=== PATIENT | male | born 1970 | race Caucasian/White ===

== ENCOUNTER → 2018-04-15 07:18 | Outpatient (REF) | payer MEDICARE, MEDICAID, SELFPAY ==
[2018-04-15 08:14] LABS: Add Manual Diff / Slide Review NO; Basophils Percent Auto 0.3 % (0-2); Eosinophils Percent Auto 1.7 % (2-4); Hematocrit 45.4 % (41-53); Hemoglobin 15.8 g/dL (13.5-17.5); Lymphocytes Percent Auto 19.4 % (25-40); Mean Corpuscular HGB Conc 34.7 % (30-36); Mean Corpuscular Hemoglobin 29.5 PG (26-34); Mean Corpuscular Volume 84.9 fL (80-100); Monocytes Percent Auto 7.5 % (3-14); Neutrophils Absolute Auto 7200 /uL (3000-5900); Neutrophils Percent Auto 71.1 % (50-75); Platelet Count 226 X10^3/uL (150-400); Red Blood Cell Count 5.35 X10^6/uL (4.5-5.9); Red Cell Distribution Width 13.7 % (11.6-14.8); White Blood Cell Count 10.2 X10^3/uL (4.5-11.0)
[2018-04-15 08:36] LABS: BUN Creatinine Ratio 24.3 (6-22); Blood Urea Nitrogen 17 mg/dL (9-20); Calcium 8.9 mg/dL (8.4-10.2); Carbon Dioxide 28 mmol/L (22-32); Chloride 105 mmol/L (98-107); Estimated Glomerular Filt Rate > 60.0 mL/min (>60); Glucose 97 mg/dL (70-100); HEMOLYSIS < 15 (0-50); Potassium 4.1 mmol/L (3.4-5.1); Sodium 143 mmol/L (137-145)
[2018-04-15 09:00] LABS: Thyroid Stimulating Hormone 1.73 uIU/mL (0.47-4.68)
[2018-04-15 09:04] LABS: Vitamin D 25 Hydroxy (D3) 43.1 ng/mL (30.0-100.0)
[2018-04-15 09:18] LABS: Vitamin B12 447 pg/mL (239-931)
== END ==
LOC: LAB 07:18
PROVIDERS: Family Provider Internal Medicine; PCP Internal Medicine; Visit Provider Nurse Practitioner Family
DX: F32.9 Major depressive disorder, single episode, unspecified (principal)
CPT/HCPCS: 36415; 80048; 82306; 82607; 84443; 85025

== ENCOUNTER 2018-06-19 05:39 | Inpatient (IN) | payer MEDICARE, MEDICAID, SELFPAY ==
[2018-06-19] VITALS (10 sets, daily range): BP systolic 106–150; BP diastolic 51–91; PULSE 95–122; RESP 17–20; TEMP 36.2–37.9; O2SAT 93–97; BMI 41.5
--- NOTE | 2018-06-19 05:48 | ED.GENADULT ---
HPI - General Adult General Chief complaint: Fall Stated complaint: GLF, leg pain Time Seen by Provider: 06/19/18 05:48 Source: patient and EMS Mode of arrival: EMS Limitations: no limitations History of Present Illness HPI narrative: Patient is a 47-year-old male with a history of multiple sclerosis. At baseline he walks with a walker. EMS was called this morning because he states that he got out of bed and slumped to the ground. Was unable to get up. He states that for the past week or so he has notices lower extremities becoming more weak. He states that he has had this happen to him in the past. He states that it lasts for couple days and then improves. States it has been ?a while? since his last MRI. Does not know the name of his neurologist. Does not know the name of his primary care doctor. Related Data Allergies Allergy/AdvReac Type Severity Reaction Status Date / Time No Known Drug Allergies Allergy Verified 06/19/18 05:51 Review of Systems Constitutional Denies fever(s) and Denies headache(s) ENT Ears, Nose, Mouth, and Throat: Denies vertigo, Denies dizziness, Denies headache(s), Denies disequilibrium, Reports sinus pressure and Reports sore throat Cardiovascular Denies chest pain, Denies palpitations and Denies dyspnea Respiratory Denies dyspnea and Denies wheezing Gastrointestinal Gastrointestinal: Denies abdominal pain, Denies nausea and Denies vomiting Genitourinary Denies dysuria Musculoskeletal Denies myalgias, Denies arthralgias, Reports muscle weakness, Denies numbness and Reports stiffness Integumentary/Breasts Denies lesions and Denies rash Neurologic Denies vertigo, Denies dizziness, Denies headache(s), Reports lack of coordination, Denies numbness and Denies disequilibrium Endocrine Denies palpitations Hematologic/Lymphatic Comments: Not on anticoagulation Allergic/Immunologic Denies wheezing PFSH Medical History Multiple sclerosis (Acute) Surgical History No pertinent past surgical history (Acute) Social History lives independently: No Smoking Status: Never smoker Exam Initial Vital Signs Initial Vital Signs: Vital Signs Temperature 99.6 F 06/19/18 05:49 Pulse Rate 122 H 06/19/18 05:49 Respiratory Rate 18 06/19/18 05:49 Blood Pressure 143/91 H 06/19/18 05:49 Pulse Oximetry 97 06/19/18 05:49 Const General: cooperative, comfortable, well developed, well groomed and No acute distress Orientation: alert, awake and oriented x3 HENMT Head: normal to inspection and normocephalic Resp Effort & Inspection: normal respiratory effort Auscultation: clear to auscultation bilaterally Cardio Rate: tachycardic Rhythm: regular rhythm Pulses: radial pulses present GI Inspection: non-distended Palpation: soft and No tender Skin Rashes: no rashes Neuro General: alert, awake and oriented x3 Cranial Nerves: CN's II-XI intact bilaterally Cognition: normal cognition Sensory Exam: no sensory deficits noted Other: 1/5 strength bilateral lower extremities. Patient unable to lift both legs up off the bed. 5/5 strength bilateral upper extremity Extrem General: capillary refill normal Psych Appearance: grossly normal and well kempt Course Orders Ordered: ED Orders 06/19/18 05:54 EKG-12 Lead Stat 06/19/18 06:10 Procalcitonin Stat 06/19/18 06:28 Basic Metabolic Panel Stat Blood Culture Stat C-Reactive Protein Quant Stat Complete Blood Count AUTO DIFF Stat Erythrocyte Sedimentation Rate Stat Influenza A and B by PCR Rapid Stat Lactate (Lactic Acid) Stat 06/19/18 06:35 XR chest 1V Stat Sodium Chloride (Normal Saline 0.9%) 4,286.46 mls @ 1,428.82 mls/hr 30 ml/kg infuse over 3 hr (4286.46 ml) IV CONT ROBERTO Discontinued Medications Azithromycin (Zithromax) 500 mg PO NOW ONE Stop: 06/19/18 06:45 Last Admin: 06/19/18 06:57 Dose: 500 mg Methylprednisolone 1,000 mg/ (Sodium Chloride) 258 mls @ 258 mls/hr IV NOW ONE Stop: 06/19/18 05:57 Sodium Chloride (Normal Saline 0.9%) 1,000 mls @ 150 mls/hr IV CONT ROBERTO Last Admin: 06/19/18 06:42 Dose: 150 mls/hr Vital Signs - 8 hr 06/19/18 05:49 06/19/18 06:45 Temperature 99.6 F 100.3 F H Pulse Rate 122 H 118 H Respiratory Rate 18 17 Blood Pressure 143/91 H Blood Pressure [Right Arm] 132/86 Pulse Oximetry 97 94 Medical Decision Making Lab Data Lab results reviewed: Yes I reviewed the patient's lab results. Result diagrams: 06/19/18 06:28 06/19/18 06:28 Lab Results 06/19/18 06/19/18 06/19/18 Range/Units 06:10 06:28 06:28 WBC 19.9 H (4.5-11.0) X10^3/uL RBC 5.69 (4.5-5.9) X10^6/uL Hgb 16.5 (13.5-17.5) g/dL Hct 48.1 (41-53) % MCV 84.7 (80-100) fL MCH 29.1 (26-34) PG MCHC 34.3 (30-36) % RDW 13.6 (11.6-14.8) % Plt Count 226 (150-400) X10^3/uL Neut % (Auto) 87.6 H (50-75) % Lymph % (Auto) 6.9 L (25-40) % [place] % (Auto) 4.9 (3-14) % Eos % (Auto) 0.3 L (2-4) % Baso % (Auto) 0.3 (0-2) % Neut # (Auto) 38244 H (0695-6131) /uL ESR (0-15) MM/HR Sodium 141 (137-145) mmol/L Potassium 4.0 (3.4-5.1) mmol/L Chloride 102 (98-107) mmol/L Carbon Dioxide 24 (22-32) mmol/L BUN 19 (9-20) mg/dL Creatinine 0.80 (0.66-1.25) mg/dL Estimated GFR > 60.0 (>60) mL/min BUN/Creatinine Ratio 23.8 H (6-22) Glucose 151 H (70-100) mg/dL Lactate (0.7-2.1) mmol/L Calcium 9.1 (8.4-10.2) mg/dL C-Reactive Protein (<1.0) mg/dL Procalcitonin 0.07 (<0.5) ng/mL Influenza A & B (PCR) (Negative) 06/19/18 06/19/18 06/19/18 Range/Units 06:28 06:28 06:28 WBC (4.5-11.0) X10^3/uL RBC (4.5-5.9) X10^6/uL Hgb (13.5-17.5) g/dL Hct (41-53) % MCV (80-100) fL MCH (26-34) PG MCHC (30-36) % RDW (11.6-14.8) % Plt Count (150-400) X10^3/uL Neut % (Auto) (50-75) % Lymph % (Auto) (25-40) % [place] % (Auto) (3-14) % Eos % (Auto) (2-4) % Baso % (Auto) (0-2) % Neut # (Auto) (4345-5547) /uL ESR 1 (0-15) MM/HR Sodium (137-145) mmol/L Potassium (3.4-5.1) mmol/L Chloride (98-107) mmol/L Carbon Dioxide (22-32) mmol/L BUN (9-20) mg/dL Creatinine (0.66-1.25) mg/dL Estimated GFR (>60) mL/min BUN/Creatinine Ratio (6-22) Glucose (70-100) mg/dL Lactate 2.0 (0.7-2.1) mmol/L Calcium (8.4-10.2) mg/dL C-Reactive Protein 3.7 H (<1.0) mg/dL Procalcitonin (<0.5) ng/mL Influenza A & B (PCR) (Negative) 06/19/18 Range/Units 06:28 WBC (4.5-11.0) X10^3/uL RBC (4.5-5.9) X10^6/uL Hgb (13.5-17.5) g/dL Hct (41-53) % MCV (80-100) fL MCH (26-34) PG MCHC (30-36) % RDW (11.6-14.8) % Plt Count (150-400) X10^3/uL Neut % (Auto) (50-75) % Lymph % (Auto) (25-40) % [place] % (Auto) (3-14) % Eos % (Auto) (2-4) % Baso % (Auto) (0-2) % Neut # (Auto) (4721-1648) /uL ESR (0-15) MM/HR Sodium (137-145) mmol/L Potassium (3.4-5.1) mmol/L Chloride (98-107) mmol/L Carbon Dioxide (22-32) mmol/L BUN (9-20) mg/dL Creatinine (0.66-1.25) mg/dL Estimated GFR (>60) mL/min BUN/Creatinine Ratio (6-22) Glucose (70-100) mg/dL Lactate (0.7-2.1) mmol/L Calcium (8.4-10.2) mg/dL C-Reactive Protein (<1.0) mg/dL Procalcitonin (<0.5) ng/mL Influenza A & B (PCR) Negative (Negative) Imaging Data Chest x-ray: Attestation: I personally reviewed and interpreted this imaging study as follows: My impression: Bilateral patchy infiltrates. Potential right middle lobe pneumonia. ECG Data Attestation: I personally reviewed and interpreted this ECG as follows: Prior ECG tracings: not available for review Interpretation: Sinus tachycardia Ventricular rate of 123 Normal axis Normal QRS Normal QTC No ST T wave changes MDM Narrative Medical decision making narrative: Patient reports progressive worsening lower extremity weakness over the past couple days and to the point where he was unable to stand this morning. He states that he has had something like this in the past. He states that normally last couple days and then improves. He does not know when his last MRI was. He has does describe upper respiratory tract infection like symptoms. He was tachycardic but when asked he states that his heart rate is normally ?up there ?patient was given steroids here in the emergency department. Patient was never hypotensive. Does have a leukocytosis. Has bilateral patchy infiltrates on the chest x-ray. There is some concern for pneumonia. Discussed the case with night hospitalist. Will admit for further evaluation and treatment. Discussed admission with the patient. He expressed understanding and agreement. Discharge Plan Departure Patient Disposition: Admitted As Inpatient Clinical Impression: Multiple sclerosis, Tachycardia, Pneumonia
[2018-06-19 06:31] LABS: Add Manual Diff / Slide Review NO; Basophils Percent Auto 0.3 % (0-2); Eosinophils Percent Auto 0.3 % (2-4); Hematocrit 48.1 % (41-53); Hemoglobin 16.5 g/dL (13.5-17.5); Lymphocytes Percent Auto 6.9 % (25-40); Mean Corpuscular HGB Conc 34.3 % (30-36); Mean Corpuscular Hemoglobin 29.1 PG (26-34); Mean Corpuscular Volume 84.7 fL (80-100); Monocytes Percent Auto 4.9 % (3-14); Neutrophils Absolute Auto 17500 /uL (1500-7000); Neutrophils Percent Auto 87.6 % (50-75); Platelet Count 226 X10^3/uL (150-400); Red Blood Cell Count 5.69 X10^6/uL (4.5-5.9); Red Cell Distribution Width 13.6 % (11.6-14.8); White Blood Cell Count 19.9 X10^3/uL (4.5-11.0)
--- NOTE | 2018-06-19 06:35 | DI.RAD.S_ITS ---
PROCEDURE: XR CHEST 1V INDICATIONS: Cough TECHNIQUE: One view of the chest was acquired. COMPARISON: [facility], CR, XR CHEST 1VW (PORTABLE), 05/16/2016, 11:32. FINDINGS: Surgical changes and devices: None. Lungs and pleura: There is an overall appearance of patchy bilateral pulmonary opacities with increased vascularity. Mediastinum: Mediastinal contours appear normal. Heart size is normal. Bones and chest wall: No suspicious bony lesions. Overlying soft tissues appear unremarkable. IMPRESSION: Bilateral pulmonary opacities suggestive of pneumonia. Increased appearance of pulmonary vascularity is also present. Recommend interval followup to document resolution. Dictated by: Taisha Macedo M.D. on 06/19/2018 at 8:19 Approved by: Taisha Macedo M.D. on 06/19/2018 at 8:20
[2018-06-19] MEDS: SODIUM CHLORIDE 0.9% 1,000 ML 150 ML IV (06:42)
[2018-06-19 06:47] LABS: Influenza A and B by PCR Rapid Negative (Negative)
[2018-06-19 06:57] LABS: BUN Creatinine Ratio 23.8 (6-22); Blood Urea Nitrogen 19 mg/dL (9-20); Calcium 9.1 mg/dL (8.4-10.2); Carbon Dioxide 24 mmol/L (22-32); Chloride 102 mmol/L (98-107); Estimated Glomerular Filt Rate > 60.0 mL/min (>60); Glucose 151 mg/dL (70-100); HEMOLYSIS < 15 (0-50); Sodium 141 mmol/L (137-145)
[2018-06-19] MEDS: AZITHROMYCIN 250 MG TABLET 500 MG PO (06:57)
[2018-06-19 07:00] LABS: C-Reactive Protein Quant 3.7 mg/dL (<1.0)
[2018-06-19 07:18] LABS: Erythrocyte Sedimentation Rate 1 MM/HR (0-15)
[2018-06-19 07:20] LABS: Procalcitonin 0.07 ng/mL (<0.5)
[2018-06-19] MEDS: SODIUM CHLORIDE 0.9% 1428.82 ML IV (07:48)
[2018-06-19] MEDS: methylPREDNISolone 1,000 MG in SODIUM CHLORIDE 0.9% 250 ML 258 ML IV (08:00)
--- NOTE | 2018-06-19 08:22 | PC.NURSE ---
normal saline sepsis protocol iv fluids were continuing upon transfer to floor. there is no place on the flowsheet to pause. BRYSON Chan aware and will put in iv stop time when appopriate later today.
--- NOTE | 2018-06-19 08:50 | PM.HP.1 ---
History of Present Illness Date Patient Seen: 06/19/18 Time Patient Seen: 07:00 Chief complaint: GLF, leg pain Narrative: This is a 47 year old male with a history of multiple sclerosis who presents to the emergency department after developing progressive weakness in his lower extremities to the extent that he could not stand up today. The patient has had prior flares and describes this as a typical presentation. He reports no other prodromal symptoms. He has had no illness or stessors. He lives at the [facility] and typically ambulates with a walker but cannot lift his leg off the bed. He states he has no other complaints of upper extremity weakness or prathesias. He reports no issures with bowel or bladder control. He takes no routine medications. In the ED the patient received his first dose of methylprednisolone 1000 mg. Patient History Medical History Multiple sclerosis (Acute) Surgical History No pertinent past surgical history (Acute) Family & Social History Social History: lives independently No Tobacco & Substance use: Smoking Status Never smoker alcohol intake frequency 0-2 drinks per day Substance Use Type does not use Meds Allergies Allergy/AdvReac Type Severity Reaction Status Date / Time No Known Drug Allergies Allergy Verified 06/19/18 05:51 Review of Systems Constitutional Constitutional: Denies body ache(s), Denies chills, Denies fatigue, Denies fever(s), Denies headache(s) and Reports weakness Eyes Eyes: Denies change in vision and Denies double vision ENT Ears, Nose, Mouth, and Throat: No difficulty swallowing, No dizziness, No headache(s), No hearing loss, No nasal congestion, No neck pain and No poor balance (ambulates with a walker) Cardiovascular Cardiovascular: Denies chest pain, Denies fainting, Denies leg swelling, Denies rapid, pounding, or irregular heartbeat and Denies shortness of breath Respiratory Respiratory: Denies cough, Denies pain with cough, Denies dyspnea, Denies wheezing and Reports other Gastrointestinal Gastrointestinal: Denies abdominal pain, Denies bloating, Denies change in bowel habits, Denies change in stool character, Denies constipation, Denies cramping and Denies dysphagia Genitourinary Genitourinary: Reports difficulty urinating and Reports urinary frequency Musculoskeletal Musculoskeletal: Reports abnormal gait (bilateral leg weakness, L>R), Denies back pain, Denies myalgias, Denies arthralgias, Denies joint swelling, Denies neck pain, Denies numbness and Denies tingling Neurologic Neurologic: Reports abnormal gait (bilateral leg weakness, L>R), Denies confusion, Denies dizziness, Denies syncope, Denies headache(s), Denies numbness, Denies tingling, Denies disequilibrium (ambulates with a walker) and Reports weakness Psychiatric Psychiatric: Denies anxiety, Denies confusion, Denies depression, Denies difficulty concentrating and Denies panic attacks Endocrine Endocrine: Denies cold intolerance, Denies fatigue, Denies heat intolerance, Denies polyphagia, Denies polydipsia, Denies polyuria and Denies palpitations Hematologic/Lymphatic Hematologic/Lymphatic: Denies easy bleeding and Denies lymphadenopathy Allergic/Immunologic Allergic/Immunologic: Denies wheezing Exam Vital Signs (past 8 hours): - 06/19/18 05:49 06/19/18 06:45 06/19/18 08:07 Temperature 99.6 F 100.3 F H 99.4 F Pulse Rate 122 H 118 H 111 H Respiratory Rate 18 17 18 Blood Pressure 143/91 H Blood Pressure [Left Arm] 126/80 Blood Pressure [Right Arm] 132/86 Pulse Oximetry 97 94 95 Oxygen Delivery Method Room Air Const General: cooperative, comfortable and No acute distress Nutritional Appearance: obese (BMI 41.6) Orientation: alert, awake and oriented x3 Limitations: no behavioral limitations, physical limitations (in mobility, self care deficit) and no other limitations [facility] Head: normocephalic and atraumatic Ears: hearing grossly normal bilaterally Nose: external nose normal and No nasal discharge Face and sinus: normal facial exam and sinuses nontender Mouth: oral mucosae normal and tongue normal Throat: posterior oropharynx normal and uvula midline Eyes Conjunctivae: conjunctivae normal Pupils: PERRL EOM: EOM intact bilaterally and No nystagmus Neck Neck: full ROM, no meningeal signs, trachea midline and No tender Thyroid: thyroid normal Lymphatic: No lymphadenopathy Chest Chest: normal palpation of entire chest wall, No crepitus and No tenderness Resp Effort & Inspection: no cough and not labored Auscultation: clear to auscultation bilaterally, rhonchi (coarseness right middle lobe) and no wheezes Cardio Rate: regular rate Rhythm: regular rhythm Heart Sounds: S1 normal, S2 normal, no gallops, no murmurs and no rubs Bruits: no carotid bruits Pulses: normal peripheral pulses GI Inspection: other (Obese, round) Palpation: soft and No no hepatosplenomegaly (exam limited by body habitis) Percussion: dullness to percussion Auscultation: normal bowel sounds General: bladder normal to palpation and No CVA tenderness Back/Spine/Pelvis Back: No back tenderness Skin General: no rashes or lesions noted, No ecchymosis and No erythema Neuro Cranial Nerves: No nystagmus Speech: speech normal Motor: movement abnormality noted (strength right leg 3/5, on left 2/5) Sensory Exam: no sensory deficits noted DTR's: Rt Patellar: 0, Lt Patellar: 0, Rt Ankle: 0 and Lt Ankle: 0 Plantar Reflexes: Downgoing: bilateral Pupils: Normal pupillary reactivity/response: bilateral and Mid position: bilateral Extrem General: normal to inspection, capillary refill normal, no calf tenderness and No pedal edema Psych Mental Status: mental status grossly normal Attitude: cooperative Thought Process: other (linear) Thought Content: normal Objective Labs Result Diagrams: 06/19/18 06:28 06/19/18 06:28 Labs: Laboratory Results - last 24 hr 06/19/18 06/19/18 06/19/18 06:10 06:28 06:28 WBC 19.9 H RBC 5.69 Hgb 16.5 Hct 48.1 MCV 84.7 MCH 29.1 MCHC 34.3 RDW 13.6 Plt Count 226 Neut % (Auto) 87.6 H Lymph % (Auto) 6.9 L [place] % (Auto) 4.9 Eos % (Auto) 0.3 L Baso % (Auto) 0.3 Neut # (Auto) 44989 H ESR Sodium 141 Potassium 4.0 Chloride 102 Carbon Dioxide 24 BUN 19 Creatinine 0.80 Estimated GFR > 60.0 BUN/Creatinine Ratio 23.8 H Glucose 151 H Lactate Calcium 9.1 C-Reactive Protein Procalcitonin 0.07 Influenza A & B (PCR) 06/19/18 06/19/18 06/19/18 06:28 06:28 06:28 WBC RBC Hgb Hct MCV MCH MCHC RDW Plt Count Neut % (Auto) Lymph % (Auto) [place] % (Auto) Eos % (Auto) Baso % (Auto) Neut # (Auto) ESR 1 Sodium Potassium Chloride Carbon Dioxide BUN Creatinine Estimated GFR BUN/Creatinine Ratio Glucose Lactate 2.0 Calcium C-Reactive Protein 3.7 H Procalcitonin Influenza A & B (PCR) 06/19/18 06:28 WBC RBC Hgb Hct MCV MCH MCHC RDW Plt Count Neut % (Auto) Lymph % (Auto) [place] % (Auto) Eos % (Auto) Baso % (Auto) Neut # (Auto) ESR Sodium Potassium Chloride Carbon Dioxide BUN Creatinine Estimated GFR BUN/Creatinine Ratio Glucose Lactate Calcium C-Reactive Protein Procalcitonin Influenza A & B (PCR) Negative Assessment & Plan Plan: Assessment/Plan Narrative: 1. Multiple sclerosis The patient reports that this is a typical MS flare for him Will continue methylprednisolone 1000 mg daily for 5 days We will monitor blood sugars via daily labs 2. Community acquired pneumonia The patient has a low grade fever and leukocytosis but a negative procalcitionin Chest xray reveals pulmonary infiltrates in the right lung, with coarseness on auscultation The patient is started on azithromycin in the ER and will continue with 250 mg once daily The patients vitals are otherwise stable and does not appear to be septic, IV fluids are discontinued. 3. Urinary retention The patient is unable to void laying down, he states he has to stand to urinate but cannot due to leg weakness [place] catheter is ordered.
[2018-06-19] MEDS: DOCUSATE 100 MG CAPSULE PO (11:19)
[2018-06-19] MEDS: ENOXAPARIN 40 MG/0.4 ML SYRINGE SUBCUT (11:19)
[2018-06-19 11:28] LABS: Add Manual Diff / Slide Review NO; Basophils Percent Auto 0.1 % (0-2); Hematocrit 47.5 % (41-53); Lymphocytes Percent Auto 3.9 % (25-40); Mean Corpuscular HGB Conc 33.7 % (30-36); Monocytes Percent Auto 0.6 % (3-14); Neutrophils Absolute Auto 18800 /uL (1500-7000); Neutrophils Percent Auto 95.4 % (50-75); Platelet Count 218 X10^3/uL (150-400); Red Blood Cell Count 5.53 X10^6/uL (4.5-5.9); Red Cell Distribution Width 13.7 % (11.6-14.8); White Blood Cell Count 19.7 X10^3/uL (4.5-11.0)
[2018-06-19 11:38] LABS: BUN Creatinine Ratio 16.7 (6-22); Blood Urea Nitrogen 15 mg/dL (9-20); Calcium 8.9 mg/dL (8.4-10.2); Carbon Dioxide 25 mmol/L (22-32); Chloride 105 mmol/L (98-107); Estimated Glomerular Filt Rate > 60.0 mL/min (>60); Glucose 231 mg/dL (70-100); HEMOLYSIS < 15 (0-50); Potassium 4.1 mmol/L (3.4-5.1); Sodium 143 mmol/L (137-145)
--- NOTE | 2018-06-19 14:16 | PC.ADMIT ---
PATIENT ADMITTED TO 214 THIS AM. IVF BOLUS' PER ER ORDERS INFUSING, RESUMED IV PIGGYBACK SOLUMEDROL ORDERED AND STARTED IN ER. PATIENT UNCOMFORTABLE W/ URGE TO VOID. ONLY VOIDED 50CC'S. BLADDER SCANNED SHOWED 600CC'S. COUDE 14F WILDER PLACED W/ RETURN OF CLEAR LIGHT WILFREDO URINE 1400 CC'S. PER CIRCUIT RECORDER IVF STOPPED AFTER TOTAL OF 2000CC'S INFUSED PER ER BOLUS ORDERS. PATIENT NOW SL'D PER CIRCUIT RECORDER ORDER. PATIENT SLEEPING, NO S/SX'S OF DISTRESS AT THIS TIME. [id number] [facility] Admission Note: The patient,Ranjan Kemp,47 y/o, was given written information regarding hospital policies, unit procedures and contact persons. Patient's smoking status: Former smoker. Vital Signs - 8 hr 06/19/18 06:45 06/19/18 08:07 06/19/18 09:04 Temperature 100.3 F H 99.4 F 98.7 F Pulse Rate 118 H 111 H 104 H Respiratory Rate 17 18 18 Blood Pressure 106/51 L Blood Pressure [Left Arm] 126/80 Blood Pressure [Right Arm] 132/86 Pulse Oximetry 94 95 96
--- NOTE | 2018-06-19 14:45 | PT.IIE ---
Current Diagnoses Multiple sclerosis (06/19/18) Surgical History (Last Updated 06/19/18 @ 06:36 by Georgi Gupta DO) No pertinent past surgical history (Acute) Medical History (Last Updated 06/19/18 @ 10:47 by Tereza Corea RN) Bladder disorder, unspecified (Acute) Gastro-esophageal reflux disease without esophagitis (Acute) Major depressive disorder with single episode (Acute) Obesity (Acute) Retention of urine, unspecified (Acute) Syncope and collapse (Acute) Vitamin D deficiency, unspecified (Acute) Multiple sclerosis (Acute) Physical Therapy Inpatient Evaluation/Re-Eval M1 PT/OT-IP Prior Functional Status Start: 06/19/18 16:27 Freq: NEEDED Status: Active Protocol: Document 06/19/18 16:29 [facility] (Rec: 06/19/18 17:15 [facility] [id number]) Medical Review Prior Functional Status Medical History Reviewed Yes Communication Independent, staff at [facility] needs lots of cues and at time confused. Mobility and Gait Staff at [facility] pt will transfer with FWW to 50% of the time and with no device 50% of the time. Polly, staff at [facility] [place] pt was SBA and only needing cues for FWW safety one month ago, but has not seen or heard of him having any assist otherwise since then. Activities of Daily Living and IADL's Staff states pt just able to do UB dressing , but otherwise needing one person assist for all LB dressing , shower, and toileting needs. Prior Functional Level (Other details) Staff states pt mainly just sits up in his recliner for most of the day. Social History Living Arrangements Assisted Living Number of Floors (Floors) One Floor Home Equipment Front Wheel Walker Manual Wheelchair M1 PT/OT-IP Prior Functional Status Start: 06/19/18 17:01 Freq: NEEDED Status: Active Protocol: Document 06/19/18 14:45 AB (Rec: 06/19/18 17:24 AB [id number]) Medical Review Prior Functional Status Medical History Reviewed Yes Communication with confusion Mobility and Gait per [facility]: pt requires one person SBA with transfers and was only needing cues. stated that pt usually uses his recliner. for toileting: caregiver assists pt in using a FWW to ambulate to the toilet but at time transfers on to a w/c and transfers from the w/c to the toilet. per nurse at [facility]: pt' s toilet is ~ 10 ft away from the bed Social History Household Members caregiver Living Arrangements Assisted Living Number of Stairs To Enter/Railing? pt lives at [facility] Home Equipment Front Wheel Walker Manual Wheelchair Additional Social History Comment hospital bed without rails M2 PT-IP Current Condition Start: 06/19/18 17:01 Freq: NEEDED Status: Active Protocol: Document 06/19/18 14:45 AB (Rec: 06/19/18 17:24 AB [id number]) Physical Therapy Current Condition Current Condition Evaluation Date 06/19/18 Treatment Diagnosis MS; PNA; generalized weakness Onset Date 06/19/18 Precautions Other Precautions Falls M3 PT-IP Subjective Start: 06/19/18 17:01 Freq: NEEDED Status: Active Protocol: Document 06/19/18 14:45 AB (Rec: 06/19/18 17:24 AB [id number]) Subjective Physical Therapy Visit Type Type Initial Evaluation Visit Start Time 14:45 Visit Stop Time 15:20 Total Visit Minutes 35 Number of CHEMIST Visits 0 Physical Therapy Visit Comments Patient Comments pt agreeable to get up Therapy Pain Assessment Pain Present Pain Present Denied Pain M4 PT-IP Mobility and Gait Start: 06/19/18 17:01 Freq: NEEDED Status: Active Protocol: Document 06/19/18 14:45 AB (Rec: 06/19/18 17:24 AB [id number]) PT-Bed Mobility Assessment Supine to Sit Supine to Sit Minimal Assistance Head of Bed Elevated Bedrails Scooting Scooting to Edge of Bed Standby Assistance PT-Transfer Assessment Sit to and From Stand Sit to and from Stand Maximum Assistance Equipment Transfer Assistive Device Gait Belt Front Wheeled Walker Orthotic/Prosthetic Devices or Brace: No Transfers Transfer Destination Chair Transfer Technique Stand Step Pivot Transfer Ability Level of Assist Maximum Assistance 2 Person Assistance Use of Upper Extremities Comments Mobility Comments pt requires max cues for all tasks. pt required max A x 2 for sit to stand and presents with unsteadiness with standing with (+) UE shaking/tremors. able to stand pivot to the chair using FWW max A x 2 and max cues and presents with (+) R knee hyperextension. Gait Assessment Gait Gait Assistance Required: Maximum Assistance 2 Person Assist Distance (Feet) 6 Able to Maintain Weight Bearing Status Yes During Gait Assistive Devices Assistive Device Gait Belt Front Wheeled Walker Orthotic/Prosthetic Devices or Brace: No Gait Deviations General Gait Pattern Antalgic Decreased Stride Length Decreased Feet Clearance Factors Limiting Gait Function Factors Limiting Gait Function Decreased Activity Tolerance Decreased Strength Difficulty Following Directions Poor Balance Poor Safety Awareness Comments Gait Comments needs chair follow PT-Balance Assessment Sitting Balance and Reactions Static Sitting Balance Ability Good Dynamic Sitting Balance Ability Good Standing Balance and Reactions Static Standing Balance Ability Poor Dynamic Standing Balance Ability Poor Device Used FWW M5 PT-IP Objective Assessments Start: 06/19/18 17:01 Freq: NEEDED Status: Active Protocol: Document 06/19/18 14:45 AB (Rec: 06/19/18 17:24 AB [id number]) Orientation Orientation/Cognition Level of Alertness Confusional State Orientation Name Safety Awareness Decreased Safety Awareness Memory Description Short Term Impaired [facility] Impaired Comments pt does not remember where he lives and PLOF; unable to state where he is at and requires constant cues for all tasks Gross Range of Motion Lower Extremity ROM Assessment Within Functional Limits Strength Lower Extremity Strength Assessment Bilaterally Impaired Comments Strength Comments LLE weaker than RLE LLE: 3+/5 RLE: 4-/5 M6 PT-IP Treatment Start: 06/19/18 17:01 Freq: NEEDED Status: Active Protocol: Document 06/19/18 14:45 AB (Rec: 06/19/18 17:24 AB [id number]) Physical Therapy Treatment Education Education Provided Safety M7 PT-IP Assessment and Plan Start: 06/19/18 17:01 Freq: NEEDED Status: Active Protocol: Document 06/19/18 14:45 AB (Rec: 06/19/18 17:24 AB [id number]) PT Summary Assessment and Plan Potential Rehabilitation Potential Fair Status of Condition at Evaluation Evolving Summary Impairments Strength Balance Coordination Cognition Bed Mobility Transfers Gait Activity Tolerance Assessment Summary pt requiring 2 person assist with mobility at this time. d /c plan depending on progress but may require SNF rehab at this time to improve strength and mobility prior to going back to [facility]. Goals Bed Mobility Goal Contact Guard Assistance Transfer Goal Contact Guard Assistance Front Wheeled Walker Gait Goal Contact Guard Assistance Front Wheel Walker Gait Distance 10 Days to Meet Goals 5 Frequency of Treatment Frequency Of Treatment Once a Day Treatment Plan Physical Therapy Treatment Plan Bed Mobility Training Transfer Training Gait Training Therapeutic Exercise Balance Retraining Discharge Planning Hot or Cold Pack Neuromuscular Re-ed Coordination Retraining Manual Therapy Other Recommendations and Next Treatment sit<>stand, transfers, Focus ambulation Recommendations To Nursing Amount of Assist Needed 2 Person Assist Discharge Recommendations PT Discharge Recommendations Home with 24/7 Assist SNF Rehab Other Discharge Recommendations SNF vs home with 24/7 depending on level of assistance upon d/c
[2018-06-19] MEDS: BACLOFEN 10 MG TABLET 20 MG PO ×2 (16:50→20:41)
[2018-06-19] MEDS: INSULIN ASPART 100 UNIT/ML INSULN PEN SUBCUT ×2 (17:06→20:39)
--- NOTE | 2018-06-19 17:15 | OT.IP.EVAL ---
Current Diagnoses Multiple sclerosis (06/19/18) Past Medical History (Last Updated 06/19/18 @ 10:47 by Tereza Corea RN) Bladder disorder, unspecified (Acute) Gastro-esophageal reflux disease without esophagitis (Acute) Major depressive disorder with single episode (Acute) Obesity (Acute) Retention of urine, unspecified (Acute) Syncope and collapse (Acute) Vitamin D deficiency, unspecified (Acute) Multiple sclerosis (Acute) Surgical History (Last Updated 06/19/18 @ 06:36 by Georgi Gupta DO) No pertinent past surgical history (Acute) Occupational Therapy Inpatient Evaluation/Re-Eval M1 PT/OT-IP Prior Functional Status Start: 06/19/18 16:27 Freq: NEEDED Status: Active Protocol: Document 06/19/18 16:29 [facility] (Rec: 06/19/18 17:15 [facility] [id number]) Medical Review Prior Functional Status Medical History Reviewed Yes Communication Independent, staff at [facility] needs lots of cues and at time confused. Mobility and Gait Staff at [facility] pt will transfer with FWW to 50% of the time and with no device 50% of the time. Polly, staff at [facility] pt was SBA and only needing cues for FWW safety one month ago, but has not seen or heard of him having any assist otherwise since then. Activities of Daily Living and IADL's Staff states pt just able to do UB dressing, self feeding, and grooming but otherwise needing one person assist for all LB dressing , shower, and toileting needs. Prior Functional Level (Other details) Staff states pt mainly just sits up in his recliner for most of the day. Social History Living Arrangements Assisted Living Number of Floors (Floors) One Floor Home Equipment Front Wheel Walker Manual Wheelchair M2 OT-IP Current Condition Start: 06/19/18 16:27 Freq: Status: Active Protocol: Document 06/19/18 16:29 [facility] (Rec: 06/19/18 17:15 [facility] [id number]) Occupational Therapy Current Condition Current Condition Evaluation Date 06/19/18 Treatment Diagnosis MS flare, possible PNA Diagnosis Onset Date 06/19/18 Post Operative Precautions Other Precautions Use of bariatric FWW, per staff at [facility] pt tends to sit too close to the edge of the bed. M3 OT- IP Subjective and Pain Start: 06/19/18 16:27 Freq: Status: Active Protocol: Document 06/19/18 16:29 [facility] (Rec: 06/19/18 17:15 [facility] [id number]) OT- Subjective Occupational Therapy Visit Type Type Initial Evaluation Visit Start Time 14:45 Visit Stop Time 15:20 Total Visit Minutes 35 Occupational Therapy Visit Comments Patient Comments Pt a bit sleepy but agreeable to try to get up. OT Pain Assessment Pain When Pain Assessed At Rest Pain Present Pain Present Denied Pain M4 OT- IP ADL's Start: 06/19/18 16:27 Freq: Status: Active Protocol: Document 06/19/18 16:29 [facility] (Rec: 06/19/18 17:15 [facility] [id number]) OT ADL-Dressing General Eval Lower Body Dressing Ability Total Assistance Comments OT Dressing Comments Total assist for socks. OT ADL-Toileting Comments OT Toileting Comments Pt has catheter in. At home per staff would either walk with FWW to toilet or wheel manual wc to transfer to toilet. M6 OT- IP Functional Cognition Start: 06/19/18 16:27 Freq: Status: Active Protocol: Document 06/19/18 16:29 [facility] (Rec: 06/19/18 17:15 [facility] [id number]) Cognitive Factors Limiting Selfcare Function Cognitive Ability Level of Alertness Alert Confusional State Patient Orientation Name Attention Span Ability Capable of Focused Attention Unable to Sustain Attention Ability to Follow Commands Able to Follow One Step Commands with Increased Time Able to Follow One Step Commands with Repetition Memory Description Immediate Impaired Short Term Impaired [employer] Impaired Working Impaired Cognitive Comments Cognitive Assessment Comments Pt mainly just orientated to name, not aware of where he is or recall details of how much assist he needs. Pt states able to put on his own socks but per staff unable and not able to do so when asked. M7 OT- IP Mobility and Balance Start: 06/19/18 16:27 Freq: Status: Active Protocol: Document 06/19/18 16:29 [facility] (Rec: 06/19/18 17:15 [facility] [id number]) OT- Bed Mobility Assessment Supine to Sit Supine to Sit Assist Minimal Assistance 1 Person Assistance Bedrails OT-Transfer Assessment Sit to and From Stand Sit to and from Stand Maximum Assistance 2 Person Assistance Transfers Transfer Ability Maximum Assistance 2 Person Assistance Technique Transfer Destination Bed Chair Transfer Technique Stand Step Pivot Devices Transfer Assistive Devices Gait Belt Front Wheeled Walker Comments Mobility Comments Pt use of hospital rail and NICOLE x 1 to get to supine. Sit to stand MAX AX 2 with bariatric FWW, left LE tends to hyperextend while upright. Pt able to take a few step and also to transfer and very shaky of his legs , needing assist to guide FWW, balance for pt , and pt needing heavy use of BUE on bariatric FWW. Pt does not have bed rails at home. OT- Balance Assessment Sitting Balance and Reactions Static Sitting Balance Ability Good Dynamic Sitting Balance Ability Fair Standing Balance and Reactions Static Standing Balance Ability Poor Dynamic Standing Balance Ability Poor Comments Other Balance Tests/Deviations/Treatment Pt tends to lean to the right : and does not realize that he is not sitting to midline. Pt needing increased time to coordinate his arms to help scoot forwards to the edge of the bed. M8 OT- IP Objective Assessments Start: 06/19/18 16:27 Freq: Status: Active Protocol: Document 06/19/18 16:29 [facility] (Rec: 06/19/18 17:15 [facility] [id number]) OT Gross Range of Motion Upper Extremity Range of Motion Assessment Within Functional Limits OT Strength Comments Strength Comments BUE strength 5/5 OT-Muscle Tone Assessment Muscle Tone WNL Yes M9 OT- IP Assessment and Plan Start: 06/19/18 16:27 Freq: Status: Active Protocol: Document 06/19/18 16:29 [facility] (Rec: 06/19/18 17:15 [facility] [id number]) OT Summary Assessment and Plan Potential Rehabilitation Potential Good Analytic Complexity at Evaluation Low Summary OT Impairments Balance Functional Cognition Grooming Dressing Toileting Bathing Toilet Transfers Shower Transfers Progress Towards Goals Slow Progress due to Medical Issues Slow Progress due to Activity Tolerance Slow Progress due to Cognition Assessment Summary Pt Low complexity and main barriers is weakness, decreased activity tolerance, and not needing two person assist for ADl's and functional mobility needs. Pt would benefit from short skilled rehab prior to going home. Otherwise pt will need increased assist at [facility] Goals Self-Feeding Goal Standby Assistance Grooming Goal Standby Assistance Dressing Goal Moderate Assistance Toilet Transfer Goal Moderate Assistance Shower Transfer Goal Moderate Assistance Days to Meet Goals 7 Frequency of Treatment Frequency Of Treatment Once a Day Treatment Plan OT Treatment Plan ADL Training Functional Cognition Training Functional Mobility Patient/Family Education Discharge Planning Other Treatment Recommendations and Next Transfer to [facility] with FWW MAX Treatment Focus Ax1. Discharge Recommendations OT Discharge Recommendations SNF Rehab Other Discharge Recommendations Pending progress may be going home if Deng Willis able to provide greater assistance.
[2018-06-19 18:44] LABS: Bacteria Urine None Seen; WBC Urine None Seen (0-5/HPF)
[2018-06-19 18:47] LABS: Appearance Urine UA CLEAR; Bilirubin Urine UA NEGATIVE (NEGATIVE); Color Urine UA YELLOW; Glucose Urine UA 2+ g/dL (Normal); Ketones Urine UA NEGATIVE (NEGATIVE); Leukocyte Esterase Urine UA NEGATIVE (NEGATIVE); Nitrite Urine UA NEGATIVE (Negative); Occult Blood Urine UA 1+ (Negative); Protein Urine UA NEGATIVE (Negative); Urobilinogen Urine UA 0.2 E.U./dL (0.2)
[2018-06-19 19:01] LABS: Culture Indicated Urine Cult Not Indicated; RBC Urine 0-1/HPF (0-5/HPF)
[2018-06-19] MEDS: MELATONIN 3 MG TABLET PO (20:48)
[2018-06-20] VITALS (8 sets, daily range): BP systolic 120–145; BP diastolic 50–78; PULSE 85–106; RESP 18–20; TEMP 36.3–36.7; O2SAT 93–96
--- NOTE | 2018-06-20 08:28 | P.PN_ITS ---
Subjective Date Patient Seen: 06/20/18 Time Patient Seen: 07:45 Interval history: This is a 47year old male with a history of multiple sclerosis who was admitted to the hospital for bilateral lower extremity weakness. The patient resides in an assisted living facility and is typically ambulatory with a walker. On admission the patient could elevvate his heel of the bed bilaterally but not the entire leg due to weakness. Today the patient can lift both right and left leg off the bed to 40 degrees. He has no sensory deficits and denies muscular or joint pain. He has had not other complaints of pain or problems though he is being treated for community acquireed pneumona identified on chest film in the presence of coarseness in the right chest. Exam Vital Signs (past 8 hours): - 06/20/18 03:43 Temperature 98.1 F Pulse Rate 85 Respiratory Rate 20 Blood Pressure 124/64 Pulse Oximetry 95 Oxygen Delivery Method Room Air Oxygen Flow Rate 0 Const General: cooperative, comfortable and No acute distress Nutritional Appearance: obese Orientation: alert, awake and oriented x3 Limitations: mental status not altered, no behavioral limitations and physical limitations (continues to complain of weakness) [facility] Head: normal to inspection and normocephalic Nose: No nasal discharge Face and sinus: normal facial exam Mouth: moist mucous membranes Eyes Pupils: PERRL EOM: EOM intact bilaterally and No nystagmus Neck Neck: full ROM, No tender and No JVD Lymphatic: No lymphadenopathy Chest Chest: normal inspection of the chest and No tenderness Resp Effort & Inspection: normal respiratory effort and able to speak in complete sentences Auscultation: clear to auscultation bilaterally, no rhonchi and no wheezes Cardio Rate: regular rate Heart Sounds: S1 normal, S2 normal and no murmurs Pulses: normal peripheral pulses and other (no pedal edema) GI Palpation: soft and No tender Auscultation: normal bowel sounds Back/Spine/Pelvis Back: No back tenderness Skin General: no rashes or lesions noted and other (Skin pink, warm and dry) Neuro Cranial Nerves: No nystagmus Speech: speech normal Sensory Exam: no sensory deficits noted Extrem General: full ROM, capillary refill normal and No edema Psych Mental Status: mental status grossly normal Attitude: cooperative Thought Process: normal Objective Labs Result Diagrams: 06/19/18 08:45 06/19/18 08:45 Labs: Laboratory Results - last 24 hr 06/19/18 06/19/18 06/19/18 08:45 08:45 18:43 WBC 19.7 H RBC 5.53 Hgb 16.0 Hct 47.5 MCV 86.0 MCH 29.0 MCHC 33.7 RDW 13.7 Plt Count 218 Neut % (Auto) 95.4 H Lymph % (Auto) 3.9 L [place] % (Auto) 0.6 L Eos % (Auto) 0.0 L Baso % (Auto) 0.1 Neut # (Auto) 45550 H Sodium 143 Potassium 4.1 Chloride 105 Carbon Dioxide 25 BUN 15 Creatinine 0.90 Estimated GFR > 60.0 BUN/Creatinine Ratio 16.7 Glucose 231 H Calcium 8.9 Urine Color Yellow Urine Appearance Clear Urine pH 6.0 Ur Specific [place] 1.010 Urine Protein Negative Urine Glucose (UA) 2+ Urine Ketones Negative Urine Occult Blood 1+ H Urine Nitrate Negative Urine Bilirubin Negative Urine Urobilinogen 0.2 Ur Leukocyte Esterase Negative Urine RBC 0-1/hpf Urine WBC None seen Urine Bacteria None seen Ur Culture Indicated? Cult not indicated Micro UA Comment Not Reportable Assessment & Plan Plan: Assessment/Plan Narrative: 1. Multiple Sclerosis The patient is responding well to steroid treatment Increase strength bilateral lower extremities to 4/5 Will initiate PT for evaluation and assess weight bearing status Will continue methylprednisolone 1000 mg daily for total of 5 days If the patient regains function ability and can ambulate safely will look to discarge back to [facility]. Steroid therapy may be converted to PO to complete the course of therapy. No taper is needed. 2. Community acquired Pneumonia The patient reports no shortness of breath but has not been physically challenged to asses for exertional dsypnea Breath sounds have improved with no coarseness or wheezing Will continue azithromycin to complete 5 day course. Quality VTE Deep Vein Thrombosis/Pulmonary Embolism Present on Admission: No
[2018-06-20] MEDS: INSULIN ASPART 100 UNIT/ML INSULN PEN SUBCUT ×3 (08:41→20:41)
[2018-06-20] MEDS: AZITHROMYCIN 250 MG TABLET PO (08:41)
[2018-06-20] MEDS: DOCUSATE 100 MG CAPSULE PO ×3 (08:42→20:43)
[2018-06-20] MEDS: AMITRIPTYLINE 75 MG TABLET 150 MG PO (08:42)
[2018-06-20] MEDS: BACLOFEN 10 MG TABLET 20 MG PO ×3 (08:42→20:41)
[2018-06-20] MEDS: ENOXAPARIN 40 MG/0.4 ML SYRINGE SUBCUT (08:44)
[2018-06-20] MEDS: methylPREDNISolone 1,000 MG in SODIUM CHLORIDE 0.9% 250 ML 258 ML IV (08:46)
[2018-06-20] MEDS: TAMSULOSIN 0.4 MG CAPSULE 0.8 MG PO (08:48)
[2018-06-20] MEDS: SODIUM CHLORIDE 0.9% FLUSH 10 ML IV ×2 (10:45→20:41)
[2018-06-20] MEDS: CITALOPRAM 20 MG TABLET 40 MG PO (10:45)
[2018-06-20 11:18] LABS: Hematocrit 45.1 % (41-53); Hemoglobin 15.3 g/dL (13.5-17.5); Mean Corpuscular HGB Conc 33.9 % (30-36); Mean Corpuscular Hemoglobin 29.1 PG (26-34); Mean Corpuscular Volume 85.7 fL (80-100); Platelet Count 227 X10^3/uL (150-400); Red Blood Cell Count 5.27 X10^6/uL (4.5-5.9); Red Cell Distribution Width 13.8 % (11.6-14.8)
[2018-06-20 11:28] LABS: BUN Creatinine Ratio 31.7 (6-22); Blood Urea Nitrogen 19 mg/dL (9-20); Calcium 9.1 mg/dL (8.4-10.2); Carbon Dioxide 24 mmol/L (22-32); Chloride 105 mmol/L (98-107); Estimated Glomerular Filt Rate > 60.0 mL/min (>60); Glucose 205 mg/dL (70-100); HEMOLYSIS < 15 (0-50); Potassium 4.4 mmol/L (3.4-5.1); Sodium 141 mmol/L (137-145)
[2018-06-20 11:30] LABS: Add Manual Diff / Slide Review YES
[2018-06-20 11:33] LABS: White Blood Cell Count 30.2 X10^3/uL (4.5-11.0)
[2018-06-20 12:12] LABS: Neutrophils Absolute Manual 29294 /uL (3000-5900); Total Cells Counted 100
[2018-06-20 12:14] LABS: RBC Morphology Normal Morphology
[2018-06-20 13:28] LABS: Hematocrit 47.4 % (41-53); Hemoglobin 16.1 g/dL (13.5-17.5); Mean Corpuscular Hemoglobin 29.1 PG (26-34); Mean Corpuscular Volume 85.7 fL (80-100); Platelet Count 234 X10^3/uL (150-400); Red Blood Cell Count 5.53 X10^6/uL (4.5-5.9); Red Cell Distribution Width 14.1 % (11.6-14.8); White Blood Cell Count 27.5 X10^3/uL (4.5-11.0)
[2018-06-20 13:29] LABS: Add Manual Diff / Slide Review YES
--- NOTE | 2018-06-20 14:07 | PC.NURSE ---
Pt taking food and fluids. Critical value of 30.2 WBC - communicated to MD. Pt denies pain at this time. Sleeping intermittently.
[2018-06-20 14:18] LABS: Neutrophils Absolute Manual 26675 /uL (3000-5900); RBC Morphology Normal Morphology; Total Cells Counted 100
--- NOTE | 2018-06-20 14:20 | PT.IPTN ---
Current Diagnoses Multiple sclerosis (06/19/18) Physical Therapy Treatment Note M2 PT-IP Current Condition Start: 06/19/18 17:01 Freq: NEEDED Status: Active Protocol: Document 06/20/18 14:20 RCC (Rec: 06/20/18 15:11 RCC [id number]) Physical Therapy Current Condition Current Condition Evaluation Date 06/19/18 Treatment Diagnosis MS; PNA; generalized weakness Onset Date 06/19/18 Precautions Other Precautions Use of bariatric FWW, per staff at [place] pt tends to sit too close to the edge of the bed. M3 PT-IP Subjective Start: 06/19/18 17:01 Freq: NEEDED Status: Active Protocol: Document 06/20/18 14:20 RCC (Rec: 06/20/18 15:11 RCC [id number]) Subjective Physical Therapy Visit Type Type Treatment Note Visit Start Time 14:06 Visit Stop Time 14:20 Total Visit Minutes 14 Number of SOFTWARE VALIDATION TECHNICIAN Visits 0 Physical Therapy Visit Comments Patient Comments pt willing to get OOB Therapy Pain Assessment Pain Present Pain Present Denied Pain M4 PT-IP Mobility and Gait Start: 06/19/18 17:01 Freq: NEEDED Status: Active Protocol: Document 06/20/18 14:20 RCC (Rec: 06/20/18 15:11 RCC [id number]) PT-Bed Mobility Assessment Supine to Sit Supine to Sit Minimal Assistance 1 Person Assistance Head of Bed Elevated Scooting Scooting to Edge of Bed Minimal Assistance PT-Transfer Assessment Sit to and From Stand Sit to and from Stand Moderate Assistance 1 Person Assistance Use of Upper Extremities Equipment Transfer Assistive Device Gait Belt Front Wheeled Walker Transfers Transfer Destination Chair Transfer Technique Stand Step Pivot Transfer Ability Level of Assist Moderate Assistance 1 Person Assistance Comments Mobility Comments pt impulsive with movements Gait Assessment Gait Gait Assistance Required: Moderate Assistance 1 Person Assist Distance (Feet) 5 Assistive Devices Assistive Device Gait Belt Front Wheeled Walker Gait Deviations General Gait Pattern Ataxic Decreased Stride Length Decreased Feet Clearance Step-to Gait Wide Based Gait Factors Limiting Gait Function Factors Limiting Gait Function Decreased Activity Tolerance Decreased Strength Difficulty Following Directions Incoordination Poor Balance Poor Safety Awareness Comments Gait Comments impulsive; pt had buckling of the BLEs x1 each, more than just ataxia. 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 Comments pt does not remember where he lives and PLOF; unable to state where he is at and requires constant cues for all tasks Gross Range of Motion Lower Extremity ROM Assessment Within Functional Limits Strength Lower Extremity Strength Assessment Bilaterally Impaired Comments Strength Comments LLE weaker than RLE LLE: 3+/5 RLE: 4-/5 M6 PT-IP Treatment Start: 06/19/18 17:01 Freq: NEEDED Status: Active Protocol: Document 06/19/18 14:45 AB (Rec: 06/19/18 17:24 AB [id number]) Physical Therapy Treatment Education Education Provided Safety M7 PT-IP Assessment and Plan Start: 06/19/18 17:01 Freq: NEEDED Status: Active Protocol: Document 06/20/18 14:20 RCC (Rec: 06/20/18 15:11 RCC [id number]) PT Summary Assessment and Plan Summary Assessment Summary Pt with buckling of the bilateral LEs one time each with short gait in room using a bariatric FWW and Mod A to prevent falling. Pt is not safe to ambulate without PT at this time, recommend overhead lift for nursing. Pt may be a good candidate for Power Stand- Sit to Stand to assist with standing tolerance and strengthening. At this time, pt is well below his prior level of function. He must continue to progress and improve with his standing stability and gait in order to return back to assisted living. It is recommended that he d/c to SNF rehabilitation at this point in his recovery due to his h/o falls and still very high risk of falls, weakness, and impaired safety awareness (very impulsive). Goals Bed Mobility Goal Contact Guard Assistance Transfer Goal Contact Guard Assistance Front Wheeled Walker Gait Goal Contact Guard Assistance Front Wheel Walker Gait Distance 10 Days to Meet Goals 5 Frequency of Treatment Frequency Of Treatment Once a Day Treatment Plan Other Recommendations and Next Treatment sit<->stand, transfers (2 Focus assist), gait if able with chair follow; if deemed not safe for manual transfer, attempt Power Stander/Sit to Stand machine. Recommendations To Nursing Amount of Assist Needed Mechanical Lift Discharge Recommendations PT Discharge Recommendations SNF Rehab Other Discharge Recommendations SNF vs home with 19/01 depending on level of assistance upon d/c
--- NOTE | 2018-06-20 19:17 | PC.NURSE ---
PATIENT IS VERY UNSTEADY TO BATHROOM WITH WALKER,WILL USE BSC IF NEEDED.LG BM .
[2018-06-20] MEDS: MELATONIN 3 MG TABLET PO (20:40)
[2018-06-21] VITALS (11 sets, daily range): BP systolic 112–142; BP diastolic 62–100; PULSE 84–102; RESP 15–20; TEMP 36.2–36.7; O2SAT 94–96
--- NOTE | 2018-06-21 02:09 | PC.NURSE ---
0100 Pt called staff to ask where he was and why he is here, he asked am I in trouble?, pt reoriented to situation and reassured. Pt now calm and resting.
[2018-06-21] MEDS: ACETAMINOPHEN 325 MG TABLET 650 MG PO (03:34)
[2018-06-21 06:11] LABS: Alanine Aminotransferase 34 IU/L (21-72); Albumin 3.7 g/dL (3.5-5.0); Albumin Globulin Ratio 1.4 (1.0-2.8); Alkaline Phosphatase 111 U/L (38-126); Aspartate Aminotransferase 17 IU/L (17-59); BUN Creatinine Ratio 32.9 (6-22); Bilirubin Total 0.3 mg/dL (0.2-1.3); Blood Urea Nitrogen 23 mg/dL (9-20); Calcium 8.8 mg/dL (8.4-10.2); Carbon Dioxide 23 mmol/L (22-32); Chloride 105 mmol/L (98-107); Estimated Glomerular Filt Rate > 60.0 mL/min (>60); Globulin 2.7 g/dL (1.7-4.1); Glucose 270 mg/dL (70-100); HEMOLYSIS < 15 (0-50); Magnesium 2.3 mg/dL (1.6-2.3); Potassium 4.5 mmol/L (3.4-5.1); Sodium 140 mmol/L (137-145); Total Protein 6.4 g/dL (6.3-8.2)
[2018-06-21 06:27] LABS: Add Manual Diff / Slide Review NO; Basophils Percent Auto 0.1 % (0-2); Hematocrit 42.6 % (41-53); Hemoglobin 14.5 g/dL (13.5-17.5); Lymphocytes Percent Auto 3.5 % (25-40); Mean Corpuscular HGB Conc 34.1 % (30-36); Mean Corpuscular Hemoglobin 29.3 PG (26-34); Mean Corpuscular Volume 85.9 fL (80-100); Monocytes Percent Auto 4.1 % (3-14); Neutrophils Absolute Auto 21400 /uL (1500-7000); Neutrophils Percent Auto 92.3 % (50-75); Platelet Count 231 X10^3/uL (150-400); Red Blood Cell Count 4.96 X10^6/uL (4.5-5.9); Red Cell Distribution Width 13.9 % (11.6-14.8); White Blood Cell Count 23.2 X10^3/uL (4.5-11.0)
[2018-06-21 07:12] LABS: Procalcitonin 0.11 ng/mL (<0.5)
[2018-06-21] MEDS: INSULIN ASPART 100 UNIT/ML INSULN PEN SUBCUT ×4 (07:54→19:51)
[2018-06-21] MEDS: TAMSULOSIN 0.4 MG CAPSULE 0.8 MG PO (08:26)
[2018-06-21] MEDS: AZITHROMYCIN 250 MG TABLET PO (08:29)
[2018-06-21] MEDS: AMITRIPTYLINE 75 MG TABLET 150 MG PO (08:29)
[2018-06-21] MEDS: BACLOFEN 10 MG TABLET 20 MG PO ×3 (08:29→19:50)
[2018-06-21] MEDS: ENOXAPARIN 40 MG/0.4 ML SYRINGE SUBCUT (08:30)
--- NOTE | 2018-06-21 10:24 | OT.IP.TRT ---
Current Diagnoses Multiple sclerosis (06/19/18) Occupational Therapy Treatment Note M2 OT-IP Current Condition Start: 06/19/18 16:27 Freq: Status: Active Protocol: Document 06/19/18 16:29 [facility] (Rec: 06/19/18 17:15 [facility] [id number]) Occupational Therapy Current Condition Current Condition Evaluation Date 06/19/18 Treatment Diagnosis MS flare, possible PNA Diagnosis Onset Date 06/19/18 Post Operative Precautions Other Precautions Use of bariatric FWW, per staff at [place] pt tends to sit too close to the edge of the bed. M3 OT- IP Subjective and Pain Start: 06/19/18 16:27 Freq: Status: Active Protocol: Document 06/21/18 10:15 [facility] (Rec: 06/21/18 10:24 [facility] [id number]) OT- Subjective Occupational Therapy Visit Type Type Treatment Note Visit Start Time 09:00 Visit Stop Time 09:25 Total Visit Minutes 25 Occupational Therapy Visit Comments Patient Comments Pt agreeable to get up. OT Pain Assessment Pain When Pain Assessed At Rest Pain Present Pain Present Denied Pain M4 OT- IP ADL's Start: 06/19/18 16:27 Freq: Status: Active Protocol: Document 06/21/18 10:15 [facility] (Rec: 06/21/18 10:24 [facility] [id number]) OT ADL-Grooming Comments OT Grooming Comments Pt able to wash face and hands after set-up of wash cloth. OT ADL-Dressing General Eval Lower Body Dressing Ability Total Assistance Areas Needing Assistance Socks Comments OT Dressing Comments Total assist for LB dressing at this time. OT ADL-Toileting General Evaluation Toileting Ability Total Assistance Areas Needing Assistance Perform Perineal Hygiene Comments OT Toileting Comments Assist x2 to stand while aid able to assist pt with hygoene needs. 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 M7 OT- IP Mobility and Balance Start: 06/19/18 16:27 Freq: Status: Active Protocol: Document 06/21/18 10:15 [facility] (Rec: 06/21/18 10:24 [facility] [id number]) OT- Bed Mobility Assessment Supine to Sit Supine to Sit Assist Standby Assistance 1 Person Assistance Bedrails OT-Transfer Assessment Sit to and From Stand Sit to and from Stand Moderate Assistance 2 Person Assistance Transfers Transfer Ability Maximum Assistance 2 Person Assistance Technique Transfer Destination Bedside Commode Chair Transfer Technique Stand Step Pivot Devices Transfer Assistive Devices Gait Belt Front Wheeled Walker Comments Mobility Comments Having to block LLE from hyperextending, assist for balance and to guide bariatric FWW, and another person for BSC/chair follow. Still recommend mechanical lift for nursing. OT- Balance Assessment Sitting Balance and Reactions Static Sitting Balance Ability Good Dynamic Sitting Balance Ability Fair Standing Balance and Reactions Static Standing Balance Ability Poor Dynamic Standing Balance Ability Poor Comments Other Balance Tests/Deviations/Treatment Today pt able to sit to : midline and better coordination to use BUE to scoot foward to the edge of the bed. M8 OT- IP Objective Assessments Start: 06/19/18 16:27 Freq: Status: Active Protocol: Document 06/19/18 16:29 [facility] (Rec: 06/19/18 17:15 [facility] [id number]) OT Gross Range of Motion Upper Extremity Range of Motion Assessment Within Functional Limits OT Strength Comments Strength Comments BUE strength 5/5 OT-Muscle Tone Assessment Muscle Tone WNL Yes M9 OT- IP Assessment and Plan Start: 06/19/18 16:27 Freq: Status: Active Protocol: Document 06/21/18 10:15 [facility] (Rec: 06/21/18 10:24 [facility] [id number]) OT Summary Assessment and Plan Potential Rehabilitation Potential Good Analytic Complexity at Evaluation Low Summary OT Impairments Balance Functional Cognition Grooming Dressing Toileting Bathing Toilet Transfers Shower Transfers Progress Towards Goals Slow Progress due to Medical Issues Slow Progress due to Activity Tolerance Slow Progress due to Cognition Assessment Summary Pt still would benefit from skilled rehab to work on increased balance, endurance, and safety of transfers and functional mobility as prior only needing assist x1 at [place]. Goals Self-Feeding Goal Standby Assistance Grooming Goal Standby Assistance Dressing Goal Moderate Assistance Toilet Transfer Goal Moderate Assistance Shower Transfer Goal Moderate Assistance Days to Meet Goals 5 Frequency of Treatment Frequency Of Treatment Once a Day Treatment Plan OT Treatment Plan ADL Training Functional Cognition Training Functional Mobility Patient/Family Education Discharge Planning Discharge Recommendations OT Discharge Recommendations SNF Rehab Other Discharge Recommendations Pending progress may be going home if [place] able to provide greater assistance.
--- NOTE | 2018-06-21 12:06 | PT.IPTN ---
Current Diagnoses Multiple sclerosis (06/19/18) Physical Therapy Treatment Note M2 PT-IP Current Condition Start: 06/19/18 17:01 Freq: NEEDED Status: Active Protocol: Document 06/20/18 14:20 RCC (Rec: 06/20/18 15:11 RCC [id number]) Physical Therapy Current Condition Current Condition Evaluation Date 06/19/18 Treatment Diagnosis MS; PNA; generalized weakness Onset Date 06/19/18 Precautions Other Precautions Use of bariatric FWW, per staff at [place] pt tends to sit too close to the edge of the bed. M3 PT-IP Subjective Start: 06/19/18 17:01 Freq: NEEDED Status: Active Protocol: Document 06/21/18 09:00 LJ (Rec: 06/21/18 12:06 LJ [id number]) Subjective Physical Therapy Visit Type Type Treatment Note Visit Start Time 09:00 Visit Stop Time 09:26 Total Visit Minutes 26 Notes Co-treat with OT Number of ASPNET DEVELOPER Visits 1 Physical Therapy Visit Comments Patient Comments Pt wanting to get up to use BSC Therapy Pain Assessment Pain Present Pain Present Denied Pain M4 PT-IP Mobility and Gait Start: 06/19/18 17:01 Freq: NEEDED Status: Active Protocol: Document 06/21/18 09:00 LJ (Rec: 06/21/18 12:06 LJ [id number]) PT-Bed Mobility Assessment Supine to Sit Supine to Sit Standby Assistance Scooting Scooting to Edge of Bed Standby Assistance PT-Transfer Assessment Sit to and From Stand Sit to and from Stand Contact Guard Assistance 2 Person Assistance Equipment Transfer Assistive Device Gait Belt Front Wheeled Walker Transfers Transfer Destination Chair Bedside Commode Transfer Technique Stand Step Pivot Transfer Ability Level of Assist Contact Guard Assistance Minimal Assistance 2 Person Assistance Comments Mobility Comments Pt requires min to mod assist for leg buckling during transfers with one therapist assisting with FWW placement and cues. Gait Assessment Gait Gait Assistance Required: Minimum Assistance Moderate Assistance 2 Person Assist Distance (Feet) 8 Assistive Devices Assistive Device Gait Belt Front Wheeled Walker Gait Deviations General Gait Pattern Ataxic Decreased Stride Length Decreased Feet Clearance Step-to Gait Wide Based Gait Factors Limiting Gait Function Factors Limiting Gait Function Decreased Activity Tolerance Decreased Strength Difficulty Following Directions Incoordination Poor Balance Poor Safety Awareness Comments Gait Comments Pt had buckling of BLE's with LLE buckling>RLE. CGA and Min assist by each therapist for LLEs and cues d/t impulsveness M5 PT-IP Objective Assessments Start: 06/19/18 17:01 Freq: NEEDED Status: Active Protocol: Document 06/19/18 14:45 AB (Rec: 06/19/18 17:24 AB [id number]) Orientation Orientation/Cognition Level of Alertness Confusional State Orientation Name Safety Awareness Decreased Safety Awareness Memory Description Short Term Impaired Custodial Impaired Comments pt does not remember where he lives and PLOF; unable to state where he is at and requires constant cues for all tasks Gross Range of Motion Lower Extremity ROM Assessment Within Functional Limits Strength Lower Extremity Strength Assessment Bilaterally Impaired Comments Strength Comments LLE weaker than RLE LLE: 3+/5 RLE: 4-/5 M6 PT-IP Treatment Start: 06/19/18 17:01 Freq: NEEDED Status: Active Protocol: Document 06/21/18 09:00 LJ (Rec: 06/21/18 12:06 LJ [id number]) Physical Therapy Treatment Exercises Exercises Ankle Pumps Gluteal Sets Quad Sets Education Education Provided Safety M7 PT-IP Assessment and Plan Start: 06/19/18 17:01 Freq: NEEDED Status: Active Protocol: Document 06/21/18 09:00 LJ (Rec: 06/21/18 12:06 LJ [id number]) PT Summary Assessment and Plan Summary Assessment Summary Pt SBA for bed mobility showing impulsiveness. Sit<> stand with OT/PT CGA min assist for bilat LE buckling. Able to ambulate 8' to chair. Pt not safe to ambulate without PT at this time. Goals Bed Mobility Goal Contact Guard Assistance Transfer Goal Contact Guard Assistance Front Wheeled Walker Gait Goal Contact Guard Assistance Front Wheel Walker Gait Distance 10 Days to Meet Goals 5 Frequency of Treatment Frequency Of Treatment Once a Day Treatment Plan Other Recommendations and Next Treatment sit<->stand, transfers (2 Focus assist), gait if able with chair follow; if deemed not safe for manual transfer, attempt Power Stander/Sit to Stand machine. Recommendations To Nursing Amount of Assist Needed Mechanical Lift Discharge Recommendations PT Discharge Recommendations SNF Rehab Other Discharge Recommendations SNF vs home with 19/01 depending on level of assistance upon d/c
--- NOTE | 2018-06-21 13:09 | CM.DPC ---
DCP Cont: According to Dr Kuhn; pt likely stable for DC 06.22, back to [facility]. Alerted Polly at [facility]. JW
[2018-06-21] MEDS: methylPREDNISolone 1,000 MG in SODIUM CHLORIDE 0.9% 250 ML 258 ML IV (13:23)
[2018-06-21] MEDS: SODIUM CHLORIDE 0.9% FLUSH 10 ML IV ×2 (13:23→20:54)
--- NOTE | 2018-06-21 17:27 | PC.NURSE ---
Addendum entered by Martha Jimenez R.N. 06/21/18 21:46: Relatively uneventful evening. Condition remains essentially unchanged. HS CBG = 325; S/S per orders given. [place] cath patent clear yellow urine. Call light w/in shanthi, bed alarm on for pt safety. Continue w/plan of care. Original Note: Addendum entered by Martha Jimenez R.N. 06/21/18 18:21: Asssisted to BSC via cam w/o incidence. passisng flatus Original Note: Pt sitting in chair, denies discomfort. Assisted to BSC w/cam and 2 persons. HL LFA intact, patent. AC CBG = 225; 2u insulin per S/S given. Cassandra smith clear yellow urine. Call light w/in reach, chair alarm on for pt safety.
--- NOTE | 2018-06-21 19:16 | PM.PN.1 ---
Subjective Date Patient Seen: 06/21/18 Interval history: Yifan Kemp is a 47-year-old male with a past medical history significant for multiple sclerosis, depression, BPH and morbid obesity who was admitted to the hospital for bilateral lower extremity weakness. On admission, the patient could elevate his heel off the bed bilaterally but not the entire leg due to weakness. He continues to be able to lift both of his legs bilaterally. He does complain of his ?equilibrium being off and feeling as though he veers to the left with ambulation. He denies headache, double vision, lightheadedness or dizziness, chest pain, shortness of breath, cough, abdominal pain, dysuria, diarrhea or constipation. He is voiding and eliminating without difficulty. He continues to work with physical therapy daily and ambulate with a forward wheeled walker. Exam Vital Signs (past 8 hours): - 06/21/18 11:47 06/21/18 16:20 06/21/18 17:03 Temperature 97.6 F 98.1 F Pulse Rate 93 H 86 Respiratory Rate 16 15 Blood Pressure 112/62 142/83 H Pulse Oximetry 94 94 96 Oxygen Delivery Method Room Air Oxygen Flow Rate 0 Narrative Exam Narrative: General: Middle-aged gentleman sitting in bedside chair and in no acute distress, well-developed, well-nourished, appropriately interactive. HEENT: Normocephalic, atraumatic. External ears without defect. Pupils equal, round, and reactive to light. Anicteric sclerae, moist conjunctivae, and no lid lag. Neck: Supple with full range of motion. No lymphadenopathy or thyromegaly. Cardiovascular: Regular rate and rhythm without murmurs, rubs, or gallops appreciated. Pulmonary: Clear to auscultation bilaterally without crackles, wheezes, or rhonchi. Normal respiratory effort with no use of accessory muscles. Abdomen: Soft, obese, bowel sounds present, nontender, nondistended. No hepatosplenomegaly or masses appreciated. Extremities: No clubbing, cyanosis, or edema. Skin: Normal temperature, turgor, and texture; no rash, ulcers, or subcutaneous nodules appreciated. Neurological: Cranial nerves grossly intact. Known gait impairment. Bilateral lower extremity weakness +3/5. Psychiatric: Normal mood and affect. Alert and oriented to person, place, and time. Has short-term memory recall deficit. Objective Labs Result Diagrams: 06/21/18 05:37 06/21/18 05:37 Labs: Laboratory Results - last 24 hr 06/21/18 06/21/18 06/21/18 05:37 05:37 05:37 WBC 23.2 H RBC 4.96 Hgb 14.5 Hct 42.6 MCV 85.9 MCH 29.3 MCHC 34.1 RDW 13.9 Plt Count 231 Neut % (Auto) 92.3 H Lymph % (Auto) 3.5 L [place] % (Auto) 4.1 Eos % (Auto) 0.0 L Baso % (Auto) 0.1 Neut # (Auto) 36291 H Sodium 140 Potassium 4.5 Chloride 105 Carbon Dioxide 23 BUN 23 H Creatinine 0.70 Estimated GFR > 60.0 BUN/Creatinine Ratio 32.9 H Glucose 270 H Calcium 8.8 Magnesium 2.3 Total Bilirubin 0.3 AST 17 ALT 34 Alkaline Phosphatase 111 Total Protein 6.4 Albumin 3.7 Globulin 2.7 Albumin/Globulin Ratio 1.4 Procalcitonin 0.11 Assessment & Plan Plan: Assessment/Plan Narrative: Yifan Kemp is a 47-year-old male with a past medical history significant for multiple sclerosis, depression, BPH and morbid obesity who was admitted to the hospital for bilateral lower extremity weakness. 1. Acute multiple sclerosis, present on admission. Active. -Patient presented with progressive bilateral lower extremity weakness with normal sensation in the setting of MS with multiple flares in the past. -Continue IV methylprednisolone 1 g daily x5 days. Strength is slowly improving. -Continue physical therapy daily. -The patient is followed by Fanta Bishop of Neurology at [facility] as an outpatient. -Once patient regains strength, can ambulate safely, and completes steroid burst will look to discharge back to [facility]. 2. Acute community-acquired, present on admission. Active. -Chest x-ray demonstrated bilateral pulmonary opacities suggestive of pneumonia. -Will continue azithromycin to complete 5 day course. DVT prophylaxis: Enoxaparin. Disposition: Likely to discharge back to [facility] facility once he has completed a 5 day course of methylprednisolone 1 g IV daily for acute MS flare.. Quality VTE Deep Vein Thrombosis/Pulmonary Embolism Present on Admission: No
[2018-06-21] MEDS: MELATONIN 3 MG TABLET PO (20:53)
[2018-06-21] MEDS: OXYCODONE IR 10 MG TABLET PO (21:04)
[2018-06-22] VITALS (8 sets, daily range): BP systolic 116–136; BP diastolic 67–92; PULSE 81–89; RESP 18–20; TEMP 36.4–36.6; O2SAT 91–98
--- NOTE | 2018-06-22 05:43 | PC.NURSE ---
Pt is A and O x 4, VSS, perhaps somewhat delayed and confused once this shift p waking up: wanted to take his parents his car keys. Continues to c/o bilat LE numbness and weakness, but denies pain. Pt up one time with ceiling lift to BSC. LS clear, S1, S2 + BT continent of urine.
[2018-06-22] MEDS: ENOXAPARIN 40 MG/0.4 ML SYRINGE SUBCUT (09:29)
[2018-06-22] MEDS: AMITRIPTYLINE 75 MG TABLET 150 MG PO (09:30)
[2018-06-22] MEDS: TAMSULOSIN 0.4 MG CAPSULE 0.8 MG PO (09:30)
[2018-06-22] MEDS: DOCUSATE 100 MG CAPSULE PO (09:30)
[2018-06-22] MEDS: BACLOFEN 10 MG TABLET 20 MG PO ×3 (09:30→21:04)
[2018-06-22] MEDS: AZITHROMYCIN 250 MG TABLET PO (09:30)
[2018-06-22] MEDS: INSULIN ASPART 100 UNIT/ML INSULN PEN SUBCUT ×4 (09:31→21:04)
--- NOTE | 2018-06-22 09:47 | PT.IPTN ---
Current Diagnoses Multiple sclerosis (06/19/18) Physical Therapy Treatment Note M2 PT-IP Current Condition Start: 06/19/18 17:01 Freq: NEEDED Status: Active Protocol: Document 06/20/18 14:20 RCC (Rec: 06/20/18 15:11 RCC [id number]) Physical Therapy Current Condition Current Condition Evaluation Date 06/19/18 Treatment Diagnosis MS; PNA; generalized weakness Onset Date 06/19/18 Precautions Other Precautions Use of bariatric FWW, per staff at [facility] pt tends to sit too close to the edge of the bed. M3 PT-IP Subjective Start: 06/19/18 17:01 Freq: NEEDED Status: Active Protocol: Document 06/22/18 09:04 LJ (Rec: 06/22/18 09:47 LJ [id number]) Subjective Physical Therapy Visit Type Type Treatment Note Visit Start Time 09:04 Visit Stop Time 09:29 Total Visit Minutes 25 Notes Pt in bed wanting to get up to BSC. Co-tx with OT Therapy Pain Assessment Pain Present Pain Present Denied Pain M4 PT-IP Mobility and Gait Start: 06/19/18 17:01 Freq: NEEDED Status: Active Protocol: Document 06/22/18 09:04 LJ (Rec: 06/22/18 09:47 LJ [id number]) PT-Bed Mobility Assessment Supine to Sit Supine to Sit Standby Assistance Head of Bed Elevated Scooting Scooting to Edge of Bed Standby Assistance PT-Transfer Assessment Sit to and From Stand Sit to and from Stand Minimal Assistance 2 Person Assistance Use of Upper Extremities Equipment Transfer Assistive Device Gait Belt Front Wheeled Walker Transfers Transfer Destination Chair Bedside Commode Transfer Technique Stand Step Pivot Transfer Ability Level of Assist Moderate Assistance 2 Person Assistance Comments Mobility Comments Pt requires min to mod assist for leg buckling during transfers with one therapist assisting with FWW placement and cues. Pt impulsive. Gait Assessment Gait Deviations General Gait Pattern Ataxic Decreased Stride Length Decreased Feet Clearance Step-to Gait Wide Based Gait Factors Limiting Gait Function Factors Limiting Gait Function Decreased Activity Tolerance Decreased Strength Difficulty Following Directions Incoordination Poor Balance Poor Safety Awareness Comments Gait Comments Unable to ambulate pt d/t LLE weakness, lack of control, and impulsiveness. Pt able to take side steps to right for transfer to BSC and chair. 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 Impaired Comments pt does not remember where he lives and PLOF; unable to state where he is at and requires constant cues for all tasks Gross Range of Motion Lower Extremity ROM Assessment Within Functional Limits Strength Lower Extremity Strength Assessment Bilaterally Impaired Comments Strength Comments LLE weaker than RLE LLE: 3+/5 RLE: 4-/5 M6 PT-IP Treatment Start: 06/19/18 17:01 Freq: NEEDED Status: Active Protocol: Document 06/22/18 09:04 LJ (Rec: 06/22/18 09:47 LJ [id number]) Physical Therapy Treatment Exercises Exercises Ankle Pumps Gluteal Sets Quad Sets Short Arc Quads Knee ROM Measurement seated and standing marching M7 PT-IP Assessment and Plan Start: 06/19/18 17:01 Freq: NEEDED Status: Active Protocol: Document 06/22/18 09:04 LJ (Rec: 06/22/18 09:47 LJ [id number]) PT Summary Assessment and Plan Summary Assessment Summary Pt remains impulsive with all mobility. Able to perform SAQ bilat however has minimal control of LLE for sustained muscle contraction. Unsafe to ambulate at this time d/t impulsiveness, weakness and lack of muscle control lorena in LLE. Transfer only. ModA x 2 for transfers Goals Bed Mobility Goal Contact Guard Assistance Transfer Goal Contact Guard Assistance Front Wheeled Walker Gait Goal Contact Guard Assistance Front Wheel Walker Gait Distance 10 Days to Meet Goals 5 Frequency of Treatment Frequency Of Treatment Once a Day Treatment Plan Other Recommendations and Next Treatment Sit<>stand to improve muscle Focus coordination and maintain transfer ability Recommendations To Nursing Amount of Assist Needed Mechanical Lift Discharge Recommendations PT Discharge Recommendations SNF Rehab Other Discharge Recommendations SNF vs home with / depending on level of assistance upon d/c
--- NOTE | 2018-06-22 10:36 | OT.IP.TRT ---
Current Diagnoses Multiple sclerosis (06/19/18) Occupational Therapy Treatment Note M2 OT-IP Current Condition Start: 06/19/18 16:27 Freq: Status: Active Protocol: Document 06/19/18 16:29 [facility]3] (Rec: 06/19/18 17:15 [facility]3] [id number]) Occupational Therapy Current Condition Current Condition Evaluation Date 06/19/18 Treatment Diagnosis MS flare, possible PNA Diagnosis Onset Date 06/19/18 Post Operative Precautions Other Precautions Use of bariatric FWW, per staff at [facility] pt tends to sit too close to the edge of the bed. M3 OT- IP Subjective and Pain Start: 06/19/18 16:27 Freq: Status: Active Protocol: Document 06/22/18 10:23 [facility]3] (Rec: 06/22/18 10:36 [facility]3] [id number]) OT- Subjective Occupational Therapy Visit Type Type Treatment Note Visit Start Time 09:03 Visit Stop Time 09:28 Total Visit Minutes 25 Occupational Therapy Visit Comments Patient Comments Pt agreeable to get up and wanting to use the BSC. OT Pain Assessment Pain When Pain Assessed At Rest Pain Present Pain Present Denied Pain M4 OT- IP ADL's Start: 06/19/18 16:27 Freq: Status: Active Protocol: Document 06/22/18 10:23 [facility]3] (Rec: 06/22/18 10:36 [facility]3] [id number]) OT ADL-Grooming General Evaluation Grooming Ability Standby Assistance Areas Needing Assistance Retrieving/Set-up of Grooming Items Comments OT Grooming Comments Pt able to do all grooming needs after set-up while sitting in the recliner. OT ADL-Dressing General Eval Lower Body Dressing Ability Total Assistance Areas Needing Assistance Socks Comments OT Dressing Comments Total assist for LB dressing at this time. OT ADL-Toileting General Evaluation Areas Needing Assistance Empty Catheter or Colostomy Comments OT Toileting Comments Pt did not have to use the BSC , however is dependent for hygiene afterwards. M6 OT- IP Functional Cognition Start: 06/19/18 16:27 Freq: Status: Active Protocol: Document 06/22/18 10:23 [facility]3] (Rec: 06/22/18 10:36 [facility]3] [id number]) Cognitive Factors Limiting Selfcare Function Cognitive Ability Level of Alertness Alert Patient Orientation Name Birthday Place Attention Span Ability Capable of Focused Attention Capable of Sustained Attention Ability to Follow Commands Able to Follow One Step Commands Memory Description Immediate Impaired Short Term Impaired Halfway Intact Valance Cutter Impaired Working Impaired Safety Awareness Underestimates Need for Assistance Cognitive Comments Cognitive Assessment Comments Pt unable to recall how old he is , but able to states date of . Pt had some insight to decreased strength of LLE and being unsteady. M7 OT- IP Mobility and Balance Start: 06/19/18 16:27 Freq: Status: Active Protocol: Document 06/22/18 10:23 [facility]3] (Rec: 06/22/18 10:36 [facility]3] [id number]) OT- Bed Mobility Assessment Supine to Sit Supine to Sit Assist Standby Assistance 1 Person Assistance Bedrails OT-Transfer Assessment Sit to and From Stand Sit to and from Stand Minimal Assistance 2 Person Assistance Transfers Transfer Ability Moderate Assistance 2 Person Assistance Technique Transfer Destination Bedside Commode Chair Transfer Technique Stand Step Pivot Devices Transfer Assistive Devices Gait Belt Front Wheeled Walker Comments Mobility Comments Transfer to [facility] to the right and then to recliner, pt continues to have LLE weakness and buckling and needing two person assit MODA x 2. OT- Balance Assessment Sitting Balance and Reactions Static Sitting Balance Ability Good Dynamic Sitting Balance Ability Fair Standing Balance and Reactions Static Standing Balance Ability Poor Dynamic Standing Balance Ability Poor M8 OT- IP Objective Assessments Start: 06/19/18 16:27 Freq: Status: Active Protocol: Document 06/19/18 16:29 [facility]3] (Rec: 06/19/18 17:15 [facility]3] [id number]) OT Gross Range of Motion Upper Extremity Range of Motion Assessment Within Functional Limits OT Strength Comments Strength Comments BUE strength 5/5 OT-Muscle Tone Assessment Muscle Tone WNL Yes M9 OT- IP Assessment and Plan Start: 06/19/18 16:27 Freq: Status: Active Protocol: Document 06/22/18 10:23 [facility]3] (Rec: 06/22/18 10:36 [facility]3] [id number]) OT Summary Assessment and Plan Potential Rehabilitation Potential Good Analytic Complexity at Evaluation Low Summary OT Impairments Balance Functional Cognition Grooming Dressing Toileting Bathing Toilet Transfers Shower Transfers Progress Towards Goals Progressing Toward Goals Slow Progress due to Activity Tolerance Slow Progress due to Cognition Assessment Summary Pt will benefit from skilled rehab prior to going home due now needing more assist for transfers and ADL's. Goals Self-Feeding Goal Standby Assistance Grooming Goal Standby Assistance Dressing Goal Moderate Assistance Toilet Transfer Goal Moderate Assistance Shower Transfer Goal Moderate Assistance Days to Meet Goals 5 Frequency of Treatment Frequency Of Treatment Once a Day Treatment Plan OT Treatment Plan ADL Training Functional Cognition Training Functional Mobility Patient/Family Education Discharge Planning Discharge Recommendations OT Discharge Recommendations SNF Rehab Other Discharge Recommendations Pending progress may be going home if Deng Willis able to provide greater assistance.
[2018-06-22] MEDS: SODIUM CHLORIDE 0.9% FLUSH 10 ML IV ×2 (11:06→21:05)
[2018-06-22] MEDS: OXYCODONE IR 10 MG TABLET PO ×2 (11:08→19:20)
--- NOTE | 2018-06-22 11:43 | P.PN_ITS ---
Subjective Date Patient Seen: 06/22/18 Interval history: Yifan Kemp is a 47-year-old male with a past medical history significant for multiple sclerosis, depression, BPH and morbid obesity who was admitted to the hospital for bilateral lower extremity weakness. Overnight the patient had very little sleep likely due to high-dose glucocorticoids. He continues to feel as though his ?equilibrium is off and feeling as though he veers to the left with ambulation. He also endorses overall lower extremity weakness that is chronic and progressive. He denies headache, double vision, lightheadedness or dizziness, chest pain, shortness of breath, cough, abdominal pain, dysuria, diarrhea or constipation. He is voiding and eliminating without difficulty. He continues to work with physical therapy daily and ambulate with a forward wheeled walker. Exam Vital Signs (past 8 hours): - 06/22/18 04:50 06/22/18 07:45 06/22/18 11:18 Temperature 97.6 F 97.6 F Pulse Rate 87 88 Respiratory Rate 20 20 Blood Pressure 125/67 129/74 Pulse Oximetry 97 96 96 Oxygen Delivery Method Room Air Oxygen Flow Rate 0 Narrative Exam Narrative: General: Middle-aged morbidly obese gentleman sitting in bedside chair and in no acute distress, well-developed, well-nourished, appropriately interactive. HEENT: Normocephalic, atraumatic. External ears without defect. Pupils equal, round, and reactive to light. Anicteric sclerae, moist conjunctivae, and no lid lag. Neck: Supple with full range of motion. No lymphadenopathy or thyromegaly. Cardiovascular: Regular rate and rhythm without murmurs, rubs, or gallops appreciated. Pulmonary: Clear to auscultation bilaterally without crackles, wheezes, or rhonchi. Normal respiratory effort with no use of accessory muscles. Abdomen: Soft, obese, bowel sounds present, nontender, nondistended. No hepatosplenomegaly or masses appreciated. Extremities: No clubbing, cyanosis, or edema. Skin: Normal temperature, turgor, and texture; no rash, ulcers, or subcutaneous nodules appreciated. Neurological: Cranial nerves grossly intact. Known gait impairment. Lower extremity weakness +3/5. Psychiatric: Normal mood and affect. Alert and oriented to person, place, and time. Has short-term memory recall deficit. Objective Labs Result Diagrams: 06/21/18 05:37 06/21/18 05:37 Assessment & Plan Plan: Assessment/Plan Narrative: Yifan Kemp is a 47-year-old male with a past medical history significant for multiple sclerosis, depression, BPH and morbid obesity who was admitted to the hospital for bilateral lower extremity weakness. 1. Acute multiple sclerosis, present on admission. Active. -Patient presented with progressive bilateral lower extremity weakness with normal sensation in the setting of MS with multiple flares in the past. -Continue IV methylprednisolone 1 g daily x5 days. Strength is slowly improving. -Continue physical therapy daily. -The patient is followed by Fanta Bishop of Neurology at [facility] as an outpatient. Plan to attempt to discuss patient with his neurologist tomorrow prior to discharge. -Once patient regains strength, can ambulate safely, and completes steroid burst will look to discharge back to [facility] living. -Continue home baclofen. 2. Acute community-acquired, present on admission. Resolving. -Chest x-ray demonstrated bilateral pulmonary opacities suggestive of pneumonia. -Will continue azithromycin to complete 5 day course. 3. GERD, present on admission. Stable. -Continue ranitidine. 4. BPH, present on admission. Stable. -Continue tamsulosin. 5. Morbid obesity, present on admission. Stable. -BMI 44.5. -Continue working with physical therapy. DVT prophylaxis: Enoxaparin. Disposition: Likely to discharge back to [facility] facility once he has completed a 5 day course of methylprednisolone 1 g IV daily for acute MS flare. Quality VTE Deep Vein Thrombosis/Pulmonary Embolism Present on Admission: No
[2018-06-22] MEDS: methylPREDNISolone 1,000 MG in SODIUM CHLORIDE 0.9% 250 ML 258 ML IV (14:23)
[2018-06-22] MEDS: QUETIAPINE 25 MG TABLET PO (21:05)
[2018-06-22] MEDS: MELATONIN 3 MG TABLET PO (21:05)
--- NOTE | 2018-06-22 23:45 | PC.NURSE ---
1500- assumed care of pt. 1515- pt up walking around foot of bed, nearly pulled IV out. Pt delirious and pt thinks he just sold some camaroes (cars) he had been working on and had just changed the tires. pt reoriented and pt stated oh yeah. when asked orientation questions, pt knew his age, the year, the month. but thought he was in [facility] and had to get the money from when he sold the cars. pt then reoriented and told he was in the hospital and he looked around and said oh, yeah I am huh. Pt apologized and told we would be back in to check on him. task nurse in to start new one. 1600- pt bed alarm sounding, pt sitting at foot of bed and IV had been pulled out. Pt bleeding and cleaned up. Pt thought he hadn't received the money for the cars he had sold. pt slightly agitated, and thought joaquim was president, Pt knew the year and age. Pt then started talking about his family and his sister and how he was living with his parents, but they had bought a house for his sister. asked if they bought a house for him and he said no, isn't that unfair? pt frequently looks at IV bag and says oh, its done. 1700- pt took IV out because he said he didn't want it in his arm anymore. New Iv started by assisted living nursing director. pt redirected and he stated he was sorry. 1730- pt checked on and had been messing with his penis/scrotum area and hudson tubing. asked if it hurt/stung, if there was any pain etc. pt denied. pt covered himself back up with the blanket. 1745- as I was sitting at desk, pt motions me to come over to him and said, hey why don't you come in my room and hang out with me? told pt that I had to chart and check on my other patients. pt frequently asked me to coming into his room and hangout, that I could come and sit in his room and stay with him. pt reoriented frequently. Pt bed alarm on. side rails upx3 will continue to monitor.
[2018-06-23 00:56] VITALS: O2SAT 94
[2018-06-23 05:18] VITALS: BP 129/86; PULSE 78; RESP 20; TEMP 36.6; O2SAT 96
--- NOTE | 2018-06-23 05:36 | PC.NURSE ---
Pt. was asleep all night, snoring. Awake this morning, denies any pain, calmed & co-operative with care. Hospitalist updated with pt. status, hospitalist Kisha Miranda plan to DC his hudson today, if his mobility is much improve. Will cont. POC & report to day RN.
[2018-06-23 06:02] LABS: BUN Creatinine Ratio 32.9 (6-22); Blood Urea Nitrogen 23 mg/dL (9-20); Calcium 8.8 mg/dL (8.4-10.2); Carbon Dioxide 26 mmol/L (22-32); Chloride 104 mmol/L (98-107); Estimated Glomerular Filt Rate > 60.0 mL/min (>60); Glucose 208 mg/dL (70-100); HEMOLYSIS < 15 (0-50); Potassium 4.3 mmol/L (3.4-5.1); Sodium 142 mmol/L (137-145)
[2018-06-23 06:11] LABS: Hemoglobin 15.6 g/dL (13.5-17.5); Mean Corpuscular HGB Conc 33.8 % (30-36); Mean Corpuscular Hemoglobin 29.1 PG (26-34); Mean Corpuscular Volume 86.1 fL (80-100); Platelet Count 232 X10^3/uL (150-400); Red Blood Cell Count 5.34 X10^6/uL (4.5-5.9); Red Cell Distribution Width 13.5 % (11.6-14.8); White Blood Cell Count 13.9 X10^3/uL (4.5-11.0)
[2018-06-23 06:31] LABS: Add Manual Diff / Slide Review YES
[2018-06-23] MEDS: ACETAMINOPHEN 325 MG TABLET 650 MG PO (06:55)
[2018-06-23 07:11] LABS: Neutrophils Absolute Manual 13344 /uL (3000-5900); Total Cells Counted 100
[2018-06-23 07:12] LABS: Anisocytosis 1+
[2018-06-23 07:45] VITALS: BP 142/84; PULSE 92; RESP 18; TEMP 36.4; O2SAT 98
[2018-06-23] MEDS: ENOXAPARIN 40 MG/0.4 ML SYRINGE SUBCUT (08:39)
[2018-06-23] MEDS: methylPREDNISolone 1,000 MG in SODIUM CHLORIDE 0.9% 250 ML 258 ML IV (08:40)
[2018-06-23] MEDS: AZITHROMYCIN 250 MG TABLET PO (08:40)
[2018-06-23] MEDS: TAMSULOSIN 0.4 MG CAPSULE 0.8 MG PO (08:40)
[2018-06-23] MEDS: DOCUSATE 100 MG CAPSULE PO (08:40)
[2018-06-23] MEDS: BACLOFEN 10 MG TABLET 20 MG PO (08:40)
[2018-06-23] MEDS: INSULIN ASPART 100 UNIT/ML INSULN PEN SUBCUT ×2 (08:41→12:40)
[2018-06-23] MEDS: AMITRIPTYLINE 75 MG TABLET 150 MG PO (08:42)
--- NOTE | 2018-06-23 08:49 | PT.IPTN ---
Current Diagnoses Multiple sclerosis (06/19/18) Physical Therapy Treatment Note M2 PT-IP Current Condition Start: 06/19/18 17:01 Freq: NEEDED Status: Active Protocol: Document 06/20/18 14:20 RCC (Rec: 06/20/18 15:11 RCC [id number]) Physical Therapy Current Condition Current Condition Evaluation Date 06/19/18 Treatment Diagnosis MS; PNA; generalized weakness Onset Date 06/19/18 Precautions Other Precautions Use of bariatric FWW, per staff at [place] pt tends to sit too close to the edge of the bed. M3 PT-IP Subjective Start: 06/19/18 17:01 Freq: NEEDED Status: Active Protocol: Document 06/23/18 08:49 AB (Rec: 06/23/18 10:04 AB [id number]) Subjective Physical Therapy Visit Type Type Treatment Note Visit Start Time 08:49 Visit Stop Time 09:22 Total Visit Minutes 33 Number of HISTORIC SITES REGISTRAR Visits 0 Physical Therapy Visit Comments Patient Comments pt wants to walk to the toilet ; stated that he feels MS has left his body M4 PT-IP Mobility and Gait Start: 06/19/18 17:01 Freq: NEEDED Status: Active Protocol: Document 06/23/18 08:49 AB (Rec: 06/23/18 10:04 AB [id number]) PT-Bed Mobility Assessment Supine to Sit Supine to Sit Standby Assistance PT-Transfer Assessment Sit to and From Stand Sit to and from Stand Minimal Assistance 1 Person Assistance Use of Upper Extremities Equipment Transfer Assistive Device Gait Belt Front Wheeled Walker Orthotic/Prosthetic Devices or Brace: No Comments Mobility Comments pt completed sit to stand from EOB min A and max cues and ambulated to the toilet using FWW ~ 8 ft min to mod A x 2 and max cues for safety. pt continues to be impulsive with decrerase safety awareness. pt required mod A x 2 for controlled descent to the toilet. pt completed sit to stand from the toilet mod A x 1-2 and max cues. Pt required min to mod A x 2 for standing balance using fWW for support. pt was able to stand for ~ 4 min while assisted with hygiene care. has to sit back down to rest with increase tremors/ shaking after standing. pt stood up ~ 2 more times to be assisted for hygiene care. (+) knee buckling during standing requiring mod A x 2 for recovery and using FWW for support. pt was able to ambulate ~ 3 ft towards the chair with mod A x 2 and max cues. pt continues to be impulsive and tends to sit fci through transfer. Gait Assessment Comments Gait Comments pt ambulated to the toilet using FWW mod A x 2 and max cues M5 PT-IP Objective Assessments Start: 06/19/18 17:01 Freq: NEEDED Status: Active Protocol: Document 06/19/18 14:45 AB (Rec: 06/19/18 17:24 AB [id number]) Orientation Orientation/Cognition Level of Alertness Confusional State Orientation Name Safety Awareness Decreased Safety Awareness Memory Description Short Term Impaired Director Of Special Education Impaired Comments pt does not remember where he lives and PLOF; unable to state where he is at and requires constant cues for all tasks Gross Range of Motion Lower Extremity ROM Assessment Within Functional Limits Strength Lower Extremity Strength Assessment Bilaterally Impaired Comments Strength Comments LLE weaker than RLE LLE: 3+/5 RLE: 4-/5 M6 PT-IP Treatment Start: 06/19/18 17:01 Freq: NEEDED Status: Active Protocol: Document 06/23/18 08:49 AB (Rec: 06/23/18 10:04 AB [id number]) Physical Therapy Treatment Education Education Provided Safety M7 PT-IP Assessment and Plan Start: 06/19/18 17:01 Freq: NEEDED Status: Active Protocol: Document 06/23/18 08:49 AB (Rec: 06/23/18 10:04 AB [id number]) PT Summary Assessment and Plan Potential Rehabilitation Potential Good Summary Impairments Pain ROM Strength Balance Coordination Sensation Tone Cognition Bed Mobility Transfers Gait Activity Tolerance Progress Towards Goals Slow Progress due to Medical Issues Slow Progress due to Activity Tolerance Assessment Summary pt progressing slowly with mobility but continues to require 2 person assist for safety. pt continues to be impulsive and with confusion affecting safety awareness. pt may go back to [facility] with assist when medically stable. Goals Bed Mobility Goal Contact Guard Assistance Transfer Goal Contact Guard Assistance Front Wheeled Walker Gait Goal Contact Guard Assistance Front Wheel Walker Gait Distance 10 Days to Meet Goals 5 Frequency of Treatment Frequency Of Treatment Once a Day Treatment Plan Physical Therapy Treatment Plan Bed Mobility Training Transfer Training Gait Training Therapeutic Exercise Balance Retraining Discharge Planning Hot or Cold Pack Neuromuscular Re-ed Coordination Retraining Manual Therapy Other Recommendations and Next Treatment transfers, ambulation Focus Recommendations To Nursing Amount of Assist Needed 2 Person Assist Discharge Recommendations PT Discharge Recommendations Home with 24/7 Assist SNF Rehab Other Discharge Recommendations SNF vs home with 24/7 depending on level of assistance upon d/c
--- NOTE | 2018-06-23 10:48 | PM.DS.1 ---
History of Present Illness Date Patient Seen: 06/19/18 Chief complaint: GLF, leg pain Narrative: Chief complaint: GLF, leg pain Narrative: This is a 47 year old male with a history of multiple sclerosis who presents to the emergency department after developing progressive weakness in his lower extremities to the extent that he could not stand up today. The patient has had prior flares and describes this as a typical presentation. He reports no other prodromal symptoms. He has had no illness or stessors. He lives at the [facility] and typically ambulates with a walker but cannot lift his leg off the bed. He states he has no other complaints of upper extremity weakness or prathesias. He reports no issues with bowel or bladder control. He takes no routine medications. In the ED the patient received his first dose of methylprednisolone 1000 mg. Discharge Providers Date of admission: 06/19/18 07:45 Primary care physician: Sommer Phillips MD Consults: 06/19/18 10:02 Consult to Pastoral Services Routine Comment: per patient request 06/19/18 14:14 Consult to Occupational Therapy Evaluate & Treat Comment: Physician Instructions: Evaluate and treat Consult to Physical Therapy Evaluate & Treat Comment: Physician Instructions: Evaluate and Treat 06/20/18 08:06 Consult to Physical Therapy Evaluate & Treat Comment: MS Flare Physician Instructions: Evaluate and Treat Discharge provider: Angelica Kuhn DO Discharge Date: 06/23/18 Summary Discharge Diagnosis: 1. Acute multiple sclerosis flare, present on admission. Resolved. 2. Acute community-acquired, present on admission. Resolved. 3. GERD, present on admission. Stable. 4. BPH, present on admission. Stable. 5. Morbid obesity, present on admission. Stable. Hospital Course: Yifan Kemp is a 47-year-old male with a past medical history significant for multiple sclerosis, depression, BPH and morbid obesity who was admitted to the hospital for bilateral lower extremity weakness secondary to MS flare. 1. Acute multiple sclerosis flare, present on admission. Resolved. -Patient presented with progressive bilateral lower extremity weakness with normal sensation in the setting of MS with multiple flares in the past. -Continued IV methylprednisolone 1 g daily x5 days. Strength slowly improved to baseline. -The patient is followed by Fanta Bishop of Neurology at [facility] as an outpatient. Attempted to discuss patient with his neurologist prior to discharge but was unable to reach her. Recommended follow-up as an outpatient. -Continued working with Physical therapy/Occupational therapy daily during hospitalization. The patient's lower extremity weakness has improved to baseline. Recommended outpatient physical therapy. -Continued home baclofen. 2. Acute community-acquired, present on admission. Resolved. -Chest x-ray demonstrated bilateral pulmonary opacities suggestive of pneumonia. -Finished 5 day course of azithromycin. 3. GERD, present on admission. Stable. -Continued ranitidine. 4. BPH, present on admission. Stable. -Continued tamsulosin. 5. Morbid obesity, present on admission. Stable. -BMI 44.5. -Continued working with physical therapy and occupational therapy throughout hospitalization. Would benefit from home health physical therapy. Status at Discharge Functional status at discharge: bed bound (Transfers only) Exam Vital Signs (past 8 hours): - 06/23/18 05:18 06/23/18 07:45 Temperature 97.9 F 97.5 F L Pulse Rate 78 92 H Respiratory Rate 20 18 Blood Pressure 129/86 142/84 H Pulse Oximetry 96 98 Oxygen Delivery Method Room Air Oxygen Flow Rate 0 Narrative Exam Narrative: General: Middle-aged morbidly obese gentleman sitting in bedside chair and in no acute distress, well-developed, well-nourished, appropriately interactive. HEENT: Normocephalic, atraumatic. External ears without defect. Pupils equal, round, and reactive to light. Anicteric sclerae, moist conjunctivae, and no lid lag. Neck: Supple with full range of motion. No lymphadenopathy or thyromegaly. Cardiovascular: Regular rate and rhythm without murmurs, rubs, or gallops appreciated. Pulmonary: Clear to auscultation bilaterally without crackles, wheezes, or rhonchi. Normal respiratory effort with no use of accessory muscles. Abdomen: Soft, obese, bowel sounds present, nontender, nondistended. No hepatosplenomegaly or masses appreciated. Extremities: No clubbing, cyanosis, or edema. Skin: Normal temperature, turgor, and texture; no rash, ulcers, or subcutaneous nodules appreciated. Neurological: Cranial nerves grossly intact. Known gait impairment. Lower extremity weakness +4/5. Psychiatric: Normal mood and affect. Alert and oriented to person, place, and time. Has cognitive impairment at baseline with short-term memory recall deficit. Objective Labs Result Diagrams: 06/23/18 05:29 06/23/18 05:29 Labs: Laboratory Results - last 24 hr 06/23/18 06/23/18 05:29 05:29 WBC 13.9 H RBC 5.34 Hgb 15.6 Hct 46.0 MCV 86.1 MCH 29.1 MCHC 33.8 RDW 13.5 Plt Count 232 Neut % (Auto) Not Reportable Lymph % (Auto) Not Reportable [place] % (Auto) Not Reportable Eos % (Auto) Not Reportable Baso % (Auto) Not Reportable Total Counted 100 Seg Neutrophils % 96.0 H Lymphocytes % (Manual) 1.0 L Atypical Lymphs % 3.0 H Neutrophils # (Manual) 88877 H RBC Morphology See below Anisocytosis 1+ H Sodium 142 Potassium 4.3 Chloride 104 Carbon Dioxide 26 BUN 23 H Creatinine 0.70 Estimated GFR > 60.0 BUN/Creatinine Ratio 32.9 H Glucose 208 H Calcium 8.8 Discharge Plan Discharge Plan Patient Disposition: Assisted Living Transfer to: [facility] Transportation: Cabulance I certify the postop hospital [facility] care is medically necessary on a continuing basis for any conditions for which he/ she received care during this hospitalization.: Yes The receiving facility has agreed to accept transfer and provide medical treatment.: Yes Discharge Med Rec/Prescriptions Prescriptions: Continue amitriptyline 150 mg tablet 1 tab PO DAILY RF: 0 baclofen 20 mg tablet 1 tab PO TID RF: 0 citalopram 40 mg tablet 1 tab PO DAILY RF: 0 ketoconazole 2 % shampoo See Label Instructions .ROUTE .COMPLEX RF: 0 oxycodone 10 mg tablet 1 tab PO Q8H PRN (Reason: moderate to severe pain) RF: 0 ranitidine HCl 150 mg tablet 1 tab PO BID RF: 0 tamsulosin 0.4 mg capsule 2 tab PO DAILY RF: 0 acetaminophen 625 mg PO Q4H PRN (Reason: pain/fever) RF: 0 docusate sodium 100 mg Tablet 100 mg PO DAILY RF: 0 melatonin 3 mg 1 tab PO BEDTIME RF: 0 ergocalciferol (vitamin D2) 50,000 unit See Label Instructions .ROUTE .COMPLEX RF: 0 bisacodyl 5 mg Tablet,Delayed Release (Dr/Ec) 5 mg PO DAILY PRN (Reason: Constipation) RF: 0 bisacodyl 5 mg Tablet,Delayed Release (Dr/Ec) 2 tab PO DAILY PRN (Reason: Constipation) RF: 0 bisacodyl 10 mg Suppository See Label Instructions .ROUTE .COMPLEX PRN (Reason: CONSTIPATION) RF: 0 Follow up/Referrals: Sommer Phillips MD [Primary Care Provider] - Discharge Orders: Discharge (Order); Ordered 06/23/18 Ordered By: Angelica Kuhn Discharge Health Status Brief summary of current health status: The patient was admitted for MS flare with bilateral lower extremity weakness treated with high dose steroid burst. He has been stable and lower extremity weakness has improved to baseline. PT/OT recommend transfers only and you would benefit from outpatient PT/OT. He has cognitive impairment at baseline with short term memory deficit and confusion. Multidrug resistant organism: No MDRO Precautions: [place] Provider Discharge Instructions Diet: Diet as Tolerated Visit Report/Discharge Packet Instructions: Pneumonia-Adult, Multiple Sclerosis -- Adult Discharge Data Primary Care Provider: Sommer Phillips Attending Provider: Yifan Miranda Admit Date/Time: 06/19/18 07:45 Discharges patient from system. Discharge Date/Time: 06/23/18 13:46 Quality VTE Deep Vein Thrombosis/Pulmonary Embolism Present on Admission: No
--- NOTE | 2018-06-23 11:13 | OT.IP.TRT ---
Current Diagnoses Multiple sclerosis (06/19/18) Occupational Therapy Treatment Note M2 OT-IP Current Condition Start: 06/19/18 16:27 Freq: Status: Active Protocol: Document 06/19/18 16:29 [facility] (Rec: 06/19/18 17:15 [facility] [id number]) Occupational Therapy Current Condition Current Condition Evaluation Date 06/19/18 Treatment Diagnosis MS flare, possible PNA Diagnosis Onset Date 06/19/18 Post Operative Precautions Other Precautions Use of bariatric FWW, per staff at [facility] pt tends to sit too close to the edge of the bed. M3 OT- IP Subjective and Pain Start: 06/19/18 16:27 Freq: Status: Active Protocol: Document 06/23/18 11:03 [facility] (Rec: 06/23/18 11:13 [facility] [id number]) OT- Subjective Occupational Therapy Visit Type Type Treatment Note Visit Start Time 08:43 Visit Stop Time 09:23 Total Visit Minutes 40 Occupational Therapy Visit Comments Patient Comments Pt agreeable to get up. OT Pain Assessment Pain When Pain Assessed At Rest Pain Present Pain Present Denied Pain M4 OT- IP ADL's Start: 06/19/18 16:27 Freq: Status: Active Protocol: Document 06/23/18 11:03 [facility] (Rec: 06/23/18 11:13 [facility] [id number]) OT ADL-Grooming General Evaluation Grooming Ability Standby Assistance Areas Needing Assistance Retrieving/Set-up of Grooming Items Comments OT Grooming Comments Pt able to do while sitting from the recliner. OT ADL-Dressing General Eval Lower Body Dressing Ability Maximum Assistance OT ADL-Toileting General Evaluation Areas Needing Assistance Manage Clothing Perform Perineal Hygiene Comments OT Toileting Comments Pt needing assist for completeness for hygiene, pt trying to do it on his own but getting his hands soiled and needing aid to help. 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 M7 OT- IP Mobility and Balance Start: 06/19/18 16:27 Freq: Status: Active Protocol: Document 06/23/18 11:03 [facility] (Rec: 06/23/18 11:13 [facility] [id number]) OT- Bed Mobility Assessment Supine to Sit Supine to Sit Assist Standby Assistance 1 Person Assistance Bedrails OT-Transfer Assessment Sit to and From Stand Sit to and from Stand Moderate Assistance 1 Person Assistance 2 Person Assistance Transfers Transfer Ability Moderate Assistance 2 Person Assistance Technique Transfer Destination Chair Toilet Devices Transfer Assistive Devices Gait Belt Front Wheeled Walker Comments Mobility Comments Pt able to walk to the bathroom with FWW and MOD x 2, vc to focus on tightening his legs, push down on FWW with arms, and take smaller steps. Pt able to stand with one person initially with FWW while aid assist to wipe, however as tired needing a second person as he eliza. OT- Balance Assessment Sitting Balance and Reactions Static Sitting Balance Ability Normal Dynamic Sitting Balance Ability Fair Standing Balance and Reactions Static Standing Balance Ability Good Dynamic Standing Balance Ability Poor Comments Other Balance Tests/Deviations/Treatment Pt doing better overall with : standing and taking a few steps. Still would benefit from skilled rehab or rehab if provided at his facility to improve on activity tolerance and transfer safety. M8 OT- IP Objective Assessments Start: 06/19/18 16:27 Freq: Status: Active Protocol: Document 06/19/18 16:29 [facility] (Rec: 06/19/18 17:15 [facility] [id number]) OT Gross Range of Motion Upper Extremity Range of Motion Assessment Within Functional Limits OT Strength Comments Strength Comments BUE strength 5/5 OT-Muscle Tone Assessment Muscle Tone WNL Yes M9 OT- IP Assessment and Plan Start: 06/19/18 16:27 Freq: Status: Active Protocol: Document 06/23/18 11:03 [facility] (Rec: 06/23/18 11:13 [facility] [id number]) OT Summary Assessment and Plan Potential Rehabilitation Potential Good Analytic Complexity at Evaluation Low Summary OT Impairments Balance Functional Cognition Grooming Dressing Toileting Bathing Toilet Transfers Shower Transfers Progress Towards Goals Progressing Toward Goals Slow Progress due to Cognition Assessment Summary Pt will benefit from skilled rehab prior to going home due now needing more assist for transfers and ADL's. Goals Self-Feeding Goal Standby Assistance Grooming Goal Standby Assistance Dressing Goal Moderate Assistance Toilet Transfer Goal Moderate Assistance Shower Transfer Goal Moderate Assistance Days to Meet Goals 3 Frequency of Treatment Frequency Of Treatment Once a Day Treatment Plan OT Treatment Plan ADL Training Functional Cognition Training Functional Mobility Patient/Family Education Discharge Planning Discharge Recommendations OT Discharge Recommendations SNF Rehab Other Discharge Recommendations Pending progress may be going home if [facility] able to provide greater assistance.
[2018-06-23 11:50] VITALS: BP 134/87; PULSE 81; RESP 18; TEMP 36.6; O2SAT 95
[2018-06-23] MEDS: SODIUM CHLORIDE 0.9% FLUSH 10 ML IV (12:37)
[2018-06-23 13:26] VITALS: O2SAT 96
--- NOTE | 2018-06-23 13:30 | CM.DPC ---
Clinicals faxed to [facility] per Karla
--- NOTE | 2018-06-23 13:45 | PC.NURSE ---
Pt discharged to [facility]. Hudson sent with patient and verbal order from Dr. Kuhn to keep hudson in. Discharged at 1345.
--- NOTE | 2018-06-23 14:02 | CM.DPNOTE ---
DC Note: DC order in place; pt and family remain aware and agreeable to DCP; home to [facility]. TC to Polly at [facility] to update; Deng dominguez arranged for p/u at 1345. research assistant Abdoulaye faxed completed and signed med list to include Dr Kuhn's request for ongoing PT/OT. According to Polly, [facility] residents often get ongoing PT/OT from therapy staff at [facility], it is billed to insurance as outpt therapy. P: DC back to [facility] via cabulance. ONEL
== END 2018-06-23 13:46 | DRG 58 ==
LOC: ED 07:27 → AC 07:53
PROVIDERS: Internal Medicine; Admitting Provider Nurse Practitioner Adult Health; Emergency Provider Emergency Medicine; Family Provider Internal Medicine; PCP Internal Medicine; Visit Provider Nurse Practitioner Adult Health
DX: G35 Multiple sclerosis (principal); J18.9 Pneumonia, unspecified organism; Z68.42 Body mass index [BMI] 45.0-49.9, adult; R33.9 Retention of urine, unspecified; E66.01 Morbid (severe) obesity due to excess calories; N40.1 Benign prostatic hyperplasia with lower urinary tract symptoms; F32.9 Major depressive disorder, single episode, unspecified; K21.9 Gastro-esophageal reflux disease without esophagitis
CPT/HCPCS: 36415; 36591; 71045; 80048; 80053; 81001; 82962; 83605; 83735; 84145; 85025; 85651; 86140; 87040; 87400; 93005; 96361; 96374; 97110; 97116; 97162; 97165; 97530; 97535; 99283; 99285; J1650; J2930

== ENCOUNTER → 2018-07-01 07:13 | Outpatient (REF) | payer MEDICARE, MEDICAID, SELFPAY ==
[2018-06-19 09:04] VITALS: BMI 41.5
[2018-07-01 08:02] LABS: Add Manual Diff / Slide Review NO; Basophils Percent Auto 0.2 % (0-2); Eosinophils Percent Auto 1.2 % (2-4); Hematocrit 47.3 % (41-53); Hemoglobin 16.3 g/dL (13.5-17.5); Lymphocytes Percent Auto 18.5 % (25-40); Mean Corpuscular HGB Conc 34.4 % (30-36); Mean Corpuscular Hemoglobin 29.4 PG (26-34); Mean Corpuscular Volume 85.4 fL (80-100); Monocytes Percent Auto 8.9 % (3-14); Neutrophils Absolute Auto 7400 /uL (1500-7000); Neutrophils Percent Auto 71.2 % (50-75); Platelet Count 175 X10^3/uL (150-400); Red Blood Cell Count 5.54 X10^6/uL (4.5-5.9); Red Cell Distribution Width 13.5 % (11.6-14.8); White Blood Cell Count 10.4 X10^3/uL (4.5-11.0)
[2018-07-01 08:23] LABS: BUN Creatinine Ratio 18.6 (6-22); Blood Urea Nitrogen 13 mg/dL (9-20); Calcium 9.1 mg/dL (8.4-10.2); Carbon Dioxide 25 mmol/L (22-32); Chloride 103 mmol/L (98-107); Estimated Glomerular Filt Rate > 60.0 mL/min (>60); Glucose 130 mg/dL (70-100); HEMOLYSIS < 15 (0-50); Potassium 4.1 mmol/L (3.4-5.1); Sodium 138 mmol/L (137-145)
== END ==
LOC: LAB 07:13
PROVIDERS: Family Provider Internal Medicine; PCP Internal Medicine; Visit Provider Nurse Practitioner Family
DX: J18.9 Pneumonia, unspecified organism (principal); G35 Multiple sclerosis
CPT/HCPCS: 36415; 80048; 85025

== ENCOUNTER → 2018-09-28 07:41 | Outpatient (REF) | payer MEDICARE, MEDICAID, SELFPAY ==
[2018-06-19 09:04] VITALS: BMI 41.5
[2018-09-28 08:05] LABS: Add Manual Diff / Slide Review NO; Basophils Absolute Auto 0 /uL (0-100); Basophils Percent Auto 0.4 % (0-2); Eosinophils Absolute Auto 200 /uL (0-450); Eosinophils Percent Auto 2.7 % (2-4); Hematocrit 45.6 % (41-53); Hemoglobin 15.6 g/dL (13.5-17.5); Lymphocytes Absolute Auto 2000 /uL (1100-4500); Lymphocytes Percent Auto 22.5 % (25-40); Mean Corpuscular HGB Conc 34.1 % (30-36); Mean Corpuscular Hemoglobin 29.1 PG (26-34); Mean Corpuscular Volume 85.3 fL (80-100); Monocytes Absolute Auto 700 /uL (0-900); Monocytes Percent Auto 7.8 % (3-14); Neutrophils Absolute Auto 5800 /uL (1500-7000); Neutrophils Percent Auto 66.6 % (50-75); Platelet Count 229 X10^3/uL (150-400); Red Blood Cell Count 5.35 X10^6/uL (4.5-5.9); Red Cell Distribution Width 13.9 % (11.6-14.8); White Blood Cell Count 8.7 X10^3/uL (4.5-11.0)
[2018-09-28 08:17] LABS: BUN Creatinine Ratio 21.1 (6-22); Blood Urea Nitrogen 19 mg/dL (9-20); Carbon Dioxide 28 mmol/L (22-32); Chloride 103 mmol/L (98-107); Estimated Glomerular Filt Rate > 60.0 mL/min (>60); Glucose 103 mg/dL (70-100); HEMOLYSIS < 15 (0-50); Potassium 4.2 mmol/L (3.4-5.1); Sodium 138 mmol/L (137-145)
== END ==
LOC: LAB 07:41
PROVIDERS: Family Provider Internal Medicine; PCP Internal Medicine; Visit Provider Nurse Practitioner Family
DX: I10 Essential (primary) hypertension (principal); Z79.899 Other long term (current) drug therapy
CPT/HCPCS: 36415; 80048; 85025

== ENCOUNTER → 2018-10-15 16:50 | Outpatient (REF) | payer MEDICARE, MEDICAID, SELFPAY ==
[2018-06-19 09:04] VITALS: BMI 41.5
[2018-10-15 16:58] LABS: Add Manual Diff / Slide Review NO; Basophils Absolute Auto 0 /uL (0-100); Basophils Percent Auto 0.3 % (0-2); Eosinophils Absolute Auto 200 /uL (0-450); Eosinophils Percent Auto 1.9 % (2-4); Hematocrit 47.3 % (41-53); Lymphocytes Absolute Auto 2100 /uL (1100-4500); Lymphocytes Percent Auto 16.6 % (25-40); Mean Corpuscular HGB Conc 33.9 % (30-36); Mean Corpuscular Hemoglobin 28.9 PG (26-34); Mean Corpuscular Volume 85.3 fL (80-100); Monocytes Absolute Auto 900 /uL (0-900); Monocytes Percent Auto 7.3 % (3-14); Neutrophils Absolute Auto 9300 /uL (1500-7000); Neutrophils Percent Auto 73.9 % (50-75); Platelet Count 266 X10^3/uL (150-400); Red Blood Cell Count 5.54 X10^6/uL (4.5-5.9); Red Cell Distribution Width 13.8 % (11.6-14.8); White Blood Cell Count 12.6 X10^3/uL (4.5-11.0)
[2018-10-15 17:05] LABS: Blood Urea Nitrogen 20 mg/dL (9-20); Calcium 8.8 mg/dL (8.4-10.2); Carbon Dioxide 23 mmol/L (22-32); Chloride 103 mmol/L (98-107); Estimated Glomerular Filt Rate > 60.0 mL/min (>60); Glucose 94 mg/dL (70-100); HEMOLYSIS 23 (0-50); Potassium 3.8 mmol/L (3.4-5.1); Sodium 138 mmol/L (137-145)
[2018-10-15 17:35] LABS: Thyroid Stimulating Hormone 0.91 uIU/mL (0.47-4.68)
== END ==
LOC: LAB 16:50
PROVIDERS: Family Provider Internal Medicine; PCP Internal Medicine; Visit Provider Registered Nurse
DX: E03.9 Hypothyroidism, unspecified (principal)
CPT/HCPCS: 80048; 84443; 85025

== ENCOUNTER → 2018-11-02 09:16 | Outpatient (ROUT) | payer MEDICARE, MEDICAID, SELFPAY ==
[2018-06-19 09:04] VITALS: BMI 41.5
[2018-11-02 10:13] LABS: Add Manual Diff / Slide Review NO; Basophils Absolute Auto 0 /uL (0-100); Basophils Percent Auto 0.4 % (0-2); Eosinophils Absolute Auto 200 /uL (0-450); Eosinophils Percent Auto 2.3 % (2-4); Hematocrit 44.9 % (41-53); Hemoglobin 15.4 g/dL (13.5-17.5); Lymphocytes Absolute Auto 1800 /uL (1100-4500); Lymphocytes Percent Auto 18.5 % (25-40); Mean Corpuscular HGB Conc 34.2 % (30-36); Mean Corpuscular Hemoglobin 29.3 PG (26-34); Mean Corpuscular Volume 85.6 fL (80-100); Monocytes Absolute Auto 700 /uL (0-900); Monocytes Percent Auto 6.9 % (3-14); Neutrophils Absolute Auto 7100 /uL (1500-7000); Neutrophils Percent Auto 71.9 % (50-75); Platelet Count 233 X10^3/uL (150-400); Red Blood Cell Count 5.25 X10^6/uL (4.5-5.9); Red Cell Distribution Width 13.8 % (11.6-14.8); White Blood Cell Count 9.8 X10^3/uL (4.5-11.0)
== END ==
PROVIDERS: Family Provider Internal Medicine; PCP Internal Medicine; Visit Provider Internal Medicine
DX: D72.829 Elevated white blood cell count, unspecified (principal)
CPT/HCPCS: 36415; 85025

== ENCOUNTER → 2019-07-26 08:07 | Outpatient (ROUT) | payer MEDICARE, MEDICAID, SELFPAY ==
[2018-06-19 09:04] VITALS: BMI 41.5
[2019-07-26 08:32] LABS: Add Manual Diff / Slide Review NO; Basophils Absolute Auto 100 /uL (0-100); Basophils Percent Auto 0.7 % (0-2); Eosinophils Absolute Auto 200 /uL (0-450); Eosinophils Percent Auto 2.1 % (2-4); Hematocrit 46.7 % (41-53); Hemoglobin 16.4 g/dL (13.5-17.5); Lymphocytes Absolute Auto 2000 /uL (1100-4500); Lymphocytes Percent Auto 20.8 % (25-40); Mean Corpuscular HGB Conc 35.1 % (30-36); Mean Corpuscular Hemoglobin 30.1 PG (26-34); Mean Corpuscular Volume 85.6 fL (80-100); Monocytes Absolute Auto 700 /uL (0-900); Neutrophils Absolute Auto 6800 /uL (1500-7000); Neutrophils Percent Auto 69.4 % (50-75); Platelet Count 242 X10^3/uL (150-400); Red Blood Cell Count 5.46 X10^6/uL (4.5-5.9); Red Cell Distribution Width 13.9 % (11.6-14.8); White Blood Cell Count 9.7 X10^3/uL (4.5-11.0)
[2019-07-26 08:42] LABS: Alanine Aminotransferase 28 IU/L (<50); Albumin 4.1 g/dL (3.5-5.0); Albumin Globulin Ratio 1.3 (1.0-2.8); Alkaline Phosphatase 119 U/L (38-126); Aspartate Aminotransferase 28 IU/L (17-59); BUN Creatinine Ratio 21.3 (6-22); Bilirubin Total 0.8 mg/dL (0.2-1.3); Blood Urea Nitrogen 17 mg/dL (9-20); Calcium 8.9 mg/dL (8.4-10.2); Carbon Dioxide 26 mmol/L (22-32); Chloride 105 mmol/L (98-107); Estimated Glomerular Filt Rate > 60.0 mL/min (>60); Globulin 3.1 g/dL (1.7-4.1); Glucose 130 mg/dL (70-100); HEMOLYSIS 24 (0-50); Sodium 140 mmol/L (137-145); Total Protein 7.2 g/dL (6.3-8.2)
[2019-07-26 09:15] LABS: Vitamin D 25 Hydroxy (D3) 44.8 ng/mL (30.0-100.0)
[2019-07-26 09:29] LABS: Vitamin B12 423 pg/mL (239-931)
== END ==
PROVIDERS: Family Provider Internal Medicine; PCP Internal Medicine; Visit Provider Internal Medicine
DX: G47.9 Sleep disorder, unspecified (principal); R41.89 Other symptoms and signs involving cognitive functions and awareness
CPT/HCPCS: 36415; 80053; 82306; 82607; 85025

== ENCOUNTER → 2019-10-04 10:50 | Outpatient (ROUT) | payer MEDICARE, MEDICAID, SELFPAY ==
[2018-06-19 09:04] VITALS: BMI 41.5
[2019-10-04 10:52] LABS: Bacteria Urine None Seen; RBC Urine None Seen (0-5/HPF); WBC Urine None Seen (0-5/HPF)
[2019-10-04 10:56] LABS: Appearance Urine UA CLEAR; Bilirubin Urine UA NEGATIVE (NEGATIVE); Color Urine UA YELLOW; Glucose Urine UA NEGATIVE (Negative); Ketones Urine UA NEGATIVE (NEGATIVE); Leukocyte Esterase Urine UA NEGATIVE (NEGATIVE); Nitrite Urine UA NEGATIVE (Negative); Occult Blood Urine UA NEGATIVE (Negative); Protein Urine UA NEGATIVE (Negative); Urobilinogen Urine UA 0.2 E.U./dL (0.2)
[2019-10-04 11:17] LABS: Culture Indicated Urine Cult Not Indicated
== END ==
PROVIDERS: Family Provider Internal Medicine; PCP Internal Medicine; Visit Provider Internal Medicine
DX: R33.9 Retention of urine, unspecified (principal); G35 Multiple sclerosis
CPT/HCPCS: 81001

== ENCOUNTER → 2020-03-14 11:19 | Outpatient (CLI) | payer MEDICARE, MEDICAID, SELFPAY ==
[2018-06-19 09:04] VITALS: BMI 41.5
--- NOTE | 2020-03-14 | DI.RAD.S_ITS ---
PROCEDURE: XR MANDIBLE MIN 4V INDICATIONS: CHRONIC PAIN AND SWELLING TECHNIQUE: Four views of the mandible were acquired. COMPARISON: None. FINDINGS: Bones: No fractures or dislocations. No suspicious bony lesions. Soft tissues: Visualized sinuses appear clear. No suspicious soft tissue densities. IMPRESSION: No acute disease. Follow-up nuclear medicine bone scan or MR scanning may be warranted depending on the clinical status. Mandibular plain film imaging is relatively limited in diagnostic prior when compared to CT or MR scanning. Dictated by: Ruben Hobson M.D. on 03/14/2020 at 12:57 Approved by: Ruben Hobson M.D. on 03/14/2020 at 13:00
== END ==
PROVIDERS: Family Provider Internal Medicine; PCP Internal Medicine; Referring Provider Nurse Practitioner Family; Visit Provider Nurse Practitioner Family
DX: R68.84 Jaw pain (principal)
CPT/HCPCS: 70110

== ENCOUNTER 2020-03-14 14:32 | Emergency (ER) | payer MEDICARE, MEDICAID, SELFPAY ==
[2018-06-19 09:04] VITALS: BMI 41.5
[2020-03-14 14:35] VITALS: BP 116/65; PULSE 97; RESP 20; TEMP 37.2; O2SAT 95
--- NOTE | 2020-03-14 14:40 | ED.GENADULT ---
HPI - General Adult General Chief complaint: Fall Stated complaint: Multiple falls Time Seen by Provider: 03/14/20 14:40 History of Present Illness HPI narrative: 49-year-old gentleman with multiple sclerosis who lives in an assisted living facility was walking toward his television today got his foot caught in his shoe laces and fell forward. Suffered an abrasion to the arm the side of his jaw and the left side of his head. There is no loss of consciousness. He does not describe recent fevers, cough, cold, chills, abdominal pain, chest pain, palpitations nor any acute neurologic changes related to his chronic multiple sclerosis. He states that he is chronically unsteady and does typically use a walker but did not have an immediately available when he fell today. Related Data Home Medications Medication Instructions Recorded Confirmed acetaminophen 625 mg PO Q4H PRN 06/19/18 06/19/18 amitriptyline 1 tab PO DAILY 06/19/18 06/19/18 baclofen 1 tab PO TID 06/19/18 06/19/18 bisacodyl 2 tab PO DAILY PRN 06/19/18 06/19/18 bisacodyl 5 mg PO DAILY PRN 06/19/18 06/19/18 bisacodyl See Rx Instructions .ROUTE 06/19/18 06/19/18 .COMPLEX PRN citalopram 1 tab PO DAILY 06/19/18 06/19/18 docusate sodium 100 mg PO DAILY 06/19/18 06/19/18 ergocalciferol (vitamin D2) See Rx Instructions .ROUTE .COMPLEX 06/19/18 06/19/18 ketoconazole See Rx Instructions .ROUTE .COMPLEX 06/19/18 06/19/18 melatonin 1 tab PO BEDTIME 06/19/18 06/19/18 oxycodone 1 tab PO Q8H PRN 06/19/18 06/19/18 ranitidine HCl 1 tab PO BID 06/19/18 06/19/18 tamsulosin 2 tab PO DAILY 06/19/18 06/19/18 Allergies Allergy/AdvReac Type Severity Reaction Status Date / Time No Known Drug Allergies Allergy Verified 03/14/20 14:45 Review of Systems Review of Systems Narrative: Remainder of review of systems including constitutional, ENT, cardiovascular, respiratory, GI, , musculoskeletal, skin, neurologic and psychiatric systems reviewed and are unremarkable except as noted in HPI. Patient History Medical History Bladder disorder, unspecified (Acute) Gastro-esophageal reflux disease without esophagitis (Acute) Major depressive disorder with single episode (Acute) Multiple sclerosis (Acute) Obesity (Acute) Retention of urine, unspecified (Acute) Syncope and collapse (Acute) Vitamin D deficiency, unspecified (Acute) Surgical History No pertinent past surgical history (Acute) Family History Mother In good health Father In good health Social History household members: caregiver lives independently: No Smoking Status: Former smoker Smoking Status: Former smoker alcohol intake frequency: a few times a month Substance Use Type: does not use Exam Narrative Exam Narrative: General: in no acute distress. Well-nourished well-developed, he is able to participate in exam and questioning but does have some memory dysfunction. He is oriented to person and time but not place (nor the name of his assisted living facility) HEENT: Moist mucous membranes, normal sclera with reactive pupils, there is a small abrasion to the left occipital parietal area without contusion or bleeding. There is some swelling to the left lower lip without any abrasions or contusion on the buccal mucosa in the swelling extends down toward the angle of the jaw with no jaw tenderness or neck tenderness Neck: supple Respiratory: Lungs are clear to auscultation, no wheezing no rales no rhonchi. Full and symmetrical air movement Cardiac: Regular rate and rhythm no murmurs no bruits Abdomen: Obese, Soft, nontender, no flank pain Skin: Warm and dry, no rashes Neurologic: Globally weak with poor muscle tone consistent with his multiple sclerosis Extremities: Contusion to the right forearm with edema into the forearm but no obvious abrasion or bleeding at this time. Minor contusion to the left forearm without significant edema. Old abrasion healing nicely to the right jackson with chronic lower extremity edema and no evidence of cellulitis Psych: Cooperative, fluent speech Initial Vital Signs Initial Vital Signs: Vital Signs Temperature 99.0 F 03/14/20 14:35 Pulse Rate 97 H 03/14/20 14:35 Respiratory Rate 20 03/14/20 14:35 Blood Pressure 116/65 03/14/20 14:35 Pulse Oximetry 95 03/14/20 14:35 Course Orders Ordered: Discontinued Medications Hydrocodone Bitart/Acetaminophen ([place] 10/325) 1 tab PO NOW ONE Stop: 03/14/20 15:05 Vital Signs Vital signs: Vital Signs - 8 hr 03/14/20 14:35 Temperature 99.0 F Pulse Rate 97 H Respiratory Rate 20 Blood Pressure 116/65 Pulse Oximetry 95 Medical Decision Making Medical Records Medical records reviewed: Yes I reviewed the patient's medical records. MDM Narrative Medical decision making narrative: 49-year-old gentleman with history of multiple sclerosis currently in assisted living facility. Stumbled over shoe laces with his walker not in immediate reached today and has an abrasion to the side of his head left lower lip right forearm without other significant injuries appreciated. Assisted living facility policy requires evaluation. He states that he would not have come to the emergency room with that were not policy. He has no other complaints at this time. No evidence of infection, stroke or alternate explanation for his fall today. He is safe for return back to his assisted living facility. Discharge Plan Departure Patient Disposition: Home Clinical Impression: Multiple sclerosis Fall Qualifiers: Encounter type: initial encounter Qualified Code(s): W19.XXXA - Unspecified fall, initial encounter Instructions: How to Prevent Falls Activity Restrictions/Additional Instructions: Thank you for coming in today It does look like you took quite the yazidism. You have a small contusion to the left side of your head. Your left lower lip and left area of the jaw are a bit swollen but there are no cuts that need to be sutured. You also have an abrasion to the right forearm and I expect that over the next couple days that will continue to bother you and will developed quite a bit of bruising. It does not look like you have done any severe damage. In the emergency room your given a Vicodin for the pain. No additional studies or imaging were required after physical exam was done. Please take care with falls, this will cause significant problems for you if you do continue to fall. I wish you well Prescriptions: No Action amitriptyline 150 mg tablet 1 tab PO DAILY RF: 0 baclofen 20 mg tablet 1 tab PO TID RF: 0 citalopram 40 mg tablet 1 tab PO DAILY RF: 0 ketoconazole 2 % shampoo See Rx Instructions .ROUTE .COMPLEX RF: 0 oxycodone 10 mg tablet 1 tab PO Q8H PRN (Reason: moderate to severe pain) RF: 0 ranitidine HCl 150 mg tablet 1 tab PO BID RF: 0 tamsulosin 0.4 mg capsule 2 tab PO DAILY RF: 0 acetaminophen 625 mg PO Q4H PRN (Reason: pain/fever) RF: 0 docusate sodium 100 mg Tablet 100 mg PO DAILY RF: 0 melatonin 3 mg 1 tab PO BEDTIME RF: 0 ergocalciferol (vitamin D2) 50,000 unit See Rx Instructions .ROUTE .COMPLEX RF: 0 bisacodyl 5 mg Tablet,Delayed Release (Dr/Ec) 5 mg PO DAILY PRN (Reason: Constipation) RF: 0 bisacodyl 5 mg Tablet,Delayed Release (Dr/Ec) 2 tab PO DAILY PRN (Reason: Constipation) RF: 0 bisacodyl 10 mg Suppository See Rx Instructions .ROUTE .COMPLEX PRN (Reason: CONSTIPATION) RF: 0 Referrals: Sommer Phillips MD [Primary Care Provider] -
[2020-03-14] MEDS: HYDROCODONE/ACET 5/325 TABLET 1 TAB PO (15:41)
[2020-03-14 16:05] VITALS: BP 116/65; PULSE 91; RESP 22; O2SAT 95
== END 2020-03-14 17:08 | disposition home or self-care (01) ==
LOC: ED 15:10
PROVIDERS: Emergency Provider Emergency Medicine; Family Provider Internal Medicine; PCP Internal Medicine
DX: S00.01XA Abrasion of scalp, initial encounter (principal); S00.511A Abrasion of lip, initial encounter; S50.811A Abrasion of right forearm, initial encounter; W19.XXXA Unspecified fall, initial encounter; G35 Multiple sclerosis; R68.84 Jaw pain
CPT/HCPCS: 70110; 81001; 99283

== ENCOUNTER → 2020-03-15 07:32 | Outpatient (ROUT) | payer MEDICARE, MEDICAID, SELFPAY ==
[2018-06-19 09:04] VITALS: BMI 41.5
[2020-03-15 08:32] LABS: Add Manual Diff / Slide Review NO; Basophils Absolute Auto 0 /uL (0-100); Basophils Percent Auto 0.4 % (0-2); Eosinophils Absolute Auto 200 /uL (0-450); Eosinophils Percent Auto 1.9 % (2-4); Hematocrit 43.3 % (41-53); Lymphocytes Absolute Auto 1500 /uL (1100-4500); Lymphocytes Percent Auto 15.7 % (25-40); Mean Corpuscular HGB Conc 34.6 % (30-36); Mean Corpuscular Hemoglobin 29.3 PG (26-34); Mean Corpuscular Volume 84.7 fL (80-100); Monocytes Absolute Auto 600 /uL (0-900); Monocytes Percent Auto 6.4 % (3-14); Neutrophils Absolute Auto 7100 /uL (1500-7000); Neutrophils Percent Auto 75.6 % (50-75); Platelet Count 177 X10^3/uL (150-400); Red Blood Cell Count 5.12 X10^6/uL (4.5-5.9); White Blood Cell Count 9.3 X10^3/uL (4.5-11.0)
[2020-03-15 08:52] LABS: Alanine Aminotransferase 40 IU/L (<50); Albumin 3.8 g/dL (3.5-5.0); Albumin Globulin Ratio 1.4 (1.0-2.8); Alkaline Phosphatase 123 U/L (38-126); Aspartate Aminotransferase 37 IU/L (17-59); BUN Creatinine Ratio 20.5 (6-22); Bilirubin Total 1.1 mg/dL (0.2-1.3); Blood Urea Nitrogen 15 mg/dL (9-20); Calcium 8.7 mg/dL (8.4-10.2); Carbon Dioxide 25 mmol/L (22-32); Chloride 105 mmol/L (98-107); Estimated Glomerular Filt Rate > 60.0 mL/min (>60); Globulin 2.8 g/dL (1.7-4.1); Glucose 171 mg/dL (70-100); HEMOLYSIS < 15 (0-50); Potassium 3.7 mmol/L (3.4-5.1); Sodium 137 mmol/L (137-145); Total Protein 6.6 g/dL (6.3-8.2)
[2020-03-15 09:45] LABS: Thyroid Stimulating Hormone 0.889 uIU/mL (0.47-4.68)
== END ==
PROVIDERS: Family Provider Internal Medicine; PCP Internal Medicine; Visit Provider Internal Medicine
DX: R29.6 Repeated falls (principal); R35.0 Frequency of micturition
CPT/HCPCS: 36415; 80053; 84443; 85025

== ENCOUNTER → 2020-03-20 08:35 | Outpatient (ROUT) | payer MEDICARE, MEDICAID, SELFPAY ==
[2018-06-19 09:04] VITALS: BMI 41.5
[2020-03-20 10:00] LABS: Hemoglobin A1C% w Est Avg Glu 5.6 % (4.0-6.0)
== END ==
PROVIDERS: Family Provider Internal Medicine; PCP Internal Medicine; Visit Provider Nurse Practitioner Family
DX: R73.9 Hyperglycemia, unspecified (principal)
CPT/HCPCS: 36415; 83036

== ENCOUNTER → 2020-04-03 08:03 | Outpatient (ROUT) | payer MEDICARE, MEDICAID, SELFPAY ==
[2018-06-19 09:04] VITALS: BMI 41.5
[2020-04-03 09:09] LABS: Add Manual Diff / Slide Review NO; Basophils Absolute Auto 100 /uL (0-100); Basophils Percent Auto 0.5 % (0-2); Eosinophils Absolute Auto 300 /uL (0-450); Hematocrit 47.8 % (41-53); Hemoglobin 16.5 g/dL (13.5-17.5); Lymphocytes Absolute Auto 2300 /uL (1100-4500); Lymphocytes Percent Auto 18.2 % (25-40); Mean Corpuscular HGB Conc 34.6 % (30-36); Mean Corpuscular Hemoglobin 29.1 PG (26-34); Mean Corpuscular Volume 84.3 fL (80-100); Monocytes Absolute Auto 800 /uL (0-900); Monocytes Percent Auto 6.1 % (3-14); Neutrophils Absolute Auto 9300 /uL (1500-7000); Neutrophils Percent Auto 73.2 % (50-75); Platelet Count 269 X10^3/uL (150-400); Red Blood Cell Count 5.67 X10^6/uL (4.5-5.9); Red Cell Distribution Width 13.7 % (11.6-14.8); White Blood Cell Count 12.7 X10^3/uL (4.5-11.0)
[2020-04-03 09:28] LABS: Alanine Aminotransferase 37 IU/L (<50); Albumin 4.1 g/dL (3.5-5.0); Albumin Globulin Ratio 1.4 (1.0-2.8); Alkaline Phosphatase 152 U/L (38-126); Aspartate Aminotransferase 26 IU/L (17-59); BUN Creatinine Ratio 25.8 (6-22); Blood Urea Nitrogen 17 mg/dL (9-20); Calcium 8.8 mg/dL (8.4-10.2); Carbon Dioxide 26 mmol/L (22-32); Chloride 104 mmol/L (98-107); Estimated Glomerular Filt Rate > 60.0 mL/min (>60); Glucose 149 mg/dL (70-100); HEMOLYSIS < 15 (0-50); Potassium 3.8 mmol/L (3.4-5.1); Sodium 138 mmol/L (137-145); Total Protein 7.1 g/dL (6.3-8.2)
[2020-04-03 09:44] LABS: Vitamin D 25 Hydroxy (D3) 43.8 ng/mL (30.0-100.0)
== END ==
PROVIDERS: Family Provider Internal Medicine; PCP Internal Medicine; Visit Provider Internal Medicine
DX: G35 Multiple sclerosis (principal)
CPT/HCPCS: 36415; 80053; 82306; 85025

== ENCOUNTER → 2020-04-05 07:35 | Outpatient (ROUT) | payer MEDICARE, MEDICAID, SELFPAY ==
[2018-06-19 09:04] VITALS: BMI 41.5
[2020-04-05 08:46] LABS: Add Manual Diff / Slide Review NO; Basophils Absolute Auto 100 /uL (0-100); Basophils Percent Auto 0.5 % (0-2); Eosinophils Absolute Auto 200 /uL (0-450); Eosinophils Percent Auto 1.8 % (2-4); Hematocrit 44.7 % (41-53); Hemoglobin 15.4 g/dL (13.5-17.5); Lymphocytes Absolute Auto 2100 /uL (1100-4500); Lymphocytes Percent Auto 17.1 % (25-40); Mean Corpuscular HGB Conc 34.5 % (30-36); Mean Corpuscular Hemoglobin 29.1 PG (26-34); Mean Corpuscular Volume 84.3 fL (80-100); Monocytes Absolute Auto 700 /uL (0-900); Monocytes Percent Auto 5.9 % (3-14); Neutrophils Absolute Auto 9100 /uL (1500-7000); Neutrophils Percent Auto 74.7 % (50-75); Platelet Count 227 X10^3/uL (150-400); Red Blood Cell Count 5.31 X10^6/uL (4.5-5.9); Red Cell Distribution Width 13.7 % (11.6-14.8); White Blood Cell Count 12.2 X10^3/uL (4.5-11.0)
== END ==
PROVIDERS: Family Provider Internal Medicine; PCP Internal Medicine; Visit Provider Nurse Practitioner Gerontology
DX: D72.829 Elevated white blood cell count, unspecified (principal)
CPT/HCPCS: 36415; 85025

== ENCOUNTER → 2020-04-17 07:30 | Outpatient (ROUT) | payer MEDICARE, MEDICAID, SELFPAY ==
[2018-06-19 09:04] VITALS: BMI 41.5
[2020-04-17 09:11] LABS: Add Manual Diff / Slide Review NO; Basophils Absolute Auto 100 /uL (0-100); Basophils Percent Auto 0.5 % (0-2); Eosinophils Absolute Auto 200 /uL (0-450); Eosinophils Percent Auto 1.7 % (2-4); Hematocrit 47.9 % (41-53); Hemoglobin 16.6 g/dL (13.5-17.5); Lymphocytes Absolute Auto 2200 /uL (1100-4500); Lymphocytes Percent Auto 19.2 % (25-40); Mean Corpuscular HGB Conc 34.6 % (30-36); Mean Corpuscular Hemoglobin 29.5 PG (26-34); Mean Corpuscular Volume 85.3 fL (80-100); Monocytes Absolute Auto 700 /uL (0-900); Monocytes Percent Auto 5.9 % (3-14); Neutrophils Absolute Auto 8500 /uL (1500-7000); Neutrophils Percent Auto 72.7 % (50-75); Platelet Count 224 X10^3/uL (150-400); Red Blood Cell Count 5.61 X10^6/uL (4.5-5.9); Red Cell Distribution Width 13.9 % (11.6-14.8); White Blood Cell Count 11.6 X10^3/uL (4.5-11.0)
== END ==
PROVIDERS: Family Provider Internal Medicine; PCP Internal Medicine; Visit Provider Nurse Practitioner Gerontology
DX: D72.829 Elevated white blood cell count, unspecified (principal)
CPT/HCPCS: 36415; 85025

== ENCOUNTER → 2020-06-25 18:55 | Outpatient (ROUT) | payer MEDICARE, MEDICAID, SELFPAY ==
[2018-06-19 09:04] VITALS: BMI 41.5
[2020-06-25 19:25] LABS: Add Manual Diff / Slide Review NO; Basophils Absolute Auto 0 /uL (0-100); Basophils Percent Auto 0.3 % (0-2); Eosinophils Absolute Auto 300 /uL (0-450); Eosinophils Percent Auto 2.3 % (2-4); Hematocrit 46.1 % (41-53); Hemoglobin 15.4 g/dL (13.5-17.5); Lymphocytes Absolute Auto 1600 /uL (1100-4500); Lymphocytes Percent Auto 13.9 % (25-40); Mean Corpuscular HGB Conc 33.4 % (30-36); Mean Corpuscular Hemoglobin 28.4 PG (26-34); Mean Corpuscular Volume 84.8 fL (80-100); Monocytes Absolute Auto 900 /uL (0-900); Monocytes Percent Auto 7.8 % (3-14); Neutrophils Absolute Auto 8900 /uL (1500-7000); Neutrophils Percent Auto 75.7 % (50-75); Platelet Count 220 X10^3/uL (150-400); Red Blood Cell Count 5.44 X10^6/uL (4.5-5.9); Red Cell Distribution Width 13.5 % (11.6-14.8); White Blood Cell Count 11.8 X10^3/uL (4.5-11.0)
[2020-06-25 19:31] LABS: BUN Creatinine Ratio 21.7 (6-22); Blood Urea Nitrogen 15 mg/dL (9-20); Calcium 8.8 mg/dL (8.4-10.2); Carbon Dioxide 27 mmol/L (22-32); Chloride 102 mmol/L (98-107); Estimated Glomerular Filt Rate > 60.0 mL/min (>60); Glucose 313 mg/dL (70-100); HEMOLYSIS < 15 (0-50); Potassium 4.5 mmol/L (3.4-5.1); Sodium 133 mmol/L (137-145)
== END ==
PROVIDERS: Visit Provider Internal Medicine
DX: R60.0 Localized edema (principal)
CPT/HCPCS: 80048; 85025

== ENCOUNTER → 2020-07-24 07:23 | Outpatient (ROUT) | payer MEDICARE, MEDICAID, SELFPAY ==
[2018-06-19 09:04] VITALS: BMI 41.5
[2020-07-24 07:55] LABS: Add Manual Diff / Slide Review NO; Basophils Absolute Auto 100 /uL (0-100); Basophils Percent Auto 0.6 % (0-2); Eosinophils Absolute Auto 400 /uL (0-450); Eosinophils Percent Auto 3.4 % (2-4); Hematocrit 46.1 % (41-53); Hemoglobin 15.5 g/dL (13.5-17.5); Lymphocytes Absolute Auto 2300 /uL (1100-4500); Lymphocytes Percent Auto 21.8 % (25-40); Mean Corpuscular HGB Conc 33.7 % (30-36); Mean Corpuscular Hemoglobin 28.5 PG (26-34); Mean Corpuscular Volume 84.6 fL (80-100); Monocytes Absolute Auto 700 /uL (0-900); Monocytes Percent Auto 6.9 % (3-14); Neutrophils Absolute Auto 7000 /uL (1500-7000); Neutrophils Percent Auto 67.3 % (50-75); Platelet Count 214 X10^3/uL (150-400); Red Blood Cell Count 5.45 X10^6/uL (4.5-5.9); Red Cell Distribution Width 13.9 % (11.6-14.8); White Blood Cell Count 10.4 X10^3/uL (4.5-11.0)
== END ==
PROVIDERS: Visit Provider Nurse Practitioner Gerontology
DX: D72.829 Elevated white blood cell count, unspecified (principal)
CPT/HCPCS: 36415; 85025

== ENCOUNTER 2020-08-05 16:14 | Emergency (ER) | payer MEDICARE, MEDICAID, SELFPAY ==
[2018-06-19 09:04] VITALS: BMI 41.5
[2020-08-05] VITALS (9 sets, daily range): BP systolic 147–180; BP diastolic 78–110; PULSE 100–109; RESP 17–31; TEMP 37.2; O2SAT 90–98; BMI 36.9
--- NOTE | 2020-08-05 16:11 | PC.NURSE ---
Pt with h/o MS. Had 2nd COVID vaccination. Running fever at [facility]. Given tylenol before EMS transport. arrives afebrile 98.9. HR 105-110. Denies pain, SOB, CP or bowel bladder issues. Appears weak. Unk if baseline from MS. placed on cardiac monitoring. awaiting MD assessment
--- NOTE | 2020-08-05 16:24 | DI.RAD.S_ITS ---
PROCEDURE: XR CHEST 1V INDICATIONS: eval for PNA TECHNIQUE: One view of the chest was acquired. COMPARISON: [facility], CR, XR CHEST 1V, 06/19/2018, 6:57. FINDINGS: Overlying EKG wires. Surgical changes and devices: None. Lungs and pleura: Lungs are clear. No pleural effusions or pneumothorax. Mediastinum: Mediastinal contours appear normal. Heart size is normal. Bones and chest wall: No suspicious bony lesions. Overlying soft tissues appear unremarkable. IMPRESSION: No evidence of an acute cardiopulmonary abnormality. Dictated by: Dylon Harris D.O. on 08/05/2020 at 15:45 Approved by: Dylon Harris D.O. on 08/05/2020 at 15:47
--- NOTE | 2020-08-05 16:25 | ED_ITS ---
HPI - General Adult General Chief complaint: Fever Stated complaint: Fever Time Seen by Provider: 08/05/20 16:22 Source: patient Mode of arrival: EMS Limitations: no limitations History of Present Illness HPI narrative: Patient is a 49-year-old male. History of cerebral palsy. Lives in an assisted living facility. Received his 2nd dose of the Moderna COVID-19 vaccine yesterday. Received a call from the associate medical director of the facility stating that she was called by the facility staff secondary to the patient having a fever and shortness of breath. Patient was sent to the emergency department for further evaluation secondary to this. He did receive Tylenol prior to transport. He is a full code. Related Data Home Medications Medication Instructions Recorded Confirmed acetaminophen 625 mg PO Q4H PRN 06/19/18 06/19/18 amitriptyline 1 tab PO DAILY 06/19/18 06/19/18 baclofen 1 tab PO TID 06/19/18 06/19/18 bisacodyl 2 tab PO DAILY PRN 06/19/18 06/19/18 bisacodyl 5 mg PO DAILY PRN 06/19/18 06/19/18 bisacodyl See Rx Instructions .ROUTE 06/19/18 06/19/18 .COMPLEX PRN citalopram 1 tab PO DAILY 06/19/18 06/19/18 docusate sodium 100 mg PO DAILY 06/19/18 06/19/18 ergocalciferol (vitamin D2) See Rx Instructions .ROUTE .COMPLEX 06/19/18 06/19/18 ketoconazole See Rx Instructions .ROUTE .COMPLEX 06/19/18 06/19/18 melatonin 1 tab PO BEDTIME 06/19/18 06/19/18 oxycodone 1 tab PO Q8H PRN 06/19/18 06/19/18 ranitidine HCl 1 tab PO BID 06/19/18 06/19/18 tamsulosin 2 tab PO DAILY 06/19/18 06/19/18 Allergies Allergy/AdvReac Type Severity Reaction Status Date / Time No Known Drug Allergies Allergy Verified 03/14/20 14:45 Review of Systems Constitutional Constitutional: Denies chills, Reports fever(s) and Denies headache(s) ENT Ears, Nose, Mouth, and Throat: Denies vertigo, Denies dizziness and Denies headache(s) Cardiovascular Cardiovascular: Denies chest pain Respiratory Comments: Shortness of breath reported by nursing facility. Patient did ice this currently. Gastrointestinal Gastrointestinal: Denies abdominal pain, Denies nausea and Denies vomiting Genitourinary Genitourinary: Denies dysuria Genitourinary: Denies dysuria Musculoskeletal Musculoskeletal: Denies arthralgias and Denies myalgias Integumentary/Breasts Skin/Breast: Denies pruritus and Denies rash Neurologic Neurologic: Denies confusion, Denies vertigo, Denies dizziness and Denies headache(s) Psychiatric Psychiatric: Denies confusion Hematologic/Lymphatic On Anticoagulants: No Allergic/Immunologic Allergic/Immunologic: Denies urticaria Patient History Medical History (Updated 08/05/20 @ 18:16 by Georgi Gupta DO) Bladder disorder, unspecified Gastro-esophageal reflux disease without esophagitis Major depressive disorder with single episode Multiple sclerosis Obesity Retention of urine, unspecified Syncope and collapse Vitamin D deficiency, unspecified Surgical History No pertinent past surgical history Family History Mother In good health Father In good health Social History household members: caregiver lives independently: No Smoking Status: Former smoker Smoking Status: Former smoker alcohol intake frequency: a few times a month Substance Use Type: does not use Exam Initial Vital Signs Initial Vital Signs: Vital Signs Temperature 98.9 F 08/05/20 16:10 Pulse Rate 108 H 08/05/20 16:10 Respiratory Rate 17 08/05/20 16:10 Blood Pressure 160/104 H 08/05/20 16:10 Pulse Oximetry 98 08/05/20 16:10 Const General: cooperative, healthy appearing and comfortable Limitations: mental status not altered HENOR Head: normal to inspection and normocephalic Resp Effort & Inspection: normal respiratory effort Auscultation: clear to auscultation bilaterally Cardio Rate: tachycardic Rhythm: regular rhythm GI Inspection: non-distended Palpation: soft Back/Spine/Pelvis Thoracic/Lumbar Spine: No thoracic spinal tenderness and No lumbar spinal tenderness Skin Other: Patient does have an abrasion down on his left lower back. He states this is from a fall that he sustained a couple days ago. There is no surrounding erythema. There are no other signs of ulcerations. Neuro General: patient alert and patient awake Cognition: normal cognition Extrem General: capillary refill normal Psych Appearance: grossly normal and well kempt Course Orders Ordered: ED Orders 08/05/20 16:24 XR chest 1V Stat 08/05/20 16:34 Complete Blood Count AUTO DIFF Stat Comprehensive Metabolic Panel Stat Lactate (Lactic Acid) Stat Lipase Stat Procalcitonin Stat 08/05/20 17:15 Blood Culture Stat 08/05/20 17:20 Influenza A & B (PCR) Stat Discontinued Medications Sodium Chloride (Normal Saline 0.9%) 1,000 mls @ 1,000 mls/hr IV BOLUS ONE Stop: 08/05/20 17:21 Last Infusion: 08/05/20 17:59 Dose: 0 mls/hr Documented by: Admin: 08/05/20 16:42 Dose: 1,000 mls/hr Documented by: NAJMA Vital Signs Vital signs: Vital Signs - 8 hr 08/05/20 16:10 08/05/20 16:13 08/05/20 16:30 Temperature 98.9 F Pulse Rate 108 H 109 H 109 H Respiratory Rate 17 22 23 Blood Pressure 160/104 H Pulse Oximetry 98 90 L 94 08/05/20 16:34 08/05/20 17:00 Temperature Pulse Rate 108 H 104 H Respiratory Rate 19 17 Blood Pressure 156/90 H 147/78 H Pulse Oximetry 93 93 Medical Decision Making Medical Records Medical records reviewed: Yes I reviewed the patient's medical records. Lab Data Lab results reviewed: Yes I reviewed the patient's lab results. Result diagrams: 08/05/20 16:34 08/05/20 16:34 Labs: Lab Results 08/05/20 08/05/20 08/05/20 Range/Units 16:34 16:34 16:34 WBC 9.7 (4.5-11.0) X10^3/uL RBC 5.52 (4.5-5.9) X10^6/uL Hgb 15.7 (13.5-17.5) g/dL Hct 46.3 (41-53) % MCV 84.0 (80-100) fL MCH 28.5 (26-34) PG MCHC 33.9 (30-36) % RDW 13.9 (11.6-14.8) % Plt Count 200 (150-400) X10^3/uL Neut % (Auto) 81.8 H (50-75) % Lymph % (Auto) 10.6 L (25-40) % Boundary % (Auto) 6.5 (3-14) % Eos % (Auto) 0.4 L (2-4) % Baso % (Auto) 0.7 (0-2) % Neut # (Auto) 7900 H (7920-4875) /uL Lymph # (Auto) 1000 L (6476-7862) /uL Boundary # (Auto) 600 (0-900) /uL Eos # (Auto) 0 (0-450) /uL Baso # (Auto) 100 (0-100) /uL Sodium 132 L (137-145) mmol/L Potassium 3.8 (3.4-5.1) mmol/L Chloride 101 (98-107) mmol/L Carbon Dioxide 26 (22-32) mmol/L BUN 14 (9-20) mg/dL Creatinine 0.66 (0.66-1.25) mg/dL Estimated GFR > 60.0 (>60) mL/min BUN/Creatinine Ratio 21.2 (6-22) Glucose 129 H (70-100) mg/dL Lactate (0.7-2.1) mmol/L Calcium 8.7 (8.4-10.2) mg/dL Total Bilirubin 1.0 (0.2-1.3) mg/dL AST 26 (17-59) IU/L ALT 35 (<50) IU/L Alkaline Phosphatase 142 H (38-126) U/L Total Protein 6.9 (6.3-8.2) g/dL Albumin 4.1 (3.5-5.0) g/dL Globulin 2.8 (1.7-4.1) g/dL Albumin/Globulin Ratio 1.5 (1.0-2.8) Lipase (23-300) U/L Procalcitonin 0.14 (<0.5) ng/mL Influenza A (RT-PCR) (NEGATIVE) Influenza B (RT-PCR) (NEGATIVE) 08/05/20 08/05/20 08/05/20 Range/Units 16:34 16:34 17:20 WBC (4.5-11.0) X10^3/uL RBC (4.5-5.9) X10^6/uL Hgb (13.5-17.5) g/dL Hct (41-53) % MCV (80-100) fL MCH (26-34) PG MCHC (30-36) % RDW (11.6-14.8) % Plt Count (150-400) X10^3/uL Neut % (Auto) (50-75) % Lymph % (Auto) (25-40) % Boundary % (Auto) (3-14) % Eos % (Auto) (2-4) % Baso % (Auto) (0-2) % Neut # (Auto) (7803-1098) /uL Lymph # (Auto) (4274-7950) /uL Boundary # (Auto) (0-900) /uL Eos # (Auto) (0-450) /uL Baso # (Auto) (0-100) /uL Sodium (137-145) mmol/L Potassium (3.4-5.1) mmol/L Chloride (98-107) mmol/L Carbon Dioxide (22-32) mmol/L BUN (9-20) mg/dL Creatinine (0.66-1.25) mg/dL Estimated GFR (>60) mL/min BUN/Creatinine Ratio (6-22) Glucose (70-100) mg/dL Lactate 1.3 (0.7-2.1) mmol/L Calcium (8.4-10.2) mg/dL Total Bilirubin (0.2-1.3) mg/dL AST (17-59) IU/L ALT (<50) IU/L Alkaline Phosphatase (38-126) U/L Total Protein (6.3-8.2) g/dL Albumin (3.5-5.0) g/dL Globulin (1.7-4.1) g/dL Albumin/Globulin Ratio (1.0-2.8) Lipase 36 (23-300) U/L Procalcitonin (<0.5) ng/mL Influenza A (RT-PCR) Flu a negative (NEGATIVE) Influenza B (RT-PCR) Flu b negative (NEGATIVE) [facility] Narrative Medical decision making narrative: Patient had low-grade fever and was tachycardic upon arrival however does not have a white count. Procalcitonin and lactate are negative. Chest x-ray is negative. Patient states he feels much better. I suspect that his symptoms today are related to the COVID-19 vaccine that he received yesterday. Feel we will hold on further workup for now. He did have blood cultures pending at the time of discharge. Feel we should hold on any antibiotics. He was given return precautions and follow-up instructions. He expressed understanding and agreement. Discharge Plan Departure Patient Disposition: Home Clinical Impression: Fever Instructions: DI for Fever (Symptom) -- Adult Activity Restrictions/Additional Instructions: I suspect that your fever today is related to the COVID-19 vaccine that you received yesterday. You can take Tylenol as needed for any fevers or headaches or body aches. Continue the rest of your medications as directed. Return to the emergency department for any new or worsening symptoms Prescriptions: No Action amitriptyline 150 mg tablet 1 tab PO DAILY RF: 0 baclofen 20 mg tablet 1 tab PO TID RF: 0 citalopram 40 mg tablet 1 tab PO DAILY RF: 0 ketoconazole 2 % shampoo See Rx Instructions .ROUTE .COMPLEX RF: 0 oxycodone 10 mg tablet 1 tab PO Q8H PRN (Reason: moderate to severe pain) RF: 0 ranitidine HCl 150 mg tablet 1 tab PO BID RF: 0 tamsulosin 0.4 mg capsule 2 tab PO DAILY RF: 0 acetaminophen 625 mg PO Q4H PRN (Reason: pain/fever) RF: 0 docusate sodium 100 mg Tablet 100 mg PO DAILY RF: 0 melatonin 3 mg 1 tab PO BEDTIME RF: 0 ergocalciferol (vitamin D2) 50,000 unit See Rx Instructions .ROUTE .COMPLEX RF: 0 bisacodyl 5 mg Tablet,Delayed Release (Dr/Ec) 5 mg PO DAILY PRN (Reason: Constipation) RF: 0 bisacodyl 5 mg Tablet,Delayed Release (Dr/Ec) 2 tab PO DAILY PRN (Reason: Constipation) RF: 0 bisacodyl 10 mg Suppository See Rx Instructions .ROUTE .COMPLEX PRN (Reason: CONSTIPATION) RF: 0
[2020-08-05] MEDS: SODIUM CHLORIDE 0.9% 1,000 ML 1000 ML IV (16:42)
[2020-08-05 16:43] LABS: Add Manual Diff / Slide Review NO; Basophils Absolute Auto 100 /uL (0-100); Basophils Percent Auto 0.7 % (0-2); Eosinophils Absolute Auto 0 /uL (0-450); Eosinophils Percent Auto 0.4 % (2-4); Hematocrit 46.3 % (41-53); Hemoglobin 15.7 g/dL (13.5-17.5); Lymphocytes Absolute Auto 1000 /uL (1100-4500); Lymphocytes Percent Auto 10.6 % (25-40); Mean Corpuscular HGB Conc 33.9 % (30-36); Mean Corpuscular Hemoglobin 28.5 PG (26-34); Monocytes Absolute Auto 600 /uL (0-900); Monocytes Percent Auto 6.5 % (3-14); Neutrophils Absolute Auto 7900 /uL (1500-7000); Neutrophils Percent Auto 81.8 % (50-75); Platelet Count 200 X10^3/uL (150-400); Red Blood Cell Count 5.52 X10^6/uL (4.5-5.9); Red Cell Distribution Width 13.9 % (11.6-14.8); White Blood Cell Count 9.7 X10^3/uL (4.5-11.0)
[2020-08-05 16:54] LABS: Lactate (Lactic Acid) 1.3 mmol/L (0.7-2.1)
[2020-08-05 16:55] LABS: Alanine Aminotransferase 35 IU/L (<50); Albumin 4.1 g/dL (3.5-5.0); Albumin Globulin Ratio 1.5 (1.0-2.8); Alkaline Phosphatase 142 U/L (38-126); Aspartate Aminotransferase 26 IU/L (17-59); BUN Creatinine Ratio 21.2 (6-22); Blood Urea Nitrogen 14 mg/dL (9-20); Calcium 8.7 mg/dL (8.4-10.2); Carbon Dioxide 26 mmol/L (22-32); Chloride 101 mmol/L (98-107); Estimated Glomerular Filt Rate > 60.0 mL/min (>60); Globulin 2.8 g/dL (1.7-4.1); Glucose 129 mg/dL (70-100); HEMOLYSIS < 15 (0-50); Potassium 3.8 mmol/L (3.4-5.1); Sodium 132 mmol/L (137-145); Total Protein 6.9 g/dL (6.3-8.2)
[2020-08-05 17:09] LABS: Lipase 36 U/L (23-300)
[2020-08-05 17:19] LABS: Procalcitonin 0.14 ng/mL (<0.5)
[2020-08-05 17:56] LABS: Influenza A - CEPHEID Flu A NEGATIVE (NEGATIVE); Influenza B - CEPHEID Flu B NEGATIVE (NEGATIVE)
--- NOTE | 2020-08-05 18:00 | PC.NURSE ---
provided pt with 1/2 egg sandwich and kaiser natali.
--- NOTE | 2020-08-05 19:14 | PC.NURSE ---
report given to Carlos at [facility] and advised pt will be transported back with [facility] at [facility]
== END 2020-08-05 19:51 | disposition home or self-care (01) ==
PROVIDERS: Emergency Provider Emergency Medicine
DX: R50.9 Fever, unspecified (principal); R06.02 Shortness of breath; R00.0 Tachycardia, unspecified; T50.Z95A Adverse effect of other vaccines and biological substances, initial encounter; E66.9 Obesity, unspecified; Z68.36 Body mass index [BMI] 36.0-36.9, adult
CPT/HCPCS: 36415; 71045; 80053; 83605; 83690; 84145; 85025; 87040; 87502; 96360; 99283; 99284

== ENCOUNTER 2020-10-21 18:08 | Observation (INO) | payer MEDICARE, MEDICAID, SELFPAY ==
[2018-06-19 09:04] VITALS: BMI 41.5
[2020-10-21] VITALS (8 sets, daily range): BP systolic 125–133; BP diastolic 75–87; PULSE 82–89; RESP 12–24; TEMP 36.4–36.8; O2SAT 94–99; BMI 45.1
--- NOTE | 2020-10-21 18:10 | DI.RAD.S_ITS ---
PROCEDURE: XR CHEST 1V INDICATIONS: chest pain TECHNIQUE: One view of the chest was acquired. COMPARISON: [facility], CR, XR CHEST 1V, 08/05/2020, 16:35. FINDINGS: Surgical changes and devices: None. Lungs and pleura: No pleural effusions or pneumothorax. Bilateral perihilar opacities Mediastinum: Mediastinal contours appear normal. Heart size is normal. Bones and chest wall: No suspicious bony lesions. Overlying soft tissues appear unremarkable. IMPRESSION: Bilateral ill-defined and perihilar opacities. Differential includes aspiration, atypical/viral pneumonia. Please correlate clinically to exclude pulmonary edema. If there is persistent clinical diagnostic uncertainty, continued surveillance with short interval radiographic followup after treatment is recommended. Dictated by: Jayson Modi M.D. on 10/21/2020 at 18:23 Approved by: Jayson Modi M.D. on 10/21/2020 at 18:25
--- NOTE | 2020-10-21 18:10 | ED.CHESTPAIN ---
HPI - Chest Pain General Chief Complaint: Chest Pain Stated Complaint: Chest pain Time Seen by Provider: 10/21/20 18:11 Source: patient and EMS Mode of arrival: EMS Limitations: no limitations History of Present Illness HPI narrative: 50M former smoker with history of MS, tachycardia and pneumonia presents by EMS for evaluation of 3 days of left-sided chest pressure and heaviness with radiation to his left shoulder. He states he is unaware what he was doing when it started and states that there is no obvious provocation such as exertion or eating. He denies any palliation other than the nitro given to him in the ambulance. He was also given full-dose aspirin. He states that the pain had been a maximum of 7/10 and persistent for the past 3 days. He denies any history of cardiac disease, blood clot, cancer, recent travel or injury. He is completely symptom free on arrival MD complaint: chest pain Onset (ago): day(s) Duration: constant and now resolved Onset: during rest Pain location: left chest Severity: moderate Quality: aching Pain radiation: LUE Relieving factors: nitroglycerin Exacerbating factors: nothing Treatments prior to arrival chest pain: aspirin and nitroglycerin Related Data Home Medications Medication Instructions Recorded Confirmed acetaminophen 650 mg PO Q4H PRN 06/19/18 10/21/20 baclofen 20 mg PO TID 06/19/18 10/21/20 citalopram 40 mg PO DAILY 06/19/18 10/21/20 ergocalciferol (vitamin D2) 50,000 units PO USEASDIRECTD 06/19/18 10/21/20 melatonin 3 mg PO BEDTIME 06/19/18 10/21/20 tamsulosin 0.8 mg PO QPM 06/19/18 10/21/20 amitriptyline 100 mg PO BEDTIME 10/21/20 10/21/20 docusate sodium 200 mg PO BEDTIME 10/21/20 10/21/20 hydrocodone-acetaminophen [[place]] 1 tab PO Q4H PRN 10/21/20 10/21/20 hydrocodone-acetaminophen [[place]] 2 tab PO Q4H PRN 10/21/20 10/21/20 ibuprofen 800 mg PO Q6H PRN 10/21/20 10/21/20 meloxicam 15 mg PO DAILY 10/21/20 10/21/20 omeprazole 20 mg PO DAILY 10/21/20 10/21/20 sulfamethoxazole-trimethoprim 1 tab PO BID 10/21/20 10/21/20 [Bactrim DS] Allergies Allergy/AdvReac Type Severity Reaction Status Date / Time No Known Drug Allergies Allergy Verified 03/14/20 14:45 Review of Systems Constitutional Constitutional: Denies chills, Denies fatigue, Denies fever(s), Denies frequent falls, Denies lethargy and Denies weakness Eyes Eyes: Denies change in vision, Denies eye discharge, Denies irritation and Denies loss of vision ENT Ears, Nose, Mouth, and Throat: Denies change in voice, Denies dizziness, Denies neck pain, Denies sore throat and Denies throat swelling Cardiovascular Cardiovascular: Reports chest pain, Denies irregular heart rhythm, Denies lightheadedness, Denies palpitations, Denies dyspnea, Denies dyspnea on exertion and Denies orthopnea Respiratory Respiratory: Denies cough, Denies dyspnea, Denies dyspnea on exertion and Denies wheezing Gastrointestinal Gastrointestinal: Denies abdominal pain, Denies change in bowel habits, Denies diarrhea, Denies nausea and Denies vomiting Musculoskeletal Musculoskeletal: Denies neck pain and Denies numbness Integumentary/Breasts Skin/Breast: Denies pruritus, Denies erythema, Denies rash and Denies wounds Neurologic Neurologic: Denies behavioral changes, Denies confusion, Denies dizziness, Denies frequent falls, Denies loss of vision, Denies numbness and Denies weakness Psychiatric Psychiatric: Denies anxiety, Denies behavioral changes, Denies confusion, Denies depression, Denies homicidal ideation and Denies suicidal ideation Endocrine Endocrine: Denies fatigue, Denies flushing and Denies palpitations Hematologic/Lymphatic Hematologic/Lymphatic: Denies easy bruising Allergic/Immunologic Allergic/Immunologic: Denies urticaria, Denies throat swelling and Denies wheezing Patient History Medical History Bladder disorder, unspecified Gastro-esophageal reflux disease without esophagitis Major depressive disorder with single episode Multiple sclerosis Obesity Retention of urine, unspecified Syncope and collapse Vitamin D deficiency, unspecified Surgical History No pertinent past surgical history Family History Mother In good health Father In good health Social History household members: caregiver lives independently: No Smoking Status: Former smoker alcohol intake: former Smoking Status: Former smoker alcohol intake frequency: a few times a month Substance Use Type: does not use Exam Initial Vital Signs Initial Vital Signs: Vital Signs Temperature 97.9 F 10/21/20 18:14 Pulse Rate 89 10/21/20 18:14 Respiratory Rate 22 10/21/20 18:14 Blood Pressure 125/75 10/21/20 18:14 Pulse Oximetry 96 10/21/20 18:14 Const General: cooperative and well developed Nutritional Appearance: well nourished HENKS Head: normocephalic and atraumatic Ears: external ears normal and TM's normal bilaterally Nose: external nose normal and No nasal discharge Face and sinus: sinuses nontender, face symmetric, no sinus tenderness and No dry mucous membranes Mouth: oral mucosae normal and moist mucous membranes Teeth and gingiva: dentition normal Throat: tonsils normal and uvula midline Eyes General: appearance normal, both eyes and all related structures Eyelids: eyelids normal Conjunctivae: conjunctivae normal Sclera: sclerae normal Pupils: PERRL EOM: EOM intact bilaterally Neck Neck: normal visual inspection, trachea midline, No lymphadenopathy, No midline deformity and No JVD Lymphatic: No lymphedema Chest Chest: normal inspection of the chest Resp Effort & Inspection: normal respiratory effort, able to speak in complete sentences, no respiratory distress and no use of accessory muscles Auscultation: clear to auscultation bilaterally, no rales, no rhonchi and no wheezes Cardio Rate: regular rate Rhythm: regular rhythm Heart Sounds: no click, no gallops, no murmurs and no rubs Pulses: normal peripheral pulses GI Inspection: non-distended Palpation: soft, no hepatosplenomegaly, No guarding, No pulsatile mass and No tender Auscultation: normal bowel sounds Back/Spine/Pelvis Back: No CVA tenderness Cervical Spine: cervical ROM normal and No pain with cervical ROM Thoracic/Lumbar Spine: thoracic and lumbar spine normal to inspection Skin General: no rashes or lesions noted, No jaundice and No petechiae Neuro General: patient alert, patient oriented x3, gait normal and no focal motor deficits Speech: speech normal Extrem General: full ROM, no clubbing, cyanosis or edema, no pedal edema and no calf tenderness Psych Appearance: well kempt Mental Status: mental status grossly normal Attitude: cooperative Thought Content: normal and suicidality Judgment: judgment good Course Orders Ordered: ED Orders 10/21/20 18:00 Complete Blood Count AUTO DIFF Stat Comprehensive Metabolic Panel Stat D Dimer Stat Lipase Stat Partial Thromboplastin Time Stat Prothrombin Time INR Stat Troponin & CK Cardiac Panel Stat 10/21/20 18:07 EKG-12 Lead Stat 10/21/20 18:10 XR chest 1V Stat 10/21/20 19:30 COVID19 - ADMIT (RESEARCH DIETITIAN swab/PCR) Stat Acetaminophen (Acetaminophen 325 Mg Tablet) 650 mg PO Q6HR PRN PRN Reason: Fever/Mild Pain (1-3) Al Hydrox/Mg Hydrox/Simethicone (Mag Hydrox/Alum/Simeth 30 Ml Udc) 30 ml PO Q6HR PRN PRN Reason: Dyspepsia Amitriptyline HCl (Amitriptyline 25 Mg Tablet) 100 mg PO BEDTIME COUNTS INCLUDE 234 BEDS AT THE [facility] Aspirin (Aspirin Ec 81 Mg Tablet) 81 mg PO DAILY COUNTS INCLUDE 234 BEDS AT THE [facility] Baclofen (Baclofen 10 Mg Tablet) 20 mg PO TID COUNTS INCLUDE 234 BEDS AT THE [facility] Last Admin: 10/21/20 20:35 Dose: 20 mg Documented by: GURDEEPNOTT Citalopram Hydrobromide (Citalopram 10 Mg Tablet) 40 mg PO DAILY COUNTS INCLUDE 234 BEDS AT THE [facility] Docusate Sodium (Docusate 100 Mg Capsule) 200 mg PO BEDTIME COUNTS INCLUDE 234 BEDS AT THE [facility] Enoxaparin Sodium (Enoxaparin 40 Mg/0.4 Ml Syringe) 40 mg SUBCUT DAILY COUNTS INCLUDE 234 BEDS AT THE [facility] Sodium Chloride (Normal Saline 0.9%) 1,000 mls @ 100 mls/hr IV CONT COUNTS INCLUDE 234 BEDS AT THE [facility] Last Admin: 10/21/20 20:34 Dose: 100 mls/hr Documented by: KKNOTT Influenza Virus Vaccine (Influenza Vaccine 0.5 Ml Syringe) 0.5 ml IM .ONCE ONE Stop: 10/22/20 09:01 Melatonin (Melatonin 3 Mg Tablet) 3 mg PO BEDTIME COUNTS INCLUDE 234 BEDS AT THE [facility] Meloxicam (Meloxicam 7.5 Mg Tablet) 15 mg PO DAILY COUNTS INCLUDE 234 BEDS AT THE [facility] Morphine Sulfate (Morphine 2 Mg/Ml Inj) 2 mg IV Q5MIN PRN PRN Reason: Chest Pain Naloxone HCl (Naloxone 0.4 Mg/Ml Vial) 0.2 mg IV Q2MIN PRN PRN Reason: Opiate Reversal Nitroglycerin (Nitroglycerin 0.4 Mg Sl Tab) 0.4 mg SL [id number] PRN PRN Reason: Chest Pain Promethazine HCl (Promethazine 12.5 Mg Supp) 12.5 mg DE Q6HR PRN PRN Reason: Nausea And Vomiting Tamsulosin HCl (Tamsulosin 0.4 Mg Capsule) 0.8 mg PO DAILY ROBERTO Discontinued Medications Non-Formulary Medication (Melatonin) 3 mg PO BEDTIME ROBERTO Pantoprazole Sodium (Pantoprazole 40 Mg Vial) 40 mg IV NOW ONE Stop: 10/21/20 20:17 Last Admin: 10/21/20 20:35 Dose: 40 mg Documented by: GURDEEPNOTT Reevaluation(s) Reevaluation #1: patient continues to be pain free Consultations Consultation #1: discussed with cardiology (Aldair), even given normal troponin and current lack of pain patient history is concerning and needs admission with trending of enzymes and echo Consultation #2: hospitalist happy to accept Vital Signs Vital signs: Vital Signs - 8 hr 10/21/20 18:14 10/21/20 18:15 10/21/20 18:30 Temperature 97.9 F Pulse Rate 89 85 87 Respiratory Rate 22 22 13 Blood Pressure 125/75 Pulse Oximetry 96 95 95 10/21/20 19:00 Temperature Pulse Rate 82 Respiratory Rate 12 Blood Pressure Pulse Oximetry 96 MDM - Chest Pain Lab Data Result diagrams: 10/21/20 18:00 10/21/20 18:00 Labs: Lab Results 10/21/20 10/21/20 10/21/20 Range/Units 18:00 18:00 18:00 WBC 11.6 H (4.5-11.0) X10^3/uL RBC 5.91 H (4.5-5.9) X10^6/uL Hgb 17.2 (13.5-17.5) g/dL Hct 50.1 (41-53) % MCV 84.7 (80-100) fL MCH 29.0 (26-34) PG MCHC 34.3 (30-36) % RDW 14.0 (11.6-14.8) % Plt Count 246 (150-400) X10^3/uL Neut % (Auto) 68.6 (50-75) % Lymph % (Auto) 19.5 L (25-40) % [place] % (Auto) 7.4 (3-14) % Eos % (Auto) 3.5 (2-4) % Baso % (Auto) 1.0 (0-2) % Neut # (Auto) 8000 H (9445-0171) /uL Lymph # (Auto) 2300 (3009-0558) /uL Fannin # (Auto) 900 (0-900) /uL Eos # (Auto) 400 (0-450) /uL Baso # (Auto) 100 (0-100) /uL PT 11.7 (10.1-12.7) SECONDS INR 1.0 (0.9-1.3) APTT 35 (26.4-36.2) SECONDS D-Dimer (<230) ng/mL Sodium 138 (137-145) mmol/L Potassium 4.1 (3.4-5.1) mmol/L Chloride 101 (98-107) mmol/L Carbon Dioxide 28 (22-32) mmol/L BUN 19 (9-20) mg/dL Creatinine 0.88 (0.66-1.25) mg/dL Estimated GFR > 60.0 (>60) mL/min BUN/Creatinine Ratio 21.6 (6-22) Glucose 113 H (70-100) mg/dL Calcium 9.7 (8.4-10.2) mg/dL Magnesium (1.6-2.3) mg/dL Total Bilirubin 0.8 (0.2-1.3) mg/dL AST 31 (17-59) IU/L ALT 38 (<50) IU/L Alkaline Phosphatase 144 H (38-126) U/L Total Creatine Kinase 47 L (55-170) U/L CK-MB (CK-2) TNP CK-MB (CK-2) Rel Index TNP Troponin I < 0.012 (0.01-0.034) ng/mL NT-Pro-B Natriuret Pep (<125) pg/mL Total Protein 7.8 (6.3-8.2) g/dL Albumin 4.5 (3.5-5.0) g/dL Globulin 3.3 (1.7-4.1) g/dL Albumin/Globulin Ratio 1.4 (1.0-2.8) Lipase 31 (23-300) U/L 10/21/20 10/21/20 10/21/20 Range/Units 18:00 18:00 18:00 WBC (4.5-11.0) X10^3/uL RBC (4.5-5.9) X10^6/uL Hgb (13.5-17.5) g/dL Hct (41-53) % MCV (80-100) fL MCH (26-34) PG MCHC (30-36) % RDW (11.6-14.8) % Plt Count (150-400) X10^3/uL Neut % (Auto) (50-75) % Lymph % (Auto) (25-40) % [place]ann[place] % (Auto) (3-14) % Eos % (Auto) (2-4) % Baso % (Auto) (0-2) % Neut # (Auto) (8587-9482) /uL Lymph # (Auto) (8300-3966) /uL Fann[place] # (Auto) (0-900) /uL Eos # (Auto) (0-450) /uL Baso # (Auto) (0-100) /uL PT (10.1-12.7) SECONDS INR (0.9-1.3) APTT (26.4-36.2) SECONDS D-Dimer < 200 (<230) ng/mL Sodium (137-145) mmol/L Potassium (3.4-5.1) mmol/L Chloride (98-107) mmol/L Carbon Dioxide (22-32) mmol/L BUN (9-20) mg/dL Creatinine (0.66-1.25) mg/dL Estimated GFR (>60) mL/min BUN/Creatinine Ratio (6-22) Glucose (70-100) mg/dL Calcium (8.4-10.2) mg/dL Magnesium 2.1 (1.6-2.3) mg/dL Total Bilirubin (0.2-1.3) mg/dL AST (17-59) IU/L ALT (<50) IU/L Alkaline Phosphatase (38-126) U/L Total Creatine Kinase (55-170) U/L CK-MB (CK-2) CK-MB (CK-2) Rel Index Troponin I (0.01-0.034) ng/mL NT-Pro-B Natriuret Pep 15 (<125) pg/mL Total Protein (6.3-8.2) g/dL Albumin (3.5-5.0) g/dL Globulin (1.7-4.1) g/dL Albumin/Globulin Ratio (1.0-2.8) Lipase (23-300) U/L ECG Data Attestation: I personally reviewed and interpreted this ECG as follows: Prior ECG tracings: available for review Interpretation: EKG is normal sinus rhythm rate [85] and free of any signs of ischemia or ectopy. No ST segmental elevation or depression. No T wave inversions EKG #2is normal sinus rhythm rate [82 ] and free of any signs of ischemia or ectopy. No ST segmental elevation or depression. No T wave inversions Discharge Plan Departure Patient Disposition: Admitted as Observation Clinical Impression: Chest pain Qualifiers: Chest pain type: unspecified Qualified Code(s): R07.9 - Chest pain, unspecified Admit Date/Time: 10/21/20 19:28 Admit Provider: Yifan Miranda
[2020-10-21 18:21] LABS: Add Manual Diff / Slide Review NO; Basophils Absolute Auto 100 /uL (0-100); Eosinophils Absolute Auto 400 /uL (0-450); Eosinophils Percent Auto 3.5 % (2-4); Hematocrit 50.1 % (41-53); Hemoglobin 17.2 g/dL (13.5-17.5); Lymphocytes Absolute Auto 2300 /uL (1100-4500); Lymphocytes Percent Auto 19.5 % (25-40); Mean Corpuscular HGB Conc 34.3 % (30-36); Mean Corpuscular Volume 84.7 fL (80-100); Monocytes Absolute Auto 900 /uL (0-900); Monocytes Percent Auto 7.4 % (3-14); Neutrophils Absolute Auto 8000 /uL (1500-7000); Neutrophils Percent Auto 68.6 % (50-75); Platelet Count 246 X10^3/uL (150-400); Red Blood Cell Count 5.91 X10^6/uL (4.5-5.9); White Blood Cell Count 11.6 X10^3/uL (4.5-11.0)
[2020-10-21 18:26] LABS: Prothrombin Time 11.7 SECONDS (10.1-12.7)
[2020-10-21 18:28] LABS: PTT Partial Thromboplastin Tim 35 SECONDS (26.4-36.2)
[2020-10-21 18:30] LABS: Alanine Aminotransferase 38 IU/L (<50); Albumin 4.5 g/dL (3.5-5.0); Albumin Globulin Ratio 1.4 (1.0-2.8); Alkaline Phosphatase 144 U/L (38-126); Aspartate Aminotransferase 31 IU/L (17-59); BUN Creatinine Ratio 21.6 (6-22); Bilirubin Total 0.8 mg/dL (0.2-1.3); Blood Urea Nitrogen 19 mg/dL (9-20); Calcium 9.7 mg/dL (8.4-10.2); Carbon Dioxide 28 mmol/L (22-32); Chloride 101 mmol/L (98-107); Creatine Kinase 47 U/L (55-170); Estimated Glomerular Filt Rate > 60.0 mL/min (>60); Globulin 3.3 g/dL (1.7-4.1); Glucose 113 mg/dL (70-100); HEMOLYSIS 16 (0-50); Lipase 31 U/L (23-300); Potassium 4.1 mmol/L (3.4-5.1); Sodium 138 mmol/L (137-145); Total Protein 7.8 g/dL (6.3-8.2)
[2020-10-21 18:31] LABS: D Dimer < 200 ng/mL (<230)
[2020-10-21 18:41] LABS: Troponin I < 0.012 ng/mL (0.01-0.034)
[2020-10-21 20:16] LABS: COVID19 - ADMIT (NP swab/PCR) Negative (Negative)
--- NOTE | 2020-10-21 20:16 | DI.ECHO.S_ITS ---
[facility]---------+ [facility] +---------+ : : [address] : : : : [address] : : : : Phone: [phone]+ Echocardiogram Report + + :Name: CAMILA EDWARDS Study Date: 10/22/2020 Height: 73 in : :[facility] ReadingLocation: Weight: 341 lb : : Gender: Male BSA: 2.7 m2 : :: 1970 Age: 50 yrs BP: 132/79 mmHg: :Reason For Study: CHEST PAIN : :Ordering Physician: NAVEEN, : :ALLI Performed By: Amara Schwab : :Referring: ALLI HODGE : + + Interpretation Summary The left ventricle is normal in size. Left ventricular systolic function is normal. The ejection fraction is estimated to be 55-60%. There are no obvious focal wall motion abnormalities noted but poor endocardial definition reduces the sensitivity for the detection of such. Diastolic parameters suggest probable normal left ventricular diastolic function and normal filling pressures. The right ventricle is normal size. The right ventricular systolic function is normal. Pulmonary artery pressures cannot be estimated because of the lack of a measurable TR jet velocity. Both atria are normal in size. There is no significant valvular heart disease. The aortic root is normal size. No significant changes since echocardiogram on 09/29/2016. Procedure: A two-dimensional transthoracic echocardiogram with color flow and Doppler was performed. The study quality was technically difficult. Comparison is made with the echocardiogram of 09/29/2016. The patient was in sinus rhythm with heart rates between 72-88 bpm during the exam. Left Ventricle: The left ventricle is normal in size. Left ventricular wall thickness is mildly increased. Left ventricular systolic function is normal. The ejection fraction is estimated to be 55-60%. There are no obvious focal wall motion abnormalities noted but poor endocardial definition reduces the sensitivity for the detection of such. Diastolic parameters suggest probable normal left ventricular diastolic function and normal filling pressures. Right Ventricle: The right ventricle is normal size. The right ventricular systolic function is normal. Atria: Both atria are normal in size. There is no Doppler evidence for an interatrial shunt. Mitral Valve: The mitral valve is normal in structure and function. There is trace mitral regurgitation. Aortic Valve: The aortic valve opens well. There is no aortic valve stenosis. No aortic regurgitation is present. Tricuspid Valve: The tricuspid valve is normal in structure and function. Pulmonary artery pressures cannot be estimated because of the lack of a measurable TR jet velocity. No tricuspid regurgitation. Pulmonic Valve: The pulmonic valve is not well visualized. There is no pulmonic valvular regurgitation. There is no significant valvular heart disease. Great Vessels: The aortic root is normal size. The dimensions of the ascending aorta are normal. The inferior vena cava was not well visualized. Pericardium/ Pleura There is no pericardial effusion. There is no pleural effusion. MMode/2D Measurements & Calculations LVIDd: 4.0 cm LVOT diam: 2.6 cm LVIDs: 2.6 cm Ao root diam: 3.2 cm FS: 35.0 % asc Aorta Diam: 3.2 cm EPSS: 1.1 cm Ao Arch Diam (Prox Trans): 2.9 cm IVSd: 1.4 cm LVPWd: 1.1 cm LV smith. diameter/BSA (cm/m^2): 1.5 LV sys. diameter/BSA (cm/m^2): 0.96 LA A2 area: 17.9 cm2 RA long axis: 4.2 cm LA A4 area: 13.4 cm2 RA area: 11.7 cm2 LA length (vol): 4.8 cm RA vol: 27.6 ml LA vol: 42.7 ml RA : 10.2 ml/m2 LA vol index: 15.8 ml/m2 RVD1 (basal): 3.2 cm TAPSE: 1.5 cm Doppler Measurements & Calculations Ao V2 max: 127.8 cm/sec LVOT Max Abimael: 89.8 cm/sec Ao V2 mean: 88.8 cm/sec LV V1 max P.2 mmHg Ao max P.5 mmHg LV V1 VTI: 16.1 cm Ao mean P.5 mmHg ASIA(I,D): 3.8 cm2 Ao V2 VTI: 22.3 cm ASIA(V,D): 3.7 cm2 sev ratio: 0.72 ASIA indexed to BSA (cm^2/m^2): 1.4 MV E max abimael: 85.5 cm/sec PA V2 max: 167.3 cm/sec MV A max abimael: 82.3 cm/sec PA V2 mean: 103.2 cm/sec MV E/A: 1.0 PA mean P.1 mmHg Med Peak E' Abimael: 7.6 cm/sec PA pr(Accel): 39.6 mmHg E/E' med: 11.2 Lat Peak E' Abimael: 12.0 cm/sec E/E' lat: 7.1 E/e' average: 9.1 MV dec time: 0.26 sec SV(LVOT): 84.0 ml Reading Physician:02:05 PM
[2020-10-21 20:28] LABS: Magnesium 2.1 mg/dL (1.6-2.3)
[2020-10-21] MEDS: SODIUM CHLORIDE 0.9% 1,000 ML 100 ML IV (20:34)
[2020-10-21] MEDS: BACLOFEN 10 MG TABLET 20 MG PO (20:35)
[2020-10-21] MEDS: PANTOPRAZOLE 40 MG VIAL IV (20:35)
[2020-10-21 20:38] LABS: NT-proBNP (BNP-Adult 18+) 15 pg/mL (<125)
--- NOTE | 2020-10-21 21:27 | PM.HP.1 ---
History of Present Illness History of Present Illness Date Patient Seen: 10/21/20 Time Patient Seen: 21:05 Chief complaint: Chest pain Narrative: Mr. Ranjan Kemp is a 50 year old male with a history of multiple sclerosis, GERD, BPH, morbid obesity who presents to the emergency department EMS with complaints of chest pain on and off for 3 days. The patient describes heaviness in his left chest that would radiate to his left shoulder that appears unassociated with activity or eating. He took nothing at home for his pain and states nothing seems to make it better or worse. He describes his pain today at 7/10. On route to the hospital the patient received aspirin 324 mg and nitroglycerin x1 sublingual with complete resolution of his chest pain. He denies complaints of fevers or chills, nasal congestion or sore throat. He denies shortness of breath cough or wheezing. He has had no abdominal pain he reports no bowel or bladder difficulties. Does have history of multiple sclerosis which has been stable with his last flare occurring in May, for which he was hospitalized and underwent went steroid therapy with improvement. The patient states he has been at baseline functioning and reports that he cannot lift his left leg off the bed at baseline. He is ambulatory with a walker. He had a 2nd COVID-19 vaccine on 08/04/2020. Upon arrival to the ER the patient's temperature 97.9?, heart rate of 89, blood pressure 125/75, respirations 22 saturating 96% on room air. Patient is pain free upon arrival, 12 lead EKG shows a sinus rhythm without ectopy or block, nonspecific ST abnormalities. Chest x-ray shows bilateral perihilar ill-defined opacities. On laboratory analysis WBCs are 11.6 neutrophils of a 1000 hemoglobin 17.2 hematocrit is 50.1. His coagulation within normal limits as are his electrolytes. He has a BUN of 19 and creatinine 0.88. His nonfasting glucose is 113. He has a total bilirubin of 0.8, AST of 31, ALT of 38 and alkaline phosphatase 144. His total CK is 47 and is troponin is less than 0.012. Cardiology is consulted through the emergency department and feels the patient warrants further evaluation for to rule out cardiac etiology. The patient is admitted to the hospitalist service for chest pain. Patient History Medical History Bladder disorder, unspecified Gastro-esophageal reflux disease without esophagitis Major depressive disorder with single episode Multiple sclerosis Obesity Retention of urine, unspecified Syncope and collapse Vitamin D deficiency, unspecified Surgical History No pertinent past surgical history Family & Social History Family History Mother In good health Father In good health Social History: household members caregiver Prior Living Arrangements Assisted Living lives independently No Safety & Behavioral: Feels Safe in Current Yes Environment Been Physically Hurt or No Threatened By a Person Suicidal Ideation Description None Suicide Plan Description No Plan Tobacco & Substance use: Smoking Status Former smoker alcohol intake former alcohol intake frequency a few times a month Substance Use Type does not use Meds Home Medications and Allergies Home Medications Medication Instructions Recorded Confirmed Type acetaminophen 650 mg PO Q4H PRN 06/19/18 10/21/20 History baclofen 20 mg PO TID 06/19/18 10/21/20 History citalopram 40 mg PO DAILY 06/19/18 10/21/20 History ergocalciferol (vitamin D2) 50,000 units PO USEASDIRECTD 06/19/18 10/21/20 History melatonin 3 mg PO BEDTIME 06/19/18 10/21/20 History tamsulosin 0.8 mg PO QPM 06/19/18 10/21/20 History amitriptyline 100 mg PO BEDTIME 10/21/20 10/21/20 History docusate sodium 200 mg PO BEDTIME 10/21/20 10/21/20 History hydrocodone-acetaminophen [[place]] 1 tab PO Q4H PRN 10/21/20 10/21/20 History hydrocodone-acetaminophen [[place]] 2 tab PO Q4H PRN 10/21/20 10/21/20 History ibuprofen 800 mg PO Q6H PRN 10/21/20 10/21/20 History meloxicam 15 mg PO DAILY 10/21/20 10/21/20 History omeprazole 20 mg PO DAILY 10/21/20 10/21/20 History sulfamethoxazole-trimethoprim 1 tab PO BID 10/21/20 10/21/20 History [Bactrim DS] Allergies Allergy/AdvReac Type Severity Reaction Status Date / Time No Known Drug Allergies Allergy Verified 03/14/20 14:45 Review of Systems Review of Systems ROS: Yes All systems reviewed with the patient and are negative except as otherwise documented Exam Vital Signs (past 8 hours): - 10/21/20 18:14 10/21/20 18:15 10/21/20 18:30 Temperature 97.9 F Pulse Rate 89 85 87 Respiratory Rate 22 22 13 Blood Pressure 125/75 Pulse Oximetry 96 95 95 10/21/20 19:00 10/21/20 19:30 10/21/20 19:35 Temperature Pulse Rate 82 85 84 Respiratory Rate 12 24 22 Blood Pressure 131/87 Pulse Oximetry 96 94 95 10/21/20 20:40 Temperature 97.6 F Pulse Rate 86 Respiratory Rate 17 Blood Pressure 132/79 Pulse Oximetry 99 Oxygen Delivery Method Room Air Oxygen Flow Rate 0 Narrative Exam Narrative: GENERAL APPEARANCE: well developed, morbidly obese male with a BMI of 43.5, in no acute distress. HEENT: Normocephalic, PERRLA, conjunctiva clear, EOMs intact without nystagmus, broken upper tooth, mucous membranes are moist and pink. NECK/THYROID: neck supple, no JVD, no thyromegaly, trachea midline. LYMPH NODES: no cervical or supraclavicular lymphadenopathy. SKIN: [place], warm and dry, no visible lesions, rashes, ulcerations or petechiae. HEART: regular rate and rhythm, S1-S2, no murmur, no rubs or gallops, brisk capillary refill, no edema LUNGS: clear to auscultation bilaterally, no coarseness crackles or wheezing, no cough present CHEST: Symmetrical movement, no accessory muscle use, good tidal volume. ABDOMEN: Protuberant, no epigastric or abdominal tenderness, no organomegaly, no flank tenderness, active bowel tones. EXTREMITIES: moves all extremities, BUE and R LE strength is 5/5, LLE strength is 2-3/5, no deformities or joint effusions. NEUROLOGIC: AAO x 3, , intact recall, mild speech and processing impairment, cranial nerves II-XII grossly intact, sensation intact to light touch, hearing grossly normal to speech. PSYCH: Short attention span, flat affect, cooperative, stable behavior. Objective Labs Result Diagrams: 10/21/20 18:00 10/21/20 18:00 Labs: Laboratory Results - last 24 hr 0410/21/20 10/21/20 18:00 18:00 18:00 WBC 11.6 H RBC 5.91 H Hgb 17.2 Hct 50.1 MCV 84.7 MCH 29.0 MCHC 34.3 RDW 14.0 Plt Count 246 Neut % (Auto) 68.6 Lymph % (Auto) 19.[address] [place] % (Auto) 7.4 Eos % (Auto) 3.5 Baso % (Auto) 1.0 Neut # (Auto) 8000 H Lymph # (Auto) 2300 [place] # (Auto) 900 Eos # (Auto) 400 Baso # (Auto) 100 PT 11.7 INR 1.0 APTT 35 D-Dimer Sodium 138 Potassium 4.1 Chloride 101 Carbon Dioxide 28 BUN 19 Creatinine 0.88 Estimated GFR > 60.0 BUN/Creatinine Ratio 21.6 Glucose 113 H Calcium 9.7 Magnesium Total Bilirubin 0.8 AST 31 ALT 38 Alkaline Phosphatase 144 H Total Creatine Kinase 47 L CK-MB (CK-2) TNP CK-MB (CK-2) Rel Index TNP Troponin I < 0.012 NT-Pro-B Natriuret Pep Total Protein 7.8 Albumin 4.5 Globulin 3.3 Albumin/Globulin Ratio 1.4 Lipase 31 SARS-CoV-2 (PCR) 10/21/20 10/21/20 10/21/20 18:00 18:00 18:00 WBC RBC Hgb Hct MCV MCH MCHC RDW Plt Count Neut % (Auto) Lymph % (Auto) [place] % (Auto) Eos % (Auto) Baso % (Auto) Neut # (Auto) Lymph # (Auto) [place] # (Auto) Eos # (Auto) Baso # (Auto) PT INR APTT D-Dimer < 200 Sodium Potassium Chloride Carbon Dioxide BUN Creatinine Estimated GFR BUN/Creatinine Ratio Glucose Calcium Magnesium 2.1 Total Bilirubin AST ALT Alkaline Phosphatase Total Creatine Kinase CK-MB (CK-2) CK-MB (CK-2) Rel Index Troponin I NT-Pro-B Natriuret Pep 15 Total Protein Albumin Globulin Albumin/Globulin Ratio Lipase SARS-CoV-2 (PCR) 10/21/20 19:30 WBC RBC Hgb Hct MCV MCH MCHC RDW Plt Count Neut % (Auto) Lymph % (Auto) [place] % (Auto) Eos % (Auto) Baso % (Auto) Neut # (Auto) Lymph # (Auto) [place] # (Auto) Eos # (Auto) Baso # (Auto) PT INR APTT D-Dimer Sodium Potassium Chloride Carbon Dioxide BUN Creatinine Estimated GFR BUN/Creatinine Ratio Glucose Calcium Magnesium Total Bilirubin AST ALT Alkaline Phosphatase Total Creatine Kinase CK-MB (CK-2) CK-MB (CK-2) Rel Index Troponin I NT-Pro-B Natriuret Pep Total Protein Albumin Globulin Albumin/Globulin Ratio Lipase SARS-CoV-2 (PCR) Negative Assessment & Plan Assessment & Plan narrative: This is a 50 year old male with a history of multiple sclerosis, GERD, BPH, morbid obesity who presents to the emergency department EMS with complaints of chest pain on and off for 3 days. The patient describes heaviness in his left chest that would radiate to his left shoulder that was initially rated at 7/10 and fully resolved with 1 nitroglycerin administered by EMS. 1. Chest pain rule out ACS, active -the patient is morbidly obese with no personal or family cardiac history. -12 lead EKG shows a sinus rhythm without ectopy or block nonspecific ST abnormalities. HEART score is 4. -chest x-ray shows bilateral perihilar ill-defined opacities, will obtain a respiratory panel and proBNP. -initial troponin in the emergency department is less than 0.012. Will recheck troponin at 10:00 p.m. and with morning labs. -the patient received 324 mg aspirin the EMS prior to arrival, will continue aspirin 81 mg daily. -ordered cardiac stress test and echocardiogram in the morning. 2. GERD, chronic, stable. -patient takes omeprazole 20 mg daily. Ordered Protonix 40 mg IV x1 now to treat possible gastric etiology of chest pain. 3. Morbid obesity, chronic. -BMI is 43.5 and has a risk factor for cardiac disease presenting with chest pain today. -request dietitian consult and dietary counseling. 4. BPH, chronic, stable. -patient denies difficulty urinating, will continue home regimen of tamsulosin 0.8 mg nightly. 5. Multiple sclerosis, chronic, stable. -patient describes chronic left leg weakness unchanged from baseline. -last MS flare was May 2018 and has been in remission since. VTE prophylaxis: Enoxaparin IV fluid: Normal saline 100 cc/hour when NPO at midnight. Diet: Heart healthy low-sodium small consistent carbohydrate, NPO at midnight for cardiac testing. Code status: POLST dated 04/21/2017 indicates desire to be full code with full treatment. Patient designates his parents to be surrogate decision makers. The patient is admitted to the hospital further monitoring and evaluation for chest pain to rule out cardiac etiology, monitored for complications or adverse events. The patient is admitted as observation with expected length of stay to be less than 2 midnights. COVID-19 COVID-19 status: Negative Result date/Date tested (Pos, Neg/Pending): 10/21/20 Scores [facility] [place] coma scale eye opening: Spontaneous Jorge coma scale verbal response: Orientated Jorge coma scale motor response: Obey commands Jorge coma scale total score: 15 Quality VTE Deep Vein Thrombosis/Pulmonary Embolism Present on Admission: No MIPS - Admit I confirm the patient?s Advance Care Plan is present, Code status is documented, Surrogate decision maker is in patient?s record [If Yes, STOP here]: Yes
[2020-10-21 22:42] LABS: Troponin I < 0.012 ng/mL (0.01-0.034)
--- NOTE | 2020-10-21 23:56 | PC.NURSE ---
Addendum entered by Blanka Craig R.N. 10/22/20 02:49: Out of bed to use bathroom but is very unsteady on feet and has difficulty moving legs especially left LE. Walked to bathroom with walker and 2 assist but back to bed via wheelchair. Original Note: patient is alert and oriented. Breath sounds diminished but CTA with RA sat of 96%; on continuous pulse oximetry and denies SOB. HRR w/telemetry reading of SR w/BBB; denies chest pain/discomfort. Denies nausea. BT present and abdomen is soft but large due to obesity. Denies dysuria, frequency or urgency and states he is able to use urinal. Is able to move self in bed. Gait not assessed but reports he walks at home with use of walker but is weak in all extremities related to MS. 1+ bilateral LE edema. Denies pain. Wearing bilateral calf SCD's. Fall risk score is high and bed alarm is activated. Instructed that he will be NPO after 0000 for stress test in a.m.; verbalizes understanding.
[2020-10-22 00:03] LABS: Adenovirus Not Detected (Not Detect); B. parapertussis Not Detected (Not Detecte); Bordetella pertussis Not Detected (Not Detecte); Chlamydophila pneumoniae Not Detected (Not Detect); Coronavirus 229E Not Detected (Not Detect); Coronavirus HKU1 Not Detected (Not Detect); Coronavirus NL 63 Not Detected (Not Detect); Coronavirus OC43 Not Detected (Not Detect); Human Metapneumovirus Not Detected (Not Detect); Human Rhinovirus/Enterovirus Not Detected (Not Detect); Influenza A Not Detected (Not Detect); Influenza B Not Detected (Not Detect); Mycoplasma pneumoniae Not Detected (Not Detect); Parainfluenza Virus 1 Not Detected (Not Detect); Parainfluenza Virus 2 Not Detected (Not Detect); Parainfluenza Virus 3 Not Detected (Not Detect); Parainfluenza Virus 4 Not Detected (Not Detect); Respiratory Syncytial Virus Not Detected (Not Detect); SARS- CoV-2 Not Detected (Not Detecte)
[2020-10-22] MEDS: MELATONIN 3 MG TABLET PO ×2 (00:53→20:29)
[2020-10-22] MEDS: AMITRIPTYLINE 25 MG TABLET 100 MG PO ×2 (00:53→20:30)
[2020-10-22] MEDS: DOCUSATE 100 MG CAPSULE 200 MG PO ×2 (00:53→20:29)
[2020-10-22 03:00] VITALS: BP 128/79; PULSE 83; RESP 18; TEMP 36.3; O2SAT 95
[2020-10-22 05:22] LABS: Add Manual Diff / Slide Review NO; Basophils Absolute Auto 100 /uL (0-100); Basophils Percent Auto 0.7 % (0-2); Eosinophils Absolute Auto 300 /uL (0-450); Eosinophils Percent Auto 3.8 % (2-4); Hematocrit 42.2 % (41-53); Hemoglobin 14.6 g/dL (13.5-17.5); Lymphocytes Absolute Auto 1800 /uL (1100-4500); Lymphocytes Percent Auto 21.1 % (25-40); Mean Corpuscular HGB Conc 34.7 % (30-36); Mean Corpuscular Hemoglobin 29.3 PG (26-34); Mean Corpuscular Volume 84.3 fL (80-100); Monocytes Absolute Auto 800 /uL (0-900); Monocytes Percent Auto 8.7 % (3-14); Neutrophils Absolute Auto 5700 /uL (1500-7000); Neutrophils Percent Auto 65.7 % (50-75); Platelet Count 188 X10^3/uL (150-400); Red Cell Distribution Width 14.2 % (11.6-14.8); White Blood Cell Count 8.7 X10^3/uL (4.5-11.0)
[2020-10-22 05:32] LABS: Blood Urea Nitrogen 19 mg/dL (9-20); Calcium 8.7 mg/dL (8.4-10.2); Carbon Dioxide 26 mmol/L (22-32); Chloride 106 mmol/L (98-107); Cholesterol 161 mg/dL (140-199); Estimated Glomerular Filt Rate > 60.0 mL/min (>60); Glucose 148 mg/dL (70-100); HDL Cholesterol 24 mg/dL (40-60); HEMOLYSIS < 15 (0-50); LDL Cholesterol Calculated 89 mg/dL (<100); Potassium 4.1 mmol/L (3.4-5.1); Sodium 137 mmol/L (137-145); Triglycerides 238 mg/dL (35-150)
[2020-10-22 05:39] LABS: Hemoglobin A1C% w Est Avg Glu 5.8 % (4.0-6.0)
[2020-10-22 05:42] LABS: Troponin I < 0.012 ng/mL (0.01-0.034)
[2020-10-22] MEDS: SODIUM CHLORIDE 0.9% 1,000 ML 100 ML IV (06:12)
[2020-10-22 06:16] LABS: TSH w/ Reflex to FT4 1.48 uIU/mL (0.47-4.68)
[2020-10-22 07:57] VITALS: BP 120/72; PULSE 89; RESP 18; TEMP 35.9; O2SAT 98
--- NOTE | 2020-10-22 08:32 | PC.NURSE ---
Day shift: Pt has been forgertful and likely r/t to his . [facility]a at [facility] was called this AM by this fiction and nonfiction writer prose and the Pt has had the flu shot for this flu season. Pt also placed on regular diet w/ no chocolate of caffeine per Dr Sherman. Pt's cardiac test today planned for 1230.
[2020-10-22] MEDS: BACLOFEN 10 MG TABLET 20 MG PO ×3 (08:56→20:29)
[2020-10-22] MEDS: TAMSULOSIN 0.4 MG CAPSULE 0.8 MG PO (08:56)
[2020-10-22] MEDS: CITALOPRAM 10 MG TABLET 40 MG PO (08:57)
[2020-10-22] MEDS: ASPIRIN EC 81 MG TABLET PO (08:57)
[2020-10-22] MEDS: MELOXICAM 7.5 MG TABLET 15 MG PO (08:57)
[2020-10-22] MEDS: ENOXAPARIN 40 MG/0.4 ML SYRINGE SUBCUT ×2 (08:57→20:30)
--- NOTE | 2020-10-22 09:35 | PT.IIE ---
Surgical History (Last Reviewed 10/21/20 @ 23:11 by ANTHONY Vargas) No pertinent past surgical history Medical History (Last Reviewed 10/21/20 @ 23:11 by ANTHONY Vargas) Bladder disorder, unspecified Gastro-esophageal reflux disease without esophagitis Major depressive disorder with single episode Multiple sclerosis Obesity Retention of urine, unspecified Syncope and collapse Vitamin D deficiency, unspecified Physical Therapy Inpatient Evaluation/Re-Eval M1 PT/OT-IP Prior Functional Status Start: 10/22/20 08:21 Freq: NEEDED Status: Active Protocol: Document 10/22/20 09:35 AW (Rec: 10/22/20 11:07 AW [id number]) Medical Review Prior Functional Status Medical History Reviewed Yes Communication Pt is able to make needs known . Staff at [facility] state pt is frequently confused and disoriented with poor safety awareness. Mobility and Gait Pt is not ambulatory. He mobilizes with a manual wheelchair. Per [facility] staff, pt typically squat pivot transfers to and from his w/c. He does not stand or use FWW. Due to pt's forgetfulness, staff do not leave w/c in the room as pt will attempt to transfer on his own which leads to falls. Activities of Daily Living and IADL's Per [facility] staff, pt is able to complete UB dressing but requires assist for LB. He needs total assist for showers. Prior Functional Level (Other details) Pt has MS. Social History Household Members other Living Arrangements Assisted Living Home Equipment Front Wheel Walker,Manual Wheelchair Additional Social History Comment Pt lives at [facility] in [place]. M2 PT-IP Current Condition Start: 10/22/20 08:21 Freq: NEEDED Status: Active Protocol: Document 10/22/20 09:35 AW (Rec: 10/22/20 11:07 AW [id number]) Physical Therapy Current Condition Current Condition Evaluation Date 10/22/20 Treatment Diagnosis MS; chest pain; impaired mobility Onset Date 10/20/20 Precautions Other Precautions falls M3 PT-IP Subjective Start: 10/22/20 08:21 Freq: NEEDED Status: Active Protocol: Document 10/22/20 09:35 AW (Rec: 10/22/20 11:07 AW [id number]) Subjective Physical Therapy Visit Type Type Initial Evaluation Visit Start Time 09:10 Visit Stop Time 09:35 Total Visit Minutes 25 Physical Therapy Visit Comments Patient Comments Pt is willing to participate with PT Therapy Pain Assessment Pain When Pain Assessed During Mobility Pain Present Pain Present Denied Pain M4 PT-IP Mobility and Gait Start: 10/22/20 08:21 Freq: NEEDED Status: Active Protocol: Document 10/22/20 09:35 AW (Rec: 10/22/20 11:07 AW [id number]) PT-Bed Mobility Assessment Supine to Sit Supine to Sit Minimal Assistance,1 Person Assistance Scooting Scooting to Edge of Bed Standby Assistance PT-Transfer Assessment Sit to and From Stand Sit to and from Stand Maximum Assistance,1 Person Assistance,Use of Upper Extremities Equipment Transfer Assistive Device Gait Belt,Front Wheeled Walker Orthotic/Prosthetic Devices or Brace: No Transfers Transfer Destination Chair Transfer Technique Stand Pivot Transfer Ability Level of Assist Maximum Assistance,1 Person Assistance Comments Mobility Comments Pt was lying in bed as PT arrived. BP 105/65. With HOB flat, pt completed supine to sit min A x 1 and stood with max assist. Using FWW for support, pt was unsteady and minimally able to clear his feet to march in place. He sat again EOB with poor control. After a rest break, he stood again max A x 1 and pivot transferred to the chair set up on his left side max A x 1. On sitting, pt again demonstrated poor control. He was left in the chair with call light and all needs in reach. Chair alarm was armed for safety. Gait Assessment Comments Gait Comments Not assessed. Pt is not typically ambulatory. Stair Climbing Assessment Comments Stair Climbing Comments Not assessed. PT-Balance Assessment Sitting Balance and Reactions Static Sitting Balance Ability Fair Dynamic Sitting Balance Ability Fair Standing Balance and Reactions Static Standing Balance Ability Poor Dynamic Standing Balance Ability Poor Device Used FWW Balance Tests Single Limb Standing <1 sec BLE M5 PT-IP Objective Assessments Start: 10/22/20 08:21 Freq: NEEDED Status: Active Protocol: Document 10/22/20 09:35 AW (Rec: 10/22/20 11:07 AW [id number]) Orientation Orientation/Cognition Level of Alertness Confusional State Orientation Name,Year Language Function Ability No Deficits Noted Safety Awareness Decreased Safety Awareness Memory Description Short Term Impaired,[facility] Impaired Gross Range of Motion Lower Extremity ROM Assessment Within Functional Limits Strength Lower Extremity Strength Assessment Bilaterally Impaired Comments Strength Comments RLE 4-/5 LLE 3+/5 Sensation Assessment Comments Sensation Comments Unable to assess due to cognition Muscle Tone Muscle Tone WNL Yes M6 PT-IP Treatment Start: 10/22/20 08:21 Freq: NEEDED Status: Active Protocol: Document 10/22/20 09:35 AW (Rec: 10/22/20 11:07 AW [id number]) Physical Therapy Treatment Education Education Provided Safety M7 PT-IP Assessment and Plan Start: 10/22/20 08:21 Freq: NEEDED Status: Active Protocol: Document 10/22/20 09:35 AW (Rec: 10/22/20 11:07 AW [id number]) PT Summary Assessment and Plan Potential Rehabilitation Potential Poor Status of Condition at Evaluation Stable Summary Impairments Strength,Balance,Cognition, Transfers,Gait Assessment Summary Ranjan is a 50 yo man with MS who lives at an assisted living facility. He was admitted for evaluation of chest pain and will undergo stress test and ECG today. On assessment, pt required max assist for stand pivot transfer with FWW. Pt denied chest or other pain during mobility. After working with the pt, PT spoke with [facility] staff who stated pt typically requires assist with squat pivot transfer to wheelchair and is not ambulatory at baseline. Given this information, pt's performance is likely consistent with his prior level of function. No acute PT needs are identified. PT will discharge orders and pt will be safe to return to [facility] when medically stable. Frequency of Treatment Frequency Of Treatment Discharge Precautions Other Precautions Falls Recommendations To Nursing Amount of Assist Needed 2 Person Assist,3 or More Person Assist Discharge Recommendations PT Discharge Recommendations Home with Assistance Transportation Needs at Discharge Wheelchair/Cabulance
[2020-10-22 10:25] LABS: NT-proBNP (BNP-Adult 18+) 15 pg/mL (<125)
[2020-10-22 11:05] LABS: D Dimer < 200 ng/mL (<230)
--- NOTE | 2020-10-22 11:32 | DIET.PN ---
Dietary Progress Note Assessment: Mr. Ranjan Kemp is a 50 year old male with a history of multiple sclerosis, GERD, BPH, morbid obesity who presented to the emergency department with complaints of chest pain on and off for several days. Pt endorses poor eating habits consisting of fried chicken, pizza, and primarily easy prepared foods. He is unable to drive or shop for himself and relies on his room mates to shop and cook for him. He likes f/v but admittedly does not eat the often. He reports weight gain and increased eating habits over the last few months. HT: 185.42cm WT: 149.5kg UBW: 127kg BMI: 43.5 (morbid obese) Labs: glucose: 148 MNA: 13 Constantino: 19 Nutrition Diagnosis: Overweight/Obese r/t nutrition related knowledge deficit, limited access to healthy options aeb pt report unable to shop for self, relies on others to shop/prepare meals, inactivity, BMI greater than normative standards obese class III, pt report increased intake of convenient/processed foods. Interventions: 1. Discussed heart healthy diet. Recommended decreased intake of sodium (2000mg), cholesterol (200mg) and saturated fats. 2. Recommended increased intake of fruit, vegetable, and whole grains. 3. Discussed options of removing chicken skin, adding steamed vegetable or salad to evening meal and increased water intake. 4. Recommend heart healthy diet. Diet Order: general EER: 2300 obey (15cal/kg obese) Pro: 200g (1.3) Monitoring/Evaluations: Weight; diet tolerance
[2020-10-22 11:51] VITALS: BP 114/83; PULSE 79; RESP 18; TEMP 36.1; O2SAT 94
--- NOTE | 2020-10-22 13:06 | PC.NURSE ---
Day shift: Pt off unit for stress test at approx 1255. IGNITION MECHANIC Aissatou notified.
--- NOTE | 2020-10-22 13:19 | PM.TREADMILL ---
Cardiac Stress Test Report Referral & Results Date Patient Seen: 10/22/20 Time Patient Seen: 13:19 Requesting provider: Yifan Miranda Indication: chest pain Rest ECG: Sinus rhythm Procedure Note: After Lexiscan injection had minimal dyspnea, no chest discomfort No significant ST changes after Lexiscan injection No ectopy Impression: Normal Lexiscan stress test Nuclear stress test Please note: Actual ECG tracings can be found in the PACS system.
--- NOTE | 2020-10-22 14:10 | PC.NURSE ---
Day shift: Pt back on AC unit at approx 1405. He is back in bed w/ no c/o pain or discomfort. Placed back on tele by QUIQUE Gaffney.
--- NOTE | 2020-10-22 14:31 | CM.DANOTE ---
DCP/Assessment: Reviewed chart. Patient is a 50yr old male admitted to [facility] with chest pain. No PCP listed. Primary payor is 1)Medicare 2)Medicaid. Met with patient this AM during rounds. Patient alert and oriented, sitting in recliner at time of visit. Patient resides at [facility] and would like to return upon d/c. Provider reports that patient will be having ECHO and stress test today. D/C anticipated tomorrow 10-23-20. SHAREPOINT APPLICATION ARCHITECT placed call to [facility] spoke with Merary Shane ph# [phone] ext# [phone], she reports that facility will gladly accept patient back when medically stable. Merary indicates that if patient discharges today to call [facility] transport to coordinate ride at [phone]. At this time it looks like discharge will happen tomorrow 10-23-20. Message left with Merary this afternoon. P: Anticipate return to [facility] when medically stable. LUAN Garay Discharge Planning/Care Management CM Discharge Assessment Start: 10/22/20 14:20 Freq: Status: Active Protocol: Document 10/22/20 14:20 KJS (Rec: 10/22/20 14:31 KJS [id number]) Discharge Planning Assessment Assigned Senior Interior Designer LUAN Garay Advance Directives? Yes History Provided By Patient,Medical Record Prior Living Arrangements Assisted Living Comment [facility]. Household Members other Type of transporation used prior to Relies on Others admit Facility Name Admitted From: [facility] Willing to Return to Facility? Yes Independent with ADL's No Is patient alert and oriented? Yes Needs Assistance With Meal Prep,Managing Medications ,Home Chores / Shopping DME Already Rented / Owned FWW / Walker Barriers to Discharge No Discharge Plan Assisted Living Facility Transportation Arrangement [facility] when medcically stable. Referrals Initiated Other Review Status In Process Next Review Type Continued Stay Review
[2020-10-22 15:35] VITALS: BP 130/88; PULSE 86; RESP 18; TEMP 36.6; O2SAT 99
--- NOTE | 2020-10-22 16:35 | PC.NURSE ---
Addendum entered by Martha Jimenez R.N. 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 Some forgetfulness noted. Denies any discomfort. Tele NSR/BBB per ICU staff. HL intact/patent. Call light w/in reach, bed alarm on for pt safety. Continue w/plan of care. Original Note: Pt resting quietly, Alert x 2, forgetful asking same question frequently. Denies any discomfort @ this time. Tele shows NSR/BBB per ICU staff. HL RAC intact/patent Call light w/in reach/ bed alarm on for pt. safety.
--- NOTE | 2020-10-22 18:04 | P.PN_ITS ---
Subjective Subjective Date Patient Seen: 10/22/20 Interval history: The patient is a 50 y/o male with MS, GERD, Depression admitted to the hospital for evaluation of Chest Pain. Patient denies any further chest pain over night. He tolerated his stress testing today without incident. Exam Vital Signs (past 8 hours): - 10/22/20 11:51 10/22/20 15:35 Temperature 96.9 F L 97.8 F Pulse Rate 79 86 Respiratory Rate 18 18 Blood Pressure 114/83 130/88 Pulse Oximetry 94 99 Oxygen Delivery Method Room Air Oxygen Flow Rate 0 Narrative Exam Narrative: pleasant male resting comfortably in no acute distress Lungs: Clear to ausculation CV: RRR nl Sl S2 Abd: Soft/ non tender/ non distended Ext: no edema Objective Labs Result Diagrams: 10/22/20 05:00 10/22/20 05:00 Labs: Laboratory Results - last 24 hr 10/21/20 10/21/20 10/21/20 18:00 18:00 18:00 WBC 11.6 H RBC 5.91 H Hgb 17.2 Hct 50.1 MCV 84.7 MCH 29.0 MCHC 34.3 RDW 14.0 Plt Count 246 Neut % (Auto) 68.6 Lymph % (Auto) 19.5 L [place] % (Auto) 7.4 Eos % (Auto) 3.5 Baso % (Auto) 1.0 Neut # (Auto) 8000 H Lymph # (Auto) 2300 [place] # (Auto) 900 Eos # (Auto) 400 Baso # (Auto) 100 PT 11.7 INR 1.0 APTT 35 D-Dimer Sodium 138 Potassium 4.1 Chloride 101 Carbon Dioxide 28 BUN 19 Creatinine 0.88 Estimated GFR > 60.0 BUN/Creatinine Ratio 21.6 Glucose 113 H Hemoglobin A1c Calcium 9.7 Magnesium Total Bilirubin 0.8 AST 31 ALT 38 Alkaline Phosphatase 144 H Total Creatine Kinase 47 L CK-MB (CK-2) TNP CK-MB (CK-2) Rel Index TNP Troponin I < 0.012 NT-Pro-B Natriuret Pep Total Protein 7.8 Albumin 4.5 Globulin 3.3 Albumin/Globulin Ratio 1.4 Triglycerides Cholesterol LDL Cholesterol, Calc HDL Cholesterol Lipase 31 TSH Chlamy pneumoniae PCR Adenovirus (PCR) B. pertussis DNA (PCR) B.parapertussis DNA PCR Coronavirus OC43 (PCR) Coronavirus HKU1 (PCR) Coronavirus 229E (PCR) SARS-CoV-2 (PCR) Coronavirus NL63 (PCR) Human Metapneumovir PCR Influenza Type A (PCR) Influenza Type B (PCR) M. pneumoniae (PCR) Parainfluenza 1 (PCR) Parainfluenza 2 (PCR) Parainfluenza 3 (PCR) Parainfluenza 4 (PCR) RSV (PCR) Entero/Rhino (PCR) 10/21/20 10/21/20 10/21/20 18:00 18:00 18:00 WBC RBC Hgb Hct MCV MCH MCHC RDW Plt Count Neut % (Auto) Lymph % (Auto) [place] % (Auto) Eos % (Auto) Baso % (Auto) Neut # (Auto) Lymph # (Auto) [place] # (Auto) Eos # (Auto) Baso # (Auto) PT INR APTT D-Dimer < 200 Sodium Potassium Chloride Carbon Dioxide BUN Creatinine Estimated GFR BUN/Creatinine Ratio Glucose Hemoglobin A1c Calcium Magnesium 2.1 Total Bilirubin AST ALT Alkaline Phosphatase Total Creatine Kinase CK-MB (CK-2) CK-MB (CK-2) Rel Index Troponin I NT-Pro-B Natriuret Pep 15 Total Protein Albumin Globulin Albumin/Globulin Ratio Triglycerides Cholesterol LDL Cholesterol, Calc HDL Cholesterol Lipase TSH Chlamy pneumoniae PCR Adenovirus (PCR) B. pertussis DNA (PCR) B.parapertussis DNA PCR Coronavirus OC43 (PCR) Coronavirus HKU1 (PCR) Coronavirus 229E (PCR) SARS-CoV-2 (PCR) Coronavirus NL63 (PCR) Human Metapneumovir PCR Influenza Type A (PCR) Influenza Type B (PCR) M. pneumoniae (PCR) Parainfluenza 1 (PCR) Parainfluenza 2 (PCR) Parainfluenza 3 (PCR) Parainfluenza 4 (PCR) RSV (PCR) Entero/Rhino (PCR) 10/21/20 10/21/20 10/21/20 19:30 22:00 23:02 WBC RBC Hgb Hct MCV MCH MCHC RDW Plt Count Neut % (Auto) Lymph % (Auto) [place] % (Auto) Eos % (Auto) Baso % (Auto) Neut # (Auto) Lymph # (Auto) [place] # (Auto) Eos # (Auto) Baso # (Auto) PT INR APTT D-Dimer Sodium Potassium Chloride Carbon Dioxide BUN Creatinine Estimated GFR BUN/Creatinine Ratio Glucose Hemoglobin A1c Calcium Magnesium Total Bilirubin AST ALT Alkaline Phosphatase Total Creatine Kinase CK-MB (CK-2) CK-MB (CK-2) Rel Index Troponin I < 0.012 NT-Pro-B Natriuret Pep Total Protein Albumin Globulin Albumin/Globulin Ratio Triglycerides Cholesterol LDL Cholesterol, Calc HDL Cholesterol Lipase TSH Chlamy pneumoniae PCR Not detected Adenovirus (PCR) Not detected B. pertussis DNA (PCR) Not detected B.parapertussis DNA PCR Not detected Coronavirus OC43 (PCR) Not detected Coronavirus HKU1 (PCR) Not detected Coronavirus 229E (PCR) Not detected SARS-CoV-2 (PCR) Negative Not detected Coronavirus NL63 (PCR) Not detected Human Metapneumovir PCR Not detected Influenza Type A (PCR) Not detected Influenza Type B (PCR) Not detected M. pneumoniae (PCR) Not detected Parainfluenza 1 (PCR) Not detected Parainfluenza 2 (PCR) Not detected Parainfluenza 3 (PCR) Not detected Parainfluenza 4 (PCR) Not detected RSV (PCR) Not detected Entero/Rhino (PCR) Not detected 10/22/20 10/22/20 10/22/20 05:00 05:00 05:00 WBC 8.7 RBC 5.00 Hgb 14.6 Hct 42.2 MCV 84.3 MCH 29.3 MCHC 34.7 RDW 14.2 Plt Count 188 Neut % (Auto) 65.7 Lymph % (Auto) 21.1 L [place] % (Auto) 8.7 Eos % (Auto) 3.8 Baso % (Auto) 0.7 Neut # (Auto) 5700 Lymph # (Auto) 1800 [place] # (Auto) 800 Eos # (Auto) 300 Baso # (Auto) 100 PT INR APTT D-Dimer Sodium 137 Potassium 4.1 Chloride 106 Carbon Dioxide 26 BUN 19 Creatinine 0.73 Estimated GFR > 60.0 BUN/Creatinine Ratio 26.0 H Glucose 148 H Hemoglobin A1c Calcium 8.7 Magnesium Total Bilirubin AST ALT Alkaline Phosphatase Total Creatine Kinase CK-MB (CK-2) CK-MB (CK-2) Rel Index Troponin I < 0.012 NT-Pro-B Natriuret Pep Total Protein Albumin Globulin Albumin/Globulin Ratio Triglycerides 238 H Cholesterol 161 LDL Cholesterol, Calc 89 HDL Cholesterol 24 L Lipase TSH Chlamy pneumoniae PCR Adenovirus (PCR) B. pertussis DNA (PCR) B.parapertussis DNA PCR Coronavirus OC43 (PCR) Coronavirus HKU1 (PCR) Coronavirus 229E (PCR) SARS-CoV-2 (PCR) Coronavirus NL63 (PCR) Human Metapneumovir PCR Influenza Type A (PCR) Influenza Type B (PCR) M. pneumoniae (PCR) Parainfluenza 1 (PCR) Parainfluenza 2 (PCR) Parainfluenza 3 (PCR) Parainfluenza 4 (PCR) RSV (PCR) Entero/Rhino (PCR) 10/22/20 10/22/20 10/22/20 05:00 05:00 09:45 WBC RBC Hgb Hct MCV MCH MCHC RDW Plt Count Neut % (Auto) Lymph % (Auto) [place] % (Auto) Eos % (Auto) Baso % (Auto) Neut # (Auto) Lymph # (Auto) [place] # (Auto) Eos # (Auto) Baso # (Auto) PT INR APTT D-Dimer < 200 Sodium Potassium Chloride Carbon Dioxide BUN Creatinine Estimated GFR BUN/Creatinine Ratio Glucose Hemoglobin A1c 5.8 Calcium Magnesium Total Bilirubin AST ALT Alkaline Phosphatase Total Creatine Kinase CK-MB (CK-2) CK-MB (CK-2) Rel Index Troponin I NT-Pro-B Natriuret Pep Total Protein Albumin Globulin Albumin/Globulin Ratio Triglycerides Cholesterol LDL Cholesterol, Calc HDL Cholesterol Lipase TSH 1.48 Chlamy pneumoniae PCR Adenovirus (PCR) B. pertussis DNA (PCR) B.parapertussis DNA PCR Coronavirus OC43 (PCR) Coronavirus HKU1 (PCR) Coronavirus 229E (PCR) SARS-CoV-2 (PCR) Coronavirus NL63 (PCR) Human Metapneumovir PCR Influenza Type A (PCR) Influenza Type B (PCR) M. pneumoniae (PCR) Parainfluenza 1 (PCR) Parainfluenza 2 (PCR) Parainfluenza 3 (PCR) Parainfluenza 4 (PCR) RSV (PCR) Entero/Rhino (PCR) 10/22/20 09:45 WBC RBC Hgb Hct MCV MCH MCHC RDW Plt Count Neut % (Auto) Lymph % (Auto) [place] % (Auto) Eos % (Auto) Baso % (Auto) Neut # (Auto) Lymph # (Auto) [place] # (Auto) Eos # (Auto) Baso # (Auto) PT INR APTT D-Dimer Sodium Potassium Chloride Carbon Dioxide BUN Creatinine Estimated GFR BUN/Creatinine Ratio Glucose Hemoglobin A1c Calcium Magnesium Total Bilirubin AST ALT Alkaline Phosphatase Total Creatine Kinase CK-MB (CK-2) CK-MB (CK-2) Rel Index Troponin I NT-Pro-B Natriuret Pep 15 Total Protein Albumin Globulin Albumin/Globulin Ratio Triglycerides Cholesterol LDL Cholesterol, Calc HDL Cholesterol Lipase TSH Chlamy pneumoniae PCR Adenovirus (PCR) B. pertussis DNA (PCR) B.parapertussis DNA PCR Coronavirus OC43 (PCR) Coronavirus HKU1 (PCR) Coronavirus 229E (PCR) SARS-CoV-2 (PCR) Coronavirus NL63 (PCR) Human Metapneumovir PCR Influenza Type A (PCR) Influenza Type B (PCR) M. pneumoniae (PCR) Parainfluenza 1 (PCR) Parainfluenza 2 (PCR) Parainfluenza 3 (PCR) Parainfluenza 4 (PCR) RSV (PCR) Entero/Rhino (PCR) PFSH Medical History Bladder disorder, unspecified Gastro-esophageal reflux disease without esophagitis Major depressive disorder with single episode Multiple sclerosis Obesity Retention of urine, unspecified Syncope and collapse Vitamin D deficiency, unspecified Surgical History No pertinent past surgical history Family History Mother In good health Father In good health Social History household members: other lives independently: No Smoking Status: Former smoker alcohol intake: former Assessment & Plan Assessment & Plan narrative: 50 y/o male admitted for chest pain: Chest pain rule out ACS, active -the patient is morbidly obese with no personal or family cardiac history. -12 lead EKG shows a sinus rhythm without ectopy or block nonspecific ST abnormalities. HEART score is 4. -chest x-ray shows bilateral perihilar ill-defined opacities, will obtain a respiratory panel and proBNP. -initial troponin in the emergency department is less than 0.012. Will recheck troponin at 10:00 p.m. and with morning labs. -the patient received 324 mg aspirin the EMS prior to arrival, will continue aspirin 81 mg daily. -Stress test negative, no indication for further work up -D-dimer negative -anticipate discharge tomorrow morning 2. GERD, chronic, stable. -patient takes omeprazole 20 mg daily. Ordered Protonix 40 mg IV x1 now to treat possible gastric etiology of chest pain. 3. Morbid obesity, chronic. -BMI is 43.5 and has a risk factor for cardiac disease presenting with chest pain today. -request dietitian consult and dietary counseling. 4. BPH, chronic, stable. -patient denies difficulty urinating, will continue home regimen of tamsulosin 0.8 mg nightly. 5. Multiple sclerosis, chronic, stable. -patient describes chronic left leg weakness unchanged from baseline. -last MS flare was May 2018 and has been in remission since. VTE prophylaxis: Enoxaparin IV fluid: Normal saline 100 cc/hour when NPO at midnight. Diet: Heart healthy low-sodium small consistent carbohydrate, NPO at midnight for cardiac testing. Code status: POLST dated 04/21/2017 indicates desire to be full code with full treatment. Patient designates his parents to be surrogate decision makers. Quality VTE Deep Vein Thrombosis/Pulmonary Embolism Present on Admission: No
--- NOTE | 2020-10-22 18:39 | DI.NM.S_ITS ---
DATE OF SERVICE: 10/22/2020 PROCEDURE PERFORMED: Pharmacologic vasodilator stress only myocardial perfusion imaging with gating to assess ejection fraction and regional wall motion. ORDERING PROVIDER: ANTHONY Vargas. INDICATIONS: The patient is a 50-year-old male with multiple sclerosis admitted with chest discomfort. CARDIAC STRESS: Per protocol, 0.4 mg of regadenoson was infused with a normal hemodynamic response. He had mild dyspnea but no chest discomfort. His resting ECG shows borderline interventricular conduction delay but fairly normal ST segments. There are no significant ST-segment shifts or arrhythmias with stress. Per protocol, 25.5 millicuries of technetium-99m Myoview was injected and the patient was imaged 20 minutes later using a gated SPECT acquisition protocol. Because the stress images appeared to show no perfusion defect, it was felt that resting images were not necessary. FINDINGS: 1. Raw data: There is fairly good myocardial tracer uptake but there is some slight attenuation artifact noted. However, the patient was unable to lie prone to assess for this. Lung/heart ratio was normal at 0.35. 2. Quantitated gated SPECT: Post-stress ejection fraction is estimated at 73% without any focal wall motion abnormality with an end-diastolic volume of 127 mL. 3. Myocardial perfusion imaging: Post-stress supine images show a fairly normal myocardial perfusion pattern without any significant perfusion defects. The patient was unable to lie prone but given the absence of any perfusion defect, it was felt that resting images were not needed. IMPRESSION: 1. Normal myocardial perfusion study. 2. No evidence of myocardial ischemia or previous myocardial infarction. 3. Normal left ventricular systolic function with borderline increased left ventricular volumes, likely due to the patient's large BMI (body mass index). 4. No chest discomfort or ECG changes with pharmacologic vasodilator stress. Ranjan Kemp - JEANNIE/hernandez/jeff doc#: [id number]/job#: [id number] dd: 10/22/2020 16:38:00 dt: 10/22/2020 18:17:00 DICTATING MD/COPIES TO: Ranjan Henderson MD; ANTHONY Vargas; Martha Sherman MD COPIES MNE: TOMAS; ;
[2020-10-22 20:00] VITALS: BP 153/77; PULSE 90; RESP 18; TEMP 37.1; O2SAT 95
[2020-10-22] MEDS: SODIUM CHLORIDE 0.9% FLUSH 10 ML IV (20:38)
[2020-10-22] MEDS: ATORVASTATIN 20 MG TABLET PO (20:41)
[2020-10-23 00:03] VITALS: BP 125/75; PULSE 86; RESP 18; TEMP 36.1; O2SAT 96
--- NOTE | 2020-10-23 02:45 | PC.NURSE ---
Patient is alert and oriented but forgetful. Breath sounds diminished but CTA with RA sat of 96%. HRR w/telemetry reading of SR w/BBB. Denies nausea. BT present. Voiding per urinal but is also incontinent at times. Is able to move himself in bed. Walks poorly requiring at least 2 assist with walker. Generalized weakness but poor strength/movement of left LE. 1+ bilateral LE edema. Wearing bilateral calf SCD's. Denies pain. Found with IV pulled out and patient admits to pulling it out but unable to locate IV catheter in bed/room; IV restarted. Fall risk score is high and bed alarm is activated.
[2020-10-23 05:00] VITALS: BP 138/94; PULSE 89; RESP 18; TEMP 36.2; O2SAT 96
--- NOTE | 2020-10-23 07:52 | P.DS_ITS ---
History of Present Illness History of Present Illness Date Patient Seen: 10/23/20 Chief complaint: Chest pain Narrative: Mr. Ranjan Kemp is a 50 year old male with a history of multiple s clerosis, GERD, BPH, morbid obesity who presents to the emergency department EMS with complaints of chest pain on and off for 3 days. The patient describes heaviness in his left chest that would radiate to his left shoulder that appears unassociated with activity or eating. He took nothing at home for his pain and states nothing seems to make it better or worse. He describes his pain today at 7/10. On route to the hospital the patient received aspirin 324 mg and nitroglycerin x1 sublingual with complete resolution of his chest pain. He denies complaints of fevers or chills, nasal congestion or sore throat. He denies shortness of breath cough or wheezing. He has had no abdominal pain he reports no bowel or bladder difficulties. Does have history of multiple sclerosis which has been stable with his last flare occurring in May, for which he was hospitalized and underwent went steroid therapy with improvement. The patient states he has been at baseline functioning and reports that he cannot lift his left leg off the bed at baseline. He is ambulatory with a walker. He had a 2nd COVID-19 vaccine on 08/04/2020. Upon arrival to the ER the patient's temperature 97.9?, heart rate of 89, blood pressure 125/75, respirations 22 saturating 96% on room air. Patient is pain free upon arrival, 12 lead EKG shows a sinus rhythm without ectopy or block, nonspecific ST abnormalities. Chest x-ray shows bilateral perihilar ill-defined opacities. On laboratory analysis WBCs are 11.6 neutrophils of a 1000 hemoglobin 17.2 hematocrit is 50.1. His coagulation within normal limits as are his electrolytes. He has a BUN of 19 and creatinine 0.88. His nonfasting glucose is 113. He has a total bilirubin of 0.8, AST of 31, ALT of 38 and alkaline phosphatase 144. His total CK is 47 and is troponin is less than 0.012. Cardiology is consulted through the emergency department and feels the patient warrants further evaluation for to rule out cardiac etiology. The patient is admitted to the hospitalist service for chest pain. Discharge Providers Provider Date of admission: 10/21/20 19:28 Discharge Date: 04/27/21 Consults: 10/21/20 20:16 Consult to Dietitian, Adult Routine Comment: Reason For Exam: Morbid obesity Consult to Discharge Planning Routine Comment: Consult to Physical Therapy Evaluate & Treat Comment: Multiple sclerosis Physician Instructions: Evaluate and Treat Discharge provider: Tyra Sherman MD Summary Hospital Course Discharge Diagnosis: 1. Chest pain, probably noncardiac 2. Gastroesophageal reflux disease 3. Multiple sclerosis 4. Morbid obesity 5. Major depressive disorder 6. History of urinary retention Hospital Course: Patient was admitted to the hospital for to chief complaint of chest pain. He had had 3 days of substernal chest pain. His cardiac enzymes on admission were negative. The patient denied any shortness of breath. Twelve le ad EKG were unremarkable. The patient underwent stress testing. Patient had no chest discomfort or EKG changes during the stress testing. Patient had no recurrent chest pain and was deemed appropriate for discharge home. Patient had a D-dimer which was less than 200. Total cholesterol was 161, triglycerides 238, LDL 89 and HDL of 24. Patient was deemed appropriate for discharge and arrangements were made for him to discharge back to [facility]. Status at Discharge Cognitive/behavioral status at discharge: at baseline, confused Functional status at discharge: wheelchair bound Overall status at discharge: patient is back to baseline Time Spent with Patient Time spent: Less than 30 minutes Exam Vital Signs (past 8 hours): - 10/23/20 00:03 10/23/20 05:00 Temperature 97.0 F L 97.1 F L Pulse Rate 86 89 Respiratory Rate 18 18 Blood Pressure 125/75 138/94 H Pulse Oximetry 96 96 Oxygen Delivery Method Room Air Oxygen Flow Rate 0 Narrative Exam Narrative: Pleasant gentleman lying in bed in no obvious distress Lungs: Clear to auscultation Cardiac exam: Regular rate and rhythm normal S1-S2 ABD: Soft nontender nondistended Extremities: No edema Objective Labs Result Diagrams: 10/22/20 05:00 10/22/20 05:00 Labs: Laboratory Results - last 24 hr 10/22/20 10/22/20 09:45 09:45 D-Dimer < 200 NT-Pro-B Natriuret Pep 15 PFSH Medical History Bladder disorder, unspecified Gastro-esophageal reflux disease without esophagitis Major depressive disorder with single episode Multiple sclerosis Obesity Retention of urine, unspecified Syncope and collapse Vitamin D deficiency, unspecified Surgical History No pertinent past surgical history Family History Mother In good health Father In good health Social History household members: other lives independently: No Smoking Status: Former smoker alcohol intake: former Discharge Assessment & Plan Assessment and Plan Assessment: 1. Chest pain, EKG, cardiac enzymes, stress test normal 2. Multiple sclerosis 3. Morbid obesity, this puts the patient at increasing risk for heart disease, dietary follow-up and discharge 4. Major depression 5. Gastroesophageal reflux disease 6.Bladder dysfunction, with a history or urinary retention Plan of Treatment: Discharge home Follow-up with PCP as previously scheduled Discharge Plan Discharge Plan Patient Disposition: Assisted Living Transfer to: [facility] Transportation: Facility vehicle Discharge orders & Medications Discharge Orders: Discharge (Order); Ordered 10/23/20 Ordered By: Tyra Sherman Prescriptions: Continued baclofen 20 mg tablet 20 mg PO TID RF: 0 citalopram 40 mg tablet 40 mg PO DAILY RF: 0 tamsulosin 0.4 mg capsule 0.8 mg PO QPM RF: 0 acetaminophen 650 mg PO Q4H PRN (Reason: pain/fever) RF: 0 melatonin 3 mg 3 mg PO BEDTIME RF: 0 ergocalciferol (vitamin D2) 50,000 unit 50,000 units PO USEASDIRECTD RF: 0 amitriptyline 100 mg Tablet 100 mg PO BEDTIME RF: 0 docusate sodium 100 mg Capsule 200 mg PO BEDTIME RF: 0 omeprazole 20 mg Capsule,Delayed Release(Dr/Ec) 20 mg PO DAILY RF: 0 ibuprofen 800 mg Tablet 800 mg PO Q6H PRN (Reason: Toothache) RF: 0 hydrocodone-acetaminophen [[place]] 5-325 mg Tablet 1 tab PO Q4H PRN (Reason: Pain (Scale Score 4-6)) RF: 0 hydrocodone-acetaminophen [[place]] 5-325 mg Tablet 2 tab PO Q4H PRN (Reason: Pain (Scale Score 7-10)) RF: 0 sulfamethoxazole-trimethoprim [Bactrim DS] 800-160 mg Tablet 1 tab PO BID RF: 0 meloxicam 15 mg Tablet 15 mg PO DAILY RF: 0 Discharge Health Status Multidrug resistant organism: No MDRO Diet/Activity/Treatments Diet: Low-fat and Low-sodium Liquid consistency: Normal/Thin Food texture: Regular Discharge Data Attending Provider: Yifan Miranda VTE Deep Vein Thrombosis/Pulmonary Embolism Present on Admission: No
[2020-10-23 08:16] VITALS: BP 133/94; PULSE 78; RESP 16; TEMP 36.1; O2SAT 95
--- NOTE | 2020-10-23 09:11 | CM.DPC ---
DCP/continued: Reviewed chart. Patient with order to d/c to [facility] this AM. Received message from Merary at [facility] indicating that they will be here at 10:00 AM today to transport. Patient aware and agreeable. RN updated and discharge information faxed to [facility]. Instructions will also be sent with patient, no new prescriptions at this time. P: Return to [facility] today. LUAN Garay
[2020-10-23] MEDS: BACLOFEN 10 MG TABLET 20 MG PO (09:35)
[2020-10-23] MEDS: TAMSULOSIN 0.4 MG CAPSULE 0.8 MG PO (09:35)
[2020-10-23] MEDS: ENOXAPARIN 40 MG/0.4 ML SYRINGE SUBCUT (09:36)
[2020-10-23] MEDS: MELOXICAM 7.5 MG TABLET 15 MG PO (09:36)
[2020-10-23] MEDS: CITALOPRAM 10 MG TABLET 40 MG PO (09:36)
[2020-10-23] MEDS: ASPIRIN EC 81 MG TABLET PO (09:36)
--- NOTE | 2020-10-23 10:09 | PC.NURSE ---
Report given to Mona at [facility]. Discharge paperwork placed in packet and given to Dionisio, facility transport designee. IV removed, intact, tolerated well. All belongings packed and sent with pt. Pt left via [facility] w/c, accompanied by Dionisio transport designee.
== END 2020-10-23 10:11 ==
LOC: ED 18:41 → AC 19:29
PROVIDERS: Internal Medicine; Admitting Provider Nurse Practitioner Adult Health; Emergency Provider Emergency Medicine; Referring Provider Emergency Medicine; Visit Provider Nurse Practitioner Adult Health
DX: R07.9 Chest pain, unspecified (principal); G35 Multiple sclerosis; K21.9 Gastro-esophageal reflux disease without esophagitis; N40.0 Benign prostatic hyperplasia without lower urinary tract symptoms; E66.01 Morbid (severe) obesity due to excess calories; Z87.891 Personal history of nicotine dependence; Z20.822 Contact with and (suspected) exposure to COVID-19; Z68.41 Body mass index [BMI] 40.0-44.9, adult; F33.9 Major depressive disorder, recurrent, unspecified
CPT/HCPCS: 36415; 71045; 78451; 80048; 80053; 80061; 82550; 83036; 83690; 83735; 83880; 84443; 84484; 85025; 85379; 85610; 85730; 87633; 87635; 93005; 93017; 93306; 96361; 96372; 96374; 97162; 99284; C9803; G0378; A9502; C9113; J1650; J2785

== ENCOUNTER → 2020-11-13 08:27 | Outpatient (ROUT) | payer MEDICARE, MEDICAID, SELFPAY ==
[2020-10-21 20:16] VITALS: BMI 45.1
[2020-11-13 09:28] LABS: BUN Creatinine Ratio 24.7 (6-22); Blood Urea Nitrogen 18 mg/dL (9-20); Calcium 8.8 mg/dL (8.4-10.2); Carbon Dioxide 30 mmol/L (22-32); Chloride 104 mmol/L (98-107); Estimated Glomerular Filt Rate > 60.0 mL/min (>60); Glucose 114 mg/dL (70-100); HEMOLYSIS < 15 (0-50); Potassium 3.7 mmol/L (3.4-5.1); Sodium 137 mmol/L (137-145)
== END ==
PROVIDERS: Visit Provider Nurse Practitioner Gerontology
DX: E83.52 Hypercalcemia (principal)
CPT/HCPCS: 36415; 80048

== ENCOUNTER → 2021-02-12 08:23 | Outpatient (ROUT) | payer MEDICARE, MEDICAID, SELFPAY ==
[2020-10-21 20:16] VITALS: BMI 45.1
[2021-02-12 09:56] LABS: Add Manual Diff / Slide Review NO; Basophils Absolute Auto 100 /uL (0-100); Basophils Percent Auto 0.5 % (0-2); Eosinophils Absolute Auto 300 /uL (0-450); Eosinophils Percent Auto 2.6 % (2-4); Hematocrit 44.8 % (41-53); Hemoglobin 15.4 g/dL (13.5-17.5); Lymphocytes Absolute Auto 2100 /uL (1100-4500); Lymphocytes Percent Auto 21.1 % (25-40); Mean Corpuscular HGB Conc 34.4 % (30-36); Mean Corpuscular Hemoglobin 28.9 PG (26-34); Mean Corpuscular Volume 84.1 fL (80-100); Monocytes Absolute Auto 600 /uL (0-900); Monocytes Percent Auto 5.9 % (3-14); Neutrophils Absolute Auto 6900 /uL (1500-7000); Neutrophils Percent Auto 69.9 % (50-75); Platelet Count 205 X10^3/uL (150-400); Red Blood Cell Count 5.33 X10^6/uL (4.5-5.9); Red Cell Distribution Width 13.9 % (11.6-14.8); White Blood Cell Count 9.9 X10^3/uL (4.5-11.0)
[2021-02-12 10:19] LABS: Alanine Aminotransferase 30 IU/L (<50); Albumin 3.7 g/dL (3.5-5.0); Albumin Globulin Ratio 1.3 (1.0-2.8); Alkaline Phosphatase 127 U/L (38-126); Aspartate Aminotransferase 23 IU/L (17-59); BUN Creatinine Ratio 23.9 (6-22); Bilirubin Total 0.8 mg/dL (0.2-1.3); Blood Urea Nitrogen 16 mg/dL (9-20); Carbon Dioxide 26 mmol/L (22-32); Chloride 106 mmol/L (98-107); Estimated Glomerular Filt Rate > 60.0 mL/min (>60); Globulin 2.8 g/dL (1.7-4.1); Glucose 129 mg/dL (70-100); HEMOLYSIS < 15 (0-50); Potassium 3.8 mmol/L (3.4-5.1); Sodium 139 mmol/L (137-145); Total Protein 6.5 g/dL (6.3-8.2)
== END ==
PROVIDERS: Visit Provider Nurse Practitioner Family
DX: G35 Multiple sclerosis (principal); Z91.81 History of falling; Z79.899 Other long term (current) drug therapy
CPT/HCPCS: 36415; 80053; 85025

== ENCOUNTER 2021-05-08 17:59 | Observation (INO) | payer MEDICARE, MEDICAID, SELFPAY ==
[2020-10-21 20:16] VITALS: BMI 45.1
[2021-05-08] VITALS (16 sets, daily range): BP systolic 110–161; BP diastolic 72–103; PULSE 101–114; RESP 12–24; TEMP 36.2; O2SAT 91–98
[2021-05-08] MEDS: ONDANSETRON 4 MG/2 ML INJ IV (18:15)
[2021-05-08] MEDS: PANTOPRAZOLE 40 MG VIAL 80 MG IV (18:15)
[2021-05-08 18:17] LABS: Add Manual Diff / Slide Review NO; Basophils Absolute Auto 100 /uL (0-100); Basophils Percent Auto 0.3 % (0-2); Eosinophils Absolute Auto 0 /uL (0-450); Hematocrit 53.7 % (41-53); Hemoglobin 18.7 g/dL (13.5-17.5); Lymphocytes Absolute Auto 700 /uL (1100-4500); Lymphocytes Percent Auto 2.6 % (25-40); Mean Corpuscular HGB Conc 34.7 % (30-36); Mean Corpuscular Hemoglobin 28.8 PG (26-34); Monocytes Absolute Auto 900 /uL (0-900); Monocytes Percent Auto 3.4 % (3-14); Neutrophils Absolute Auto 25500 /uL (1500-7000); Neutrophils Percent Auto 93.7 % (50-75); Platelet Count 307 X10^3/uL (150-400); Red Blood Cell Count 6.47 X10^6/uL (4.5-5.9); Red Cell Distribution Width 14.5 % (11.6-14.8); White Blood Cell Count 27.2 X10^3/uL (4.5-11.0)
--- NOTE | 2021-05-08 18:27 | ED.GIBLEED ---
HPI - GI Bleed General Chief complaint: GI Bleed Stated complaint: Vomiting coffee ground emisis Time Seen by Provider: 05/08/21 18:11 Source: patient and EMS Mode of arrival: EMS Limitations: no limitations History of Present Illness HPI Narrative: 50-year-old maleFormer smoker and former drinker presents by EMS for evaluation of an episode of dark emesis about 250 mL prior to arrival. He has severe MS and comes to us from a local [place] [facility] facility. He is a poor historian but does not complaint of bloody vomit. He has got some abdominal discomfort. He denies any dizziness, weakness or lightheadedness. He denies any history of GI bleeds, he has never been told he has esophageal varices or any other consequence of his former drinking history. He is not dizzy nor weak or lightheaded. He denies any change in bowel habits. He does not take blood thinners. He denies the use of frequent NSAIDs. Related Data Home Medications Medication Instructions Recorded Confirmed baclofen 20 mg tablet 20 mg PO TID 06/19/18 05/08/21 citalopram 40 mg tablet 40 mg PO QAM 06/19/18 05/08/21 tamsulosin 0.4 mg capsule 0.8 mg PO QPM 06/19/18 05/08/21 amitriptyline 100 mg tablet 100 mg PO BEDTIME 10/21/20 05/08/21 docusate sodium 100 mg capsule 200 mg PO BEDTIME 10/21/20 05/08/21 hydrocodone 5 mg-acetaminophen 325 1 tab PO Q4H PRN 10/21/20 05/08/21 mg tablet hydrocodone 5 mg-acetaminophen 325 2 tab PO Q4H PRN 10/21/20 05/08/21 mg tablet ibuprofen 800 mg tablet 800 mg PO Q6H PRN 10/21/20 05/08/21 meloxicam 15 mg tablet 15 mg PO QAM 10/21/20 05/08/21 omeprazole 20 mg capsule,delayed 20 mg PO QAM 10/21/20 05/08/21 release acetaminophen 325 mg tablet 650 mg PO Q4H PRN 05/08/21 05/08/21 ergocalciferol (vitamin D2) 50,000 50,000 unit PO QWEEK 05/08/21 05/08/21 unit tablet melatonin 3 mg tablet 3 mg PO BEDTIME 05/08/21 05/08/21 Allergies Allergy/AdvReac Type Severity Reaction Status Date / Time No Known Drug Allergies Allergy Verified 05/08/21 18:14 Review of Systems Review of Systems Narrative: GENERAL: Denies chills, fatigue, malaise, fever, sweats. HEENT: Denies sinus pain, ear pain, sore throat, difficulty swallowing, dizziness. RESPIRATORY: Denies dyspnea, cough, wheezing, hemoptysis, sputum. CARDIOVASCULAR: Denies chest pain, palpitations, orthopnea, edema, GASTROINTESTINAL: See HPI : Denies dysuria, frequency, incontinence, hematuria, urinary retention. MUSCULOSKELETAL: denies weakness, joint pain, or bony pain SKIN: Denies rash, skin lesions, or other NEUROLOGIC: Denies weakness, headache, numbness, change in speech, confusion, seizures, incoordination. PSYCHIATRIC: No concerning psychosocial issues. 12 point review of systems is negative except for those stated above Patient History Medical History Bladder disorder, unspecified Gastro-esophageal reflux disease without esophagitis Major depressive disorder with single episode Multiple sclerosis Obesity Retention of urine, unspecified Syncope and collapse Vitamin D deficiency, unspecified Surgical History No pertinent past surgical history Family History Mother In good health Father In good health Social History household members: other lives independently: No Smoking Status: Former smoker alcohol intake: former Smoking Status: Former smoker alcohol intake frequency: a few times a month Substance Use Type: does not use Exam Narrative Exam Narrative: GENERAL: [50] year old patient appears stated age. Well-developed patient, in mild distress. HEAD: Atraumatic. Normocephalic. EYES: Pupils equal round and reactive. Extraocular motions intact. No scleral icterus. No injection or drainage. ENT: Nose without bleeding, purulent drainage. Throat without erythema, tonsillar hypertrophy or exudate. Airway patent. NECK: Trachea midline. Non tender CARDIOVASCULAR: Regular rate and rhythm without murmurs, gallops, or rubs. RESPIRATORY: Clear to auscultation. Breath sounds equal bilaterally. No wheezes, rales, or rhonchi. GASTROINTESTINAL: Abdomen soft, non-tender, nondistended. EXTREMITIES: No edema or joint tenderness. BACK: Nontender without deformity or crepitance. No flank tenderness. NEURO: AOx3. SKIN: No rash or erythema of visible areas Initial Vital Signs Initial Vital Signs: Vital Signs Pulse Rate 114 H 05/08/21 18:00 Pulse Oximetry 94 05/08/21 18:00 Course Orders Ordered: ED Orders 05/08/21 18:52 US abdomen limited Stat 05/08/21 19:17 COVID19 - ADMIT (PATTERNATOR swab/PCR) Stat 05/08/21 19:52 CT abdomen pelvis w con Stat 05/08/21 21:50 Hemoglobin and Hematocrit Stat Acetaminophen (Acetaminophen 325 Mg Tablet) 650 mg PO Q6HR PRN PRN Reason: Fever/Mild Pain (1-3) Amitriptyline HCl (Amitriptyline 75 Mg Tablet) 100 mg PO BEDTIME ROBERTO Baclofen (Baclofen 10 Mg Tablet) 20 mg PO TID ROBERTO Bisacodyl (Bisacodyl 10 Mg Supp) 10 mg NV DAILY PRN PRN Reason: Constipation Citalopram Hydrobromide (Citalopram 10 Mg Tablet) 40 mg PO DAILY ROBERTO Melatonin (Melatonin 3 Mg Tablet) 6 mg PO BEDTIME ROBERTO Morphine Sulfate (Morphine 4 Mg/Ml Inj) 4 mg IV Q4HR PRN PRN Reason: Pain, Severe (7-10) Last Admin: 05/09/21 02:10 Dose: 4 mg Documented by: MAGUI Naloxone HCl (Naloxone 0.4 Mg/Ml Vial) 0.2 mg IV Q2MIN PRN PRN Reason: Opiate Reversal Ondansetron HCl (Ondansetron 4 Mg/2 Ml Inj) 4 mg IV Q8HR PRN PRN Reason: Nausea And Vomiting Pantoprazole Sodium (Pantoprazole 40 Mg Vial) 40 mg IV DAILY ROBERTO Discontinued Medications Sodium Chloride (Normal Saline 0.9%) 1,000 mls @ 1,000 mls/hr IV BOLUS ONE Stop: 05/08/21 20:30 Last Infusion: 05/08/21 21:54 Dose: 0 mls/hr Documented by: Admin: 05/08/21 19:34 Dose: 1,000 mls/hr Documented by: KSCHERE Dextrose/Sodium Chloride (Dextrose 5%-0.45% Ns) 1,000 mls @ 100 mls/hr IV CONT ROBERTO Insulin Human Lispro (Insulin Lispro 100 Unit/Ml 3ml Vial) 0 unit SUBCUT ACHS ROBERTO; Protocol Melatonin (Melatonin 3 Mg Tablet) 6 mg PO BEDTIME ROBERTO Octreotide Acetate (Octreotide 100 Mcg/Ml Vial) 50 mcg IV NOW ONE Stop: 05/08/21 18:48 Last Admin: 05/08/21 19:08 Dose: 50 mcg Documented by: RADHA Ondansetron HCl (Ondansetron 4 Mg/2 Ml Inj) 4 mg IV NOW ONE Stop: 05/08/21 18:06 Last Admin: 05/08/21 18:15 Dose: 4 mg Documented by: RADHA Pantoprazole Sodium (Pantoprazole 40 Mg Vial) 80 mg IV NOW ONE Stop: 05/08/21 18:06 Last Admin: 05/08/21 18:15 Dose: 80 mg Documented by: RADHA Tamsulosin HCl (Tamsulosin 0.4 Mg Capsule) 0.8 mg PO DAILY [facility] Consultations Consultation #1: Discussed case with on-call general surgery (Dr. Wayne). She recommends typical treatment including bowel rest, fluids, pain control and admission to the hospitalists with consultation as part of admitting orders Consultation #2: Dr. sherman happy to accept patient on her service, will see patient at the bedside Vital Signs Vital signs: Vital Signs - 8 hr 05/08/21 19:30 05/08/21 20:00 05/08/21 20:41 Pulse Rate 110 H 109 H 110 H Respiratory Rate 12 17 17 Blood Pressure 145/88 H 153/103 H Pulse Oximetry 91 91 96 05/08/21 20:42 05/08/21 21:00 05/08/21 21:30 Pulse Rate 110 H 109 H 106 H Respiratory Rate 17 14 Blood Pressure 127/76 126/91 H 134/84 Pulse Oximetry 96 96 97 05/08/21 22:00 05/08/21 22:30 05/08/21 23:00 Pulse Rate 103 H 105 H 101 H Respiratory Rate 16 Blood Pressure 117/86 122/83 130/84 Pulse Oximetry 96 95 98 05/08/21 23:30 05/09/21 00:00 05/09/21 00:02 Pulse Rate 102 H 103 H 104 H Respiratory Rate 23 24 Blood Pressure 110/72 125/78 Pulse Oximetry 94 95 94 05/09/21 00:30 Pulse Rate 105 H Respiratory Rate 19 Blood Pressure Pulse Oximetry 94 MDM - GI Bleed Lab Data Result diagrams: 05/08/21 21:50 05/08/21 17:55 Labs: Lab Results 05/08/21 05/08/21 05/08/21 Range/Units 16:05 17:55 17:55 WBC 27.2 H (4.5-11.0) X10^3/uL RBC 6.47 H (4.5-5.9) X10^6/uL Hgb 18.7 H (13.5-17.5) g/dL Hct 53.7 H (41-53) % MCV 83.0 (80-100) fL MCH 28.8 (26-34) PG MCHC 34.7 (30-36) % RDW 14.5 (11.6-14.8) % Plt Count 307 (150-400) X10^3/uL Neut % (Auto) 93.7 H (50-75) % Lymph % (Auto) 2.6 L (25-40) % [place] % (Auto) 3.4 (3-14) % Eos % (Auto) 0.0 L (2-4) % Baso % (Auto) 0.3 (0-2) % Neut # (Auto) 52351 H (0873-5652) /uL Lymph # (Auto) 700 L (6515-7196) /uL [place] # (Auto) 900 (0-900) /uL Eos # (Auto) 0 (0-450) /uL Baso # (Auto) 100 (0-100) /uL PT 11.5 (10.1-12.7) SECONDS INR 1.0 (0.9-1.3) APTT 35 (26.4-36.2) SECONDS Sodium (137-145) mmol/L Potassium (3.4-5.1) mmol/L Chloride (98-107) mmol/L Carbon Dioxide (22-32) mmol/L BUN (9-20) mg/dL Creatinine (0.66-1.25) mg/dL Estimated GFR (>60) mL/min BUN/Creatinine Ratio (6-22) Glucose (70-100) mg/dL Calcium (8.4-10.2) mg/dL Total Bilirubin (0.2-1.3) mg/dL AST (17-59) IU/L ALT (<50) IU/L Alkaline Phosphatase (38-126) U/L Total Protein (6.3-8.2) g/dL Albumin (3.5-5.0) g/dL Globulin (1.7-4.1) g/dL Albumin/Globulin Ratio (1.0-2.8) SARS-CoV-2 (PCR) (Negative) Blood Type O Positive Antibody Screen Negative 05/08/21 05/08/21 05/08/21 Range/Units 17:55 19:17 21:50 WBC (4.5-11.0) X10^3/uL RBC (4.5-5.9) X10^6/uL Hgb 16.4 (13.5-17.5) g/dL Hct 49.0 (41-53) % MCV (80-100) fL MCH (26-34) PG MCHC (30-36) % RDW (11.6-14.8) % Plt Count (150-400) X10^3/uL Neut % (Auto) (50-75) % Lymph % (Auto) (25-40) % [place] % (Auto) (3-14) % Eos % (Auto) (2-4) % Baso % (Auto) (0-2) % Neut # (Auto) (1730-6153) /uL Lymph # (Auto) (1481-7719) /uL [place] # (Auto) (0-900) /uL Eos # (Auto) (0-450) /uL Baso # (Auto) (0-100) /uL PT (10.1-12.7) SECONDS INR (0.9-1.3) APTT (26.4-36.2) SECONDS Sodium 139 (137-145) mmol/L Potassium 4.4 (3.4-5.1) mmol/L Chloride 101 (98-107) mmol/L Carbon Dioxide 26 (22-32) mmol/L BUN 24 H (9-20) mg/dL Creatinine 0.74 (0.66-1.25) mg/dL Estimated GFR > 60.0 (>60) mL/min BUN/Creatinine Ratio 32.4 H (6-22) Glucose 252 H (70-100) mg/dL Calcium 9.9 (8.4-10.2) mg/dL Total Bilirubin 1.4 H (0.2-1.3) mg/dL AST 35 (17-59) IU/L ALT 42 (<50) IU/L Alkaline Phosphatase 162 H (38-126) U/L Total Protein 8.4 H (6.3-8.2) g/dL Albumin 4.9 (3.5-5.0) g/dL Globulin 3.5 (1.7-4.1) g/dL Albumin/Globulin Ratio 1.4 (1.0-2.8) SARS-CoV-2 (PCR) Negative (Negative) Blood Type Antibody Screen Imaging Data US - abdomen: Radiologist's Impression: Ranjan Kemp??50??M??1970 ? Allergy/Adv: No Known Drug Allergies (More??) Close Abdomen/Pelvis CT (Signed) Asher Green - 05/08/21 Abdomen Ultrasound (Signed) Asher Green - 05/08/21 Radiology Report (Cancelled) Ranjan Henderson - 10/22/20 Myocardial Perfusion Scan Nuc Med (Signed) Ranjan Henderson - 10/22/20 Myocardial Perfusion Scan Nuc Med (Cancelled) 10/21/20 Echocardiogram Ultrasound (Signed) Kian Chapman - 10/21/20 Telemetry Strips 10/21/20 Chest X-Ray (Signed) Jayson Modi - 10/21/20 Chest X-Ray (Signed) Dylon Harris - 08/05/20 Mandible X-Ray (Signed) Ruben Hobson - 03/14/20 Telemetry Strips 06/19/18 Chest X-Ray (Signed) Taisha Macedo - 06/19/18 Launch?[address] [address] Ultrasound Report Signed Patient: Ranjan Kemp MR#: [id number] : 1970 Acct:[id number] Age/Sex: 50 / M Date of Service: 05/08/21 Loc: ED Accession Number: [id number] ?? Procedure: US abdomen limited Ordering Provider: Rosas Chapin D.O. PROCEDURE:? US ABDOMEN LIMITED ? INDICATIONS:? HEMATEMESIS; ETOH ABUSE; POSSIBLE CIRRHOSIS ? TECHNIQUE:? Real-time scanning was performed of the abdominal and retroperitoneal organs, with image documentation.? ? COMPARISON:? None. ? FINDINGS:? ? Liver:? The liver demonstrates diffusely increased echotexture without focal abnormalities consistent with chronic hepatocellular disease/hepatic steatosis.? Imaging of the liver was limited secondary to body habitus.? The left hepatic lobe was not well visualized..? ? ? IMPRESSION:? ? Limited evaluation the liver secondary to patient scanning characteristics.? Visualized portion liver appear diffusely echogenic without focal intrahepatic lesions.? Findings are likely related to hepatic steatosis versus sequela of chronic hepatocellular disease ? ? ? Dictated by: Asher Green M.D. on 05/08/2021 at 19:50 ? ? CT scan - abdomen/pelvis: Radiologist's Impression: Chart Viewer Diagnostics Subcategory All Activity ??:?? All Time ??:?? All Subcategories Filter Laboratory Imaging Microbiology Pathology Blood Bank Tests Cardiovascular Other Specialty DATE TYPE STATUS REF RANGE/AUTHOR Hx Today 19:52 Abdomen/Pelvis CT Signed Asher Green Today 18:52 Abdomen Ultrasound Signed Asher Green 10/22/20 18:39 Radiology Report Cancelled Ranjan Henderson 10/22/20 18:39 Myocardial Perfusion Scan Nuc Med Signed Ranjan Henderson 10/21/20 20:16 Myocardial Perfusion Scan Nuc Med Cancelled 10/21/20 20:16 Echocardiogram Ultrasound Signed Kian Chapman 10/21/20 19:28 Telemetry Strips ? 10/21/20 18:10 Chest X-Ray Signed Jayson Modi 08/05/20 16:24 Chest X-Ray Signed Dylon Harris 03/14/20 00:00 Mandible X-Ray Signed Ruben Hobson 06/19/18 07:45 Telemetry Strips ? 06/19/18 06:35 Chest X-Ray Signed Taisha Macedo Robert C 50, M?1970 MRN#? [id number] REG ER,?Main ED??R08?? 146.42kg ? GI Bleed Acc#? [id number] Resus Status Not Ordered Hx Avail Special Indicators No Data to Display Home Meds Confirmed Prescription Monitoring Program Total 90 MME/Day MEDICATIONS (INSTRUCTIONS) LAST TAKEN Active acetaminophen 650 [id number] Unknown amitriptyline 100 mgPOBEDTIME 05/07/21 baclofen 20 mgPOTID 05/08/21 citalopram 40 mgPOQAM 05/08/21 docusate sodium 200 mgPOBEDTIME 05/07/21 ergocalciferol (vitamin D2) 50,000 unitPOQWEEK *Product no longer available 05/05/21 hydrocodone-acetaminophen 1 [id number] Unknown 30 MME/Day hydrocodone-acetaminophen 2 [id number] 05/07/21 60 MME/Day ibuprofen 800 [id number] Unknown melatonin 3 mgPOBEDTIME 05/07/21 meloxicam 15 mgPOQAM 05/08/21 omeprazole 20 mgPOQAM 05/08/21 tamsulosin 0.8 mgPOQPM 05/07/21 Allergies No Known Drug Allergies Problems ? ONSET Multiple sclerosis Tachycardia Pneumonia Chest pain Vital Signs Today 21:00 BP 126/91?H Pulse 109?H Resp 14? O2 Sat 96? Diagnostics Reports Ranjan Kemp??50??M??1970 ? Allergy/Adv: No Known Drug Allergies (More??) Close Abdomen/Pelvis CT (Signed) Asher Green - 05/08/21 Abdomen Ultrasound (Signed) Asher Green - 05/08/21 Radiology Report (Cancelled) Ranjan Henderson - 10/22/20 Myocardial Perfusion Scan Nuc Med (Signed) Ranjan Henderson - 10/22/20 Myocardial Perfusion Scan Nuc Med (Cancelled) 10/21/20 Echocardiogram Ultrasound (Signed) Kian Chapman - 10/21/20 Telemetry Strips 10/21/20 Chest X-Ray (Signed) Jayson Modi - 10/21/20 Chest X-Ray (Signed) Dylon Harris - 08/05/20 Mandible X-Ray (Signed) Ruben Hobson - 03/14/20 Telemetry Strips 06/19/18 Chest X-Ray (Signed) Taisha Macedo - 06/19/[address] [address] [address] Scan Report Signed Patient: Ranjan Kemp MR#: [id number] : 1970 Acct:[id number] Age/Sex: 50 / M Date of Service: 05/08/21 Loc: ED Accession Number: [id number] ?? Procedure: CT abdomen pelvis w con Ordering Provider: Rosas Chapin D.O. PROCEDURE:? CT ABDOMEN PELVIS W CON ? INDICATIONS:? abdomen pain, hematemesis, leukocytosis ? TECHNIQUE:? After the administration of intravenous contrast, axial sections acquired from the lung bases to the pubic symphysis.? Coronal and sagittal reformats were performed.? For radiation dose reduction, the following was used:? automated exposure control, adjustment of mA and/or kV according to patient size.? ? COMPARISON:? None. ? FINDINGS:? Image quality:? Image degraded by mild-moderate patient motion artifact..? ? Lung bases:? Bibasilar atelectasis. Heart:? No significant findings. ? ABDOMEN: Liver: There is diffuse hypoattenuation of the liver parenchyma relative to the spleen compatible with hepatic steatosis. Gallbladder:? Gallbladder is unremarkable. Biliary ducts:? Unremarkable.? ? Pancreas:? Unremarkable.? ? Spleen:? Unremarkable.? ? Adrenal Glands:? Unremarkable.? ? Kidneys and Ureters:? Kidneys are symmetric in size and enhancement, and there is no obstructive uropathy.? No perinephric inflammatory changes. Ureters are normal in course and caliber.? .? ? ? Stomach and Bowel:? There is moderate gastric distention.? No wall thickening.? Scattered colonic diverticulosis without acute diverticulitis.? There is long segment of proximal small bowel dilatation without wall thickening.? A definite transition point is not visualized but the distal small bowel/ileum appears to be decompressed throughout most of its course.? Transition point is favored to be in the mid abdomen.? No suspicious mass or adenopathy.? Peritoneum:? No abnormal intraperitoneal fluid.? No free air.? ? Ventral Wall: ? No hernias.? Abdominal Nodes:? No retroperitoneal or mesenteric adenopathy by size criteria.? Vessels:? Aorta and inferior vena cava are normal in size.? ? PELVIS: Pelvic Organs:? Unremarkable.? ? Bladder:? Unremarkable.? ? Pelvic Nodes: No enlarged lymph nodes.? Miscellaneous: No hernias are seen. ? ? ? Bones:? Unremarkable.? ? No acute compression fractures. ? ? IMPRESSION:? ? 1. Small-bowel obstruction involving the proximal small bowel/jejunum.? No definite transition point identified but favored to be in the mid abdomen.? No suspicious mass or adenopathy.? No wall thickening. ? 2. Colonic diverticulosis without acute diverticulitis. ? 3. Hepatic steatosis.? ? ? Findings were discussed with Dr. Chapin at 2140 hours.? ? Dictated by: Asher Green M.D. on 05/08/2021 at 21:28 ? ? Approved by: Asher Green M.D. on 05/08/2021 at 21:41 ? Discharge Plan Departure Patient Disposition: Left Without Being Seen Clinical Impression: Partial obstruction of small intestine, Acute GI bleeding
[2021-05-08 18:29] LABS: Prothrombin Time 11.5 SECONDS (10.1-12.7)
[2021-05-08 18:31] LABS: PTT Partial Thromboplastin Tim 35 SECONDS (26.4-36.2)
[2021-05-08 18:32] LABS: Alanine Aminotransferase 42 IU/L (<50); Albumin 4.9 g/dL (3.5-5.0); Albumin Globulin Ratio 1.4 (1.0-2.8); Alkaline Phosphatase 162 U/L (38-126); Aspartate Aminotransferase 35 IU/L (17-59); BUN Creatinine Ratio 32.4 (6-22); Bilirubin Total 1.4 mg/dL (0.2-1.3); Blood Urea Nitrogen 24 mg/dL (9-20); Calcium 9.9 mg/dL (8.4-10.2); Carbon Dioxide 26 mmol/L (22-32); Chloride 101 mmol/L (98-107); Estimated Glomerular Filt Rate > 60.0 mL/min (>60); Globulin 3.5 g/dL (1.7-4.1); Glucose 252 mg/dL (70-100); HEMOLYSIS 15 (0-50); Potassium 4.4 mmol/L (3.4-5.1); Sodium 139 mmol/L (137-145); Total Protein 8.4 g/dL (6.3-8.2)
--- NOTE | 2021-05-08 18:52 | DI.US.S_ITS ---
PROCEDURE: US ABDOMEN LIMITED INDICATIONS: HEMATEMESIS; ETOH ABUSE; POSSIBLE CIRRHOSIS TECHNIQUE: Real-time scanning was performed of the abdominal and retroperitoneal organs, with image documentation. COMPARISON: None. FINDINGS: Liver: The liver demonstrates diffusely increased echotexture without focal abnormalities consistent with chronic hepatocellular disease/hepatic steatosis. Imaging of the liver was limited secondary to body habitus. The left hepatic lobe was not well visualized.. IMPRESSION: Limited evaluation the liver secondary to patient scanning characteristics. Visualized portion liver appear diffusely echogenic without focal intrahepatic lesions. Findings are likely related to hepatic steatosis versus sequela of chronic hepatocellular disease Dictated by: Asher Green M.D. on 05/08/2021 at 19:50 Approved by: Asher Green M.D. on 05/08/2021 at 19:52
[2021-05-08] MEDS: OCTREOTIDE 100 MCG/ML VIAL 50 MCG IV (19:08)
[2021-05-08] MEDS: SODIUM CHLORIDE 0.9% 1,000 ML 1000 ML IV (19:34)
--- NOTE | 2021-05-08 19:52 | DI.CT.S_ITS ---
PROCEDURE: CT ABDOMEN PELVIS W CON INDICATIONS: abdomen pain, hematemesis, leukocytosis TECHNIQUE: After the administration of intravenous contrast, axial sections acquired from the lung bases to the pubic symphysis. Coronal and sagittal reformats were performed. For radiation dose reduction, the following was used: automated exposure control, adjustment of mA and/or kV according to patient size. COMPARISON: None. FINDINGS: Image quality: Image degraded by mild-moderate patient motion artifact.. Lung bases: Bibasilar atelectasis. Heart: No significant findings. ABDOMEN: Liver: There is diffuse hypoattenuation of the liver parenchyma relative to the spleen compatible with hepatic steatosis. Gallbladder: Gallbladder is unremarkable. Biliary ducts: Unremarkable. Pancreas: Unremarkable. Spleen: Unremarkable. Adrenal Glands: Unremarkable. Kidneys and Ureters: Kidneys are symmetric in size and enhancement, and there is no obstructive uropathy. No perinephric inflammatory changes. Ureters are normal in course and caliber. . Stomach and Bowel: There is moderate gastric distention. No wall thickening. Scattered colonic diverticulosis without acute diverticulitis. There is long segment of proximal small bowel dilatation without wall thickening. A definite transition point is not visualized but the distal small bowel/ileum appears to be decompressed throughout most of its course. Transition point is favored to be in the mid abdomen. No suspicious mass or adenopathy. Peritoneum: No abnormal intraperitoneal fluid. No free air. Ventral Wall: No hernias. Abdominal Nodes: No retroperitoneal or mesenteric adenopathy by size criteria. Vessels: Aorta and inferior vena cava are normal in size. PELVIS: Pelvic Organs: Unremarkable. Bladder: Unremarkable. Pelvic Nodes: No enlarged lymph nodes. Miscellaneous: No hernias are seen. Bones: Unremarkable. No acute compression fractures. IMPRESSION: 1. Small-bowel obstruction involving the proximal small bowel/jejunum. No definite transition point identified but favored to be in the mid abdomen. No suspicious mass or adenopathy. No wall thickening. 2. Colonic diverticulosis without acute diverticulitis. 3. Hepatic steatosis. Findings were discussed with Dr. Chapin at 2140 hours. Dictated by: Asher Green M.D. on 05/08/2021 at 21:28 Approved by: Asher Green M.D. on 05/08/2021 at 21:41
[2021-05-08 20:32] LABS: COVID19 - ADMIT (NP swab/PCR) Negative (Negative)
[2021-05-08 21:57] LABS: Hemoglobin 16.4 g/dL (13.5-17.5)
--- NOTE | 2021-05-08 23:59 | PC.NURSE ---
patient moved from a stretcher to hospital bed.
[2021-05-09] VITALS (46 sets, daily range): BP systolic 113–138; BP diastolic 78–91; PULSE 93–105; RESP 13–36; TEMP 36.3–37.1; O2SAT 94–98; BMI 42.5
--- NOTE | 2021-05-09 01:03 | P.HP_ITS ---
History of Present Illness History of Present Illness Date Patient Seen: 05/09/21 Time Patient Seen: 01:03 Chief complaint: Vomiting coffee ground emisis Narrative: The patient is a 50 y/o male with a history of Multiple Sclerosis, GERD with esophagitis, bladder disorder, urinary retention, and Vit D deficiency who presents with a chief complaint of abdominal pain. The patient reports the pain began about 5-6 days prior to admission. He had associated nausea with vomiting of dark emesis. He continues to have nausea and intermittent abdominal pain. The patient has had no further emesis. He is somewhat unreliable as a historian. The patient lives at [facility], but he reports he lives at home with his parents. He has a long list of medications, but he says he is not taking any medications. At this time he is resting comfortably but admits to abdominal pain. He says the pain is mid abdomen, sharp, and does not radiate. He denies shortness of breath or chest pain. He has no fever or chills. He denies burning with urination, swelling of his ankles or orthopnea. He says he is ambulatory but I am unsure. He reports no previous abdominal surgeries. Patient had an elevated WBC of 27, Normal abdominal ultrasound, CT of the ABdomen and pelvis which revealed a suggestion of a transition point in the mid abdomen. Patient is admitted to the hospital for treatment and evaluation of a probable small bowel obstruction. Patient History Medical History Bladder disorder, unspecified Gastro-esophageal reflux disease without esophagitis Major depressive disorder with single episode Multiple sclerosis Obesity Retention of urine, unspecified Syncope and collapse Vitamin D deficiency, unspecified Surgical History No pertinent past surgical history Family & Social History Family History Mother In good health Father In good health Social History: household members other lives independently No Safety & Behavioral: Feels Safe in Current Yes Environment Been Physically Hurt or No Threatened By a Person Tobacco & Substance use: Smoking Status Former smoker alcohol intake former alcohol intake frequency a few times a month Substance Use Type does not use Meds Home Medications and Allergies Home Medications Medication Instructions Recorded Confirmed Type baclofen 20 mg tablet 20 mg PO TID 06/19/18 05/08/21 History citalopram 40 mg tablet 40 mg PO QAM 06/19/18 05/08/21 History tamsulosin 0.4 mg capsule 0.8 mg PO QPM 06/19/18 05/08/21 History amitriptyline 100 mg tablet 100 mg PO BEDTIME 10/21/20 05/08/21 History docusate sodium 100 mg capsule 200 mg PO BEDTIME 10/21/20 05/08/21 History hydrocodone 5 mg-acetaminophen 325 1 tab PO Q4H PRN 10/21/20 05/08/21 History mg tablet hydrocodone 5 mg-acetaminophen 325 2 tab PO Q4H PRN 10/21/20 05/08/21 History mg tablet ibuprofen 800 mg tablet 800 mg PO Q6H PRN 10/21/20 05/08/21 History meloxicam 15 mg tablet 15 mg PO QAM 10/21/20 05/08/21 History omeprazole 20 mg capsule,delayed 20 mg PO QAM 10/21/20 05/08/21 History release acetaminophen 325 mg tablet 650 mg PO Q4H PRN 05/08/21 05/08/21 History ergocalciferol (vitamin D2) 50,000 50,000 unit PO QWEEK 05/08/21 05/08/21 History unit tablet melatonin 3 mg tablet 3 mg PO BEDTIME 05/08/21 05/08/21 History Allergies Allergy/AdvReac Type Severity Reaction Status Date / Time No Known Drug Allergies Allergy Verified 05/08/21 18:14 Review of Systems Review of Systems Narrative: 10 point review of systems is negative except as above Exam Vital Signs (past 8 hours): - 05/08/21 18:00 05/08/21 18:01 05/08/21 18:02 Temperature 97.1 F L Pulse Rate 114 H 114 H 113 H Respiratory Rate 20 Blood Pressure 134/94 H 134/94 H Pulse Oximetry 94 94 98 05/08/21 18:28 05/08/21 18:30 05/08/21 19:00 Temperature Pulse Rate 107 H 108 H 111 H Respiratory Rate 18 17 24 Blood Pressure 133/91 H 137/90 161/95 H Pulse Oximetry 94 93 91 05/08/21 19:30 05/08/21 20:00 05/08/21 20:41 Temperature Pulse Rate 110 H 109 H 110 H Respiratory Rate 12 17 17 Blood Pressure 145/88 H 153/103 H Pulse Oximetry 91 91 96 05/08/21 20:42 05/08/21 21:00 05/08/21 21:30 Temperature Pulse Rate 110 H 109 H 106 H Respiratory Rate 17 14 Blood Pressure 127/76 126/91 H 134/84 Pulse Oximetry 96 96 97 05/08/21 22:00 05/08/21 22:30 05/08/21 23:00 Temperature Pulse Rate 103 H 105 H 101 H Respiratory Rate 16 Blood Pressure 117/86 122/83 130/84 Pulse Oximetry 96 95 98 05/08/21 23:30 05/09/21 00:00 05/09/21 00:02 Temperature Pulse Rate 102 H 103 H 104 H Respiratory Rate 23 24 Blood Pressure 110/72 125/78 Pulse Oximetry 94 95 94 Oxygen Delivery Method Room Air Narrative Exam Narrative: pleasant male lying in bed in no acute distress HENMT Other: NC/AT, PERRL, EOMI, Right eye deviated Neck Other: Neck is supple, no adenopathy or thyromegaly Resp Other: Lungs: clear to auscultation Cardio Other: RRR nl Sl S2 GI Other: Abdomen, obese, soft/mildly tender, no palpable masses, no rebound tenderness, no boardlike rigidity Skin Other: no lesions noted Neuro Other: Cranial nerves intact (except for right eye medial rectus palsy) Strength is symmetric and equal Sensation appears intact Reflexes brisk, hyperreflexic Mentation appears appropriate, but patient is an unreliable historian Extrem Other: no edema Psych Other: no thought distortions, delusions, or hallucinations Objective Labs Result Diagrams: 05/08/21 21:50 05/08/21 17:55 Labs: Laboratory Results - last 24 hr 05/08/21 05/08/21 05/08/21 16:05 17:55 17:55 WBC 27.2 H RBC 6.47 H Hgb 18.7 H Hct 53.7 H MCV 83.0 MCH 28.8 MCHC 34.7 RDW 14.5 Plt Count 307 Neut % (Auto) 93.7 H Lymph % (Auto) 2.6 L [place] % (Auto) 3.4 Eos % (Auto) 0.0 L Baso % (Auto) 0.3 Neut # (Auto) 45249 H Lymph # (Auto) 700 L [place] # (Auto) 900 Eos # (Auto) 0 Baso # (Auto) 100 PT 11.5 INR 1.0 APTT 35 Sodium Potassium Chloride Carbon Dioxide BUN Creatinine Estimated GFR BUN/Creatinine Ratio Glucose Calcium Total Bilirubin AST ALT Alkaline Phosphatase Total Protein Albumin Globulin Albumin/Globulin Ratio SARS-CoV-2 (PCR) Blood Type O Positive Antibody Screen Negative 05/08/21 05/08/21 05/08/21 17:55 19:17 21:50 WBC RBC Hgb 16.4 Hct 49.0 MCV MCH MCHC RDW Plt Count Neut % (Auto) Lymph % (Auto) [place] % (Auto) Eos % (Auto) Baso % (Auto) Neut # (Auto) Lymph # (Auto) [place] # (Auto) Eos # (Auto) Baso # (Auto) PT INR APTT Sodium 139 Potassium 4.4 Chloride 101 Carbon Dioxide 26 BUN 24 H Creatinine 0.74 Estimated GFR > 60.0 BUN/Creatinine Ratio 32.4 H Glucose 252 H Calcium 9.9 Total Bilirubin 1.4 H AST 35 ALT 42 Alkaline Phosphatase 162 H Total Protein 8.4 H Albumin 4.9 Globulin 3.5 Albumin/Globulin Ratio 1.4 SARS-CoV-2 (PCR) Negative Blood Type Antibody Screen Assessment & Plan Assessment & Plan narrative: 50 y/o male with a history of Multiple Sclerosis, bladder disorder, history of GERD with esophagitis admitted to the hospital with a probable small bowel obstruction * Patient reports hemetemsis, but H/H 18.7/53.7 * Will keep the patient NPO except for meds * Start IV hydration * No NGT as he is not vomiting * IV PPI given history of hemetemsis and esophagitis * General Surgery consult, Dr. Wayne notified and order entered * NO Pharmacological DVT prophylaxis given potential bleeding * Serial H/H Multiple Sclerosis * Continue baclofen * continue tylenol GERD history of Esophagitis * Continue IV PPI, will follow up H/H, no indication for EGD at this time * IF patient has recurrent hemetesis, consider EGD * discontinue ibuprofen, meloxican at this time Depression * Continue celexa * continue amitryptyline and melatonin to help with sleep Bladder dysfunction * Continue tamsulosin Hyperglycemia * Question stress vs. new onset Diabetes * Will check glycohemoglobin, follow blood sugar, initiate sliding scale insulin Patient indicates he is a full code. Will note that in his records. He states his parents are his surrogate decision maker. Patient will be admitted as an inpatient. I have utilized all available resources to review, update, and confirm, his current medications. Time Spent With Patient Critical Care time: I spent a total of [] minutes of critical care time on this patient's care today; this time is exclusive of procedural time.
[2021-05-09] MEDS: MORPHINE 4 MG/ML INJ IV (02:10)
[2021-05-09] MEDS: SODIUM CHLORIDE 0.9% FLUSH 10 ML IV ×2 (06:28→11:37)
[2021-05-09] MEDS: SODIUM CHLORIDE 0.9% 1,000 ML 150 ML IV (06:28)
--- NOTE | 2021-05-09 07:17 | PC.ADMIT ---
[address] [place] [address] Admission Note: The patient,Ranjan Kemp,50 y/o, was given written information regarding hospital policies, unit procedures and contact persons. Patient's smoking status: Former smoker. Vital Signs - 8 hr 05/08/21 23:30 05/09/21 00:00 05/09/21 00:02 Temperature Pulse Rate 102 H 103 H 104 H Respiratory Rate 23 24 Blood Pressure 110/72 125/78 Pulse Oximetry 94 95 94 05/09/21 00:30 05/09/21 01:00 05/09/21 01:30 Temperature Pulse Rate 105 H 101 H 100 H Respiratory Rate 19 22 21 Blood Pressure Pulse Oximetry 94 94 95 05/09/21 02:00 05/09/21 02:07 05/09/21 03:22 Temperature Pulse Rate 104 H 99 H 100 H Respiratory Rate 23 18 18 Blood Pressure 134/90 134/90 134/90 Pulse Oximetry 95 97 94 05/09/21 03:45 Temperature 98.8 F Pulse Rate 101 H Respiratory Rate 24 Blood Pressure 117/82 Pulse Oximetry 94 Patient admitted to ICU room 229 at 0330, oriented to person and place, very forgetful, STML, cooperative, denies pain and nausea. SR/ST with many episodes of bigeminy/trigeminy reported to Dr Sherman.
[2021-05-09 07:21] LABS: Add Manual Diff / Slide Review NO; Basophils Absolute Auto 0 /uL (0-100); Basophils Percent Auto 0.2 % (0-2); Eosinophils Absolute Auto 200 /uL (0-450); Eosinophils Percent Auto 1.2 % (2-4); Hematocrit 47.3 % (41-53); Hemoglobin 15.9 g/dL (13.5-17.5); Lymphocytes Absolute Auto 2300 /uL (1100-4500); Lymphocytes Percent Auto 13.2 % (25-40); Mean Corpuscular HGB Conc 33.6 % (30-36); Mean Corpuscular Hemoglobin 28.3 PG (26-34); Mean Corpuscular Volume 84.3 fL (80-100); Monocytes Absolute Auto 1300 /uL (0-900); Monocytes Percent Auto 7.5 % (3-14); Neutrophils Absolute Auto 13300 /uL (1500-7000); Neutrophils Percent Auto 77.9 % (50-75); Platelet Count 261 X10^3/uL (150-400); Red Blood Cell Count 5.61 X10^6/uL (4.5-5.9); Red Cell Distribution Width 14.6 % (11.6-14.8); White Blood Cell Count 17.1 X10^3/uL (4.5-11.0)
[2021-05-09 07:24] LABS: BUN Creatinine Ratio 34.1 (6-22); Blood Urea Nitrogen 28 mg/dL (9-20); Calcium 8.7 mg/dL (8.4-10.2); Carbon Dioxide 29 mmol/L (22-32); Chloride 104 mmol/L (98-107); Estimated Glomerular Filt Rate > 60.0 mL/min (>60); Glucose 154 mg/dL (70-100); HEMOLYSIS < 15 (0-50); Potassium 3.9 mmol/L (3.4-5.1); Sodium 141 mmol/L (137-145)
[2021-05-09 07:32] LABS: Hemoglobin A1C% w Est Avg Glu 6.1 % (4.0-6.0)
[2021-05-09] MEDS: CITALOPRAM 10 MG TABLET 40 MG PO (11:36)
[2021-05-09] MEDS: BACLOFEN 10 MG TABLET 20 MG PO ×2 (11:36→20:34)
[2021-05-09] MEDS: PANTOPRAZOLE 40 MG VIAL IV (11:36)
--- NOTE | 2021-05-09 14:54 | CM.DANOTE ---
Patient is a 50 yo male who was admitted today 05/09/21 for likely SBO, coffee ground emesis. Pt has [facility] and [facility] for insurance and his PCP is Dr. Phillips. EMR was reviewed. Per MD, pt with history of MS and a somewhat poor historian and admitted for likely SBO. Pt was advanced to clears and if tolerates may be able to advance to diet this evening to confirm that his SBO is resolving. Pt likely OBS status at this time pending medical needs. SW met bedside with pt and RN present and a friend and pt confirms he resides at [facility] but states he was planning to move back home with his mother rather than live at [place]. Friend was able to clarify that pt would love to live with his mom Tsering ([phone]) but his mother is not physically able to care for him and pt needs [facility] level of care. Pt then confirms that he remembers now that home is not an option and agreeable with return to [place] when stable. Pt states he does not ambulate much and typically utilizes w/c mostly for mobility. Possible need for PT eval but pt appears to be near baseline and PT may not be needed prior to d/c. Pt's [place] pwk does not show DPOA and when SW inquired with pt he states his primary/emergency contact is his mom Tsering but does not think he completed DPOA pwk. POLST form shows Full Tx. SW called [facility] in admissions/admin and left msg and left msg with [place] RN station regarding pt nearing baseline and likely d/c tomorrow. AYNELI Byrd kindly faxed some clinicals to [place] to review with coversheet stating likely d/c tomorrow as well. Plan: SW to follow closely for coordination with [facility] staff for return to their facility likely tomorrow and any further needs. LUAN Lisa Discharge Planning/Care Management CM Discharge Assessment Start: 05/09/21 14:42 Freq: Status: Active Protocol: Document 05/09/21 14:43 BF (Rec: 05/09/21 14:51 BF [id number]) Discharge Planning Assessment Assigned Airport Electrician LUAN Dutta DPOA/Assigned Designee Name none on file Advance Directives? Yes: Full Code Advance Directives on File Yes History Provided By Patient,Medical Record Has Patient been admitted in last 30 No days? Prior Living Arrangements Assisted Living Household Members none Type of transporation used prior to Relies on Others admit Facility Name Admitted From: [facility] Willing to Return to Facility? Yes Independent with ADL's No Is patient alert and oriented? Yes: somewhat Needs Assistance With Bathing,Meal Prep,Managing Medications,Home Chores / Shopping Caregiver for Another No Comment Return to [place] when medically stable. Barriers to Discharge No Discharge Plan Assisted Living Facility Transportation Arrangement [facility] when medcically stable. Referrals Initiated Other Review Status In Process Please Provide Date Initial DC 05/09/21 Assessment Was Performed Next Review Type Continued Stay Review
--- NOTE | 2021-05-09 15:28 | CM.DPNOTE ---
Faxed clinicals per Luzmaria to [facility] on 05/09/21. Received fax confirm. Rochelle Griffin CM Asst.
--- NOTE | 2021-05-09 18:56 | PC.NURSE ---
PT TOLERATED PO INTAKE WELL WITH NO N/V OR ABD DISCOMFORT- WAS TO BE D/C BACK HOME TO [place] BUT NO ONE ABLE TO TRANSPORT PT- HE REMOVED HIS OWN IV LINE AND TELE WAS REMOVED WELL PT INC OF LARGE AMOUNTS OF URINE AND ABLE TO USE URINAL X1 WITH ASSIST
[2021-05-09] MEDS: MELATONIN 3 MG TABLET 6 MG PO (20:33)
[2021-05-09] MEDS: ACETAMINOPHEN 325 MG TABLET 650 MG PO (20:33)
[2021-05-09] MEDS: AMITRIPTYLINE 25 MG TABLET 100 MG PO (20:34)
[2021-05-10 00:02] VITALS: BP 120/79; PULSE 88; RESP 16; TEMP 36.2; O2SAT 92
[2021-05-10 04:04] VITALS: BP 124/91; PULSE 98; RESP 16; TEMP 36.3; O2SAT 99
[2021-05-10 05:06] LABS: Add Manual Diff / Slide Review NO; Basophils Absolute Auto 0 /uL (0-100); Basophils Percent Auto 0.4 % (0-2); Eosinophils Absolute Auto 300 /uL (0-450); Eosinophils Percent Auto 2.9 % (2-4); Hematocrit 43.1 % (41-53); Hemoglobin 14.6 g/dL (13.5-17.5); Lymphocytes Absolute Auto 2100 /uL (1100-4500); Lymphocytes Percent Auto 18.5 % (25-40); Mean Corpuscular HGB Conc 33.9 % (30-36); Mean Corpuscular Hemoglobin 28.6 PG (26-34); Mean Corpuscular Volume 84.4 fL (80-100); Monocytes Absolute Auto 800 /uL (0-900); Monocytes Percent Auto 6.7 % (3-14); Neutrophils Absolute Auto 8100 /uL (1500-7000); Neutrophils Percent Auto 71.5 % (50-75); Platelet Count 218 X10^3/uL (150-400); White Blood Cell Count 11.3 X10^3/uL (4.5-11.0)
[2021-05-10 05:12] LABS: BUN Creatinine Ratio 32.8 (6-22); Blood Urea Nitrogen 22 mg/dL (9-20); Calcium 8.7 mg/dL (8.4-10.2); Carbon Dioxide 29 mmol/L (22-32); Chloride 103 mmol/L (98-107); Estimated Glomerular Filt Rate > 60.0 mL/min (>60); Glucose 127 mg/dL (70-100); HEMOLYSIS < 15 (0-50); Potassium 3.8 mmol/L (3.4-5.1); Sodium 137 mmol/L (137-145)
[2021-05-10 06:36] LABS: Appearance Urine UA CLEAR; Bilirubin Urine UA NEGATIVE (NEGATIVE); Color Urine UA YELLOW; Glucose Urine UA NEGATIVE (Negative); Ketones Urine UA NEGATIVE (NEGATIVE); Leukocyte Esterase Urine UA NEGATIVE (NEGATIVE); Nitrite Urine UA NEGATIVE (Negative); Occult Blood Urine UA NEGATIVE (Negative); Protein Urine UA NEGATIVE (Negative); pH Urine UA 5.5 (4.5-8.0)
[2021-05-10 06:38] LABS: Bacteria Urine None Seen; Culture Indicated Urine Cult Not Indicated; RBC Urine None Seen (0-5/HPF); Urine Comments Microscopic Normal; WBC Urine None Seen (0-5/HPF)
[2021-05-10 07:00] VITALS: O2SAT 97
[2021-05-10 08:00] VITALS: BP 133/94; PULSE 97; RESP 17; TEMP 36.6; O2SAT 99
[2021-05-10 09:05] VITALS: O2SAT 99
--- NOTE | 2021-05-10 09:12 | PM.DS.1 ---
History of Present Illness History of Present Illness Date Patient Seen: 05/10/21 Time Patient Seen: 09:12 Chief complaint: Vomiting coffee ground emisis Narrative: Per Dr. Sherman, The patient is a 50 y/o male with a history of Multiple Sclerosis, GERD with esophagitis, bladder disorder, urinary retention, and Vit D deficiency who presents with a chief complaint of abdominal pain.? The patient reports the pain began about 5-6 days prior to admission. He had associated nausea with vomiting of dark emesis. He continues to have nausea and intermittent abdominal pain.? The patient has had no further emesis.? He is somewhat unreliable as a historian. The patient lives at [facility], but he reports he lives at home with his parents. He has a long list of medications, but he says he is not taking any medications.? At this time he is resting comfortably but admits to abdominal pain. He says the pain is mid abdomen, sharp, and does not radiate. He denies shortness of breath or chest pain. He has no fever or chills. He denies burning with urination, swelling of his ankles or orthopnea.? He says he is ambulatory but I am unsure.? He reports no previous abdominal surgeries.? Patient had an elevated WBC of 27, Normal abdominal ultrasound, CT of the ABdomen and pelvis which revealed a suggestion of a transition point in the mid abdomen. Patient is admitted to the hospital for treatment and evaluation of a probable small bowel obstruction. Discharge Providers Provider Date of admission: 05/09/21 00:34 Discharge Date: 05/10/21 Consults: 05/09/21 00:56 Consult to Physician Routine Comment: Consulting Provider: Nhi Wayne Reason for consultation: SBO Has provider been notified: Yes Discharge provider: Yifan Gaines DO Summary Hospital Course Discharge Diagnosis: 1. small bowel obstruction, resolved. 2. possible hematemesis 3. GERD 4. Multiple sclerosis, chronic 5. Depression, chronic 6. Bladder dysfunction, chronic 7. Pre-diabetes, new diagnosis Hospital Course: 50 y/o male with a history of Multiple Sclerosis, bladder disorder, history of GERD with esophagitis admitted to the hospital with a probable small bowel obstruction. CT scan showed a possible SBO. He possibly had coffee ground emesis but this was not confirmed. He was observed, no NG tube was placed. The following morning he was feeling improved. His diet was advanced and he tolerated a regular diet. His initial leukocytosis and elevated Hg were likely due to dehydration in setting of recent GI losses from emesis. He had no bowel movement during admission but nausea and abdominal pain had resolved and patient was passing gas. He did have an elevated blood sugar on admission, A1c was 6.1% consistent with pre-diabetes. No medication changes are recommended at this time. Exam Vital Signs (past 8 hours): - 05/10/21 04:04 05/10/21 08:00 05/10/21 09:05 Temperature 97.4 F L 98 F Pulse Rate 98 H 97 H Respiratory Rate 16 17 Blood Pressure 124/91 H 133/94 H Pulse Oximetry 99 99 99 Oxygen Delivery Method Room Air Oxygen Flow Rate 0 Narrative Exam Narrative: leuzair male lying in bed in no acute distress HENAZ Other:?NC/AT, PERRL, EOMI, Right eye deviated Neck Other:?Neck is supple, no adenopathy or thyromegaly Resp Other:?Lungs: clear to auscultation Cardio Other:?RRR nl Sl S2 GI Other:?Abdomen, obese, non-tender, non-distended, soft Skin Other:?no lesions noted Neuro Other:?Cranial nerves intact (except for right eye medial rectus palsy) Strength is symmetric and equal Sensation appears intact Reflexes brisk, hyperreflexic Mentation appears appropriate, but patient is an unreliable historian Extrem Other:?no edema Psych Other:?no thought distortions, delusions, or hallucinations Objective Labs Result Diagrams: 05/10/21 04:35 05/10/21 04:35 Labs: Laboratory Results - last 24 hr 05/10/21 05/10/21 05/10/21 04:35 04:35 06:00 WBC 11.3 H RBC 5.10 Hgb 14.6 Hct 43.1 MCV 84.4 MCH 28.6 MCHC 33.9 RDW 14.0 Plt Count 218 Neut % (Auto) 71.5 Lymph % (Auto) 18.5 L [place] % (Auto) 6.7 Eos % (Auto) 2.9 Baso % (Auto) 0.4 Neut # (Auto) 8100 H Lymph # (Auto) 2100 [place] # (Auto) 800 Eos # (Auto) 300 Baso # (Auto) 0 Sodium 137 Potassium 3.8 Chloride 103 Carbon Dioxide 29 BUN 22 H Creatinine 0.67 Estimated GFR > 60.0 BUN/Creatinine Ratio 32.8 H Glucose 127 H Calcium 8.7 Urine Color Yellow Urine Appearance Clear Urine pH 5.5 Ur Specific [place] 1.010 Urine Protein Negative Urine Glucose (UA) Negative Urine Ketones Negative Urine Occult Blood Negative Urine Nitrate Negative Urine Bilirubin Negative Urine Urobilinogen 1.0 Ur Leukocyte Esterase Negative Urine RBC None seen Urine WBC None seen Urine Bacteria None seen Ur Culture Indicated? Cult not indicated Micro UA Comment Microscopic normal PFS Medical History (Updated 05/09/21 @ 08:57 by Nhi Wayne MD) Bladder disorder, unspecified Gastro-esophageal reflux disease without esophagitis Major depressive disorder with single episode Multiple sclerosis Obesity Retention of urine, unspecified Syncope and collapse Vitamin D deficiency, unspecified Surgical History No pertinent past surgical history Family History Mother In good health Father In good health Social History household members: none lives independently: No Smoking Status: Former smoker alcohol intake: former Discharge Plan Discharge Plan Patient Disposition: Home Provider Discharge Comment: 50 y/o male with a history of Multiple Sclerosis, bladder disorder, history of GERD with esophagitis admitted to the hospital with a probable small bowel obstruction. CT scan showed a possible SBO. He possibly had coffee ground emesis but this was not confirmed. He was observed, no NG tube was placed. The following morning he was feeling improved. His diet was advanced and he tolerated a regular diet. His initial leukocytosis and elevated Hg were likely due to dehydration in setting of recent GI losses from emesis. He had no bowel movement during admission but nausea and abdominal pain had resolved and patient was passing gas. He did have an elevated blood sugar on admission, A1c was 6.1% consistent with pre-diabetes. No medication changes are recommended at this time. Discharge orders & Medications Prescriptions: Continued baclofen 20 mg tablet 20 mg PO TID RF: 0 citalopram 40 mg tablet 40 mg PO QAM RF: 0 tamsulosin 0.4 mg capsule 0.8 mg PO QPM RF: 0 amitriptyline 100 mg Tablet 100 mg PO BEDTIME RF: 0 docusate sodium 100 mg Capsule 200 mg PO BEDTIME RF: 0 omeprazole 20 mg Capsule,Delayed Release(Dr/Ec) 20 mg PO QAM RF: 0 ibuprofen 800 mg Tablet 800 mg PO Q6H PRN (Reason: Pain (Scale Score 4-6)) RF: 0 hydrocodone-acetaminophen 5-325 mg Tablet 1 tab PO Q4H PRN (Reason: Pain (Scale Score 4-6)) RF: 0 hydrocodone-acetaminophen 5-325 mg Tablet 2 tab PO Q4H PRN (Reason: Pain (Scale Score 7-10)) RF: 0 meloxicam 15 mg Tablet 15 mg PO QAM RF: 0 acetaminophen 325 mg Tablet 650 mg PO Q4H PRN (Reason: Pain (Scale Score 1-3)) RF: 0 melatonin 3 mg Tablet 3 mg PO BEDTIME RF: 0 ergocalciferol (vitamin D2) 50,000 unit Tablet 50,000 unit PO QWEEK RF: 0 Diet/Activity/Treatments Diet: Diet as Tolerated Activity: As tolerated Discharge Data Attending Provider: Tyra Sherman VTE Deep Vein Thrombosis/Pulmonary Embolism Present on Admission: No
[2021-05-10] MEDS: CITALOPRAM 10 MG TABLET 40 MG PO (09:27)
[2021-05-10] MEDS: SODIUM CHLORIDE 0.9% FLUSH 10 ML IV (09:27)
--- NOTE | 2021-05-10 11:56 | CM.DPNOTE ---
Called for medicaid transport and faxed form. Will be here after noon. Rochelle Griffin CM Asst.
--- NOTE | 2021-05-10 12:01 | CM.DPC ---
DCP continued: CM called [facility] at [phone] and let them know the patient is ready to return to [facility] today. [facility] admissions nurse stated that was fine they just needed a negative covid swab- CM faxed a copy along with DC orders to [phone]- [facility] does not have transportation available today so RICARDO byrd set up Medicaid transport with Pat[facility] altamirano who will be here around 1230 to transport the patient to [facility] Talked with the devulcanizer charger at [facility] and they agreed to accept the patient and are aware of approx arrival time. RICARDO Byrd told patients RN of pending transportation arrival. Yvette Mota RNwardrobe manager.
--- NOTE | 2021-05-10 13:01 | PC.NURSE ---
Pt assisted to cam to w/c for cabulance. No belongings with patient. Dc packet sent no med changes. No new rx. No iv to remove. Pt in good spirits about dc.
== END 2021-05-10 13:03 | disposition home or self-care (01) ==
LOC: ED 22:36 → ICU 05-09 07:37 → AC 05-10 08:18
PROVIDERS: Internal Medicine; Admitting Provider Internal Medicine; Emergency Provider Emergency Medicine; Referring Provider Emergency Medicine; Visit Provider Internal Medicine
DX: K92.0 Hematemesis (principal); R10.9 Unspecified abdominal pain; R73.03 Prediabetes; G35 Multiple sclerosis; K21.00 Gastro-esophageal reflux disease with esophagitis, without bleeding; R33.9 Retention of urine, unspecified; E55.9 Vitamin D deficiency, unspecified; E66.9 Obesity, unspecified; F32.9 Major depressive disorder, single episode, unspecified; Z87.891 Personal history of nicotine dependence; Z68.41 Body mass index [BMI] 40.0-44.9, adult
CPT/HCPCS: 36415; 74177; 76705; 80048; 80053; 81001; 83036; 83735; 85014; 85018; 85025; 85610; 85730; 86850; 86900; 86901; 87635; 87797; 93005; 93010; 94760; 96361; 96374; 96375; 99284; C9803; G0378; C9113; J1815; J2270; J2354; J2405; Q9967

== ENCOUNTER → 2021-11-19 08:26 | Outpatient (ROUT) | payer MEDICARE, MEDICAID, SELFPAY ==
[2021-05-09 04:03] VITALS: BMI 42.5
[2021-11-19 08:59] LABS: Add Manual Diff / Slide Review NO; Basophils Absolute Auto 0 /uL (0-100); Basophils Percent Auto 0.4 % (0-2); Eosinophils Absolute Auto 300 /uL (0-450); Eosinophils Percent Auto 2.4 % (2-4); Hematocrit 45.9 % (41-53); Hemoglobin 15.5 g/dL (13.5-17.5); Lymphocytes Absolute Auto 2300 /uL (1100-4500); Lymphocytes Percent Auto 20.5 % (25-40); Mean Corpuscular HGB Conc 33.7 % (30-36); Mean Corpuscular Hemoglobin 27.9 PG (26-34); Mean Corpuscular Volume 82.7 fL (80-100); Monocytes Absolute Auto 700 /uL (0-900); Monocytes Percent Auto 6.2 % (3-14); Neutrophils Absolute Auto 7900 /uL (1500-7000); Neutrophils Percent Auto 70.5 % (50-75); Platelet Count 245 X10^3/uL (150-400); Red Blood Cell Count 5.55 X10^6/uL (4.5-5.9); Red Cell Distribution Width 14.4 % (11.6-14.8); White Blood Cell Count 11.3 X10^3/uL (4.5-11.0)
[2021-11-19 09:05] LABS: Alanine Aminotransferase 17 IU/L (<50); Albumin 3.7 g/dL (3.5-5.0); Albumin Globulin Ratio 1.4 (1.0-2.8); Alkaline Phosphatase 133 U/L (38-126); Aspartate Aminotransferase 18 IU/L (17-59); BUN Creatinine Ratio 16.1 (6-22); Bilirubin Total 0.7 mg/dL (0.2-1.3); Blood Urea Nitrogen 10 mg/dL (9-20); Calcium 8.5 mg/dL (8.4-10.2); Carbon Dioxide 26 mmol/L (22-32); Chloride 104 mmol/L (98-107); Estimated Glomerular Filt Rate > 60 mL/min (>60); Globulin 2.7 g/dL (1.7-4.1); Glucose 134 mg/dL (70-100); HEMOLYSIS < 15 (0-50); Potassium 3.8 mmol/L (3.4-5.1); Sodium 136 mmol/L (137-145); Total Protein 6.4 g/dL (6.3-8.2)
[2021-11-19 09:41] LABS: Thyroid Stimulating Hormone 1.49 uIU/mL (0.47-4.68)
== END ==
PROVIDERS: Visit Provider Nurse Practitioner Family
DX: R63.4 Abnormal weight loss (principal)
CPT/HCPCS: 36415; 80053; 84443; 85025

== ENCOUNTER → 2021-12-22 22:13 | Outpatient (ROUT) | payer MEDICARE, MEDICAID, SELFPAY ==
[2021-05-09 04:03] VITALS: BMI 42.5
[2021-12-22 22:19] LABS: Appearance Urine UA CLEAR; Bilirubin Urine UA NEGATIVE (NEGATIVE); Color Urine UA YELLOW; Glucose Urine UA NEGATIVE (Negative); Ketones Urine UA NEGATIVE (NEGATIVE); Leukocyte Esterase Urine UA NEGATIVE (NEGATIVE); Nitrite Urine UA NEGATIVE (Negative); Occult Blood Urine UA NEGATIVE (Negative); Protein Urine UA NEGATIVE (Negative); Urobilinogen Urine UA 0.2 E.U./dL (0.2)
[2021-12-22 22:27] LABS: Bacteria Urine None Seen; Culture Indicated Urine Cult Not Indicated; RBC Urine None Seen (0-5/HPF); Squamous Epithelial Cell Urine None Seen (0-5/HPF); Urine Comments Microscopic Normal; WBC Urine None Seen (0-5/HPF)
== END ==
PROVIDERS: Visit Provider Internal Medicine
DX: R10.30 Lower abdominal pain, unspecified (principal); R35.0 Frequency of micturition
CPT/HCPCS: 81001

== ENCOUNTER 2022-02-20 05:55 | Emergency (ER) | payer MEDICARE, MEDICAID, SELFPAY ==
[2021-05-09 04:03] VITALS: BMI 42.5
[2022-02-20] VITALS (17 sets, daily range): BP systolic 112–151; BP diastolic 62–93; PULSE 82–92; RESP 11–21; TEMP 36.4; O2SAT 84–97; BMI 39.6
--- NOTE | 2022-02-20 06:02 | DI.RAD.S_ITS ---
PROCEDURE: XR CHEST 1V INDICATIONS: chest pain TECHNIQUE: One view of the chest was acquired. COMPARISON: [facility], CR, XR CHEST 1V, 10/21/2020, 18:12. FINDINGS: Surgical changes and devices: None. Lungs and pleura: Lungs are clear. No pleural effusions or pneumothorax. Mild perihilar airway thickening. Mediastinum: Mediastinal contours appear normal. Heart size is normal. Bones and chest wall: No suspicious bony lesions. Overlying soft tissues appear unremarkable. IMPRESSION: Mild perihilar airway thickening which may be seen with reactive airway disease such as asthma or bronchitis. Otherwise, no acute cardiopulmonary abnormalities or focal airspace disease. No significant discrepancy with the assistant shift supervisor radiology preliminary report. Dictated by: Asher Green M.D. on 02/20/2022 at 7:49 Approved by: Asher Green M.D. on 02/20/2022 at 7:55
[2022-02-20 06:30] LABS: Add Manual Diff / Slide Review NO; Basophils Absolute Auto 100 /uL (0-100); Basophils Percent Auto 0.7 % (0-2); Eosinophils Absolute Auto 200 /uL (0-450); Hematocrit 46.4 % (41-53); Hemoglobin 16.3 g/dL (13.5-17.5); Lymphocytes Absolute Auto 2300 /uL (1100-4500); Lymphocytes Percent Auto 19.7 % (25-40); Mean Corpuscular HGB Conc 35.1 % (30-36); Mean Corpuscular Hemoglobin 28.6 PG (26-34); Mean Corpuscular Volume 81.4 fL (80-100); Monocytes Absolute Auto 600 /uL (0-900); Monocytes Percent Auto 4.9 % (3-14); Neutrophils Absolute Auto 8700 /uL (1500-7000); Neutrophils Percent Auto 72.7 % (50-75); Platelet Count 231 X10^3/uL (150-400); Red Blood Cell Count 5.69 X10^6/uL (4.5-5.9); Red Cell Distribution Width 14.2 % (11.6-14.8); White Blood Cell Count 11.9 X10^3/uL (4.5-11.0)
--- NOTE | 2022-02-20 06:32 | ED_ITS ---
HPI - Chest Pain <Neto Becerril MD - Last Filed: 02/20/22 18:02> General Chief Complaint: Chest Pain Stated Complaint: C/P x 2 days Time Seen by Provider: 02/20/22 06:20 Source: patient and EMS Mode of arrival: EMS History of Present Illness HPI narrative: Patient brought in by ambulance from [facility]. Patient has history of MS as well as acid reflux and morbid obesity. No prior history of high blood pressure hypercholesteremia heart attack strokes or diabetes. No primary family history of coronary artery disease. Patient states he is had left-sided chest tightness for the past 4 days. No nausea vomiting diaphoresis or dyspnea. Patient given aspirin prior to arrival to the hospital. Patient denies any recent injury or strain to his chest. He describes left-sided chest discomfort/tightness without any radiation. No exacerbating factors. No relieving factors. Patient states not related to diet. Patient seen here September 2020 for chest pain as well. Please see report below of his echocardiogram and Lexiscan stress test [place] [id number] Nuclear Medicine Report Signed Patient: Camila Edwards MR#: [id number] : 1970 Acct:[id number] Age/Sex: 50 / M Date of Service: 10/21/20 Loc: 212-1 Accession Number: [id number] ?? Procedure: NM hernandez perf SPECT single study Ordering Provider: Yifan Hodge ? DATE OF SERVICE:? 10/22/2020 ? PROCEDURE PERFORMED:? Pharmacologic vasodilator stress only myocardial perfusion imaging with gating to assess ejection fraction and regional wall motion. ? ORDERING PROVIDER:? ANTHONY Vargas. ? INDICATIONS:? The patient is a 50-year-old male with multiple sclerosis admitted with chest discomfort. ? CARDIAC STRESS:? Per protocol, 0.4 mg of regadenoson was infused with a normal hemodynamic response.? He had mild dyspnea but no chest discomfort.? His resting ECG shows borderline interventricular conduction delay but fairly normal ST segments.? There are no significant ST-segment shifts or arrhythmias with stress. ? Per protocol, 25.5 millicuries of technetium-99m Myoview was injected and the patient was imaged 20 minutes later using a gated SPECT acquisition protocol. Because the stress images appeared to show no perfusion defect, it was felt that resting images were not necessary. ? FINDINGS: 1. ? Raw data: There is fairly good myocardial tracer uptake but there is some ? slight attenuation artifact noted.? However, the patient was unable to lie ? prone to assess for this.? Lung/heart ratio was normal at 0.35. 2. ? Quantitated gated SPECT: Post-stress ejection fraction is estimated at 73% without any focal wall motion abnormality with an end-diastolic volume of 127 mL. 3. ? Myocardial perfusion imaging: Post-stress supine images show a fairly normal myocardial perfusion pattern without any significant perfusion defects. The patient was unable to lie prone but given the absence of any perfusion defect, it was felt that resting images were not needed. ? IMPRESSION: 1. ? Normal myocardial perfusion study. 2. ? No evidence of myocardial ischemia or previous myocardial infarction. 3. ? Normal left ventricular systolic function with borderline increased left ventricular volumes, likely due to the patient's large BMI (body mass index). 4. ? No chest discomfort or ECG changes with pharmacologic vasodilator stress. ? ? ? Camila Edwards - /hernandez/jeff doc#: [id number]/job#:? [id number] dd: 10/22/2020 16:38:00 dt: 10/22/2020 18:17:00 DICTATING MD/COPIES TO: Camila Henderson MD; ANTHONY Vargas; Martha Sherman MD COPIES MNE: TOMAS; ; [address] [address] Echocardiography Report Signed Patient: Camila Edwards MR#: [id number] : 1970 Acct:[id number] Age/Sex: 50 / M Date of Service: 10/21/20 Loc: 212-1 Accession Number: [id number] ?? Procedure: EC echo doppler complete Ordering Provider: Yifan Hodge ? [facility]? +---------+ : ? :? [address] [place] [address]. ? : ? : : ? :? [place], [place] ? : ? : : ? :? [address] ? : ? : : ? : ? Phone: [phone] : ? : +---------[phone]? [phone]? +---------+ ? Echocardiogram Report + + :Name: CAMILA EDWARDS? Study Date: 10/22/2020 ? Height: 73 in? : :Hospital ? ? ReadingLocation: ? Weight: 341 lb : : ? Gender: Male ? BSA: 2.7 m2? ? : :: 1970? Age: 50 yrs? BP: 132/79 mmHg: :Reason For Study: CHEST PAIN ? : :Ordering Physician: NAVEEN, ? : :YIFAN? Performed By: Amara Schwab? : :Referring: YIFAN HODGE? : + + Interpretation Summary The left ventricle is normal in size. Left ventricular systolic function is normal. The ejection fraction is estimated to be 55-60%. There are no obvious focal wall motion abnormalities noted but poor endocardial definition reduces the sensitivity for the detection of such. Diastolic parameters suggest probable normal left ventricular diastolic function and normal filling pressures. ? The right ventricle is normal size. The right ventricular systolic function is normal. Pulmonary artery pressures cannot be estimated because of the lack of a measurable TR jet velocity. ? Both atria are normal in size. ? There is no significant valvular heart disease. ? The aortic root is normal size. ? No significant changes since echocardiogram on 09/29/2016. ? Procedure: ? A two-dimensional transthoracic echocardiogram with color flow and Doppler was performed. The study quality was technically difficult. Comparison is made with the echocardiogram of 09/29/2016. The patient was in sinus rhythm with heart rates between 72-88 bpm during the exam. Left Ventricle: ? The left ventricle is normal in size. Left ventricular wall thickness is mildly increased. Left ventricular systolic function is normal. The ejection fraction is estimated to be 55-60%. There are no obvious focal wall motion abnormalities noted but poor endocardial definition reduces the sensitivity for the detection of such. Diastolic parameters suggest probable normal left ventricular diastolic function and normal filling pressures. Right Ventricle: ? The right ventricle is normal size. The right ventricular systolic function is normal. Atria: ? Both atria are normal in size. There is no Doppler evidence for an interatrial shunt. Mitral Valve: ? The mitral valve is normal in structure and function. There is trace mitral regurgitation. Aortic Valve: ? The aortic valve opens well. There is no aortic valve stenosis. No aortic regurgitation is present. Tricuspid Valve: ? The tricuspid valve is normal in structure and function. Pulmonary artery pressures cannot be estimated because of the lack of a measurable TR jet velocity. No tricuspid regurgitation. Pulmonic Valve: ? The pulmonic valve is not well visualized. There is no pulmonic valvular regurgitation. There is no significant valvular heart disease. Great Vessels: ? The aortic root is normal size. The dimensions of the ascending aorta are normal. The inferior vena cava was not well visualized. Pericardium/ Pleura ? There is no pericardial effusion. There is no pleural effusion. ? MMode/2D Measurements & Calculations LVIDd: 4.0 cm? LVOT diam: 2.6 cm LVIDs: 2.6 cm? Ao root diam: 3.2 cm FS: 35.0 % ? asc Aorta Diam: 3.2 cm EPSS: 1.1 cm ? Ao Arch Diam (Prox Trans): 2.9 cm IVSd: 1.4 cm LVPWd: 1.1 cm LV smith. diameter/BSA (cm/m^2): 1.5 LV sys. diameter/BSA (cm/m^2): 0.96 ? LA A2 area: 17.9 cm2 ? RA long axis: 4.2 cm LA A4 area: 13.4 cm2 ? RA area: 11.7 cm2 LA length (vol): 4.8 cm? RA vol: 27.6 ml LA vol: 42.7 ml? RA : 10.2 ml/m2 LA vol index: 15.8 ml/m2 ? RVD1 (basal): 3.2 cm TAPSE: 1.5 cm ? Doppler Measurements & Calculations Ao V2 max: 127.8 cm/sec? LVOT Max Abimael: 89.8 cm/sec Ao V2 mean: 88.8 cm/sec? LV V1 max P.2 mmHg Ao max P.5 mmHg? LV V1 VTI: 16.1 cm Ao mean P.5 mmHg ? ASIA(I,D): 3.8 cm2 Ao V2 VTI: 22.3 cm ? ASIA(V,D): 3.7 cm2 ? sev ratio: 0.72 ? ASIA indexed to BSA (cm^2/m^2): 1.4 ? MV E max abimael: 85.5 cm/sec? PA V2 max: 167.3 cm/sec MV A max abimael: 82.3 cm/sec? PA V2 mean: 103.2 cm/sec MV E/A: 1.0? PA mean P.1 mmHg Med Peak E' Abimael: 7.6 cm/sec? PA pr(Accel): 39.6 mmHg E/E' med: 11.2 Lat Peak E' Abimael: 12.0 cm/sec E/E' lat: 7.1 E/e' average: 9.1 MV dec time: 0.26 sec ? SV(LVOT): 84.0 ml ? Reading Physician:02:05 PM Related Data Home Medications Medication Instructions Recorded Confirmed baclofen 20 mg tablet 20 mg PO TID MS 06/19/18 02/20/22 citalopram 40 mg tablet 40 mg PO QAM depression 06/19/18 02/20/22 tamsulosin 0.4 mg capsule 0.8 mg PO QPM BPH w/ Obstruction 06/19/18 02/20/22 amitriptyline 100 mg tablet 100 mg PO BEDTIME 10/21/20 02/20/22 docusate sodium 100 mg capsule 200 mg PO BEDTIME constipation 10/21/20 02/20/22 hydrocodone 5 mg-acetaminophen 325 1 tab PO Q4H PRN Pain (Scale Score 10/21/20 02/20/22 mg tablet 4-6) hydrocodone 5 mg-acetaminophen 325 2 tab PO Q4H PRN Pain (Scale Score 10/21/20 02/20/22 mg tablet 7-10) omeprazole 20 mg capsule,delayed 20 mg PO QAM GERD 10/21/20 02/20/22 release ergocalciferol (vitamin D2) 50,000 50,000 unit PO QWEEK 05/08/21 02/20/22 unit tablet melatonin 3 mg tablet 3 mg PO BEDTIME 05/08/21 02/20/22 Allergies Allergy/AdvReac Type Severity Reaction Status Date / Time No Known Drug Allergies Allergy Verified 05/08/21 18:14 Review of Systems <Neto Becerril MD - Last Filed: 02/20/22 18:02> Review of Systems Narrative: GENERAL: Denies chills, fatigue, malaise, fever, sweats. HEENT: Denies sinus pain, ear pain, sore throat RESPIRATORY: Denies dyspnea, cough CARDIOVASCULAR: Positive chest pain, negative palpitations GASTROINTESTINAL: Denies nausea, vomiting, abdominal pain : Denies dysuria, frequency, hematuria MUSCULOSKELETAL: denies muscle or bony pain SKIN: Denies rash, skin lesions NEUROLOGIC: Denies weakness, numbness ROS Unobtainable: All systems reviewed & are unremarkable except as noted in HPI and below Patient History <Neto Becerril MD - Last Filed: 02/20/22 18:02> Medical History (Updated 02/20/22 @ 10:25 by Steff Goode DO) Bladder disorder, unspecified Gastro-esophageal reflux disease without esophagitis Major depressive disorder with single episode Multiple sclerosis Obesity Retention of urine, unspecified Syncope and collapse Vitamin D deficiency, unspecified Surgical History No pertinent past surgical history Family History Mother In good health Father In good health Social History household members: none lives independently: No Smoking Status: Former smoker alcohol intake: former Smoking Status: Former smoker alcohol intake frequency: holidays/special occasions only Substance Use Type: does not use Exam <Neto Becerril MD - Last Filed: 02/20/22 18:02> Narrative Exam Narrative: GENERAL: in no distress, not toxic not dyspneic HEAD: Normocephalic. EYES: Pupils equal round No scleral icterus. ENT: Mucous membranes moist. NECK: Trachea midline. CARDIOVASCULAR: Regular rate and rhythm without murmurs RESPIRATORY: Clear to auscultation. Breath sounds equal bilaterally. No wheezes, rales, or rhonchi. GASTROINTESTINAL: Abdomen soft, non-tender EXTREMITIES: No gross deformities. BACK: No flank tenderness. NEURO: AOx3. Clear speech no facial droop SKIN: Warm and dry PSYCH: Not anxious, is cooperative Initial Vital Signs Initial Vital Signs: Vital Signs Temperature 97.5 F L 02/20/22 06:02 Pulse Rate 92 H 02/20/22 06:02 Respiratory Rate 18 02/20/22 06:02 Blood Pressure 151/93 H 02/20/22 06:02 Pulse Oximetry 97 02/20/22 06:02 Oxygen Delivery Method 02/20/22 06:02 <Steff Goode DO - Last Filed: 02/20/22 17:00> Initial Vital Signs Initial Vital Signs: Vital Signs Temperature 97.5 F L 02/20/22 06:02 Pulse Rate 92 H 02/20/22 06:02 Respiratory Rate 18 02/20/22 06:02 Blood Pressure 151/93 H 02/20/22 06:02 Pulse Oximetry 97 02/20/22 06:02 Oxygen Delivery Method 02/20/22 06:02 Scores <Neto Becerril MD - Last Filed: 02/20/22 18:02> HEART Score Heart Score history: Slightly Suspicious Heart Score EKG: Normal Heart Score Age: 45-64 years old Heart Score risk factors: 1-2 risk factors Heart Score troponin: < or = to normal limit Heart Score Total: 2 <Steff Goode DO - Last Filed: 02/20/22 17:00> HEART Score Heart Score Total: 2 Course <Neto Becerril MD - Last Filed: 02/20/22 18:02> Course Course Narrative: February 20, 2022 at 7:00 a.m.. s/o dr goode, repeat troponin do a at 8:00 a.m. as chest pain has been constant for the past 4 days. Likely need to consult Cardiology with results and last year's Lexiscan stress test and echocardiogram results Orders Ordered: ED Orders 02/20/22 09:45 EKG-12 Lead Routine 02/20/22 10:28 EKG-12 Lead Routine Discontinued Medications Aspirin (Aspirin 81 Mg Chew Tab) 324 mg PO NOW ONE Stop: 02/20/22 09:28 Last Admin: 02/20/22 09:57 Dose: 324 mg Documented By: JUAN FRANCISCO Nitroglycerin (Nitroglycerin Oint 1 Inch/Gm Oint...G.) 0.5 inch TOP NOW ONE Stop: 02/20/22 06:48 Last Admin: 02/20/22 06:55 Dose: 0.5 inch Documented By: JAM Vital Signs Vital signs: Vital Signs - 8 hr 02/20/22 10:30 02/20/22 10:30 02/20/22 11:00 Pulse Rate 83 Respiratory Rate 17 Blood Pressure 112/71 113/63 Pulse Oximetry 96 Oxygen Delivery Method 02/20/22 11:00 02/20/22 11:30 02/20/22 11:30 Pulse Rate 89 83 Respiratory Rate 21 20 Blood Pressure 113/63 Pulse Oximetry 96 95 Oxygen Delivery Method 02/20/22 12:00 02/20/22 12:01 02/20/22 12:01 Pulse Rate 87 86 Respiratory Rate 20 15 Blood Pressure 114/70 Pulse Oximetry 92 94 Oxygen Delivery Method 02/20/22 13:25 Pulse Rate 85 Respiratory Rate 18 Blood Pressure 118/81 Pulse Oximetry 97 Oxygen Delivery Method Room Air <Steff Goode DO - Last Filed: 02/20/22 17:00> Orders Ordered: ED Orders 02/20/22 09:45 EKG-12 Lead Routine 02/20/22 10:28 EKG-12 Lead Routine Discontinued Medications Aspirin (Aspirin 81 Mg Chew Tab) 324 mg PO NOW ONE Stop: 02/20/22 09:28 Last Admin: 02/20/22 09:57 Dose: 324 mg Documented By: JUAN FRANCISCO Nitroglycerin (Nitroglycerin Oint 1 Inch/Gm Oint...G.) 0.5 inch TOP NOW ONE Stop: 02/20/22 06:48 Last Admin: 02/20/22 06:55 Dose: 0.5 inch Documented By: JAM Vital Signs Vital signs: Vital Signs - 8 hr 02/20/22 10:30 02/20/22 10:30 02/20/22 11:00 Pulse Rate 83 Respiratory Rate 17 Blood Pressure 112/71 113/63 Pulse Oximetry 96 Oxygen Delivery Method 02/20/22 11:00 02/20/22 11:30 02/20/22 11:30 Pulse Rate 89 83 Respiratory Rate 21 20 Blood Pressure 113/63 Pulse Oximetry 96 95 Oxygen Delivery Method 02/20/22 12:00 02/20/22 12:01 02/20/22 12:01 Pulse Rate 87 86 Respiratory Rate 20 15 Blood Pressure 114/70 Pulse Oximetry 92 94 Oxygen Delivery Method 02/20/22 13:25 Pulse Rate 85 Respiratory Rate 18 Blood Pressure 118/81 Pulse Oximetry 97 Oxygen Delivery Method Room Air MDM - Chest Pain <Neto Brennick, MD - Last Filed: 02/20/22 18:02> Differential Diagnosis Differential diagnosis: Likely stable angina, unstable angina pectoris, atypical chest pain, st elevation myocardial infarction, costochondritis and chest pain Lab Data Result diagrams: 02/20/22 06:10 02/20/22 06:10 Labs: Lab Results 02/20/22 02/20/22 02/20/22 Range/Units 06:10 06:10 08:38 WBC 11.9 H (4.5-11.0) X10^3/uL RBC 5.69 (4.5-5.9) X10^6/uL Hgb 16.3 (13.5-17.5) g/dL Hct 46.4 (41-53) % MCV 81.4 (80-100) fL MCH 28.6 (26-34) PG MCHC 35.1 (30-36) % RDW 14.2 (11.6-14.8) % Plt Count 231 (150-400) X10^3/uL Neut % (Auto) 72.7 (50-75) % Lymph % (Auto) 19.7 L (25-40) % [place] % (Auto) 4.9 (3-14) % Eos % (Auto) 2.0 (2-4) % Baso % (Auto) 0.7 (0-2) % Neut # (Auto) 8700 H (0380-4420) /uL Lymph # (Auto) 2300 (3914-1548) /uL [place] # (Auto) 600 (0-900) /uL Eos # (Auto) 200 (0-450) /uL Baso # (Auto) 100 (0-100) /uL Sodium 137 (137-145) mmol/L Potassium 4.1 (3.4-5.1) mmol/L Chloride 98 (98-107) mmol/L Carbon Dioxide 30 (22-32) mmol/L BUN 12 (9-20) mg/dL Creatinine 0.66 (0.66-1.25) mg/dL Estimated GFR > 60 (>60) mL/min BUN/Creatinine Ratio 18.2 (6-22) Glucose 244 H (70-100) mg/dL Calcium 8.7 (8.4-10.2) mg/dL Magnesium 1.9 (1.6-2.3) mg/dL Total Bilirubin 1.0 (0.2-1.3) mg/dL AST 22 (17-59) IU/L ALT 17 (<50) IU/L Alkaline Phosphatase 147 H (38-126) U/L Total Creatine Kinase 21 L 21 L (55-170) U/L CK-MB (CK-2) TNP TNP CK-MB (CK-2) Rel Index TNP TNP Troponin I < 0.012 < 0.012 (0.01-0.034) ng/mL Total Protein 6.7 (6.3-8.2) g/dL Albumin 3.7 (3.5-5.0) g/dL Globulin 3.0 (1.7-4.1) g/dL Albumin/Globulin Ratio 1.2 (1.0-2.8) Lipase 112 (23-300) U/L ECG Data Interpretation: Normal sinus rhythm rate [address] elevation or depression. <Steff Goode DO - Last Filed: 02/20/22 17:00> Lab Data Labs: Lab Results 02/20/22 02/20/22 02/20/22 Range/Units 06:10 06:10 08:38 WBC 11.9 H (4.5-11.0) X10^3/uL RBC 5.69 (4.5-5.9) X10^6/uL Hgb 16.3 (13.5-17.5) g/dL Hct 46.4 (41-53) % MCV 81.4 (80-100) fL MCH 28.6 (26-34) PG MCHC 35.1 (30-36) % RDW 14.2 (11.6-14.8) % Plt Count 231 (150-400) X10^3/uL Neut % (Auto) 72.7 (50-75) % Lymph % (Auto) 19.7 L (25-40) % [place] % (Auto) 4.9 (3-14) % Eos % (Auto) 2.0 (2-4) % Baso % (Auto) 0.7 (0-2) % Neut # (Auto) 8700 H (0850-7455) /uL Lymph # (Auto) 2300 (3243-5807) /uL [place] # (Auto) 600 (0-900) /uL Eos # (Auto) 200 (0-450) /uL Baso # (Auto) 100 (0-100) /uL Sodium 137 (137-145) mmol/L Potassium 4.1 (3.4-5.1) mmol/L Chloride 98 (98-107) mmol/L Carbon Dioxide 30 (22-32) mmol/L BUN 12 (9-20) mg/dL Creatinine 0.66 (0.66-1.25) mg/dL Estimated GFR > 60 (>60) mL/min BUN/Creatinine Ratio 18.2 (6-22) Glucose 244 H (70-100) mg/dL Calcium 8.7 (8.4-10.2) mg/dL Magnesium 1.9 (1.6-2.3) mg/dL Total Bilirubin 1.0 (0.2-1.3) mg/dL AST 22 (17-59) IU/L ALT 17 (<50) IU/L Alkaline Phosphatase 147 H (38-126) U/L Total Creatine Kinase 21 L 21 L (55-170) U/L CK-MB (CK-2) TNP TNP CK-MB (CK-2) Rel Index TNP TNP Troponin I < 0.012 < 0.012 (0.01-0.034) ng/mL Total Protein 6.7 (6.3-8.2) g/dL Albumin 3.7 (3.5-5.0) g/dL Globulin 3.0 (1.7-4.1) g/dL Albumin/Globulin Ratio 1.2 (1.0-2.8) Lipase 112 (23-300) U/L Imaging Data Chest x-ray: Radiologist's Impression: t: JustoCamila foreman MR#: [id number] : 1970 Acct:[id number] Age/Sex: 51 / M Date of Service: 02/20/22 Loc: ED Accession Number: [id number] ?? Procedure: XR chest 1V Ordering Provider: Neto Becerril MD PROCEDURE:? XR CHEST 1V ? INDICATIONS:? chest pain ? TECHNIQUE:? One view of the chest was acquired.? ? COMPARISON:? [facility], , XR CHEST 1V, 10/21/2020, 18:12. ? FINDINGS:? ? Surgical changes and devices:? None.? ? Lungs and pleura:? Lungs are clear.? No pleural effusions or pneumothorax.? Mild perihilar airway thickening. ? Mediastinum:? Mediastinal contours appear normal.? Heart size is normal.? ? Bones and chest wall:? No suspicious bony lesions.? Overlying soft tissues appear unremarkable.? ? IMPRESSION:? Mild perihilar airway thickening which may be seen with reactive airway disease such as asthma or bronchitis.? Otherwise, no acute cardiopulmonary abnormalities or focal airspace disease. ? No significant discrepancy with the retail shift leader radiology preliminary report. ? ? Dictated by: Asher Green M.D. on 02/20/2022 at 7:49 ? ? ECG Data Interpretation: Normal sinus rhythm rate [address] elevation or depression. EKG 2. Sinus rhythm rate 85 p.r. interval 142 QRS [address] changes similar to all previous EKGs MDM Narrative Medical decision making narrative: Patient signed out to me by Dr. Becerril, I seen and evaluated patient myself. He is somewhat of an un reliable historian. He says this chest discomfort feels similar to what it was a year ago when he had a stress test and echocardiogram. He says it seems to be worse with movement and better with rest which is not what he reported to Dr. Becerril. He has had some nitro paste on his chest pain-free. He has 2- troponins unremarkable EKG 0930-Dr. Henderson cardiology updated patient's symptoms test results. If similar to last time and can probably be discharged home 1030: Mahnaz Connors patient's PCP states that he does not walk. Patient overall is extremely poor historian. She does agree to help arrange for outpatient follow-up. Is unlikely patient will get a stress test here in the hospital many people are waiting. His chest pain has been going on for 4 days he has 2- troponins. At this time have PCP will follow up as an outpatient he will return as needed if his chest pain resumes Discharge Plan Departure Patient Disposition: Home Clinical Impression: Atypical chest pain Instructions: DI for Atypical Chest Pain Activity Restrictions/Additional Instructions: *You have been diagnosed with atypical chest pain *What to do: You may require outpatient testing such as stress test and echocardiogram *Continue to take medications as directed *Follow up with your primary care provider in 2-3 days or call [phone] *Return to ER if you should have increasing chest pain shortness of breath or any new, worsening or concerning symptoms Prescriptions: No Action baclofen 20 mg tablet 20 mg PO TID citalopram 40 mg tablet 40 mg PO QAM tamsulosin 0.4 mg capsule 0.8 mg PO QPM amitriptyline 100 mg Tablet 100 mg PO BEDTIME docusate sodium 100 mg Capsule 200 mg PO BEDTIME omeprazole 20 mg Capsule,Delayed Release(Dr/Ec) 20 mg PO QAM hydrocodone-acetaminophen 5-325 mg Tablet 1 tab PO Q4H PRN (Reason: Pain (Scale Score 4-6)) hydrocodone-acetaminophen 5-325 mg Tablet 2 tab PO Q4H PRN (Reason: Pain (Scale Score 7-10)) melatonin 3 mg Tablet 3 mg PO BEDTIME ergocalciferol (vitamin D2) 50,000 unit Tablet 50,000 unit PO QWEEK Rx Instructions: On Sundays Referrals: Dipika Negro ARNP [Non-Staff] - Visit Report Forms: Patient Portal/API
[2022-02-20 06:37] LABS: Chloride 98 mmol/L (98-107); HEMOLYSIS 36 (0-50)
[2022-02-20 06:39] LABS: Alanine Aminotransferase 17 IU/L (<50); Albumin 3.7 g/dL (3.5-5.0); Albumin Globulin Ratio 1.2 (1.0-2.8); Alkaline Phosphatase 147 U/L (38-126); Aspartate Aminotransferase 22 IU/L (17-59); BUN Creatinine Ratio 18.2 (6-22); Blood Urea Nitrogen 12 mg/dL (9-20); Calcium 8.7 mg/dL (8.4-10.2); Carbon Dioxide 30 mmol/L (22-32); Creatine Kinase 21 U/L (55-170); Estimated Glomerular Filt Rate > 60 mL/min (>60); Glucose 244 mg/dL (70-100); Lipase 112 U/L (23-300); Magnesium 1.9 mg/dL (1.6-2.3); Potassium 4.1 mmol/L (3.4-5.1); Sodium 137 mmol/L (137-145); Total Protein 6.7 g/dL (6.3-8.2)
[2022-02-20 06:51] LABS: Troponin I < 0.012 ng/mL (0.01-0.034)
[2022-02-20] MEDS: NITROGLYCERIN OINT 1 INCH/GM OINT...G. 0.5 INCH TOP (06:55)
[2022-02-20 09:00] LABS: Creatine Kinase 21 U/L (55-170)
[2022-02-20 09:12] LABS: Troponin I < 0.012 ng/mL (0.01-0.034)
[2022-02-20] MEDS: ASPIRIN 81 MG CHEW TAB 324 MG PO (09:57)
--- NOTE | 2022-02-20 12:26 | PC.NURSE ---
Patient provided lunch tray and is actively consuming it.
== END 2022-02-20 14:01 | disposition home or self-care (01) ==
PROVIDERS: Emergency Medicine; Emergency Provider Emergency Medicine
DX: R07.89 Other chest pain (principal)
CPT/HCPCS: 36415; 71045; 80053; 82550; 83690; 83735; 84484; 85025; 93005; 99284

== ENCOUNTER → 2022-02-21 18:10 | Outpatient (ROUT) | payer MEDICARE, MEDICAID, SELFPAY ==
[2021-05-09 04:03] VITALS: BMI 42.5
== END ==
PROVIDERS: Visit Provider Nurse Practitioner Family
DX: R36.9 Urethral discharge, unspecified (principal)
CPT/HCPCS: 87070; 87075; 87077; 87186; 87205

== ENCOUNTER → 2022-03-13 09:09 | Outpatient (CLI) | payer MEDICARE, MEDICAID, SELFPAY ==
[2021-05-09 04:03] VITALS: BMI 42.5
--- NOTE | 2022-03-13 | DI.ECHO.S_ITS ---
[facility] +---------+ : : [address] : : : : [id number] : : : : Phone: [phone]+ Echocardiogram Report + + :Name: CAMILA EDWARDS Study Date: 03/13/2022 Height: 73 in : :[facility] ReadingLocation: Weight: 240 lb : : Gender: Male BSA: 2.3 m2 : :: 1970 Age: 51 yrs BP: 127/87 mmHg: :Reason For Study: Chest pain : :Ordering Physician: : :LINSEY BUTLER Performed By: Myke Lehman : :Referring: LINSEY BUTLER : + + Interpretation Summary The left ventricle is normal in size and wall thickness. Left ventricular systolic function is normal. The ejection fraction is estimated to be 55-60%. There are no obvious focal wall motion abnormalities noted but poor endocardial definition reduces the sensitivity for the detection of such. The right ventricle is not well visualized. Pulmonary artery pressures cannot be estimated because of the lack of a measurable TR jet velocity. The left atrium is not well visualized. The left atrium grossly appears normal in size. Right atrium not well visualized. The right atrium grossly appears normal in size. There is no significant valvular heart disease. Overall, no changes with LVEF since prior study. Procedure: A two-dimensional transthoracic echocardiogram with color flow and Doppler was performed. The study quality was technically difficult. Comparison is made with the echocardiogram of 10/22/2020. Left Ventricle: The left ventricle is normal in size and wall thickness. Left ventricular systolic function is normal. The ejection fraction is estimated to be 55-60%. There are no obvious focal wall motion abnormalities noted but poor endocardial definition reduces the sensitivity for the detection of such. There is a significant dyssynchronous contraction pattern, consistent with a conduction abnormality. Diastolic function could not be accurately assessed due to unobtainable data. Right Ventricle: The right ventricle is not well visualized. Atria: The left atrium is not well visualized. The left atrium grossly appears normal in size. Right atrium not well visualized. The right atrium grossly appears normal in size. The interatrial septum grossly appears intact with no obvious evidence for an atrial septal defect. Mitral Valve: The mitral valve is normal in structure and function. There is no mitral regurgitation noted. Aortic Valve: The aortic valve is not well visualized. No aortic regurgitation is present. Tricuspid Valve: The tricuspid valve is normal in structure and function. No tricuspid regurgitation. Pulmonary artery pressures cannot be estimated because of the lack of a measurable TR jet velocity. Pulmonic Valve: The pulmonic valve is not well visualized. There is no significant valvular heart disease. Great Vessels: The aortic root is not well visualized. The ascending aorta could not be visualized. The IVC is of normal diameter and collapses greater than 50% with a sniff. This suggests a low right atrial pressure of 3 mm Hg. Pericardium/ Pleura There is no pericardial effusion. There is no pleural effusion. MMode/2D Measurements & Calculations LVIDd: 4.1 cm LA dimension: 2.0 cm LVIDs: 2.9 cm FS: 29.3 % IVSd: 0.90 cm LVPWd: 0.70 cm LV smith. diameter/BSA (cm/m^2): 1.8 LV sys. diameter/BSA (cm/m^2): 1.2 Doppler Measurements & Calculations Ao V2 max: 88.9 cm/sec LVOT Max Abimael: 77.0 cm/sec Ao V2 mean: 59.6 cm/sec LV V1 max P.4 mmHg Ao max P.0 mmHg LV V1 VTI: 11.9 cm Ao mean P.0 mmHg sev ratio: 1.1 Ao V2 VTI: 10.8 cm MV E max abimael: 42.0 cm/sec AV VR_phl: 0.87 MV A max abimael: 88.3 cm/sec MV E/A: 0.48 Med Peak E' Abimael: 5.3 cm/sec E/E' med: 7.9 Lat Peak E' Abimael: 7.0 cm/sec E/E' lat: 6.0 E/e' average: 7.0 MV dec time: 0.19 sec MV P1/2t-pr_phl: 57.0 msec Reading Physician:07:30 PM
[2022-03-22 08:51] LABS: Appearance Urine UA TURBID; Bilirubin Urine UA NEGATIVE (NEGATIVE); Color Urine UA YELLOW; Glucose Urine UA 3+ g/dL (Negative); Ketones Urine UA 1+ (NEGATIVE); Leukocyte Esterase Urine UA 2+ (NEGATIVE); Nitrite Urine UA NEGATIVE (Negative); Occult Blood Urine UA 3+ (Negative); Protein Urine UA 1+ (Negative); Specific Gravity Urine UA <=1.005 (1.000-1.035); Urobilinogen Urine UA 0.2 E.U./dL (0.2); pH Urine UA 5.5 (4.5-8.0)
[2022-03-22 09:15] LABS: Bacteria Urine Moderate (10-30); Culture Indicated Urine Specimen Cultured; RBC Urine 5-10/HPF (0-5/HPF); WBC Urine >100/HPF (0-5/HPF)
== END ==
PROVIDERS: Referring Provider Internal Medicine; Visit Provider Internal Medicine
DX: R07.9 Chest pain, unspecified (principal)
CPT/HCPCS: 81001; 87077; 87086; 87186; C8929; Q9957

== ENCOUNTER 2022-03-23 07:15 | Inpatient (IN) | payer MEDICARE, MEDICAID, SELFPAY ==
[2021-05-09 04:03] VITALS: BMI 42.5
[2022-03-23] VITALS (40 sets, daily range): BP systolic 62–156; BP diastolic 46–113; PULSE 120–169; RESP 19–44; TEMP 36.8–40; O2SAT 84–100; BMI 38.0
--- NOTE | 2022-03-23 | DI.CT.S_ITS ---
PROCEDURE: CT ABDOMEN PELVIS WO CON INDICATIONS: pyelonephritis TECHNIQUE: Axial sections were acquired from the lung bases to the pubic symphysis. Coronal and sagittal reformats were performed. For radiation dose reduction, the following was used: automated exposure control, adjustment of mA and/or kV according to patient size. COMPARISON: [facility], CT, CT ABDOMEN PELVIS W CON, 05/08/2021, 20:22. FINDINGS: Image quality: Excellent. Lung bases: Unremarkable. Heart: No significant findings. URINARY: Right Kidney: 3 mm calcification is noted within the renal pelvis. There is mild prominence of the renal pelvis. Right Ureter: No hydroureter. Left Kidney: No stones or hydronephrosis. Left Ureter: No hydroureter. Bladder: Normal wall thickness. No stones. ABDOMEN: Liver: Liver is enlarged measuring 20.6 cm with steatosis. Gallbladder: Unremarkable. Biliary ducts: Unremarkable. Pancreas: Unremarkable. Spleen: Unremarkable. Adrenal Glands: Unremarkable. Stomach and Bowel: There is significant stool within the rectal vault. Mild scattered fluid-filled small bowel loops are noted. Peritoneum: No abnormal intraperitoneal fluid. No free air. Ventral Wall: No hernia. Abdominal Nodes: No enlarged retroperitoneal or mesenteric lymph nodes. Vessels: Aorta and inferior vena cava are normal in size. PELVIS: Pelvic Organs: Unremarkable. Pelvic Nodes: Unremarkable. Miscellaneous: No inguinal hernias are seen. Bones: Unremarkable. IMPRESSION: 3 mm right renal pelvic calcification with mild prominence of the renal pelvis. Prominent colonic stool within the rectal wall. Mild scattered fluid-filled loops of small bowel, mildly prominent. This could represent ileus versus developing partial small bowel obstruction. Dictated by: Taisha Macedo M.D. on 03/23/2022 at 10:28 Approved by: Taisha Macedo M.D. on 03/23/2022 at 10:32
--- NOTE | 2022-03-23 07:44 | DI.RAD.S_ITS ---
PROCEDURE: XR CHEST 1V INDICATIONS: fever TECHNIQUE: One view of the chest was acquired. COMPARISON: [facility], CR, XR CHEST 1V, 08/05/2020, 16:35. [facility], CR, XR CHEST 1V, 10/21/2020, 18:12. [facility], CR, XR CHEST 1V, 02/20/2022, 6:15. FINDINGS: This evaluation is limited, secondary to the patient's inability to fully cooperate with the examination. Surgical changes and devices: None. Lungs and pleura: On this semiupright portable chest examination, no large pneumothorax or large pleural effusions are seen. No focal infiltrates are seen. Low lung volumes are noted. This causes a crowded appearance to the lung markings and limits evaluation. Mediastinum: Mediastinal contours appear normal. Heart size is normal. Bones and chest wall: No suspicious bony lesions. Mild levoconvex scoliotic curvature is noted. Overlying soft tissues appear unremarkable. IMPRESSION: Limited portable chest examination, without a significant cardiopulmonary abnormality identified. If clinically appropriate, a short-term followup chest series (with PA and lateral views) performed in deep inspiration is suggested for further evaluation. Dictated by: Lloyd Snowden M.D. on 03/23/2022 at 7:19 Approved by: Lloyd Snowden M.D. on 03/23/2022 at 7:20
[2022-03-23 07:55] LABS: Add Manual Diff / Slide Review NO; Basophils Absolute Auto 100 /uL (0-100); Basophils Percent Auto 0.3 % (0-2); Eosinophils Absolute Auto 0 /uL (0-450); Eosinophils Percent Auto 0.1 % (2-4); Hematocrit 50.2 % (41-53); Hemoglobin 17.3 g/dL (13.5-17.5); Lymphocytes Absolute Auto 1100 /uL (1100-4500); Lymphocytes Percent Auto 6.2 % (25-40); Mean Corpuscular HGB Conc 34.5 % (30-36); Mean Corpuscular Hemoglobin 28.6 PG (26-34); Mean Corpuscular Volume 82.7 fL (80-100); Monocytes Absolute Auto 1100 /uL (0-900); Neutrophils Absolute Auto 16200 /uL (1500-7000); Neutrophils Percent Auto 87.4 % (50-75); Platelet Count 207 X10^3/uL (150-400); Red Blood Cell Count 6.07 X10^6/uL (4.5-5.9); Red Cell Distribution Width 14.6 % (11.6-14.8); White Blood Cell Count 18.6 X10^3/uL (4.5-11.0)
[2022-03-23 08:00] LABS: Lactate (Lactic Acid) 1.7 mmol/L (0.7-2.1)
[2022-03-23 08:02] LABS: Alanine Aminotransferase 20 IU/L (<50); Albumin 4.3 g/dL (3.5-5.0); Albumin Globulin Ratio 1.4 (1.0-2.8); Alkaline Phosphatase 150 U/L (38-126); Aspartate Aminotransferase 22 IU/L (17-59); BUN Creatinine Ratio 9.5 (6-22); Bilirubin Total 2.2 mg/dL (0.2-1.3); Blood Urea Nitrogen 7 mg/dL (9-20); Calcium 9.1 mg/dL (8.4-10.2); Carbon Dioxide 29 mmol/L (22-32); Chloride 95 mmol/L (98-107); Creatine Kinase 53 U/L (55-170); Estimated Glomerular Filt Rate > 60 mL/min (>60); Globulin 3.1 g/dL (1.7-4.1); Glucose 268 mg/dL (70-100); HEMOLYSIS < 15 (0-50); Potassium 3.2 mmol/L (3.4-5.1); Sodium 136 mmol/L (137-145); Total Protein 7.4 g/dL (6.3-8.2)
--- NOTE | 2022-03-23 08:10 | ED.GENADULT ---
HPI - General Adult General Chief complaint: Weakness Stated complaint: UTI temp of 101 Time Seen by Provider: 03/23/22 07:22 History of Present Illness HPI narrative: 51-year-old gentleman currently at [facility] with a history of MS, reflux, morbid obesity who apparently was having difficulty voiding yesterday [place] catheter was placed and urine was sent for culture. This morning he was noted to be febrile with fevers as high as 103, more confused slightly more weak and sent for further evaluation. Urine culture is currently pending urine in Truj[place] catheter bag is slightly cloudy. Gentleman is definitely confused and slightly weak. It is unclear how much is his baseline MS and how much is infection. He says that he gets up and walks regularly however he is minimally able to move his legs and has significant muscle atrophy. Discussion with staff at [facility] indicate that he tries to walk but can not. He apparently had had increasing weakness in his left arm and has been unable to use it since the . 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 Apparently staff felt that he had injured his shoulder in someway. There was no history of falls. Left leg is significantly more weak than right but again, baseline is difficult to fully ascertain. He complains of no pain at this time. He reports no palpitations, cough, abdominal pain, vomiting, diarrhea. He states he does have a slight headache. He is thirsty he does not complain of dysuria or flank pain. Related Data Home Medications Medication Instructions Recorded Confirmed baclofen 20 mg tablet 20 mg PO TID MS 06/19/18 03/23/22 citalopram 40 mg tablet 40 mg PO QAM depression 06/19/18 03/23/22 tamsulosin 0.4 mg capsule 0.8 mg PO QPM BPH w/ Obstruction 06/19/18 03/23/22 amitriptyline 100 mg tablet 100 mg PO BEDTIME 10/21/20 03/23/22 docusate sodium 100 mg capsule 200 mg PO BEDTIME constipation 10/21/20 03/23/22 hydrocodone 5 mg-acetaminophen 325 1 tab PO Q4H PRN Pain (Scale Score 10/21/20 03/23/22 mg tablet 4-6) hydrocodone 5 mg-acetaminophen 325 2 tab PO Q4H PRN Pain (Scale Score 10/21/20 03/23/22 mg tablet 7-10) omeprazole 20 mg capsule,delayed 20 mg PO QAM GERD 10/21/20 03/23/22 release ergocalciferol (vitamin D2) 50,000 50,000 unit PO QWEEK 05/08/21 03/23/22 unit tablet melatonin 3 mg tablet 3 mg PO BEDTIME 05/08/21 03/23/22 acetaminophen 325 mg capsule 650 mg PO Q4H PRN Pain (Scale 03/23/22 03/23/22 (Tylenol) Score 1-3) ibuprofen 800 mg tablet 800 mg PO Q6H PRN Pain (Scale 03/23/22 03/23/22 Score 4-6) nystatin 100,000 unit/gram topical 1 applic topical BID 03/23/22 03/23/22 cream ondansetron 4 mg disintegrating 4 mg PO Q6H PRN Nausea 03/23/22 03/23/22 tablet Allergies Allergy/AdvReac Type Severity Reaction Status Date / Time No Known Drug Allergies Allergy Verified 05/08/21 18:14 Review of Systems Review of Systems Narrative: Remainder of complete review of systems is otherwise unremarkable except for that included in the HPI. Patient History Medical History Bladder disorder, unspecified Gastro-esophageal reflux disease without esophagitis Major depressive disorder with single episode Multiple sclerosis Obesity Retention of urine, unspecified Syncope and collapse Vitamin D deficiency, unspecified Surgical History No pertinent past surgical history Family History Mother In good health Father In good health Social History household members: none lives independently: No Smoking Status: Former smoker alcohol intake: former Smoking Status: Former smoker alcohol intake frequency: holidays/special occasions only Substance Use Type: does not use Exam Initial Vital Signs Initial Vital Signs: Vital Signs Temperature 103.2 F H 03/23/22 07:24 Pulse Rate 130 H 03/23/22 07:24 Respiratory Rate 19 03/23/22 07:24 Blood Pressure 144/90 H 03/23/22 07:24 Pulse Oximetry 96 03/23/22 07:24 Oxygen Delivery Method 03/23/22 07:24 General: Morbidly obese, globally weak, slightly confused, able speak in full sentences, in no acute distress. HEENT: Very dry mucous membranes, normal sclera with reactive pupils, Neck: No JVD, supple Respiratory: Lungs are clear to auscultation, no wheezing no rales no rhonchi. Full and symmetrical air movement Cardiac: Tachycardic with no murmurs, no bruits Abdomen: Soft, obese, nontender, good bowel tones, no flank pain Skin: Warm and dry, no rashes Neurologic: Multiple sclerosis with poor overall muscle tone throughout he is able to use the right side more effectively than the left side, there is no facial droop, he is not hyperreflexic. There is no dysarthria or word-finding difficulties. No acute visual or peripheral vision acuity abnormalities. Left arm is 3/5 for strength with more proximal weakness and no sensory loss. Left leg he can move his toes but can not lift his leg off the bed. Right leg can be lifted off the bed both are weak with muscle atrophy. Extremities: No trauma, well perfused Psych: Cooperative, mild confusion, no auditory or visual hallucinations appreciated, normal speech fluency Course Orders Ordered: ED Orders 03/24/22 05:45 CBC Auto Diff [Complete Blood Count AUTO DIFF] DAILY 03/25/22 05:00 CBC Auto Diff [Complete Blood Count AUTO DIFF] DAILY 03/26/22 05:00 CBC Auto Diff [Complete Blood Count AUTO DIFF] DAILY Acetaminophen (Acetaminophen 325 Mg Tablet) 650 mg PO Q6HR PRN PRN Reason: Fever/Mild Pain (1-3) Last Admin: 03/23/22 15:42 Dose: 650 mg Documented By: EDWARD Acetaminophen (Acetaminophen 650 Mg Supp) 650 mg MD Q6HR PRN PRN Reason: Fever/Mild Pain (1-3) Last Admin: 03/24/22 08:45 Dose: 650 mg Documented By: Admin: 03/23/22 21:06 Dose: 650 mg Documented By: ABRAM Chlorhexidine Gluconate (Chlorhexidine Gluconate 15 Ml Cup) 15 ml PO Q6HR ROBERTO Last Admin: 03/24/22 06:24 Dose: 15 ml Documented By: Admin: 03/24/22 00:40 Dose: 15 ml Documented By: WOLF Famotidine (Famotidine 20 Mg/2 Ml Vial) 20 mg IV BID [facility] Last Admin: 03/24/22 08:29 Dose: 20 mg Documented By: Admin: 03/23/22 21:06 Dose: 20 mg Documented By: TLS Hydrocortisone (Hydrocortisone 100 Mg/2 Ml Vial) 100 mg IV TID [facility] Last Admin: 03/24/22 08:29 Dose: 100 mg Documented By: CLP Propofol (Propofol) 1,000 mg in 100 mls @ 3.919 mls/hr IV TITRATE ROBERTO; Protocol Last Admin: 03/24/22 11:04 Dose: 10 mcg/kg/min, 7.838 mls/hr Documented By: Titration: 03/24/22 11:04 Dose: 10 mcg/kg/min, 7.838 mls/hr Documented By: Titration: 03/24/22 02:48 Dose: 10 mcg/kg/min, 7.838 mls/hr Documented By: Titration: 03/24/22 02:21 Dose: 5 mcg/kg/min, 3.919 mls/hr Documented By: Titration: 03/23/22 22:52 Dose: 0 mcg/kg/min, 0 mls/hr Documented By: Titration: 03/23/22 22:30 Dose: 10 mcg/kg/min, 7.838 mls/hr Documented By: Titration: 03/23/22 21:32 Dose: 3 mcg/kg/min, 2.351 mls/hr Documented By: Titration: 03/23/22 21:21 Dose: 5 mcg/kg/min, 3.919 mls/hr Documented By: Titration: 03/23/22 21:02 Dose: 10 mcg/kg/min, 7.838 mls/hr Documented By: Admin: 03/23/22 19:56 Dose: 5 mcg/kg/min, 3.919 mls/hr Documented By: JS Fentanyl 1,000 mcg/ Dextrose 250 mls @ 22.861 mls/hr IV TITRATE ROBERTO; Protocol Last Titration: 03/24/22 02:50 Dose: 0.4 mcg/kg/hr, 13.064 mls/hr Documented By: Titration: 03/23/22 22:54 Dose: 0 mcg/kg/hr, 0 mls/hr Documented By: Titration: 03/23/22 22:30 Dose: 0.7 mcg/kg/hr, 22.861 mls/hr Documented By: Titration: 03/23/22 21:23 Dose: 0.3 mcg/kg/hr, 9.798 mls/hr Documented By: Admin: 03/23/22 20:59 Dose: 0.7 mcg/kg/hr, 22.861 mls/hr Documented By: WOLF Sodium Chloride (Normal Saline 0.9%) 1,000 mls @ 150 mls/hr IV CONT ROBERTO Last Admin: 03/24/22 10:00 Dose: 150 mls/hr Documented By: Infusion: 03/24/22 09:45 Dose: 150 mls/hr Documented By: Admin: 03/24/22 03:04 Dose: 150 mls/hr Documented By: Infusion: 03/24/22 03:04 Dose: 150 mls/hr Documented By: Admin: 03/23/22 20:24 Dose: 150 mls/hr Documented By: WOLF NOREPINEPHRINE BITARTRATE/D5W (Levophed) 4 mg in 250 mls @ 30 mls/hr IV TITRATE ROBERTO; Protocol Last Admin: 03/24/22 10:08 Dose: 17 mcg/min, 63.75 mls/hr Documented By: Titration: 03/24/22 10:08 Dose: 17 mcg/min, 63.75 mls/hr Documented By: Admin: 03/24/22 06:22 Dose: 17 mcg/min, 63.75 mls/hr Documented By: Titration: 03/24/22 06:11 Dose: 17 mcg/min, 63.75 mls/hr Documented By: Titration: 03/24/22 03:11 Dose: 17 mcg/min, 63.75 mls/hr Documented By: Titration: 03/24/22 02:21 Dose: 15 mcg/min, 56.25 mls/hr Documented By: Admin: 03/24/22 02:11 Dose: 20 mcg/min, 75 mls/hr Documented By: Titration: 03/24/22 02:11 Dose: 20 mcg/min, 75 mls/hr Documented By: Titration: 03/24/22 00:55 Dose: 20 mcg/min, 75 mls/hr Documented By: Titration: 03/23/22 22:48 Dose: 12 mcg/min, 45 mls/hr Documented By: Admin: 03/23/22 22:18 Dose: 8 mcg/min, 30 mls/hr Documented By: JS Meropenem 1 gm/ Sodium (Chloride) 100 mls @ 200 mls/hr IV Q8H [facility] Last Admin: 03/24/22 05:35 Dose: 200 mls/hr Documented By: WOLF Vasopressin 40 unit/ Sodium (Chloride) 102 mls @ 4.5 mls/hr IV CONT [facility] Last Admin: 03/24/22 02:00 Dose: 4.5 mls/hr Documented By: WOLF Insulin Human Regular (Insulin Regular 100 Unit/Ml 3 Ml Vial) 4 unit SUBCUT Q6H [facility] Last Admin: 03/24/22 10:23 Dose: 4 unit Documented By: CLP Co-signed By: LDV Polyethylene Glycol (Polyethylene Glycol 3350 17 Gm Powd.Pack) 17 gm PO DAILY PRN PRN Reason: Constipation Sennosides (Sennosides 8.6 Mg Tablet) 8.6 mg PO BID PRN PRN Reason: Constipation Discontinued Medications Acetaminophen (Acetaminophen 325 Mg Tablet) 975 mg PO NOW ONE Stop: 03/23/22 08:56 Last Admin: 03/23/22 09:05 Dose: 975 mg Documented By: CSD Diazepam (Diazepam 10 Mg/2 Ml Syringe) 5 mg IV NOW ONE Stop: 03/23/22 10:00 Last Admin: 03/23/22 10:17 Dose: 5 mg Documented By: CTS Etomidate (Etomidate 2 Mg/Ml 10 Ml Vial) 10 mg IV NOW ONE Stop: 03/23/22 19:17 Last Admin: 03/23/22 19:16 Dose: 10 mg Documented By: TLS Heparin Sodium (Porcine) (Heparin 5,000 Unit/Ml Vial) 5,000 unit SUBCUT Q8HR [facility] Last Admin: 03/24/22 06:23 Dose: 5,000 unit Documented By: Admin: 03/24/22 00:19 Dose: 5,000 unit Documented By: Admin: 03/23/22 13:48 Dose: 5,000 unit Documented By: RLH Hydrocortisone (Hydrocortisone 100 Mg/2 Ml Vial) 300 mg IV NOW ONE Stop: 03/24/22 00:45 Last Admin: 03/24/22 01:19 Dose: 300 mg Documented By: WOLF Lactated Ringer's (Lactated Ringers) 2,397 mls @ 799 mls/hr 30 ml/kg infuse over 3 hr (2397 ml) IV NOW ONE Stop: 03/23/22 10:43 Last Infusion: 03/23/22 10:33 Dose: 0 mls/hr Documented By: Admin: 03/23/22 08:34 Dose: 799 mls/hr Documented By: LESLIE Piperacillin Sod/Tazobactam (Sod 4.5 gm/ Sodium Chloride) 100 mls @ 200 mls/hr IV NOW ONE Stop: 03/23/22 07:45 Last Infusion: 03/23/22 09:19 Dose: 0 mls/hr Documented By: Admin: 03/23/22 08:34 Dose: 200 mls/hr Documented By: LESLIE Piperacillin Sod/Tazobactam (Sod 3.375 gm/ Sodium Chloride) 100 mls @ 25 mls/hr IV Q8H [facility] Last Infusion: 03/23/22 16:30 Dose: 0 mls/hr Documented By: Admin: 03/23/22 12:34 Dose: 25 mls/hr Documented By: EDWARD Magnesium Sulfate (Magnesium Sulfate) 2 gm in 50 mls @ 25 mls/hr IV NOW ONE Stop: 03/23/22 13:29 Last Admin: 03/23/22 12:42 Dose: 25 mls/hr Documented By: EDWARD Co-signed By: RAFAEL POTASSIUM CHLORIDE IN WATER (Potassium Cl 10 Meq/100 Ml Concepcion) 10 meq in 100 mls @ 100 mls/hr IV Q1H [facility] Stop: 03/23/22 15:29 Last Admin: 03/23/22 16:09 Dose: 100 mls/hr Documented By: Infusion: 03/23/22 16:03 Dose: 100 mls/hr Documented By: RLLisa Admin: 03/23/22 15:03 Dose: 100 mls/hr Documented By: Infusion: 03/23/22 14:48 Dose: 100 mls/hr Documented By: Admin: 03/23/22 13:48 Dose: 100 mls/hr Documented By: Infusion: 03/23/22 13:41 Dose: 100 mls/hr Documented By: Admin: 03/23/22 12:41 Dose: 100 mls/hr Documented By: EDWARD Sodium Chloride (Normal Saline 0.9%) 1,000 mls @ 1,000 mls/hr IV BOLUS ONE Stop: 03/23/22 19:29 Last Infusion: 03/23/22 19:55 Dose: 0 mls/hr Documented By: Admin: 03/23/22 18:55 Dose: 1,000 mls/hr Documented By: ABRAM Meropenem 2 gm/ Sodium (Chloride) 100 mls @ 200 mls/hr IV Q8H ROBERTO Last Infusion: 03/23/22 20:49 Dose: 0 mls/hr Documented By: Admin: 03/23/22 20:19 Dose: 200 mls/hr Documented By: WOLF Vancomycin HCl (Vancomycin) 2,500 mg in 500 mls @ 250 mls/hr IV NOW ONE Stop: 03/23/22 22:59 Last Infusion: 03/24/22 05:39 Dose: 0 mls/hr Documented By: Infusion: 03/24/22 03:09 Dose: 100 mls/hr Documented By: Infusion: 03/23/22 23:55 Dose: 0 mls/hr Documented By: Infusion: 03/23/22 23:45 Dose: 250 mls/hr Documented By: Infusion: 03/23/22 23:15 Dose: 0 mls/hr Documented By: Admin: 03/23/22 22:14 Dose: 250 mls/hr Documented By: ABRAM Sodium Chloride (Normal Saline 0.9%) 500 mls @ 1,000 mls/hr IV BOLUS ONE Stop: 03/23/22 23:30 Last Infusion: 03/24/22 00:30 Dose: 0 mls/hr Documented By: Admin: 03/23/22 23:00 Dose: 1,000 mls/hr Documented By: WOLF POTASSIUM CHLORIDE IN WATER (Potassium Cl 10 Meq/100 Ml Concepcion) 10 meq in 100 mls @ 100 mls/hr IV Q1H ROBERTO Stop: 03/24/22 03:29 Last Admin: 03/24/22 03:07 Dose: 100 mls/hr Documented By: Infusion: 03/24/22 03:06 Dose: 100 mls/hr Documented By: Admin: 03/24/22 02:06 Dose: 100 mls/hr Documented By: Infusion: 03/24/22 01:43 Dose: 100 mls/hr Documented By: Admin: 03/24/22 00:43 Dose: 100 mls/hr Documented By: Infusion: 03/24/22 00:43 Dose: 100 mls/hr Documented By: Admin: 03/23/22 23:47 Dose: 100 mls/hr Documented By: WOLF Magnesium Sulfate (Magnesium Sulfate) 2 gm in 50 mls @ 25 mls/hr IV NOW ONE Stop: 03/24/22 01:26 Last Infusion: 03/24/22 04:11 Dose: 25 mls/hr Documented By: WOLF Co-signed By: KANIKA Infusion: 03/24/22 00:27 Dose: 0 mls/hr Documented By: WOLF Co-signed By: KANIKA Admin: 03/23/22 23:52 Dose: 25 mls/hr Documented By: WOLF Co-signed By: ALBA Sodium Chloride (Normal Saline 0.9%) 1,000 mls @ 1,000 mls/hr IV BOLUS ONE Stop: 03/24/22 01:48 Last Admin: 03/24/22 00:52 Dose: 1,000 mls/hr Documented By: WOLF Vancomycin HCl (Vancomycin) 1,250 mg in 250 mls @ 250 mls/hr IV Q12H [facility] Last Admin: 03/24/22 08:29 Dose: 250 mls/hr Documented By: HETAL Lorazepam (Lorazepam 2 Mg/Ml Inj) 1 mg IV NOW ONE Stop: 03/23/22 16:31 Last Admin: 03/23/22 16:35 Dose: 1 mg Documented By: EDWARD Lorazepam (Lorazepam 2 Mg/Ml Inj) 1 mg IV NOW ONE Stop: 03/23/22 18:28 Last Admin: 03/23/22 15:50 Dose: 1 mg Documented By: EDWARD Metoprolol Tartrate (Metoprolol Tartrate 5 Mg/5 Ml Inj) 5 mg IV Q5M [facility] Stop: 03/23/22 19:11 Last Admin: 03/23/22 20:44 Dose: 5 mg Documented By: Admin: 03/23/22 19:28 Dose: 5 mg Documented By: Admin: 03/23/22 19:10 Dose: 5 mg Documented By: ABRAM Succinylcholine Chloride (Succinylcholine 200 Mg/10 Ml Vial) 150 mg IV NOW ONE Stop: 03/23/22 19:17 Last Admin: 03/23/22 19:16 Dose: 150 mg Documented By: ABRAM Vancomycin HCl (Vancomycin Trough) 1 [place] [facility] [place] [address] [facility] Stop: 03/25/22 08:31 Vancomycin HCl (Vancomycin Trough) 1 [place] [facility] [place] [place] [facility] Stop: 03/25/22 11:01 Vasopressin (Vasopressin 20 Unit/Ml Vial) 40 unit IV NOW ONE Stop: 03/24/22 00:45 Vital Signs Vital signs: Vital Signs - 8 hr 03/23/22 07:24 03/23/22 07:32 03/23/22 07:33 Temperature 103.2 F H Pulse Rate 130 H 134 H Respiratory Rate 19 Blood Pressure 144/90 H 144/90 H Pulse Oximetry 96 95 Oxygen Delivery Method Room Air 03/23/22 08:00 03/23/22 08:01 03/23/22 08:01 Temperature Pulse Rate 131 H 132 H Respiratory Rate 32 H 44 H Blood Pressure 151/90 H Pulse Oximetry 95 95 Oxygen Delivery Method 03/23/22 09:05 Temperature 102.4 F H Pulse Rate Respiratory Rate Blood Pressure Pulse Oximetry Oxygen Delivery Method Medical Decision Making Lab Data Result diagrams: 03/24/22 05:45 03/24/22 05:45 Labs: Lab Results 03/23/22 03/23/22 03/23/22 Range/Units 07:30 07:37 07:37 WBC 18.6 H (4.5-11.0) X10^3/uL RBC 6.07 H (4.5-5.9) X10^6/uL Hgb 17.3 (13.5-17.5) g/dL Hct 50.2 (41-53) % MCV 82.7 (80-100) fL MCH 28.6 (26-34) PG MCHC 34.5 (30-36) % RDW 14.6 (11.6-14.8) % Plt Count 207 (150-400) X10^3/uL Neut % (Auto) 87.4 H (50-75) % Lymph % (Auto) 6.2 L (25-40) % [place] % (Auto) 6.0 (3-14) % Eos % (Auto) 0.1 L (2-4) % Baso % (Auto) 0.3 (0-2) % Neut # (Auto) 93468 H (2281-7648) /uL Lymph # (Auto) 1100 (9506-8466) /uL [place] # (Auto) 1100 H (0-900) /uL Eos # (Auto) 0 (0-450) /uL Baso # (Auto) 100 (0-100) /uL Sodium 136 L (137-145) mmol/L Potassium 3.2 L (3.4-5.1) mmol/L Chloride 95 L (98-107) mmol/L Carbon Dioxide 29 (22-32) mmol/L BUN 7 L (9-20) mg/dL Creatinine 0.74 (0.66-1.25) mg/dL Estimated GFR > 60 (>60) mL/min BUN/Creatinine Ratio 9.5 (6-22) Glucose 268 H (70-100) mg/dL Lactate (0.7-2.1) mmol/L Calcium 9.1 (8.4-10.2) mg/dL Magnesium (1.6-2.3) mg/dL Total Bilirubin 2.2 H (0.2-1.3) mg/dL AST 22 (17-59) IU/L ALT 20 (<50) IU/L Alkaline Phosphatase 150 H (38-126) U/L Total Creatine Kinase 53 L (55-170) U/L CK-MB (CK-2) TNP CK-MB (CK-2) Rel Index TNP Troponin I < 0.012 (0.01-0.034) ng/mL Total Protein 7.4 (6.3-8.2) g/dL Albumin 4.3 (3.5-5.0) g/dL Globulin 3.1 (1.7-4.1) g/dL Albumin/Globulin Ratio 1.4 (1.0-2.8) Procalcitonin 0.62 H (<0.5) ng/mL Urine Color Urine Appearance Urine pH (4.5-8.0) Ur Specific [place] (1.000-1.035) Urine Protein (Negative) Urine Glucose (UA) (Negative) g/dL Urine Ketones (NEGATIVE) Urine Occult Blood (Negative) Urine Nitrate (Negative) Urine Bilirubin (NEGATIVE) Urine Urobilinogen (0.2) E.U./dL Ur Leukocyte Esterase (NEGATIVE) Urine RBC (0-5/HPF) Urine WBC (0-5/HPF) Ur Squamous Epith Cells (0-5/HPF) Urine Bacteria (None) Ur Culture Indicated? A. baumannii (PCR) (Not Detect) Elsy albicans (PCR) (Not Detect) C. glabrata (PCR) (Not Detect) C. krusei (PCR) (Not Detect) C. parapsilosis (PCR) (Not Detect) C. tropicalis (PCR) (Not Detect) SARS-CoV-2 (PCR) Negative (Negative) Enterobacteriac sp PCR (Not Detect) E. cloacae complex PCR (Not Detect) Enterococcus sp PCR (Not Detect) E. coli (PCR) (Not Detect) H. influenzae (PCR) (Not Detect) Klebsiella oxytoca PCR (Not Detect) Klebsiella pneumoniae (Not Detect) List. monocytogenes PCR (Not Detect) N. meningitidis (PCR) (Not Detect) Proteus species (PCR) (Not Detect) Serratia marcescens PCR (Not Detect) Staphylococcus sp PCR (Not Detect) Staph aureus (PCR) (Not Detect) mecA-Methicil Res Gene Streptococcus sp PCR (Not Detect) Group A Strep (PCR) (Not Detect) Strep agalactiae (PCR) (Not Detect) Strep pneumoniae (PCR) (Not Detect) P. aeruginosa (PCR) (Not Detect) Matteo/B-Vanco Res Genes KPC-Carbap Res Gene PCR (Not Detect) 03/23/22 03/23/22 03/23/22 Range/Units 07:37 07:37 07:37 WBC (4.5-11.0) X10^3/uL RBC (4.5-5.9) X10^6/uL Hgb (13.5-17.5) g/dL Hct (41-53) % MCV (80-100) fL MCH (26-34) PG MCHC (30-36) % RDW (11.6-14.8) % Plt Count (150-400) X10^3/uL Neut % (Auto) (50-75) % Lymph % (Auto) (25-40) % [place] % (Auto) (3-14) % Eos % (Auto) (2-4) % Baso % (Auto) (0-2) % Neut # (Auto) (8636-2235) /uL Lymph # (Auto) (6426-1313) /uL [place] # (Auto) (0-900) /uL Eos # (Auto) (0-450) /uL Baso # (Auto) (0-100) /uL Sodium (137-145) mmol/L Potassium (3.4-5.1) mmol/L Chloride (98-107) mmol/L Carbon Dioxide (22-32) mmol/L BUN (9-20) mg/dL Creatinine (0.66-1.25) mg/dL Estimated GFR (>60) mL/min BUN/Creatinine Ratio (6-22) Glucose (70-100) mg/dL Lactate 1.7 (0.7-2.1) mmol/L Calcium (8.4-10.2) mg/dL Magnesium 1.5 L (1.6-2.3) mg/dL Total Bilirubin (0.2-1.3) mg/dL AST (17-59) IU/L ALT (<50) IU/L Alkaline Phosphatase (38-126) U/L Total Creatine Kinase (55-170) U/L CK-MB (CK-2) CK-MB (CK-2) Rel Index Troponin I (0.01-0.034) ng/mL Total Protein (6.3-8.2) g/dL Albumin (3.5-5.0) g/dL Globulin (1.7-4.1) g/dL Albumin/Globulin Ratio (1.0-2.8) Procalcitonin (<0.5) ng/mL Urine Color Urine Appearance Urine pH (4.5-8.0) Ur Specific [place] (1.000-1.035) Urine Protein (Negative) Urine Glucose (UA) (Negative) g/dL Urine Ketones (NEGATIVE) Urine Occult Blood (Negative) Urine Nitrate (Negative) Urine Bilirubin (NEGATIVE) Urine Urobilinogen (0.2) E.U./dL Ur Leukocyte Esterase (NEGATIVE) Urine RBC (0-5/HPF) Urine WBC (0-5/HPF) Ur Squamous Epith Cells (0-5/HPF) Urine Bacteria (None) Ur Culture Indicated? A. baumannii (PCR) Not detected (Not Detect) Elsy albicans (PCR) Not detected (Not Detect) C. glabrata (PCR) Not detected (Not Detect) C. krusei (PCR) Not detected (Not Detect) C. parapsilosis (PCR) Not detected (Not Detect) C. tropicalis (PCR) Not detected (Not Detect) SARS-CoV-2 (PCR) (Negative) Enterobacteriac sp PCR Detected H (Not Detect) E. cloacae complex PCR Not detected (Not Detect) Enterococcus sp PCR Not detected (Not Detect) E. coli (PCR) Not detected (Not Detect) H. influenzae (PCR) Not detected (Not Detect) Klebsiella oxytoca PCR Not detected (Not Detect) Klebsiella pneumoniae Not detected (Not Detect) List. monocytogenes PCR Not detected (Not Detect) N. meningitidis (PCR) Not detected (Not Detect) Proteus species (PCR) Detected H (Not Detect) Serratia marcescens PCR Not detected (Not Detect) Staphylococcus sp PCR Not detected (Not Detect) Staph aureus (PCR) Not detected (Not Detect) mecA-Methicil Res Gene Not Reportable Streptococcus sp PCR Not detected (Not Detect) Group A Strep (PCR) Not detected (Not Detect) Strep agalactiae (PCR) Not detected (Not Detect) Strep pneumoniae (PCR) Not detected (Not Detect) P. aeruginosa (PCR) Not detected (Not Detect) Matteo/B-Vanco Res Genes Not Reportable KPC-Carbap Res Gene PCR Not detected (Not Detect) 03/23/22 Range/Units 08:46 WBC (4.5-11.0) X10^3/uL RBC (4.5-5.9) X10^6/uL Hgb (13.5-17.5) g/dL Hct (41-53) % MCV (80-100) fL MCH (26-34) PG MCHC (30-36) % RDW (11.6-14.8) % Plt Count (150-400) X10^3/uL Neut % (Auto) (50-75) % Lymph % (Auto) (25-40) % [place] % (Auto) (3-14) % Eos % (Auto) (2-4) % Baso % (Auto) (0-2) % Neut # (Auto) (7106-3861) /uL Lymph # (Auto) (8165-9432) /uL [place] # (Auto) (0-900) /uL Eos # (Auto) (0-450) /uL Baso # (Auto) (0-100) /uL Sodium (137-145) mmol/L Potassium (3.4-5.1) mmol/L Chloride (98-107) mmol/L Carbon Dioxide (22-32) mmol/L BUN (9-20) mg/dL Creatinine (0.66-1.25) mg/dL Estimated GFR (>60) mL/min BUN/Creatinine Ratio (6-22) Glucose (70-100) mg/dL Lactate (0.7-2.1) mmol/L Calcium (8.4-10.2) mg/dL Magnesium (1.6-2.3) mg/dL Total Bilirubin (0.2-1.3) mg/dL AST (17-59) IU/L ALT (<50) IU/L Alkaline Phosphatase (38-126) U/L Total Creatine Kinase (55-170) U/L CK-MB (CK-2) CK-MB (CK-2) Rel Index Troponin I (0.01-0.034) ng/mL Total Protein (6.3-8.2) g/dL Albumin (3.5-5.0) g/dL Globulin (1.7-4.1) g/dL Albumin/Globulin Ratio (1.0-2.8) Procalcitonin (<0.5) ng/mL Urine Color Yellow Urine Appearance Cloudy Urine pH 5.0 (4.5-8.0) Ur Specific [place] 1.015 (1.000-1.035) Urine Protein 2+ H (Negative) Urine Glucose (UA) 2+ H (Negative) g/dL Urine Ketones 3+ H (NEGATIVE) Urine Occult Blood 2+ H (Negative) Urine Nitrate Negative (Negative) Urine Bilirubin Negative (NEGATIVE) Urine Urobilinogen 0.2 (0.2) E.U./dL Ur Leukocyte Esterase 2+ H (NEGATIVE) Urine RBC 5-10/hpf H (0-5/HPF) Urine WBC 30-100/hpf H (0-5/HPF) Ur Squamous Epith Cells 0-1 /hpf (0-5/HPF) Urine Bacteria Few (2-10) H (None) Ur Culture Indicated? Specimen cultured A. baumannii (PCR) (Not Detect) Elsy albicans (PCR) (Not Detect) C. glabrata (PCR) (Not Detect) C. krusei (PCR) (Not Detect) C. parapsilosis (PCR) (Not Detect) C. tropicalis (PCR) (Not Detect) SARS-CoV-2 (PCR) (Negative) Enterobacteriac sp PCR (Not Detect) E. cloacae complex PCR (Not Detect) Enterococcus sp PCR (Not Detect) E. coli (PCR) (Not Detect) H. influenzae (PCR) (Not Detect) Klebsiella oxytoca PCR (Not Detect) Klebsiella pneumoniae (Not Detect) List. monocytogenes PCR (Not Detect) N. meningitidis (PCR) (Not Detect) Proteus species (PCR) (Not Detect) Serratia marcescens PCR (Not Detect) Staphylococcus sp PCR (Not Detect) Staph aureus (PCR) (Not Detect) mecA-Methicil Res Gene Streptococcus sp PCR (Not Detect) Group A Strep (PCR) (Not Detect) Strep agalactiae (PCR) (Not Detect) Strep pneumoniae (PCR) (Not Detect) P. aeruginosa (PCR) (Not Detect) Matteo/B-Vanco Res Genes KPC-Carbap Res Gene PCR (Not Detect) Imaging Data Chest x-ray: Radiologist's Impression: FINDINGS:? This evaluation is limited, secondary to the patient's inability to fully cooperate with the examination.? ? Surgical changes and devices:? None.? ? Lungs and pleura:? On this semiupright portable chest examination, no large pneumothorax or large pleural effusions are seen.? No focal infiltrates are seen.? Low lung volumes are noted. This causes a crowded appearance to the lung markings and limits evaluation.? ? Mediastinum:? Mediastinal contours appear normal.? Heart size is normal.? ? Bones and chest wall:? No suspicious bony lesions.? Mild levoconvex scoliotic curvature is noted. ? Overlying soft tissues appear unremarkable.? ? ? IMPRESSION:? ? Limited portable chest examination, without a significant cardiopulmonary abnormality identified.? ? If clinically appropriate, a short-term followup chest series (with PA and lateral views) performed in deep inspiration is suggested for further evaluation.? ? ? Dictated by: Lloyd Snowden M.D. on 03/23/2022 at 7:19 ? ? CT scan - head: Radiologist's Impression: FINDINGS:? Image quality:? This examination is limited by involuntary motion artifact.? Images are repeated, with some improvement.? ? CSF spaces:? Basal cisterns are patent.? No extra-axial fluid collections.? Ventricles are normal in size and shape.? ? Brain:? No midline shift.? No intracranial masses or hemorrhage.? Marie-white matter interface is normal.? There is a remote left cerebellar infarct.? Focal mild low density can be seen within the left temporal lobe, and within the left occipital lobe, as on series 3 images 1 and 2. ? Skull and face:? Calvarium and visualized facial bones are intact, without suspicious lesions.? ? Sinuses:? Visualized sinuses and mastoids are clear.? ? ? IMPRESSION:? Focal low density seen within the left temporal lobe and within the left occipital lobe, which most likely represents artifact on this study with prominent motion.? Differential diagnosis includes subacute infarction, however. ? Please consider short-term follow-up versus MRI for further evaluation, when the patient is clinically able. ? Remote left cerebellar infarction.? ? Dictated by: Lloyd Snowden M.D. on 03/23/2022 at 8:07 ? ? ECG Data Interpretation: Sinus tach at 126 Long QT at [address] T wave changes without acute ischemia MDM Narrative Medical decision making narrative: 51-year-old gentleman currently living at [facility] with multiple sclerosis and significant limited mobility and a history of urinary difficulty. Was unable to void yesterday Truj[place] catheter was placed urine culture was obtained is not yet available however this morning he was increasingly confused and febrile to 103? comes in for further evaluation. He has obviously infected looking urine and Zosyn has been initiated. There was initial concern for sepsis with initial lactic and blood Cap pressure is holding nicely. He does have an elevated white blood cell count. He will be given Tylenol to see if this helps with the tachycardia, fluids have been initiated. On physical exam, in addition to his global weakness from MS with muscle atrophy he has significantly more left-sided weakness is actually using his right hand to lift up his left hand and has difficulty moving his left leg at all. He states that this has been going on for at least a week and he as well as staff at [facility], assumed that he had injured his shoulder which was why he was having difficulty moving his left arm despite the absence of pain and absence of any reported trauma. CT scan of the head has been obtained with concerns for stroke well over a week ago. At this point, he will be admitted to the hospitalist's service. He is not showing signs of severe sepsis, not needing pressors and will be appropriate to admit to floor care. Regarding his neurologic findings, he is moving his left arm much more than previously. CT scan shows Focal low density seen within the left temporal lobe and within the left occipital lobe, which most likely represents artifact on this study with prominent motion which also does not correlate with his left-sided weakness. Care is reviewed with the hospitalist and patient is admitted. Discharge Plan Departure Patient Disposition: Admitted As Inpatient Clinical Impression: Multiple sclerosis, Bladder outlet obstruction, SIRS (systemic inflammatory response syndrome) Urinary tract infection Qualifiers: Urinary tract infection type: acute cystitis Hematuria presence: with hematuria Qualified Code(s): N30.01 - Acute cystitis with hematuria Admit Date/Time: 03/23/22 09:59 Admit Provider: Rodrigo Almazan
[2022-03-23 08:13] LABS: Troponin I < 0.012 ng/mL (0.01-0.034)
[2022-03-23 08:18] LABS: Procalcitonin 0.62 ng/mL (<0.5)
--- NOTE | 2022-03-23 08:18 | DI.CT.S_ITS ---
PROCEDURE: CT HEAD/BRAIN WO CON INDICATIONS: multiple sclerosis, increased weakness Left side for 5 days, TECHNIQUE: Noncontrast 4.5 mm thick angled axial sections acquired from the foramen magnum to the vertex, with coronal and sagittal reformats. For radiation dose reduction, the following was used: automated exposure control, adjustment of mA and/or kV according to patient size. COMPARISON: [facility], MR, MR BRAIN WITHOUT CONTRAST, 07/27/2018, 12:45. [facility], MR, MR BRAIN WITH/WITHOUT CONTRAST, 04/05/2021, 9:44. FINDINGS: Image quality: This examination is limited by involuntary motion artifact. Images are repeated, with some improvement. CSF spaces: Basal cisterns are patent. No extra-axial fluid collections. Ventricles are normal in size and shape. Brain: No midline shift. No intracranial masses or hemorrhage. Marie-white matter interface is normal. 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 Focal mild low density can be seen within the left temporal lobe, and within the left occipital lobe, as on series 3 images 1 and 2. Skull and face: Calvarium and visualized facial bones are intact, without suspicious lesions. Sinuses: Visualized sinuses and mastoids are clear. IMPRESSION: Focal low density seen within the left temporal lobe and within the left occipital lobe, which most likely represents artifact on this study with prominent motion. Differential diagnosis includes subacute infarction, however. Please consider short-term follow-up versus MRI for further evaluation, when the patient is clinically able. Remote left cerebellar infarction. Dictated by: Lloyd Snowden M.D. on 03/23/2022 at 8:07 Approved by: Lloyd Snowden M.D. on 03/23/2022 at 8:11
[2022-03-23] MEDS: PIPERACILLIN/TAZO 4.5 GM in SODIUM CHLORIDE 0.9% 100 ML IV (08:34)
[2022-03-23] MEDS: LACTATED RINGERS 2,397 ML 799 ML IV (08:34)
[2022-03-23 08:44] LABS: COVID19 -Nasal RAPID Negative (Negative)
[2022-03-23] MEDS: ACETAMINOPHEN 325 MG TABLET 975 MG PO (09:05)
[2022-03-23 09:17] LABS: Appearance Urine UA CLOUDY; Bilirubin Urine UA NEGATIVE (NEGATIVE); Color Urine UA YELLOW; Glucose Urine UA 2+ g/dL (Negative); Ketones Urine UA 3+ (NEGATIVE); Leukocyte Esterase Urine UA 2+ (NEGATIVE); Nitrite Urine UA NEGATIVE (Negative); Occult Blood Urine UA 2+ (Negative); Protein Urine UA 2+ (Negative); Specific Gravity Urine UA 1.015 (1.000-1.035); Urobilinogen Urine UA 0.2 E.U./dL (0.2)
[2022-03-23 09:21] LABS: RBC Urine 5-10/HPF (0-5/HPF); Squamous Epithelial Cell Urine 0-1 /HPF (0-5/HPF); WBC Urine 30-100/HPF (0-5/HPF)
[2022-03-23 09:22] LABS: Bacteria Urine Few (2-10); Culture Indicated Urine Specimen Cultured
--- NOTE | 2022-03-23 09:58 | DI.MRI.S_ITS ---
PROCEDURE: MR HEAD/BRAIN WO CON INDICATIONS: new Left weakness. Multiplesclerosis. ? New CVA TECHNIQUE: Noncontrast axial T1 spin echo, axial T2 fast spin echo, sagittal and axial FLAIR, coronal T2 fast spin echo, axial gradient echo, axial diffusion and ADC through the brain. COMPARISON: [facility], CT, CT HEAD/BRAIN WO CON, 03/23/2022, 8:36. FINDINGS: Image quality: Significant motion is present limiting evaluation. CSF Spaces: Basal cisterns are patent. No extra-axial fluid collections. Ventricles are normal in size and shape. Brain: No intracranial masses or hemorrhage. Marie/white matter interface is normal. Brainstem appears normal. Diffusion-weighted images demonstrate no acute ischemic insult. No chronic ischemic insults. Normal intravascular flow voids are present. Skull and face: Calvarium has normal marrow signal. Orbits appear normal. Sinuses: Sinuses and mastoids are clear. IMPRESSION: Significant motion is present, limiting evaluation. No areas restricted diffusion are identified indicate acute ischemia. Periventricular white matter changes are identified suboptimally secondary to motion. These are overall nonspecific. These could be related to early changes of chronic microvascular ischemia, vasculitis or potentially demyelinating disease. There overall nonspecific. Dictated by: Taisha Macedo M.D. on 03/23/2022 at 11:49 Approved by: Taisha Macedo M.D. on 03/23/2022 at 11:50
[2022-03-23 10:17] LABS: Magnesium 1.5 mg/dL (1.6-2.3)
[2022-03-23] MEDS: diazePAM 10 MG/2 ML SYRINGE 5 MG IV (10:17)
--- NOTE | 2022-03-23 10:24 | PC.NURSE ---
Pt report given to BRYSON Nelson. pt medicated with 5mg IV valium before CT and MRI. Vitals taken after CT. 96% and HR 133 febrile. Pt alert and oriented before MRI. Pt to be taken to Rm 222 when scan complete. BRYSON Nelson aware. Pt transported with the remainder of his IVF's and small red wallet on a string around his neck.
[2022-03-23] MEDS: PIPERACILLIN/TAZO 3.375 GM in SODIUM CHLORIDE 0.9% 100 ML IV (12:34)
[2022-03-23] MEDS: POTASSIUM CHLORIDE IN WATER 10 MEQ/100 ML PIGGYBACK 100 MEQ IV ×5 (12:41→23:47)
[2022-03-23] MEDS: MAGNESIUM SULFATE 2 GM/50 ML PIGGYBACK IV ×2 (12:42→23:52)
[2022-03-23] MEDS: HEPARIN 5,000 UNIT/ML VIAL 5000 UNIT SUBCUT (13:48)
[2022-03-23] MEDS: ACETAMINOPHEN 325 MG TABLET 650 MG PO (15:42)
[2022-03-23] MEDS: LORazepam 2 MG/ML INJ 1 MG IV ×2 (15:50→16:35)
--- NOTE | 2022-03-23 16:03 | DI.CT.S_ITS ---
PROCEDURE: CT ANGIO HEAD AND NECK INDICATIONS: rule out stroke, pt with left sided weakness TECHNIQUE: Pre-contrast 4.5 mm thick sections acquired from the foramen magnum to the vertex. After the administration of intravenous contrast, 1 mm thick sections acquired from the aortic arch through the [place] of [place]. Post-contrast 4.5 mm thick sections then re-acquired from the foramen magnum to the vertex. 3-dimensional cpabpph-yrtlclunt-wqpleqyqzf (MIP) and/or volume rendering reformats were acquired of the central intracranial vasculature and neck separately. For radiation dose reduction, the following was used: automated exposure control, adjustment of mA and/or kV according to patient size. COMPARISON: [facility], MR, MR CERVICAL SPINE WITH/WITHOUT CONTRAST, 04/05/2021, 9:44. [facility], CT, CT HEAD/BRAIN WO CON, 03/23/2022, 8:36. [facility], MR, MR HEAD/BRAIN WO CON, 03/23/2022, 10:30. FINDINGS: Image quality: This evaluation is limited, secondary to the patient's inability to fully cooperate with the examination. BRAIN: CSF spaces: Ventricles are normal in size and shape. Basal cisterns are patent. No extra-axial fluid collections. Brain: No midline shift. No intracranial bleeds or masses. Marie-white matter interface appears intact. The previously seen areas of low density involving the left cerebral hemisphere are not seen on this study. Skull and face: Calvarium and facial bones appear intact, without suspicious lesions. Orbits appear normal. Sinuses: Sinuses and mastoids are clear. HEAD CT ANGIOGRAPHY: Anterior circulation: Intracranial internal carotid arteries are normal in size and flow. The flow within the paired anterior cerebral arteries is normal and symmetric. The flow within the middle cerebral arteries is normal and symmetric. The anterior communicating artery is seen. No aneurysms are seen. Posterior circulation: Visualized portions of the vertebral arteries demonstrate normal caliber, and join to form a normal appearing basilar artery. Flow within the posterior cerebral arteries is normal and symmetric. No aneurysms are seen. NECK CT ANGIOGRAPHY: Carotid system: The great vessels demonstrate a conventional anatomy as they arise from the aortic arch. The origins of the common carotid arteries appear patent. The common carotid arteries demonstrate normal caliber and courses. The bifurcation regions are both widely patent. The internal carotid arteries demonstrate normal calibers and courses. Posterior circulation: The origins of the vertebral arteries both appear widely patent. The more superior extracranial portions of both vertebral arteries also demonstrate normal courses and calibers. They join to form a normal appearing basilar artery. Soft tissues: Visualized neck soft tissues demonstrate no suspicious abnormalities. Bones: No suspicious bony lesions. Visualized cervical spine appears normally aligned. Focal moderate degenerative change is seen at C5-C6. IMPRESSION: The previously seen areas of low density involving the left cerebral hemisphere are not seen on this study. No significant intracranial arterial abnormality is seen. Within the arteries of the neck, no hemodynamically significant stenosis can be seen. Significant motion artifact again seen. Focal moderate C5-C6 degenerative change. Any quantitative measurements of stenosis were performed using NASCET criteria. Dictated by: Lloyd Snowden M.D. on 03/23/2022 at 16:11 Approved by: Lloyd Snowden M.D. on 03/23/2022 at 16:15
--- NOTE | 2022-03-23 16:21 | PT-IP ANOTE ---
PT on hold as pt is awaiting further brain scans this afternoon
--- NOTE | 2022-03-23 17:48 | PC.NURSE ---
Addendum entered by Leslie Root R.N. 03/23/22 20:08: 1815 late entry. pt HR increasing to 160, rr 28 and labored sats 88 on Room Air, 2lnc placed and sats increased to 97%, pt T104.4 notified and orders rec'd. While moving pt to icu room 228 pt became obtunded and having agonal breathing and unable to clear secretions, oral suction given, Dr. Almazan called to room along with RT and ED pt was medicated and intubated by Dr. Ace. Jossie STUNNER AND SHACKLER given report on Pt. Addendum entered by Leslie Root R.N. 03/23/22 18:09: 1730 pt t101 cooling measures implemented. 1800 T100. pt has needed continuously monitoring from staff yells out in confusiong and pulls on lines. calms easily Original Note: 1100 pt admitted to room 222 from ER - pt confused knows self only, mumbled speech and left sided extremitiy weakness, stm loss calm and coop to the best of his ability. moving continuously and poor muscle tone, hx of MS. bed alarmed call light within reach. con't ivf per sepsis protocol from er. and supplement ivf k and mag. pt febrile at 100 cooling measure given by removing blankets and given bed bath tylenol given in ER and again when due. spoke with pt mother and phone and will be back in [facility] and will come in and see him. 1635 medicated with ativan iv for ct scan
[2022-03-23] MEDS: SODIUM CHLORIDE 0.9% 1,000 ML 1000 ML IV (18:55)
[2022-03-23] MEDS: METOPROLOL TARTRATE 5 MG/5 ML INJ IV ×3 (19:10→20:44)
[2022-03-23] MEDS: SUCCINYLCHOLINE 200 MG/10 ML VIAL 150 MG IV (19:16)
[2022-03-23] MEDS: ETOMIDATE 2 MG/ML 10 ML VIAL 10 MG IV (19:16)
--- NOTE | 2022-03-23 19:25 | DI.RAD.S_ITS ---
PROCEDURE: XR CHEST 1V INDICATIONS: tube placement TECHNIQUE: One view of the chest was acquired. COMPARISON: [facility], CT, CT ABDOMEN PELVIS WO CON, 03/23/2022, 10:02. [facility], CR, XR CHEST 1V, 03/23/2022, 7:54. FINDINGS: Surgical changes and devices: Endotracheal tube is present approximately 1.4 cm superior to the roberto. Nasogastric tube is present distal tip projecting below the left hemidiaphragm. Lungs and pleura: There is an overall appearance of increased pulmonary vascularity in coarsening of the interstitium. Mediastinum: Mediastinal contours appear normal. Heart size is normal. Bones and chest wall: No suspicious bony lesions. Overlying soft tissues appear unremarkable. IMPRESSION: Support lines as above. Mild appearance of increased vascularity/coarsened interstitium. Developing edema and/or airspace disease cannot be excluded. Dictated by: Taisha Macedo M.D. on 03/23/2022 at 19:55 Approved by: Taisha Macedo M.D. on 03/23/2022 at 19:56
--- NOTE | 2022-03-23 19:30 | ED.CONSULT ---
ED Provider Consult/Code Note General Date Patient Seen: 03/23/22 Time Patient Seen: 18:45 Reason for Admission: UTI temp of 101 Events leading to Consult/Code: 51-year-old male with rapid decompensation with being bagged upon my arrival in the ICU admitted for pyelonephritis with MS. Patient unresponsive. Consulted for assistance with airway management and intubation. No known drug allergies. Cardiac Additional: Tachycardia on telemetry. Respiratory Auscultation: crackles and rhonchi ET Tube Size: 7.5 Tube Secured Depth (cm): 23 Tube Secured Location: teeth Tube Placement Confirmation: Visualized tube passing through cords, Equal breath sounds bilaterally, No breath sounds over epigastrium, Confirmation by capnometry and Chest Xray Care Provided Description of care provided: Intubation Preprocedure diagnosis:[default value] Postprocedure diagnosis:[default value] Indication: [default value] Type of procedure: Endotracheal intubation Procedure was done at bedside in the ICU. Consent was waived as this was an emergent procedure. The patient was properly identified and the procedure was performed with the staff. Prior to intubation monitors were in place and equipment was checked. Patient was preoxygenated. Medications given were: Etomidate 10 mg, succinylcholine 150 mg Intubation was performed by myself with GlideScope A [7.5] Endotracheal tube was inserted between vocal cords which were visualized. CO2 monitor showed good color change. Positive breath sounds bilaterally with mist in the tube. Tube was taped at 23 cm cm at the teeth by the respiratory therapist. Chest x-ray is obtained at this time: And shows ETT in place. no pneumothorax. Complications: Patient tolerated procedure well. Outcome Outcome: Critical care time: 20 minutes.
--- NOTE | 2022-03-23 19:47 | PC.NURSE ---
ET tube [address] by . stated + lung sounds.
[2022-03-23] MEDS: propofoL 1,000 MG/100 ML VIAL 3.919 MG IV (19:56)
--- NOTE | 2022-03-23 20:12 | P.HP_ITS ---
History of Present Illness History of Present Illness Date Patient Seen: 03/23/22 Time Patient Seen: 17:00 Chief complaint: UTI temp of 101 Narrative: Ranjan Kemp is a 51-year-old male with medical history of chronic multiple sclerosis, previous CVA with left-sided deficits, chronic urinary retention, morbid obesity, depression, and GERD who presented from [facility] for urinary retention, fevers to 103 F and increased confusion. Is a very poor historian and appears to be encephalopathic so provide any meaningful history. Is currently alert but very easily distracted and disoriented saying the year was 2020 and he was currently in [place]. Apparently in the ED he had left-sided weakness which was unknown if chronic so a CT head done which showed a focal density in the left temporal lobe which may represent artifact though could be subacute infarction. Also showed remote left cerebellar infarction. Brain MRI showed periventricular white matter changes and no acute ischemia but significant motion limited evaluation. UA showed 300 WBCs and culture growing Gram-negative rods. CT abdomen showed 3 mm right renal stone at the renal pelvis without hydronephrosis. Patient was febrile to 103.2 F and tachycardic in the 130s. Was satting well on room air with normal blood pressure. Patient received Ativan 2 mg IV to obtain CTA head and neck to rule out LVO which showed no evidence of this. Addendum: After are patient's confusion worsen and tachycardic into the 150s with a temperature of 104? F. He was transferred to the ICU where he became increasingly unresponsive so the decision was made to intubate. Patient was successfully intubated and given doses of metoprolol IV heart rate. Patient History Medical History Bladder disorder, unspecified Gastro-esophageal reflux disease without esophagitis Major depressive disorder with single episode Multiple sclerosis Obesity Retention of urine, unspecified Syncope and collapse Vitamin D deficiency, unspecified Surgical History No pertinent past surgical history Family & Social History Family History Mother In good health Father In good health Social History: household members none Prior Living Arrangements Assisted Living lives independently No Safety & Behavioral: Feels Safe in Current Yes Environment Been Physically Hurt or No Threatened By a Person Tobacco & Substance use: Smoking Status Former smoker alcohol intake former alcohol intake frequency holiday/special occasion Substance Use Type does not use Meds Home Medications and Allergies Home Medications Medication Instructions Recorded Confirmed Type baclofen 20 mg tablet 20 mg PO TID MS 06/19/18 03/23/22 History citalopram 40 mg tablet 40 mg PO QAM depression 06/19/18 03/23/22 History tamsulosin 0.4 mg capsule 0.8 mg PO QPM BPH w/ Obstruction 06/19/18 03/23/22 History amitriptyline 100 mg tablet 100 mg PO BEDTIME 10/21/20 03/23/22 History docusate sodium 100 mg capsule 200 mg PO BEDTIME constipation 10/21/20 03/23/22 History hydrocodone 5 mg-acetaminophen 325 1 tab PO Q4H PRN Pain (Scale Score 10/21/20 03/23/22 History mg tablet 4-6) hydrocodone 5 mg-acetaminophen 325 2 tab PO Q4H PRN Pain (Scale Score 10/21/20 03/23/22 History mg tablet 7-10) omeprazole 20 mg capsule,delayed 20 mg PO QAM GERD 10/21/20 03/23/22 History release ergocalciferol (vitamin D2) 50,000 50,000 unit PO QWEEK 05/08/21 03/23/22 History unit tablet melatonin 3 mg tablet 3 mg PO BEDTIME 05/08/21 03/23/22 History acetaminophen 325 mg capsule 650 mg PO Q4H PRN Pain (Scale 03/23/22 03/23/22 History (Tylenol) Score 1-3) ibuprofen 800 mg tablet 800 mg PO Q6H PRN Pain (Scale 03/23/22 03/23/22 History Score 4-6) nystatin 100,000 unit/gram topical 1 applic topical BID 03/23/22 03/23/22 History cream ondansetron 4 mg disintegrating 4 mg PO Q6H PRN Nausea 03/23/22 03/23/22 History tablet Allergies Allergy/AdvReac Type Severity Reaction Status Date / Time No Known Drug Allergies Allergy Verified 05/08/21 18:14 Review of Systems Review of Systems Narrative: All other systems reviewed with the patient and are negative unless otherwise stated. Exam Vital Signs (past 8 hours): - 03/23/22 15:42 03/23/22 17:43 03/23/22 19:16 Temperature 100.1 F H Pulse Rate 120 H 169 H Respiratory Rate 24 Blood Pressure 126/63 Pulse Oximetry 100 03/23/22 19:20 Temperature Pulse Rate 161 H Respiratory Rate 35 H Blood Pressure Pulse Oximetry Oxygen Delivery Method Room Air Oxygen Flow Rate 0 Narrative Exam Narrative: GEN: Disoriented, diaphoretic HEENT: moist mucous membranes, PERRL NECK: trachea midline, no JVD CV: Sinus tachycardia, no murmurs PULM: clear bilaterally ABD: soft, nontender, nondistended, no organomegaly EXT: warm and well perfused with 2+ edema of lower extremities NEURO: Weakness left side with 3/5 strength in left upper extremity and 1/5 and left lower extremity, no facial droop Objective Labs Result Diagrams: 03/23/22 07:37 03/23/22 07:37 Labs: Laboratory Results - last 24 hr 03/23/22 03/23/22 03/23/22 07:30 07:37 07:37 WBC 18.6 H RBC 6.07 H Hgb 17.3 Hct 50.2 MCV 82.7 MCH 28.6 MCHC 34.5 RDW 14.6 Plt Count 207 Neut % (Auto) 87.4 H Lymph % (Auto) 6.2 L [place] % (Auto) 6.0 Eos % (Auto) 0.1 L Baso % (Auto) 0.3 Neut # (Auto) 21355 H Lymph # (Auto) 1100 [place] # (Auto) 1100 H Eos # (Auto) 0 Baso # (Auto) 100 Sodium 136 L Potassium 3.2 L Chloride 95 L Carbon Dioxide 29 BUN 7 L Creatinine 0.74 Estimated GFR > 60 BUN/Creatinine Ratio 9.5 Glucose 268 H Lactate Calcium 9.1 Magnesium Total Bilirubin 2.2 H AST 22 ALT 20 Alkaline Phosphatase 150 H Total Creatine Kinase 53 L CK-MB (CK-2) TNP CK-MB (CK-2) Rel Index TNP Troponin I < 0.012 Total Protein 7.4 Albumin 4.3 Globulin 3.1 Albumin/Globulin Ratio 1.4 Procalcitonin 0.62 H Urine Color Urine Appearance Urine pH Ur Specific [place] Urine Protein Urine Glucose (UA) Urine Ketones Urine Occult Blood Urine Nitrate Urine Bilirubin Urine Urobilinogen Ur Leukocyte Esterase Urine RBC Urine WBC Ur Squamous Epith Cells Urine Bacteria Ur Culture Indicated? SARS-CoV-2 (PCR) Negative 03/23/22 03/23/22 03/23/22 07:37 07:37 08:46 WBC RBC Hgb Hct MCV MCH MCHC RDW Plt Count Neut % (Auto) Lymph % (Auto) [place] % (Auto) Eos % (Auto) Baso % (Auto) Neut # (Auto) Lymph # (Auto) [place] # (Auto) Eos # (Auto) Baso # (Auto) Sodium Potassium Chloride Carbon Dioxide BUN Creatinine Estimated GFR BUN/Creatinine Ratio Glucose Lactate 1.7 Calcium Magnesium 1.5 L Total Bilirubin AST ALT Alkaline Phosphatase Total Creatine Kinase CK-MB (CK-2) CK-MB (CK-2) Rel Index Troponin I Total Protein Albumin Globulin Albumin/Globulin Ratio Procalcitonin Urine Color Yellow Urine Appearance Cloudy Urine pH 5.0 Ur Specific [place] 1.015 Urine Protein 2+ H Urine Glucose (UA) 2+ H Urine Ketones 3+ H Urine Occult Blood 2+ H Urine Nitrate Negative Urine Bilirubin Negative Urine Urobilinogen 0.2 Ur Leukocyte Esterase 2+ H Urine RBC 5-10/hpf H Urine WBC 30-100/hpf H Ur Squamous Epith Cells 0-1 /hpf Urine Bacteria Few (2-10) H Ur Culture Indicated? Specimen cultured SARS-CoV-2 (PCR) Assessment & Plan Assessment & Plan narrative: # acute sepsis secondary to pyelonephritis -source likely urine with pyuria. sepsis due to evidence of altered mental status, leukocytosis of 18.6, tachycardia and fevers to 104 F -received 4 L NS -switch Zosyn to meropenem to cover for ESBL due to GNR's in urine, added vancomycin due to sepsis -follow-up blood and cultures -appreciate tele ICU consultation # acute septic encephalopathy -patient disoriented on exam, must consider meningitis if not improving -currently intubated due to worsening mentation and concern for able to protect airway # right renal pelvis kidney stone without hydronephrosis, urinary retention -called Dr. Luevano urology at who recommended treating with IV antibiotics and contacting local urology to follow along -urinary retention likely due to MS, [place] in place # multiple sclerosis, chronic -MRI brain showed periventricular white matter changes # possible SVT -HR to 150's -metop tart IV pushes PRN -obtain EKG # prior cerebellar stroke -seen on MR brain -acute stroke ruled out I spent a total of 35 minutes of critical care time on this patient's care today; this time is exclusive of procedural time. Code status is full code. COVID negative. DVT prophylaxis with heparin subQ. Proxy is mother Tsering. I have reviewed home meds and used all available resources to reconcile the home meds. Time Spent With Patient Critical Care time: I spent a total of [] minutes of critical care time on this patient's care today; this time is exclusive of procedural time. Quality VTE Deep Vein Thrombosis/Pulmonary Embolism Present on Admission: No
[2022-03-23] MEDS: MEROPENEM 2 GM in SODIUM CHLORIDE 0.9% 100 ML IV (20:19)
[2022-03-23] MEDS: SODIUM CHLORIDE 0.9% 1,000 ML 150 ML IV (20:24)
[2022-03-23 20:46] LABS: Fractionated Inspired Oxygen 100; HCO3 ABG 18 mmol/L (22-26); Oxygen Saturation ABG 100 % (95-100); PCO2 ABG 27.6 mmHg (35-45); TCO2 ABG 19 mmol/L (21-31); pH ABG 7.42 (7.35-7.45)
[2022-03-23 20:47] LABS: PO2 ABG 272 mmHg (80-100)
[2022-03-23] MEDS: fentaNYL 1,000 MCG in DEXTROSE 5% IN WATER 230 ML 22.861 MCG IV (20:59)
--- NOTE | 2022-03-23 21:03 | P.TELICUCN_ITS ---
History of Present Illness Consult details IF CAMERA ACTIVATED, patient seen via real-time interactive audiovisual communication: Camera activated Chief complaint: UTI temp of 101 Consent obtained for tele-hand edger care: Yes Patient Location: ICU Provider location (State): [place] Other participants/roles: no [facility] Medical History (Updated 03/23/22 @ 09:00 by Maria Guadalupe Randolph MD) Bladder disorder, unspecified Gastro-esophageal reflux disease without esophagitis Major depressive disorder with single episode Multiple sclerosis Obesity Retention of urine, unspecified Syncope and collapse Vitamin D deficiency, unspecified Surgical History No pertinent past surgical history Family History Mother In good health Father In good health Social History household members: none lives independently: No Smoking Status: Former smoker alcohol intake: former Current Medications Current Medications Medications: Home Medications baclofen 20 mg tablet 20 mg PO TID MS 06/19/18 [History Confirmed 03/23/22] citalopram 40 mg tablet 40 mg PO QAM depression 06/19/18 [History Confirmed 03/23/22] tamsulosin 0.4 mg capsule 0.8 mg PO QPM BPH w/ Obstruction 06/19/18 [History Confirmed 03/23/22] amitriptyline 100 mg tablet 100 mg PO BEDTIME 10/21/20 [History Confirmed 03/23/22] docusate sodium 100 mg capsule 200 mg PO BEDTIME constipation 10/21/20 [History Confirmed 03/23/22] hydrocodone 5 mg-acetaminophen 325 mg tablet 1 tab PO Q4H PRN Pain (Scale Score 4-6) 10/21/20 [History Confirmed 03/23/22] hydrocodone 5 mg-acetaminophen 325 mg tablet 2 tab PO Q4H PRN Pain (Scale Score 7-10) 10/21/20 [History Confirmed 03/23/22] omeprazole 20 mg capsule,delayed release 20 mg PO QAM GERD 10/21/20 [History Confirmed 03/23/22] ergocalciferol (vitamin D2) 50,000 unit tablet 50,000 unit PO QWEEK 05/08/21 [History Confirmed 03/23/22] melatonin 3 mg tablet 3 mg PO BEDTIME 05/08/21 [History Confirmed 03/23/22] acetaminophen 325 mg capsule (Tylenol) 650 mg PO Q4H PRN Pain (Scale Score 1-3) 03/23/22 [History Confirmed 03/23/22] ibuprofen 800 mg tablet 800 mg PO Q6H PRN Pain (Scale Score 4-6) 03/23/22 [History Confirmed 03/23/22] nystatin 100,000 unit/gram topical cream 1 applic topical BID 03/23/22 [History Confirmed 03/23/22] ondansetron 4 mg disintegrating tablet 4 mg PO Q6H PRN Nausea 03/23/22 [History Confirmed 03/23/22] Visit Medications (administered) Generic Name Dose Route Start Last Admin Trade Name Freq PRN Reason Stop Dose Admin Acetaminophen 650 mg 03/23/22 10:35 03/23/22 15:42 Acetaminophen 325 Mg Tablet PO 650 mg Q6HR PRN Administration Fever/Mild Pain (1-3) Heparin Sodium (Porcine) 5,000 unit 03/23/22 14:00 03/23/22 13:48 Heparin 5,000 Unit/Ml Vial SUBCUT 5,000 unit Q8HR ROBERTO Administration Meropenem 2 gm/ Sodium 100 mls @ 200 mls/hr 03/23/22 20:00 03/23/22 20:19 Chloride IV 200 mls/hr Q8H ROBERTO Administration Propofol 1,000 mg in 100 mls @ 3.919 mls/hr 03/23/22 19:30 03/23/22 19:56 Propofol IV 5 mcg/kg/min TITRATE ROBERTO 3.919 mls/hr Administration Protocol 5 MCG/KG/MIN Fentanyl 1,000 mcg/ Dextrose 250 mls @ 22.861 mls/hr 03/23/22 19:30 03/23/22 20:59 IV 0.7 mcg/kg/hr TITRATE ROBERTO 22.861 mls/hr Administration Protocol 0.7 MCG/KG/HR Sodium Chloride 1,000 mls @ 150 mls/hr 03/23/22 20:15 03/23/22 20:24 Normal Saline 0.9% IV 150 mls/hr CONT ROBERTO Administration Exam Vital Signs (past 8 hours): - 03/23/22 15:42 03/23/22 17:43 03/23/22 19:16 Temperature 100.1 F H Pulse Rate 120 H 169 H Respiratory Rate 24 Blood Pressure 126/63 Pulse Oximetry 100 03/23/22 19:20 03/23/22 20:45 03/23/22 19:45 Temperature Pulse Rate 161 H 150 H Respiratory Rate 35 H Blood Pressure 120/74 Pulse Oximetry 94 Oxygen Delivery Method Room Air Oxygen Flow Rate 0 Objective Labs Result Diagrams: 03/23/22 07:37 03/23/22 07:37 Labs: Laboratory Results - last 24 hr 03/23/22 03/23/22 03/23/22 07:30 07:37 07:37 WBC 18.6 H RBC 6.07 H Hgb 17.3 Hct 50.2 MCV 82.7 MCH 28.6 MCHC 34.5 RDW 14.6 Plt Count 207 Neut % (Auto) 87.4 H Lymph % (Auto) 6.2 L [place] % (Auto) 6.0 Eos % (Auto) 0.1 L Baso % (Auto) 0.3 Neut # (Auto) 50759 H Lymph # (Auto) 1100 [place] # (Auto) 1100 H Eos # (Auto) 0 Baso # (Auto) 100 ABG pH ABG pCO2 ABG pO2 ABG HCO3 ABG Total CO2 ABG O2 Saturation ABG Base Excess FiO2 Sodium 136 L Potassium 3.2 L Chloride 95 L Carbon Dioxide 29 BUN 7 L Creatinine 0.74 Estimated GFR > 60 BUN/Creatinine Ratio 9.5 Glucose 268 H Lactate Calcium 9.1 Magnesium Total Bilirubin 2.2 H AST 22 ALT 20 Alkaline Phosphatase 150 H Total Creatine Kinase 53 L CK-MB (CK-2) TNP CK-MB (CK-2) Rel Index TNP Troponin I < 0.012 Total Protein 7.4 Albumin 4.3 Globulin 3.1 Albumin/Globulin Ratio 1.4 Procalcitonin 0.62 H Urine Color Urine Appearance Urine pH Ur Specific [place] Urine Protein Urine Glucose (UA) Urine Ketones Urine Occult Blood Urine Nitrate Urine Bilirubin Urine Urobilinogen Ur Leukocyte Esterase Urine RBC Urine WBC Ur Squamous Epith Cells Urine Bacteria Ur Culture Indicated? SARS-CoV-2 (PCR) Negative 03/23/22 03/23/22 03/23/22 07:37 07:37 08:46 WBC RBC Hgb Hct MCV MCH MCHC RDW Plt Count Neut % (Auto) Lymph % (Auto) [place] % (Auto) Eos % (Auto) Baso % (Auto) Neut # (Auto) Lymph # (Auto) [place] # (Auto) Eos # (Auto) Baso # (Auto) ABG pH ABG pCO2 ABG pO2 ABG HCO3 ABG Total CO2 ABG O2 Saturation ABG Base Excess FiO2 Sodium Potassium Chloride Carbon Dioxide BUN Creatinine Estimated GFR BUN/Creatinine Ratio Glucose Lactate 1.7 Calcium Magnesium 1.5 L Total Bilirubin AST ALT Alkaline Phosphatase Total Creatine Kinase CK-MB (CK-2) CK-MB (CK-2) Rel Index Troponin I Total Protein Albumin Globulin Albumin/Globulin Ratio Procalcitonin Urine Color Yellow Urine Appearance Cloudy Urine pH 5.0 Ur Specific [place] 1.015 Urine Protein 2+ H Urine Glucose (UA) 2+ H Urine Ketones 3+ H Urine Occult Blood 2+ H Urine Nitrate Negative Urine Bilirubin Negative Urine Urobilinogen 0.2 Ur Leukocyte Esterase 2+ H Urine RBC 5-10/hpf H Urine WBC 30-100/hpf H Ur Squamous Epith Cells 0-1 /hpf Urine Bacteria Few (2-10) H Ur Culture Indicated? Specimen cultured SARS-CoV-2 (PCR) 03/23/22 20:28 WBC RBC Hgb Hct MCV MCH MCHC RDW Plt Count Neut % (Auto) Lymph % (Auto) [place] % (Auto) Eos % (Auto) Baso % (Auto) Neut # (Auto) Lymph # (Auto) [place] # (Auto) Eos # (Auto) Baso # (Auto) ABG pH 7.42 ABG pCO2 27.6 L ABG pO2 272 H* ABG HCO3 18 L ABG Total CO2 19 L ABG O2 Saturation 100 ABG Base Excess -7.0 L FiO2 100 Sodium Potassium Chloride Carbon Dioxide BUN Creatinine Estimated GFR BUN/Creatinine Ratio Glucose Lactate Calcium Magnesium Total Bilirubin AST ALT Alkaline Phosphatase Total Creatine Kinase CK-MB (CK-2) CK-MB (CK-2) Rel Index Troponin I Total Protein Albumin Globulin Albumin/Globulin Ratio Procalcitonin Urine Color Urine Appearance Urine pH Ur Specific [place] Urine Protein Urine Glucose (UA) Urine Ketones Urine Occult Blood Urine Nitrate Urine Bilirubin Urine Urobilinogen Ur Leukocyte Esterase Urine RBC Urine WBC Ur Squamous Epith Cells Urine Bacteria Ur Culture Indicated? SARS-CoV-2 (PCR) Assessment & Plan Assessment & Plan narrative: patient seen with bedside nurse chart/labs/imaging reviewed 51 year old male admitted to ICU for AMS severe sepsis 2/2 to uti vs other urinary retention acute resp faliure currently afebrile, HR 140s bp stable intubated and sedated wbc 19 CT head -ve UA +ve cxs +ve for gram -ve baccili suggest -neurochecks/seizure precatuions -consider EEG and neuro eval -consider LP -cooling blanket/tylenol -goal RASS -1 -vent support -eastman cx -broad spec abx -monitor ins/outs -replace elytes prn -keep glucose [id number] -gi/dvt ppx -please call eICU if condition changes Time Spent With Patient Critical Care time: I spent a total of [] minutes of critical care time on this patient's care today; this time is exclusive of procedural time.
[2022-03-23] MEDS: ACETAMINOPHEN 650 MG SUPP PR (21:06)
[2022-03-23] MEDS: FAMOTIDINE 20 MG/2 ML VIAL IV (21:06)
--- NOTE | 2022-03-23 21:49 | DI.RAD.S_ITS ---
PROCEDURE: XR CHEST FOR PICC 1V INDICATIONS: central line placement TECHNIQUE: One view of the chest was acquired. COMPARISON: [facility], CR, XR CHEST 1V, 03/23/2022, 19:15. FINDINGS: Surgical changes and devices: There is a new right internal jugular catheter with the tip projecting over the cavoatrial junction. Endotracheal tube is redemonstrated with the tip approximately 3.5 cm from the roberto. A nasogastric tube extends into the stomach. Lungs and pleura: No evidence of pneumothorax. No pleural effusions. There are indistinct bibasilar medial opacities consistent with atelectasis or consolidation. Mediastinum: Mediastinal contours appear normal. Heart size is normal. Bones and chest wall: No suspicious bony lesions. Overlying soft tissues appear unremarkable. IMPRESSION: 1. No evidence of pneumothorax. 2. Medial bibasilar opacities consistent with atelectasis or consolidation. Dictated by: Eduardo Moss M.D. on 03/23/2022 at 23:00 Approved by: Eduardo Moss M.D. on 03/23/2022 at 23:01
--- NOTE | 2022-03-23 22:05 | PM.PROC.1 ---
Procedures Date/Time Date of procedure: 03/23/22 Time of procedure: 22:09 Central Line Placement Additional comments: pt sedated, urosepsis, needs central access, ultrasound guided and confirmed wire in rt IJ, easy cath placement and good blood return. one pass, stiched and dressed. cxr shows good position and no PTHX
[2022-03-23] MEDS: VANCOMYCIN 250 MG IV (22:14)
[2022-03-23] MEDS: NOREPINEPHRINE BITARTRATE/D5W 4 MG/250 ML PLAST..BAG 30 MG IV (22:18)
[2022-03-23 22:53] LABS: Albumin Globulin Ratio 1.1 (1.0-2.8); Alkaline Phosphatase 235 U/L (38-126); Aspartate Aminotransferase 81 IU/L (17-59); BUN Creatinine Ratio 12.3 (6-22); Bilirubin Total 2.9 mg/dL (0.2-1.3); Blood Urea Nitrogen 15 mg/dL (9-20); Calcium 7.7 mg/dL (8.4-10.2); Carbon Dioxide 18 mmol/L (22-32); Chloride 103 mmol/L (98-107); Estimated Glomerular Filt Rate > 60 mL/min (>60); Globulin 2.7 g/dL (1.7-4.1); Glucose 267 mg/dL (70-100); HEMOLYSIS 22 (0-50); Sodium 132 mmol/L (137-145); Total Protein 5.7 g/dL (6.3-8.2)
[2022-03-23 23:00] LABS: Alanine Aminotransferase 46 IU/L (<50)
[2022-03-23] MEDS: SODIUM CHLORIDE 0.9% 500 ML 1000 ML IV (23:00)
--- NOTE | 2022-03-23 23:18 | DI.RAD.S_ITS ---
PROCEDURE: XR CHEST 1V INDICATIONS: decreased breath sounds/ intubation TECHNIQUE: One view of the chest was acquired. COMPARISON: [facility], CR, XR CHEST FOR PICC 1V, 03/23/2022, 21:52. FINDINGS: Surgical changes and devices: Endotracheal tube redemonstrated with the tip approximately 3.5 cm from the roberto. Nasogastric tube extends into the stomach. Right internal jugular catheter projects over the cavoatrial junction. Lungs and pleura: No evidence of pneumothorax. No pleural effusions. There are low lung volumes. Medial bibasilar opacities are redemonstrated consistent with atelectasis or consolidation. There is mild perihilar pulmonary vascular prominence suggestive of mild edema. Mediastinum: Mediastinal contours appear unchanged. Heart size is normal. Bones and chest wall: No suspicious bony lesions. Overlying soft tissues appear unremarkable. IMPRESSION: 1. Low lung volumes with medial bibasilar atelectasis or consolidation redemonstrated. 2. Mild perihilar pulmonary vascular prominence suggestive of mild pulmonary edema. Dictated by: Eduardo Moss M.D. on 03/23/2022 at 23:58 Approved by: Eduardo Moss M.D. on 03/24/2022 at 0:01
[2022-03-23 23:40] LABS: NT-proBNP (BNP-Adult 18+) 871 pg/mL (<125)
[2022-03-24] VITALS (107 sets, daily range): BP systolic 60–155; BP diastolic 27–80; PULSE 128–144; RESP 21–40; TEMP 36.7–41.2; O2SAT 95–100
[2022-03-24] MEDS: HEPARIN 5,000 UNIT/ML VIAL 5000 UNIT SUBCUT ×2 (00:19→06:23)
[2022-03-24] MEDS: CHLORHEXIDINE GLUCONATE 15 ML CUP PO ×3 (00:40→12:09)
[2022-03-24] MEDS: POTASSIUM CHLORIDE IN WATER 10 MEQ/100 ML PIGGYBACK 100 MEQ IV ×3 (00:43→03:07)
--- NOTE | 2022-03-24 00:49 | PM.EICU.INT ---
Teleintensivist Intervention Date/Time Was camera activated?: Yes Issue(s) Addressed Issue(s): Shock/hypotension Other:: pt now hypotensive suggest to give 1 L ivf bolus, increase levophed, as stress dose steroids, add an aminoglycocide check abg, check bmp check lactate will follow d/w bedside provider
[2022-03-24] MEDS: SODIUM CHLORIDE 0.9% 1,000 ML 1000 ML IV (00:52)
[2022-03-24] MEDS: HYDROCORTISONE 100 MG/2 ML VIAL 300 MG IV (01:19)
[2022-03-24 01:30] LABS: Lactate (Lactic Acid) 4.7 mmol/L (0.7-2.1)
[2022-03-24 01:35] LABS: Fractionated Inspired Oxygen 80; HCO3 ABG 14 mmol/L (22-26); Oxygen Saturation ABG 100 % (95-100); PO2 ABG 203 mmHg (80-100); TCO2 ABG 14 mmol/L (21-31); pH ABG 7.37 (7.35-7.45)
[2022-03-24 01:36] LABS: PCO2 ABG 23.7 mmHg (35-45)
[2022-03-24] MEDS: VASOPRESSIN 40 UNIT in SODIUM CHLORIDE 0.9% 100 ML 4.5 UNIT IV (02:00)
[2022-03-24] MEDS: NOREPINEPHRINE BITARTRATE/D5W 4 MG/250 ML PLAST..BAG 75 MG IV ×2 (02:11→13:47)
--- NOTE | 2022-03-24 02:20 | PM.EICU.INT ---
Teleintensivist Intervention Date/Time Was camera activated?: Yes Issue(s) Addressed Issue(s): Abnormal labs Other:: labs noted, lactate 4, minimal to no urine output last 4 hours. pt was given 1 L ivf, no response. pt started on vaso and bp improved. suggested to optimize sedation, repat bmp, wean pressors, pt may need HD, suggested to consider transfer for possible CRRT
[2022-03-24] MEDS: SODIUM CHLORIDE 0.9% 1,000 ML 150 ML IV ×3 (03:04→13:40)
[2022-03-24 03:05] LABS: Alanine Aminotransferase 86 IU/L (<50); Albumin 2.6 g/dL (3.5-5.0); Alkaline Phosphatase 135 U/L (38-126); Aspartate Aminotransferase 213 IU/L (17-59); BUN Creatinine Ratio 10.6 (6-22); Bilirubin Total 3.8 mg/dL (0.2-1.3); Blood Urea Nitrogen 16 mg/dL (9-20); Carbon Dioxide 15 mmol/L (22-32); Chloride 105 mmol/L (98-107); Estimated Glomerular Filt Rate 56 mL/min (>60); Globulin 2.5 g/dL (1.7-4.1); Glucose 275 mg/dL (70-100); HEMOLYSIS 23 (0-50); Magnesium 1.4 mg/dL (1.6-2.3); Potassium 3.3 mmol/L (3.4-5.1); Sodium 133 mmol/L (137-145); Total Protein 5.1 g/dL (6.3-8.2)
[2022-03-24 03:13] LABS: Reflexed Lactate in 2 Hours Y
[2022-03-24] MEDS: MEROPENEM 1 GM in SODIUM CHLORIDE 0.9% 100 ML IV ×2 (05:35→12:08)
[2022-03-24 06:20] LABS: Hematocrit 40.5 % (41-53); Hemoglobin 13.7 g/dL (13.5-17.5); Mean Corpuscular HGB Conc 33.7 % (30-36); Mean Corpuscular Hemoglobin 28.2 PG (26-34); Mean Corpuscular Volume 83.7 fL (80-100); Red Blood Cell Count 4.85 X10^6/uL (4.5-5.9); Red Cell Distribution Width 15.2 % (11.6-14.8); White Blood Cell Count 27.1 X10^3/uL (4.5-11.0)
[2022-03-24 06:21] LABS: Alanine Aminotransferase 153 IU/L (<50); Albumin 2.5 g/dL (3.5-5.0); Alkaline Phosphatase 106 U/L (38-126); Aspartate Aminotransferase 433 IU/L (17-59); BUN Creatinine Ratio 9.8 (6-22); Bilirubin Total 4.3 mg/dL (0.2-1.3); Blood Urea Nitrogen 16 mg/dL (9-20); Calcium 6.9 mg/dL (8.4-10.2); Carbon Dioxide 14 mmol/L (22-32); Chloride 105 mmol/L (98-107); Estimated Glomerular Filt Rate 51 mL/min (>60); Globulin 2.5 g/dL (1.7-4.1); Glucose 300 mg/dL (70-100); HEMOLYSIS < 15 (0-50); Potassium 3.6 mmol/L (3.4-5.1); Sodium 132 mmol/L (137-145)
[2022-03-24] MEDS: NOREPINEPHRINE BITARTRATE/D5W 4 MG/250 ML PLAST..BAG 63.75 MG IV ×2 (06:22→10:08)
[2022-03-24 06:25] LABS: Lactate 2HR (Lactic Acid Rflx) 4.8 mmol/L (0.7-2.1)
[2022-03-24 06:28] LABS: Add Manual Diff / Slide Review YES
[2022-03-24 07:16] LABS: Neutrophils Absolute Manual 25474 /uL (3000-5900); RBC Morphology Normal Morphology; Total Cells Counted 100
[2022-03-24 07:25] LABS: Magnesium 1.8 mg/dL (1.6-2.3)
[2022-03-24 07:27] LABS: Platelet Count 50 X10^3/uL (150-400)
--- NOTE | 2022-03-24 07:33 | PC.NURSE ---
Patient intubated at beginning of shift. RASS -3, non-responsive, localizes pain, breathing over vent, RR 38. Per Dr. Matos, need to sedate patient. Patient hypotensive with propofol. ANTHONY Peralta and Dr. Matos notified. NS bolus given, levophed and vasopressin started. Central line placed and CXR verified placement, ok to use. Lactate elevated, decreased urine output, K+ and Mg++ low, see new orders. This am patient is ST 130s, RR 24-28, MAP >65, continue to be on Levophed and vasopressin. Tolerating sedation with propofol and fentanly. Plan is to possibly transfer patient to higher level of care for possible dialysis if patient continues to have low urine out put and elevating BUN, & creatinine and decreased GFR. Report given to day shift RN.
[2022-03-24 07:56] LABS: Acinetobacter baumannii Not Detected (Not Detect); Candida albicans Not Detected (Not Detect); Candida glabrata Not Detected (Not Detect); Candida krusei Not Detected (Not Detect); Candida parapsilosis Not Detected (Not Detect); Candida tropicalis Not Detected (Not Detect); E. coli Not Detected (Not Detect); Enterobacter cloacae complex Not Detected (Not Detect); Enterobacteriaceae species Detected (Not Detect); Enterococcus species Not Detected (Not Detect); Haemophilus influenzae Not Detected (Not Detect); KPC (carbapenem-resist gene) Not Detected (Not Detect); Listeria monocytogenes Not Detected (Not Detect); Neisseria meningitidis Not Detected (Not Detect); Proteus species Detected (Not Detect); Pseudomonas aeruginosa Not Detected (Not Detect); Serratia marcescens Not Detected (Not Detect); Staphylococcus species Not Detected (Not Detect); Streptococcus agalactiae (Gr B Not Detected (Not Detect); Streptococcus pneumonia Not Detected (Not Detect); Streptococcus pyogenes (Gr A) Not Detected (Not Detect); Streptococcus species Not Detected (Not Detect)
[2022-03-24] MEDS: HYDROCORTISONE 100 MG/2 ML VIAL IV (08:29)
[2022-03-24] MEDS: VANCOMYCIN 1,250 MG/250 ML PIGGYBACK 250 MG IV (08:29)
[2022-03-24] MEDS: FAMOTIDINE 20 MG/2 ML VIAL IV (08:29)
[2022-03-24] MEDS: ACETAMINOPHEN 650 MG SUPP PR (08:45)
[2022-03-24] MEDS: INSULIN REGULAR 100 UNIT/ML 3 ML VIAL SUBCUT (10:23)
[2022-03-24] MEDS: propofoL 1,000 MG/100 ML VIAL 7.838 MG IV (11:04)
--- NOTE | 2022-03-24 11:29 | PM.PROC.1 ---
Procedures Date/Time Date of procedure: 03/24/22 Time of procedure: 11:29 Arterial Line Time out performed: Yes Size (Gauge): 20 Technique used: guide wire technique Post-Procedure: line sutured into place and dry sterile dressing placed Patient tolerated procedure: Well and No complications Complications: none Site: left and radial Additional comments: 51 M with septic shock on two pressors, tele-community health education coordinator wishing for arterial line for more accurate BP monitoring. Time out was performed, left wrist was positioned and area was prepped in the usual sterile fashion. artery was palpated and 20 G arterial line was placed using guide wire technique. there was pulsatile blood coming from line after placement. line was sutured in place and sterile dressing was also used to cover the area. Patient tolerated the procedure well, there were no complications.
--- NOTE | 2022-03-24 12:26 | PC.NURSE ---
ARTLINE placed by DR. Gaines. ARTline blood pressures registering at 60/50's with MAP at 59. Norepinephrine titrated up to maximum dose per pharmacy of 20mcg/min. ARt line pressure 62/56 (MAP 59), Dr. Ness notified.
--- NOTE | 2022-03-24 12:56 | PC.RNWOUND ---
Per primary RN, patient not able to withstand being turned at this time for visualization of documented skin tear to coccyx. Sacral dressing left with primary nurse just in case there is opportunity to apply it to sacrum for protection.
--- NOTE | 2022-03-24 12:59 | P.TELICUPN_ITS ---
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 BG trending up. Vancomycin de-escalated as gram negative rods growing. UO is also decreasing Current Medications Current Medications Medications: Home Medications baclofen 20 mg tablet 20 mg PO TID MS 06/19/18 [History Confirmed 03/23/22] citalopram 40 mg tablet 40 mg PO QAM depression 06/19/18 [History Confirmed 03/23/22] tamsulosin 0.4 mg capsule 0.8 mg PO QPM BPH w/ Obstruction 06/19/18 [History Confirmed 03/23/22] amitriptyline 100 mg tablet 100 mg PO BEDTIME 10/21/20 [History Confirmed 03/23] docusate sodium 100 mg capsule 200 mg PO BEDTIME constipation 10/21/20 [History Confirmed 03/23/22] hydrocodone 5 mg-acetaminophen 325 mg tablet 1 tab PO Q4H PRN Pain (Scale Score 4-6) 10/21/20 [History Confirmed 03/23/22] hydrocodone 5 mg-acetaminophen 325 mg tablet 2 tab PO Q4H PRN Pain (Scale Score 7-10) 10/21/20 [History Confirmed 03/23/22] omeprazole 20 mg capsule,delayed release 20 mg PO QAM GERD 10/21/20 [History Confirmed 03/23/22] ergocalciferol (vitamin D2) 50,000 unit tablet 50,000 unit PO QWEEK 05/08/21 [History Confirmed 03/23/22] melatonin 3 mg tablet 3 mg PO BEDTIME 05/08/21 [History Confirmed 03/23/22] acetaminophen 325 mg capsule (Tylenol) 650 mg PO Q4H PRN Pain (Scale Score 1-3) 03/23/22 [History Confirmed 03/23/22] ibuprofen 800 mg tablet 800 mg PO Q6H PRN Pain (Scale Score 4-6) 03/23/22 [History Confirmed 03/23/22] nystatin 100,000 unit/gram topical cream 1 applic topical BID 03/23/22 [History Confirmed 03/23/22] ondansetron 4 mg disintegrating tablet 4 mg PO Q6H PRN Nausea 03/23/22 [History Confirmed 03/23/22] Visit Medications (administered) Generic Name Dose Route Start Last Admin Trade Name Freq PRN Reason Stop Dose Admin Acetaminophen 650 mg 03/23/22 10:35 03/23/22 15:42 Acetaminophen 325 Mg Tablet PO 650 mg Q6HR PRN Administration Fever/Mild Pain (1-3) Acetaminophen 650 mg 03/23/22 18:29 03/24/22 08:45 Acetaminophen 650 Mg Supp [place] 650 mg Q6HR PRN Administration Fever/Mild Pain (1-3) Chlorhexidine Gluconate 15 ml 03/24/22 00:00 03/24/22 12:09 Chlorhexidine Gluconate 15 Ml Cup PO 15 ml Q6HR ROBERTO Administration Famotidine 20 mg 03/23/22 21:00 03/24/22 08:29 Famotidine 20 Mg/2 Ml Vial IV 20 mg BID ROBERTO Administration Hydrocortisone 100 mg 03/24/22 09:00 03/24/22 08:29 Hydrocortisone 100 Mg/2 Ml Vial IV 100 mg TID ROBERTO Administration Propofol 1,000 mg in 100 mls @ 3.919 mls/hr 03/23/22 19:30 03/24/22 11:04 Propofol IV 10 mcg/kg/min TITRATE ROBERTO 7.838 mls/hr Administration Protocol 5 MCG/KG/MIN Fentanyl 1,000 mcg/ Dextrose 250 mls @ 22.861 mls/hr 03/23/22 19:30 03/24/22 02:50 IV 0.4 mcg/kg/hr TITRATE ROBERTO 13.064 mls/hr Titration Protocol 0.7 MCG/KG/HR Sodium Chloride 1,000 mls @ 150 mls/hr 03/23/22 20:15 03/24/22 10:00 Normal Saline 0.9% IV 150 mls/hr CONT ROBERTO Administration NOREPINEPHRINE BITARTRATE/D5W 4 mg in 250 mls @ 30 mls/hr 03/23/22 21:48 03/24/22 12:00 Levophed IV 20 mcg/min TITRATE ROBERTO 75 mls/hr Titration Protocol 8 MCG/MIN Meropenem 1 gm/ Sodium 100 mls @ 200 mls/hr 03/24/22 04:00 03/24/22 12:08 Chloride IV 200 mls/hr Q8H ROBERTO Administration Vasopressin 40 unit/ Sodium 102 mls @ 4.5 mls/hr 03/24/22 01:15 03/24/22 02:00 Chloride IV 4.5 mls/hr CONT ROBERTO Administration Insulin Human Regular 4 unit 03/24/22 09:45 03/24/22 10:23 Insulin Regular 100 Unit/Ml 3 Ml Vial SUBCUT 4 unit Q6H ROBERTO Administration Objective Ventilator Parameters: Ventilator Settings FiO2 65 RT Vent Frequency 20 Ventilator Tidal Volume 510 Exhaled Positive End Expiratory 5 Pressure Inspiratory Phase Time 0.9 I:E Ratio 1:1.4 Patient Position HOB >= 30 degrees Labs Result Diagrams: 03/24/22 05:45 03/24/22 05:45 Labs: Laboratory Results - last 24 hr 03/23/22 03/23/22 03/23/22 07:37 19:00 20:28 WBC RBC Hgb Hct MCV MCH MCHC RDW Plt Count Neut % (Auto) Lymph % (Auto) [place] % (Auto) Eos % (Auto) Baso % (Auto) Lymph # (Auto) [place] # (Auto) Baso # (Auto) Total Counted Seg Neutrophils % Band Neutrophils % Lymphocytes % (Manual) Atypical Lymphs % Monocytes % (Manual) Neutrophils # (Manual) RBC Morphology ABG pH 7.42 ABG pCO2 27.6 L ABG pO2 272 H* ABG HCO3 18 L ABG Total CO2 19 L ABG O2 Saturation 100 ABG Base Excess -7.0 L FiO2 100 Sodium Potassium Chloride Carbon Dioxide BUN Creatinine Estimated GFR BUN/Creatinine Ratio Glucose Lactate Calcium Magnesium Total Bilirubin AST ALT Alkaline Phosphatase NT-Pro-B Natriuret Pep Total Protein Albumin Globulin Albumin/Globulin Ratio Nasal Screen MRSA (PCR) Negative for mrsa A. baumannii (PCR) Not detected Elsy albicans (PCR) Not detected C. glabrata (PCR) Not detected C. krusei (PCR) Not detected C. parapsilosis (PCR) Not detected C. tropicalis (PCR) Not detected Enterobacteriac sp PCR Detected H E. cloacae complex PCR Not detected Enterococcus sp PCR Not detected E. coli (PCR) Not detected H. influenzae (PCR) Not detected Klebsiella oxytoca PCR Not detected Klebsiella pneumoniae Not detected List. monocytogenes PCR Not detected N. meningitidis (PCR) Not detected Proteus species (PCR) Detected H Serratia marcescens PCR Not detected Staphylococcus sp PCR Not detected Staph aureus (PCR) Not detected mecA-Methicil Res Gene Not Reportable Streptococcus sp PCR Not detected Group A Strep (PCR) Not detected Strep agalactiae (PCR) Not detected Strep pneumoniae (PCR) Not detected P. aeruginosa (PCR) Not detected Matteo/B-Vanco Res Genes Not Reportable KPC-Carbap Res Gene PCR Not detected 03/23/22 03/23/22 03/24/22 22:25 22:25 00:56 WBC RBC Hgb Hct MCV MCH MCHC RDW Plt Count Neut % (Auto) Lymph % (Auto) [place] % (Auto) Eos % (Auto) Baso % (Auto) Lymph # (Auto) [place] # (Auto) Baso # (Auto) Total Counted Seg Neutrophils % Band Neutrophils % Lymphocytes % (Manual) Atypical Lymphs % Monocytes % (Manual) Neutrophils # (Manual) RBC Morphology ABG pH 7.37 ABG pCO2 23.7 L* ABG pO2 203 H ABG HCO3 14 L ABG Total CO2 14 L ABG O2 Saturation 100 ABG Base Excess -12.0 L FiO2 80 Sodium 132 L Potassium 3.0 L Chloride 103 Carbon Dioxide 18 L BUN 15 Creatinine 1.22 Estimated GFR > 60 BUN/Creatinine Ratio 12.3 Glucose 267 H Lactate Calcium 7.7 L Magnesium Total Bilirubin 2.9 H AST 81 H ALT 46 Alkaline Phosphatase 235 H D NT-Pro-B Natriuret Pep 871 H Total Protein 5.7 L Albumin 3.0 L Globulin 2.7 Albumin/Globulin Ratio 1.1 Nasal Screen MRSA (PCR) A. baumannii (PCR) Elsy albicans (PCR) C. glabrata (PCR) C. krusei (PCR) C. parapsilosis (PCR) C. tropicalis (PCR) Enterobacteriac sp PCR E. cloacae complex PCR Enterococcus sp PCR E. coli (PCR) H. influenzae (PCR) Klebsiella oxytoca PCR Klebsiella pneumoniae List. monocytogenes PCR N. meningitidis (PCR) Proteus species (PCR) Serratia marcescens PCR Staphylococcus sp PCR Staph aureus (PCR) mecA-Methicil Res Gene Streptococcus sp PCR Group A Strep (PCR) Strep agalactiae (PCR) Strep pneumoniae (PCR) P. aeruginosa (PCR) Matteo/B-Vanco Res Genes KPC-Carbap Res Gene PCR 03/24/22 03/24/22 03/24/22 01:10 02:40 05:45 WBC 27.1 H RBC 4.85 Hgb 13.7 Hct 40.5 L MCV 83.7 MCH 28.2 MCHC 33.7 RDW 15.2 H Plt Count 50 L Neut % (Auto) Not Reportable Lymph % (Auto) Not Reportable [place] % (Auto) Not Reportable Eos % (Auto) Not Reportable Baso % (Auto) Not Reportable Lymph # (Auto) Not Reportable [place] # (Auto) Not Reportable Baso # (Auto) Not Reportable Total Counted 100 Seg Neutrophils % 91.0 H Band Neutrophils % 3.0 Lymphocytes % (Manual) 3.0 L Atypical Lymphs % 1.0 H Monocytes % (Manual) 2.0 Neutrophils # (Manual) 80604 H RBC Morphology Normal morphology ABG pH ABG pCO2 ABG pO2 ABG HCO3 ABG Total CO2 ABG O2 Saturation ABG Base Excess FiO2 Sodium 133 L Potassium 3.3 L Chloride 105 Carbon Dioxide 15 L BUN 16 Creatinine 1.51 H Estimated GFR 56 L BUN/Creatinine Ratio 10.6 Glucose 275 H Lactate 4.7 H* Calcium 7.0 L Magnesium 1.4 L Total Bilirubin 3.8 H AST 213 H ALT 86 H Alkaline Phosphatase 135 H NT-Pro-B Natriuret Pep Total Protein 5.1 L Albumin 2.6 L Globulin 2.5 Albumin/Globulin Ratio 1.0 Nasal Screen MRSA (PCR) A. baumannii (PCR) Elsy albicans (PCR) C. glabrata (PCR) C. krusei (PCR) C. parapsilosis (PCR) C. tropicalis (PCR) Enterobacteriac sp PCR E. cloacae complex PCR Enterococcus sp PCR E. coli (PCR) H. influenzae (PCR) Klebsiella oxytoca PCR Klebsiella pneumoniae List. monocytogenes PCR N. meningitidis (PCR) Proteus species (PCR) Serratia marcescens PCR Staphylococcus sp PCR Staph aureus (PCR) mecA-Methicil Res Gene Streptococcus sp PCR Group A Strep (PCR) Strep agalactiae (PCR) Strep pneumoniae (PCR) P. aeruginosa (PCR) Matteo/B-Vanco Res Genes KPC-Carbap Res Gene PCR 03/24/22 03/24/22 03/24/22 05:45 05:45 05:45 WBC RBC Hgb Hct MCV MCH MCHC RDW Plt Count Neut % (Auto) Lymph % (Auto) [place] % (Auto) Eos % (Auto) Baso % (Auto) Lymph # (Auto) [place] # (Auto) Baso # (Auto) Total Counted Seg Neutrophils % Band Neutrophils % Lymphocytes % (Manual) Atypical Lymphs % Monocytes % (Manual) Neutrophils # (Manual) RBC Morphology ABG pH ABG pCO2 ABG pO2 ABG HCO3 ABG Total CO2 ABG O2 Saturation ABG Base Excess FiO2 Sodium 132 L Potassium 3.6 Chloride 105 Carbon Dioxide 14 L BUN 16 Creatinine 1.63 H Estimated GFR 51 L BUN/Creatinine Ratio 9.8 Glucose 300 H Lactate 4.8 H* Calcium 6.9 L Magnesium 1.8 Total Bilirubin 4.3 H AST 433 H ALT 153 H Alkaline Phosphatase 106 NT-Pro-B Natriuret Pep Total Protein 5.0 L Albumin 2.5 L Globulin 2.5 Albumin/Globulin Ratio 1.0 Nasal Screen MRSA (PCR) A. baumannii (PCR) Elsy albicans (PCR) C. glabrata (PCR) C. krusei (PCR) C. parapsilosis (PCR) C. tropicalis (PCR) Enterobacteriac sp PCR E. cloacae complex PCR Enterococcus sp PCR E. coli (PCR) H. influenzae (PCR) Klebsiella oxytoca PCR Klebsiella pneumoniae List. monocytogenes PCR N. meningitidis (PCR) Proteus species (PCR) Serratia marcescens PCR Staphylococcus sp PCR Staph aureus (PCR) mecA-Methicil Res Gene Streptococcus sp PCR Group A Strep (PCR) Strep agalactiae (PCR) Strep pneumoniae (PCR) P. aeruginosa (PCR) Matteo/B-Vanco Res Genes KPC-Carbap Res Gene PCR Exam Vital Signs (past 8 hours): - 03/24/22 05:01 03/24/22 05:01 03/24/22 05:16 Temperature Pulse Rate 129 H Respiratory Rate 32 H Blood Pressure 95/57 L 83/51 L Pulse Oximetry Fraction of Inspired Oxygen 03/24/22 05:16 03/24/22 05:20 03/24/22 06:00 Temperature Pulse Rate 130 H 130 H Respiratory Rate 26 H 26 H Blood Pressure Pulse Oximetry 98 98 Fraction of Inspired Oxygen 0.75 03/24/22 06:00 03/24/22 05:27 03/24/22 05:27 Temperature 100.7 F H Pulse Rate 130 H Respiratory Rate 25 H Blood Pressure 101/66 Pulse Oximetry 99 Fraction of Inspired Oxygen 0.75 03/24/22 05:30 03/24/22 05:30 03/24/22 05:45 Temperature Pulse Rate 130 H Respiratory Rate 25 H Blood Pressure 101/71 103/72 Pulse Oximetry 98 Fraction of Inspired Oxygen 03/24/22 05:45 03/24/22 05:59 03/24/22 06:00 Temperature Pulse Rate 130 H 133 H Respiratory Rate 24 26 H Blood Pressure 99/70 Pulse Oximetry 98 98 Fraction of Inspired Oxygen 03/24/22 06:00 03/24/22 06:15 03/24/22 06:15 Temperature Pulse Rate 133 H 134 H Respiratory Rate 25 H 25 H Blood Pressure 106/72 Pulse Oximetry 98 98 Fraction of Inspired Oxygen 03/24/22 06:31 03/24/22 06:31 03/24/22 06:45 Temperature Pulse Rate 134 H Respiratory Rate 24 Blood Pressure 107/66 109/63 Pulse Oximetry 98 Fraction of Inspired Oxygen 03/24/22 06:45 03/24/22 07:00 03/24/22 07:00 Temperature Pulse Rate 134 H 135 H Respiratory Rate 24 26 H Blood Pressure 103/67 Pulse Oximetry 97 97 Fraction of Inspired Oxygen 03/24/22 07:16 03/24/22 07:16 03/24/22 07:30 Temperature Pulse Rate 137 H Respiratory Rate 24 Blood Pressure 114/65 116/74 Pulse Oximetry 97 Fraction of Inspired Oxygen 03/24/22 07:30 03/24/22 07:35 03/24/22 07:55 Temperature 101.5 F H Pulse Rate 138 H 140 H Respiratory Rate 25 H 25 H Blood Pressure Pulse Oximetry 97 95 Fraction of Inspired Oxygen 65 03/24/22 09:15 03/24/22 07:45 03/24/22 07:45 Temperature 102.9 F H Pulse Rate 140 H Respiratory Rate 25 H Blood Pressure 115/68 Pulse Oximetry 95 Fraction of Inspired Oxygen 65 03/24/22 08:00 03/24/22 08:00 03/24/22 08:15 Temperature 101.5 F H Pulse Rate 141 H 143 H Respiratory Rate 25 H 26 H Blood Pressure 107/62 Pulse Oximetry 95 95 Fraction of Inspired Oxygen 03/24/22 08:15 03/24/22 08:30 03/24/22 08:30 Temperature Pulse Rate 143 H Respiratory Rate 26 H Blood Pressure 111/68 111/70 Pulse Oximetry 96 Fraction of Inspired Oxygen 03/24/22 08:45 03/24/22 08:45 03/24/22 09:00 Temperature Pulse Rate 143 H Respiratory Rate 26 H Blood Pressure 112/72 114/80 Pulse Oximetry 96 Fraction of Inspired Oxygen 03/24/22 09:00 03/24/22 10:41 03/24/22 09:15 Temperature 102.3 F H 104.6 F H Pulse Rate 142 H 144 H Respiratory Rate 26 H 23 Blood Pressure 114/77 Pulse Oximetry 95 98 Fraction of Inspired Oxygen 03/24/22 09:15 03/24/22 09:30 03/24/22 09:30 Temperature Pulse Rate 144 H 144 H Respiratory Rate 26 H 24 Blood Pressure 112/67 Pulse Oximetry 96 96 Fraction of Inspired Oxygen 03/24/22 09:45 03/24/22 09:45 03/24/22 10:00 Temperature Pulse Rate 144 H Respiratory Rate 26 H Blood Pressure 107/62 112/67 Pulse Oximetry 97 Fraction of Inspired Oxygen 03/24/22 10:00 03/24/22 10:15 03/24/22 10:15 Temperature Pulse Rate 144 H 144 H Respiratory Rate 25 H 25 H Blood Pressure 106/71 Pulse Oximetry 97 97 Fraction of Inspired Oxygen 03/24/22 10:30 03/24/22 10:30 03/24/22 10:45 Temperature Pulse Rate 144 H Respiratory Rate 23 Blood Pressure 105/71 102/63 Pulse Oximetry 98 Fraction of Inspired Oxygen 03/24/22 10:45 03/24/22 10:55 03/24/22 11:00 Temperature Pulse Rate 143 H 143 H Respiratory Rate 21 26 H Blood Pressure 97/56 L Pulse Oximetry 98 98 Fraction of Inspired Oxygen 03/24/22 11:00 03/24/22 11:15 03/24/22 11:15 Temperature Pulse Rate 143 H 143 H Respiratory Rate 23 29 H Blood Pressure 95/56 L Pulse Oximetry 98 98 Fraction of Inspired Oxygen 03/24/22 11:30 03/24/22 11:30 Temperature Pulse Rate 143 H Respiratory Rate 29 H Blood Pressure 97/54 L Pulse Oximetry 97 Fraction of Inspired Oxygen Fraction of Inspired Oxygen 65 Oxygen Delivery Method Mechanical Ventilation Oxygen Flow Rate 0 Narrative Exam Narrative: surrogate for exam is primary team Quality TeleICU VTE Deep Vein Thrombosis/Pulmonary Embolism Present on Admission: No Assessment & Plan Assessment & Plan narrative: cute metabolic encephalopathy severe sepsis 2/2 to uti septic shock urinary retention acute resp faliure gram negative bacteremia currently afebrile, HR 140s BP labile onm 3 pressors intubated and sedated wbc 19 CT head -ve UA +ve cxs +ve for gram -ve baccili suggest -neurochecks/seizure precatuions -cooling blanket/tylenol as needed -goal RASS -1 -vent support - LTVV -trend ABG - f/u final speciation and sensitivities -on meropenem -monitor ins/outs -stress dose steroids - reg inuslin q6 hrs -replace elytes prn -keep glucose [id number] -gi/dvt ppx -please call eICU if condition changes total critical care time 42 min Time Spent With Patient Critical Care time: I spent a total of [] minutes of critical care time on this patient's care today; this time is exclusive of procedural time.
[2022-03-24] MEDS: SODIUM CHLORIDE 0.9% 500 ML 1000 ML IV (13:00)
[2022-03-24] MEDS: PHENYLEPHRINE 20,000 MCG in DEXTROSE 5% IN WATER 250 ML 75 MCG IV (13:03)
--- NOTE | 2022-03-24 13:09 | PC.NURSE ---
Addendum entered by Jamshid Seay R.N. 03/24/22 16:26: After NS 500cc IV bolus and LR 1L IV bolus were completed, patient's blood pressure continues to decrease,and per Dr. Gaines we will continue to monitor and continue treatment only as family wishes. Patient's family, including his daughters, his sister, and his mother at bedside. Patient's mother and family in agreement they would like to stop medications and see patient's face without breathing tube. 1440 noted at 58/31 (map 39). Respiratory was at bedside to extubate patient per family's wishes. Patient at 1447. Dr Gaines notifed, and in to see patient and check no family. Briana at bedside and laying in honor ceremony completed per patient's wishes. Per Tsering home is [facility] [place]. No belongings noted with patient. Original Note: Phenylephrine started as ordered at 100mcg/minute. Art line pressures continue to decrease and Dr Gaines called to bedside to evaluate patient. Temp spiked to 105 temporal/ 106F axillary per [employer]. Cooling measures in place, and multiple new ice bags to patient placed. Patient's mother Tsering (DPOA) also at bedside and discussing goals of care with Dr. Gaines. Tsering does not wish patient to have CPR or chest compressions should his heart stop and she discussed that with Dr. Gaines. Normal saline bolus 500cc given from current bag of fluid. 1L LR bolus started. Propofol was paused/stopped at 1315. ICU nurse Hamida and Dr. Gaines note no pupillary response at this time.
[2022-03-24] MEDS: LACTATED RINGERS 1,000 ML 1000 ML IV (13:25)
--- NOTE | 2022-03-24 15:37 | CM.DPNOTE ---
Discharge Planning Note: Family in with patient, patient intubated and on multiple IV meds that are being discontinued per nursing and is expected to pass here. Provided support earlier to family. Jovita Anaya RN/DCP
--- NOTE | 2022-03-24 15:47 | P.DN_ITS ---
Discharge Summary History of Illness Narrative: Per Dr. Almazan, Ranjan Kemp is a 51-year-old male with medical history of chronic multiple sclerosis, previous CVA with left-sided deficits, chronic urinary retention, morbid obesity, depression, and GERD who presented from [facility] for urinary retention, fevers to 103 F and increased confusion.? Is a very poor historian and appears to be encephalopathic so provide any meaningful history.? Is currently alert but very easily distracted and disoriented saying the year was 2020 and he was currently in [place].? Apparently in the ED he had left-sided weakness which was unknown if chronic so a CT head done which showed a focal density in the left temporal lobe which may represent artifact though could be subacute infarction.? Also showed remote left cerebellar infarction.? Brain MRI showed periventricular white matter changes and no acute ischemia but significant motion limited evaluation.? UA showed 300 WBCs and culture growing Gram-negative rods.? CT abdomen showed 3 mm right renal stone at the renal pelvis without hydronephrosis.? Patient was febrile to 103.2 F and tachycardic in the 130s.? Was satting well on room air with normal blood pressure.? Patient received Ativan 2 mg IV to obtain CTA head and neck to rule out LVO which showed no evidence of this. Addendum:? After are patient's confusion worsen and tachycardic into the 150s with a temperature of 104? F.? He was transferred to the ICU where he became increasingly unresponsive so the decision was made to intubate.? Patient was yeager ccessfully intubated and given doses of metoprolol IV heart rate. Hospital Course Date of Admission: 03/23/22 09:59 Primary care provider: *ED Temp* Consults: 03/23/22 19:14 Consult to Tele-transitions rn care coordinator Routine Comment: Consulting Provider: [employer] Reason for consultation: Hearing Healthcare Practitioner services Discharge Diagnosis: # acute septic shock secondary to pyelonephritis with a proteus bacteremia, with acute respiratory failure with hypoxia, hepatopathy, acute renal failure, and acute metabolic encephalopathy. # right renal pelvis kidney stone without hydronephrosis, urinary retention # multiple sclerosis, chronic # possible SVT # prior cerebellar stroke Hospital Course: This is a 51 year old male admitted with septic shock. He was quite ill on admission with high fevers and encephalopathy and declined shortly after arrival to the hospital floor. Patient was intubated and transferred to the ICU given declining mental status and multiorgan failure noted above in the dishcarge diagnoses section. He continued to decline after transfer to the ICU. Patient on the day after admission was on max dose of 3 pressor medications, with MAP <40 despite multiple fluid boluses and pressor medications. He initially was full code. While on these medications, patient had continued mental status decline and his pupils were non-reactive. Code status was re-addressed with patient's surrogate decision maker at bedside, and patient was made DNR given poor prognosis. Shortly after this, family requested withdrawal of pressor support and to be extubated with primary goal of comfort. He passed shortly after palliative extubation. His blood cultures were positive for proteus, and urine culture with proteus mirablis, which are the cause of his presenting septic shock. Time spent with patient and family: >30 minutes. Objective Labs Result Diagrams: 03/24/22 05:45 03/24/22 05:45 Labs: Laboratory Results - last 24 hr 03/23/22 03/23/22 03/23/22 07:37 19:00 20:28 WBC RBC Hgb Hct MCV MCH MCHC RDW Plt Count Neut % (Auto) Lymph % (Auto) Parmer % (Auto) Eos % (Auto) Baso % (Auto) Lymph # (Auto) Parmer # (Auto) Baso # (Auto) Total Counted Seg Neutrophils % Band Neutrophils % Lymphocytes % (Manual) Atypical Lymphs % Monocytes % (Manual) Neutrophils # (Manual) RBC Morphology ABG pH 7.42 ABG pCO2 27.6 L ABG pO2 272 H* ABG HCO3 18 L ABG Total CO2 19 L ABG O2 Saturation 100 ABG Base Excess -7.0 L FiO2 100 Sodium Potassium Chloride Carbon Dioxide BUN Creatinine Estimated GFR BUN/Creatinine Ratio Glucose Lactate Calcium Magnesium Total Bilirubin AST ALT Alkaline Phosphatase NT-Pro-B Natriuret Pep Total Protein Albumin Globulin Albumin/Globulin Ratio Nasal Screen MRSA (PCR) Negative for mrsa A. baumannii (PCR) Not detected Elsy albicans (PCR) Not detected C. glabrata (PCR) Not detected C. krusei (PCR) Not detected C. parapsilosis (PCR) Not detected C. tropicalis (PCR) Not detected Enterobacteriac sp PCR Detected H E. cloacae complex PCR Not detected Enterococcus sp PCR Not detected E. coli (PCR) Not detected H. influenzae (PCR) Not detected Klebsiella oxytoca PCR Not detected Klebsiella pneumoniae Not detected List. monocytogenes PCR Not detected N. meningitidis (PCR) Not detected Proteus species (PCR) Detected H Serratia marcescens PCR Not detected Staphylococcus sp PCR Not detected Staph aureus (PCR) Not detected mecA-Methicil Res Gene Not Reportable Streptococcus sp PCR Not detected Group A Strep (PCR) Not detected Strep agalactiae (PCR) Not detected Strep pneumoniae (PCR) Not detected P. aeruginosa (PCR) Not detected Matteo/B-Vanco Res Genes Not Reportable KPC-Carbap Res Gene PCR Not detected 03/23/22 03/23/22 03/24/22 22:25 22:25 00:56 WBC RBC Hgb Hct MCV MCH MCHC RDW Plt Count Neut % (Auto) Lymph % (Auto) Parmer % (Auto) Eos % (Auto) Baso % (Auto) Lymph # (Auto) Parmer # (Auto) Baso # (Auto) Total Counted Seg Neutrophils % Band Neutrophils % Lymphocytes % (Manual) Atypical Lymphs % Monocytes % (Manual) Neutrophils # (Manual) RBC Morphology ABG pH 7.37 ABG pCO2 23.7 L* ABG pO2 203 H ABG HCO3 14 L ABG Total CO2 14 L ABG O2 Saturation 100 ABG Base Excess -12.0 L FiO2 80 Sodium 132 L Potassium 3.0 L Chloride 103 Carbon Dioxide 18 L BUN 15 Creatinine 1.22 Estimated GFR > 60 BUN/Creatinine Ratio 12.3 Glucose 267 H Lactate Calcium 7.7 L Magnesium Total Bilirubin 2.9 H AST 81 H ALT 46 Alkaline Phosphatase 235 H D NT-Pro-B Natriuret Pep 871 H Total Protein 5.7 L Albumin 3.0 L Globulin 2.7 Albumin/Globulin Ratio 1.1 Nasal Screen MRSA (PCR) A. baumannii (PCR) Elsy albicans (PCR) C. glabrata (PCR) C. krusei (PCR) C. parapsilosis (PCR) C. tropicalis (PCR) Enterobacteriac sp PCR E. cloacae complex PCR Enterococcus sp PCR E. coli (PCR) H. influenzae (PCR) Klebsiella oxytoca PCR Klebsiella pneumoniae List. monocytogenes PCR N. meningitidis (PCR) Proteus species (PCR) Serratia marcescens PCR Staphylococcus sp PCR Staph aureus (PCR) mecA-Methicil Res Gene Streptococcus sp PCR Group A Strep (PCR) Strep agalactiae (PCR) Strep pneumoniae (PCR) P. aeruginosa (PCR) Matteo/B-Vanco Res Genes KPC-Carbap Res Gene PCR 03/24/22 03/24/22 03/24/22 01:10 02:40 05:45 WBC 27.1 H RBC 4.85 Hgb 13.7 Hct 40.5 L MCV 83.7 MCH 28.2 MCHC 33.7 RDW 15.2 H Plt Count 50 L Neut % (Auto) Not Reportable Lymph % (Auto) Not Reportable Parmer % (Auto) Not Reportable Eos % (Auto) Not Reportable Baso % (Auto) Not Reportable Lymph # (Auto) Not Reportable Parmer # (Auto) Not Reportable Baso # (Auto) Not Reportable Total Counted 100 Seg Neutrophils % 91.0 H Band Neutrophils % 3.0 Lymphocytes % (Manual) 3.0 L Atypical Lymphs % 1.0 H Monocytes % (Manual) 2.0 Neutrophils # (Manual) 73625 H RBC Morphology Normal morphology ABG pH ABG pCO2 ABG pO2 ABG HCO3 ABG Total CO2 ABG O2 Saturation ABG Base Excess FiO2 Sodium 133 L Potassium 3.3 L Chloride 105 Carbon Dioxide 15 L BUN 16 Creatinine 1.51 H Estimated GFR 56 L BUN/Creatinine Ratio 10.6 Glucose 275 H Lactate 4.7 H* Calcium 7.0 L Magnesium 1.4 L Total Bilirubin 3.8 H AST 213 H ALT 86 H Alkaline Phosphatase 135 H NT-Pro-B Natriuret Pep Total Protein 5.1 L Albumin 2.6 L Globulin 2.5 Albumin/Globulin Ratio 1.0 Nasal Screen MRSA (PCR) A. baumannii (PCR) Elsy albicans (PCR) C. glabrata (PCR) C. krusei (PCR) C. parapsilosis (PCR) C. tropicalis (PCR) Enterobacteriac sp PCR E. cloacae complex PCR Enterococcus sp PCR E. coli (PCR) H. influenzae (PCR) Klebsiella oxytoca PCR Klebsiella pneumoniae List. monocytogenes PCR N. meningitidis (PCR) Proteus species (PCR) Serratia marcescens PCR Staphylococcus sp PCR Staph aureus (PCR) mecA-Methicil Res Gene Streptococcus sp PCR Group A Strep (PCR) Strep agalactiae (PCR) Strep pneumoniae (PCR) P. aeruginosa (PCR) Matteo/B-Vanco Res Genes KPC-Carbap Res Gene PCR 03/24/22 03/24/22 03/24/22 05:45 05:45 05:45 WBC RBC Hgb Hct MCV MCH MCHC RDW Plt Count Neut % (Auto) Lymph % (Auto) Parmer % (Auto) Eos % (Auto) Baso % (Auto) Lymph # (Auto) Parmer # (Auto) Baso # (Auto) Total Counted Seg Neutrophils % Band Neutrophils % Lymphocytes % (Manual) Atypical Lymphs % Monocytes % (Manual) Neutrophils # (Manual) RBC Morphology ABG pH ABG pCO2 ABG pO2 ABG HCO3 ABG Total CO2 ABG O2 Saturation ABG Base Excess FiO2 Sodium 132 L Potassium 3.6 Chloride 105 Carbon Dioxide 14 L BUN 16 Creatinine 1.63 H Estimated GFR 51 L BUN/Creatinine Ratio 9.8 Glucose 300 H Lactate 4.8 H* Calcium 6.9 L Magnesium 1.8 Total Bilirubin 4.3 H AST 433 H ALT 153 H Alkaline Phosphatase 106 NT-Pro-B Natriuret Pep Total Protein 5.0 L Albumin 2.5 L Globulin 2.5 Albumin/Globulin Ratio 1.0 Nasal Screen MRSA (PCR) A. baumannii (PCR) Elsy albicans (PCR) C. glabrata (PCR) C. krusei (PCR) C. parapsilosis (PCR) C. tropicalis (PCR) Enterobacteriac sp PCR E. cloacae complex PCR Enterococcus sp PCR E. coli (PCR) H. influenzae (PCR) Klebsiella oxytoca PCR Klebsiella pneumoniae List. monocytogenes PCR N. meningitidis (PCR) Proteus species (PCR) Serratia marcescens PCR Staphylococcus sp PCR Staph aureus (PCR) mecA-Methicil Res Gene Streptococcus sp PCR Group A Strep (PCR) Strep agalactiae (PCR) Strep pneumoniae (PCR) P. aeruginosa (PCR) Matteo/B-Vanco Res Genes KPC-Carbap Res Gene PCR
== END 2022-03-24 17:15 | disposition expired | DRG 871 ==
LOC: ED 09:00 → AC 10:00 → ICU 18:58
PROVIDERS: Nurse Practitioner Family; Admitting Provider Student in an Organized Health Care Education/Training Program; Emergency Provider Emergency Medicine; Referring Provider Emergency Medicine; Visit Provider Student in an Organized Health Care Education/Training Program
DX: A41.59 Other Gram-negative sepsis (principal); G93.41 Metabolic encephalopathy; R65.21 Severe sepsis with septic shock; J96.00 Acute respiratory failure, unspecified whether with hypoxia or hypercapnia; N13.6 Pyonephrosis; I69.354 Hemiplegia and hemiparesis following cerebral infarction affecting left non-dominant side; B96.4 Proteus (mirabilis) (morganii) as the cause of diseases classified elsewhere; R33.9 Retention of urine, unspecified; G35 Multiple sclerosis; Z87.891 Personal history of nicotine dependence; Z20.822 Contact with and (suspected) exposure to COVID-19
CPT/HCPCS: 36415; 36600; 70450; 70496; 70498; 70551; 71045; 74176; 80053; 81001; 82550; 82805; 82962; 83605; 83735; 83880; 84145; 84484; 85007; 85025; 87040; 87070; 87077; 87086; 87150; 87186; 87205; 87635; 87797; 93005; 94002; 94003; 94799; 96365; 96375; 99284; C9803; J0330; J1644; J1720; J2060; J2185; J2543; J2704; J3010; J3360; J3475; Q9967